=== PATIENT | female | born 1965 | race Caucasian/White ===

== ENCOUNTER 2016-10-31 12:17 | Inpatient (IN) ==
[2016-10-31] MEDS ORDERED: CeFAZolin Pre 3,000 MG/100 ML 3,000 MG/100 ML BAG IVPB ONE (13:05)
--- NOTE | 2016-10-31 13:09 | Anesthesia Evaluation PreOp ---
Date of Encounter: 10/31/16 Time of Encounter: 13:07 - Past History Planned Operation: Lap cholecystectomy, liver bx Cardiac History: HTN, Hyperlipidemia, Arrhythmia (atrial fibrillation s/p multiple cardioversions; also s/p MAZE procedure during mitral valve replacement ), Cardiac Surgery (mechanical mitral valve replacement 2 years ago) Pulmonary History: LAZ Dx Other Medical History: Hepatic (cirrhosis), Diabetes Type II ("pre-diabetes"), Other (BMI 63) Anesthesia History: No Prior Anesthetic Complications Alcohol Use: none Drug use: none Medications and Allergies Furosemide [Lasix] 80 mg PO QAM 11/20/14 [History] Potassium Chloride 80 meq PO QPM 11/20/14 [History] Sertraline [Zoloft] 100 mg PO QPM 11/20/14 [History] Albuterol Sulfate [Ventolin Hfa] 2 puff IH Q4H PRN 01/12/15 [History] Aspirin Enteric Coated [Aspirin EC] 81 mg PO QPM 01/12/15 [History] Diltiazem CD (24hr) [Cardizem CD] 120 mg PO DAILY #30 cap.er.24h 01/14/15 [Rx] Celecoxib [Celebrex] 200 mg PO DAILY 09/02/15 [History] Metoprolol XL (24 HR) Succ [Toprol XL] 75 mg PO DAILY 09/02/15 [History] Warfarin [Coumadin] 5 mg PO DAILY 09/02/15 [History] Guaifenesin/Dm/Pseudoephedrine [Capmist Dm Tablet] 1 each PO BID #20 tablet 03/12 [Rx] cephALEXin [Keflex] 500 mg PO TID #21 capsule 05/08/16 [Rx] methylPREDNISolone [Medrol] 4 mg PO DAILY #21 tablet 05/08/16 [Rx] Tramadol HCl [Ultram] 50 mg PO BID PRN #10 tab 05/23/16 [Rx] cephALEXin [Keflex] 500 mg PO BID #14 capsule 05/28/16 [Rx] Allergies hydrochlorothiazide Allergy (Verified 10/31/16 12:44) Rash acetaminophen [From Tylenol] Adverse Reaction (Verified 10/31/16 12:44) Gastrointestinal Upset - Meds/Allergy Pre-op Review Medications Reviewed: Yes Allergies Reviewed: Yes Beta Blockers on Current Med List: Yes If Beta Blockers taken, Date/Time (Last Dose taken): 10-30-16 metoprolol xl 20:00 Anesthesia Results - Labs Laboratory Tests 10/17/16 10/25/16 10/26/16 14:45 13:45 16:06 WBC 7.0 Hgb 13.8 Hct 42.2 Plt Count 120 L PT 18.9 H Sodium 136 Potassium 4.2 Chloride 104 Carbon Dioxide 25 BUN 23 H Creatinine 0.96 Est GFR ( Amer) > 60 BUN/Creatinine Ratio 24 Glucose 226 H Calculated Osmolality 293 Calcium 9.6 Laboratory Tests 10/26/16 16:06 INR 1.7 coumadin stopped about 5 days ago; patient was bridged with lovenox which she last took yesterday evening - Imaging EKG: report reviewed, image reviewed (SR) Additional studies: TTE : LVEF normal mechanical mitral valve; no mitral regurgitation noted Anesthesia Exam Last Vital Signs Temp 98.2 F 10/31/16 13:09 Pulse 86 10/31/16 13:09 Resp 18 10/31/16 13:09 BP 148/84 10/31/16 13:09 Pulse Ox 97 10/31/16 13:09 Weight: 176 kg NPO (# of Hours): >> 8 hrs - HEENT Pupil (Motor): Pupils equal, EOMI Mallampati: III Teeth: Poor dentition Oral Opening: Greater than 3 - [facility] [employer] LOC: Oriented [facility] [employer] Motor: Normal RUE, Normal LUE, Normal RLE, Normal LLE, Normal Face - Cardiac Rhythm: Regular Murmur: None - Pulmonary Breath Sounds: bilateral Clear Respiratory Effort: Symmetrical Anesthesia Assess/Plan ASA Score: 4 Modified [place] Scale for Level of Consciousness: Cooperative, oriented, and tranquil Anesthetic Plan: General Monitoring Plan: Standard Monitors Recovery Plan: PACU
[2016-10-31] MEDS ORDERED: *HR* FentaNYL (PF) 100 MCG/2 ML VIAL ONE ×2 (13:11→16:36)
[2016-10-31] MEDS ORDERED: Lidocaine -MPF 4% 5 ML AMPUL ONE (13:11)
[2016-10-31] MEDS ORDERED: *HR* Propofol 200 MG/20 ML VIAL IVP ONE (13:11)
[2016-10-31] MEDS ORDERED: Ondansetron 4 MG/2 ML VIAL ONE (13:11)
[2016-10-31] MEDS ORDERED: Dexamethasone 4 MG/ML VIAL ONE (13:11)
[2016-10-31] MEDS ORDERED: *HR* Midazolam HCl 2 MG/2 ML VIAL ONE (13:11)
[2016-10-31] MEDS ORDERED: *HR* Succinylcholine 200 MG/10 ML VIAL IVP ONE (13:11)
[2016-10-31] MEDS ORDERED: Lidocaine -MPF 2% 2 ML VIAL ONE (13:11)
[2016-10-31] MEDS ORDERED: *HR* Rocuronium Bromide 50 MG/5 ML VIAL ONE (13:11)
[2016-10-31] MEDS ORDERED: Neostigmine Methylsulfate 3 MG/3 ML SYRINGE ONE (13:11)
[2016-10-31] MEDS ORDERED: Albuterol 2.5 MG/3 ML NEBULIZER IH ONE (13:21)
[2016-10-31] MEDS: Ringers Solution, Lactated 1,000 ML IVC SCH ×2 (13:47→18:38)
--- NOTE | 2016-10-31 14:11 | History & Physical Report ---
Date of Encounter: 10/31/16 Time of Encounter: 14:10 24 Hour HP Update - Instructions Instructions: If the History and Physical is less than 30 days old and was completed prior to A.M. admission and or procedure and has NOT been updated on calendar day of procedure please complete this update prior to performing procedure. - Update Patient reports changes in Medical Condition: No Changes in examination, assessment, or condition: No Changes in Medication: No Surgery Remains Indicated: Yes Consent for Planned Operative Procedure(s) Verified: Yes - Pre-Operative Checklist Prophylactic Antibiotic Ordered: Yes Home Medications Include Beta Michael: Yes Is VTE Prophylaxis Indicated?: Yes
[2016-10-31 15:52] LABS: INR 1.4; Prothrombin Time 14.9 Seconds (9.4-12.1)
[2016-10-31] MEDS ORDERED: *HR* Morphine 10 MG/ML VIAL ONE (16:38)
--- NOTE | 2016-10-31 17:21 | Operative Note ---
Date of procedure: 10/31/16 Pre-op diagnosis: symptomatic cholelithiasis, hepatitic steatosis Post-op diagnosis: same Procedure: laparoscopic converted to open cholecytectomy, liver biopsy Complications: none immediate Anesthesia: CECELIA Surgeon: Yanet Coulter Security Risk Analyst: Kelly Correa Estimated blood loss (cc): 50 Specimen: gallbladder, liver biopsy Condition: stable Disposition: PACU Procedure in Detail: Patient was brought into the operating suit and placed supine on the operating table. Sign in was performed. Anesthesia was idnuced and patient was endotracheally intubated by anesthesia, an ogt was placed. The abdomen was prepped and draped in the usual sterile fashion. Time out was performed. An incision with an 11 blade was made at the superior umbilical site. Towel clamps were placed on either side of the umbilicus and a veress needle was placed and a water drop test confirmed placement and the abdomen was insufflated. The abdomen was entered with a 5 mm 0 degree laparoscope on a 5 mm Xcel trocar. The area under entry was visualized and there was no apparent bowel injury and no bleeding. A 5 mm trocar was placed at the subxiphoid position under direct visualization after incising the skin with an 11 blade. A 5 mm trocar was placed at the right upper quadrant at the subcostal mid clavicular line. The laparoscope was placed through this trocar and the supraumbilical 5mm port was exchanged with a 12 mm port. The last 5 mm port was placed in right upper quadrant subcostal anterior almost anterior axillary line. Patient was placed in steep reverse trendelenburg left side down position. The dome of the gallbladder was grasped and retracted cephalad. The patient has cirrhosis and the liver was very firm and nonpliable. The gallbladder was intrahepatic. The infundibulum of the gallbladder was unable to be seen due to patients obesity and her large omentum. A 5mm port was placed in the left upper quadrant and a lap Debakey placed through this for gentle pressure on the omentum to facilitate visualization. Dissection at the medial and lateral aspects of the body of the gallbladder was done with the hook cautery. Despite mutliple attempts to visualize the infundibulum it was unable to be visualized due to the patients body habitus. The decision to go open was made. The trocars were removed. A kocker incision in the right upper quadrant including the previous port incisions was made with a 15 blade through the skin into the subcutaneous tissue. Dissection through the subcutaneous tissue to the anterior rectus fascia was done with the bovie. The anterior rectus fascia was opened and the rectus muscle split with the bovie. The posterior rectus fascia was opened and the abdominal incision elongated. The bookwalter was placed for retraction and exposure. The dome of the gallbladder was grasped with a Aure. Dome down dissection with the bovie was done. Once down near the area of the infundibulum dissection was done with the bovie and a right angle and gentle blunt dissection. Due to patients cirrhosis and intrahepatic gallbladder and body habitus dissecton was very difficult. The gallbladder was opened with Metzenbaum scissors to allow localization of the infundibulum. Small black gallstones were removed. The cystic artery was located and clipped proximally and distally with 5 mm hemoclips and was transected with Metzenbaum scissors. The cystic duct was located and contained several small stones proximally which were milked back a little with the right angle. Two hemoclips were placed distally and one proximally and it was transected with Metzenbaum scissors. The gallbladder was placed on the backtable for pathology. The right upper quadrant was irrigated with sterile saline. Using the bovie a 1 cm piece of liver edge was removed for liver biopsy. The bleeding was stopped with the bovie. Surgicel was placed at the patients gallbladder fossa. A 10 mm MEL drain was placed at the gallbladder fossa through the RUQ abdominal wall and secured with a 2-0 silk stitch. The peritoneum was closed with a 2-0 vicryl running stitch. The posterior rectus and transversus fascia was reapproximated with a #1 nonlooped PDS running stitch. The anterior rectus fascia was closed with a #1 nonlooped PDS running stitch. The subcutaneous tissue was irrigated with sterile saline. The subcutaneous tissue was reapproximated with 3-0 vicryl interrupted stitches. The skin was closed with grady. The abdominal wall at the 12mm suprumbilical port site was closed with a 0 vicryl figure of eight stitch. The skin was closed with grady. The subxiphoid and left upper quadrant port sites were closed at the skin with grady. Drain sponge and 4x4 gauze and tape were used as dressings. All lap and instrument counts were correct at the end of the case. The patient was awoken by anesthesia and extubated without incident. She was taken to pacu in stable condition.
[2016-10-31] MEDS: *HR* Promethazine 25 MG/ML VIAL IVP PRN ×2 (17:46→18:12)
[2016-10-31] MEDS: *HR* HYDROmorphone (PF) 1 MG/ML SYRINGE IVP PRN ×3 (18:19→22:07)
--- NOTE | 2016-10-31 19:12 | Anesthesia Evaluation Post Op ---
Date of Encounter: 10/31/16 Time of Encounter: 19:10 - Vital Signs Vital Signs: Vital Signs/O2 Sat/Glucose, Most Current Temp Pulse Resp BP Pulse Ox 10/31/16 18:49 98.0 F 84 17 128/71 97 10/31/16 18:39 81 19 135/89 99 10/31/16 18:29 84 16 127/79 99 10/31/16 18:19 98.0 F 83 19 151/97 100 10/31/16 18:09 82 20 145/99 99 10/31/16 17:59 80 21 146/88 99 10/31/16 17:49 98.1 F 80 20 144/81 98 10/31/16 17:45 24 154/89 97 10/31/16 17:39 79 18 154/89 94 10/31/16 17:29 79 20 150/81 93 10/31/16 17:19 98.5 F 77 18 142/84 94 - Lungs Lungs: Clear Ascult./Percussion - Airway Airway: Non-obstructed - Cardiovascular Regular Rate - Mental Status Mental Status: Alert & Oriented, Answers Appropriately - Pain Pain Scale: 0 - Nausea Vomiting Nausea Vomiting: Not Present - Hydration Hydration: Ice chips - Discharge PostOp Status: Transfer Patient to floor
[2016-10-31] MEDS ORDERED: Ondansetron 4 MG/2 ML VIAL IVP PRN (19:54)
[2016-10-31] MEDS ORDERED: *HR* Promethazine 25 MG/ML VIAL IVP PRN (19:54)
[2016-10-31] MEDS ORDERED: Naloxone 0.4 MG/ML INJ IVP PRN (19:54)
[2016-10-31] MEDS: ceFAZolin 3,000 MG in D5% in Water 100 ML IVPB SCH (22:39)
[2016-11-01] MEDS: *HR* HYDROmorphone (PF) 1 MG/ML SYRINGE IVP PRN ×7 (01:29→20:44)
[2016-11-01] MEDS: 0.9 % Sodium Chloride 1,000 ML IVC SCH ×3 (05:02→13:56)
[2016-11-01] MEDS: ceFAZolin 3,000 MG in D5% in Water 100 ML IVPB SCH ×2 (05:03→13:56)
[2016-11-01 05:39] LABS: Basophils % 0.2 %; Hematocrit 39.7 % (35.3-44.9); Hemoglobin 12.3 g/dL (11.5-15.4); Immature Granulocytes % 1.2 % (0-4); Lymphocytes # 0.8 K/mcL (0.6-4.6); Lymphocytes % 7.6 %; Mean Corpuscular Hemoglobin 25.9 pg (28.0-33.3); Mean Corpuscular Volume 83.8 fL (83.0-100.0); Mean Platelet Volume 9.2 fL (9.4-12.4); Monocytes # 0.4 K/mcL (0.0-1.3); Platelet Count 106 K/mcL (140-400); Red Blood Count 4.74 M/mcL (3.82-4.97); Red Cell Distribution Width 14.5 % (11.5-14.5)
[2016-11-01 05:53] LABS: Alanine Aminotransferase 87 Units/L (0-55); Albumin 3.5 g/dL (3.5-5.0); Alkaline Phosphatase 108 Units/L (38-126); Aspartate Amino Transferase 114 Units/L (5-34); BUN/Creatinine Ratio 22 (6-26); Bilirubin,Direct 0.7 mg/dL (0.0-0.5); Bilirubin,Indirect 0.9 mg/dL (0.0-1.2); Bilirubin,Total 1.6 mg/dL (0.2-1.2); Blood Urea Nitrogen 17 mg/dL (7-20); Calcium 8.8 mg/dL (8.6-10.8); Carbon Dioxide 28 mEq/L (19-29); Chloride 100 mEq/L (98-109); Globulin 3.5 g/dL (2.4-3.5); Glucose 253 mg/dL (70-99); Magnesium 1.6 mg/dL (1.6-2.6); Osmolality,Calculated 286 (280-300); Phosphorous 2.6 mg/dL (2.3-4.7); Potassium 4.6 mEq/L (3.5-4.5); Sodium 133 mEq/L (136-145); eGFR For African Americans > 60 (> 60); eGFR For Non-African Americans > 60 (> 60)
[2016-11-01] MEDS: Pantoprazole 40 MG VIAL IVP SCH (08:34)
[2016-11-01] MEDS: Metoprolol XL (24 HR) Succ 50 MG TAB.ER.24H PO SCH (08:34)
[2016-11-01] MEDS: Diltiazem CD (24hr) 120 MG CAPSULE PO SCH (08:34)
--- NOTE | 2016-11-01 10:40 | Cardiology Consult Note ---
<Maury Campos - Last Filed: 11/01/16 11:34> Date of Encounter: 11/01/16 Time of Encounter: 10:30 Assessment and Plan (1) Mitral valve disease Current Visit: No Status: Chronic Per Cardiology: History of mechanical mitral valve replacement by Dr. Lazar 11/2014 at [place] and on Coumadin as outpatient followed by [facility] with target INR 2.5-3.5. Patient apparently bridged with Lovenox and outpatient setting and presented with planned laparoscopic cholecystectomy yesterday for symptomatic cholelithiasis, hepatitic steatosis-- laparoscopic converted to open cholecytectomy, liver biopsy. Currently off anticoagulation, current INR 1.4. Recommend resuming anticoagulation. Will need heparin drip bridging until INR therapeutic at 2.5- 3.5. Will initiate IV heparin drip. Discussed and reviewed with Dr. Linares, ideally with mechanical mitral valve would recommend bolus, however surgery recommends no bolus. Continue IV Hep gtt until INR 2.5-3.5, Coumadin resumed with Pharmacy to dose. Home dose is 7mg PO daily and follows with PCP. Cardiology will s/o, re-consult PRN, has f/u already scheduled. (2) History of atrial fibrillation Current Visit: No Status: Chronic Per Cardiology: History of atrial fibrillation with Maze procedure and SEDRICK ligation. On home dose of beta shae and calcium channel shae. Currently not on telemetry, will apply and monitor. Discussion w patient/family: The assessment and plan as outlined above was discussed with the patient and/or family members who expressed understanding and agreement. All questions were answered. Thank you for involving us in the care of your patient. Please call with any questions. History of Present Illness Consult date: 11/01/16 Requesting physician: Yanet Coulter Consult reason: Anticoagulation recommendations with mechanical mitral valve Chief complaint: Abdominal pain History of present illness: Ms. Cottrell is a 51 year old female with a relevant past medical history of atrial fibrillation with Maze procedure, CAD, history of mitral valve stenosis with mechanical mitral valve replacement with Dr. Lazar at [place], on Coumadin with target INR 2.5-3.5, and hypertension. Cardiology consult for anticoagulation recommendations postoperatively. Patient apparently bridged with Lovenox in outpatient setting prior to surgery yesterday with Coumadin on hold. Patient reports last dose of Coumadin last Monday evening. Reports started Lovenox injections with last dose Monday evening. She denies any active bleeding or blood loss. She denies any chest pain or palpitations. Reports currently right-sided abdominal pain from surgery. Utilizing home CPAP for sleep apnea. Reports her Coumadin now being managed by her PCP. Past Med Surg Social Fam HX - Past Medical History Attestation: Yes The following information was validated with the patient. Source: patient, old records reviewed Medical history: atrial fibrillation, hypertension, valvular heart disease, other Psychiatric history: anxiety, depression - Past Surgical History Surgical History: non-contributory, appendectomy, cholecystectomy, heart valve replacement, hysterectomy, other - Social History Smoking Status: Former smoker Smokeless Tobacco Status: No Alcohol use: none Drug use: none - Family History Mother Adopted: No Family Member Ethnicity: Non- Living Status: Still Living Hx Family Cardiac Disorders: Yes Hx Family Respiratory Disorders: No Hx Family Cancer: Yes (leukemia) Hx Family GI Disorders: No Hx Family Endocrine Disorder: Yes (diabetic) Hx Family Neuromuscular Disorders: No Hx Family Neurologic Disorders: No Hx Family HEENT Disorders: No Hx Family Autoimmune Disorders: No Medications and Allergies Potassium Chloride 20 meq PO QPM 11/20/14 [History] Sertraline [Zoloft] 100 mg PO QPM 11/20/14 [History] Albuterol Sulfate [Ventolin Hfa] 2 puff IH Q4H PRN 01/12/15 [History] Diltiazem CD (24hr) [Cardizem CD] 120 mg PO DAILY #30 cap.er.24h 01/14/15 [Rx] Celecoxib [Celebrex] 200 mg PO DAILY 09/02/15 [History] Metoprolol XL (24 HR) Succ [Toprol XL] 75 mg PO DAILY 09/02/15 [History] Enoxaparin [Lovenox] 80 mg SQ Q12HR 10/31/16 [History] Furosemide [Lasix] 20 mg PO DAILY 10/31/16 [History] Warfarin [Coumadin] 2 mg PO 1800 10/31/16 [History] Warfarin [Coumadin] 5 mg PO 1800 10/31/16 [History] Allergies hydrochlorothiazide Allergy (Verified 10/31/16 13:31) Rash hydrocodone [From Vicodin] Allergy (Verified 10/31/16 13:48) Itching acetaminophen [From Tylenol] Adverse Reaction (Verified 10/31/16 13:31) Gastrointestinal Upset All Systems Review: A 10-system review of systems was performed and is negative for pertinent findings except as documented above in the HPI. - Cardiovascular Cardiovascular: as per HPI - Gastrointestinal Gastrointestinal: abdominal pain (incisional pain) Physical Examination Vital Signs, Last 4 Hours Temp Pulse Resp BP Pulse Ox 11/01/16 07:40 97.3 F L 105 20 156/89 96 General: Conversant, No Apparent Distress HEENT: Atraumatic, Normocephaly, Mucus Membranes Moist Neck: No JVD, Normal carotid pulses Cardiac: Reg Rate and Rhythm, Normal S1 and S2, No Murmur Lungs: Normal Breath Sounds, No Wheeze, Rales, Rhonchi Neuro: Alert and responsive, No focal deficits noted Abdomen: Soft, Non-Tender, Other (obese, right side drsg D&I) Skin: No rashes noted on visualized skin Musculoskeletal: No Chest Wall Tenderness Extremities: No Clubbing, No Cyanosis, No Edema, Normal Pulses Results 11/01/16 04:55 11/01/16 04:55 Lab Results 10/31/16 11/01/16 11/01/16 15:22 04:55 04:55 WBC 10.4 Hgb 12.3 D Hct 39.7 Plt Count 106 L INR 1.4 Sodium 133 L Potassium 4.6 H Chloride 100 Carbon Dioxide 28 BUN 17 Creatinine 0.79 Glucose 253 H Calcium 8.8 Magnesium 1.6 Total Bilirubin 1.6 H AST 114 H ALT 87 H Alkaline Phosphatase 108 - EKG Interpretation EKG results cardiology: other (no tele available) Consult Discharge Plan - Plan Referrals: Mauricio Marquez CNP [Primary Care Provider] - Génesis Walters CNP [Advanced Practice Nurse] - 11/14/16 10:30 am <Gissell Linares - Last Filed: 11/01/16 18:15> Date of Encounter: 11/01/16 Assessment and Plan Discussion w patient/family: The assessment and plan as outlined above was discussed with the patient and/or family members who expressed understanding and agreement. All questions were answered. Thank you for involving us in the care of your patient. Please call with any questions. History of Present Illness History of present illness: Ms. Cottrell is a 51 year old female All Systems Review: A 10-system review of systems was performed and is negative for pertinent findings except as documented above in the HPI. Physical Examination Vital Signs, Last 4 Hours Temp Pulse Resp BP Pulse Ox 11/01/16 15:00 97.9 F 97 18 138/83 90 Results 11/01/16 12:03 11/01/16 04:55 Lab Results 11/01/16 11/01/16 11/01/16 04:55 04:55 12:03 WBC 10.4 13.2 H Hgb 12.3 D 12.8 Hct 39.7 39.8 Plt Count 106 L 109 L APTT Sodium 133 L Potassium 4.6 H Chloride 100 Carbon Dioxide 28 BUN 17 Creatinine 0.79 Glucose 253 H Calcium 8.8 Magnesium 1.6 Total Bilirubin 1.6 H AST 114 H ALT 87 H Alkaline Phosphatase 108 11/01/16 12:03 WBC Hgb Hct Plt Count APTT 29.7 Sodium Potassium Chloride Carbon Dioxide BUN Creatinine Glucose Calcium Magnesium Total Bilirubin AST ALT Alkaline Phosphatase - Attending Attestation I examined this patient and my medical decision-making was reviewed with the Resident Physician. I agree with the documented findings, disposition and treatment plan. We've been asked to make recommendations for anticoagulation in setting of a mechanical mitral valve. The patient underwent open cholecystectomy yesterday. Recommend starting heparin as soon as possible. This was discussed with surgery. They will allow heparin without bolus. We will also start coumadin dosing tonight (10mg tonight, 7mg thereafter which is her home dose). Goal INR is 2.5-3.5. Recommend continuing heparin until within therapeutic range. Her PCP was managing outpatient coumadin dosing. Will sign off. Please call with questions.
--- NOTE | 2016-11-01 11:03 | Event Note ---
Date of Encounter: 11/01/16 Time of Encounter: 10:00 Cardiology consulted (Spoke with Dr. Linares) for anticoagulation recommendations in the setting of mechanical mitral valve and postoperative bleeding; cardiology to manage. Ok to start Heparin from a surgical standpoint, but without bolus.
[2016-11-01] MEDS ORDERED: *HR* Heparin 5,000 UNIT/ML VIAL IVP PRN ×2 (11:30)
--- NOTE | 2016-11-01 11:53 | General Surgery Progress Note ---
<Keesha Reynoso - Last Filed: 11/01/16 16:16> Date of Encounter: 11/01/16 Time of Encounter: 11:52 - Assessment and Plan (1) Symptomatic cholelithiasis Current Visit: Yes Status: Acute POD #1 Laproscopic converted to open cholecystectomy and liver bipopsy Continue supportive care and discomfort control; Add p.o. pain medication when tolerating liquids Hypoactive bowel sounds at this time. No flatus reported Advance diet as tolerated, Regular diet for dinner Wound care daily: remove packing, clean with soap and water. Pack with 1/4 plain gauze. Cover with dry dressing. Reinforce/change outer dressing PRN. Pathology report pending Ok to start heparin, but without bolus (management per cardiology). Repeat AM labs Mobilize as tolerated; OOB TID with meals (2) S/P mitral valve replacement with metallic valve Current Visit: No Status: Acute Cardiology consulted for management of anticoagulation in the setting of open laproscopic cholecystectomy and mechanical mitral valve. Spoke with Dr. Linares. Ok to start heparin, but without bolus (management per cardiology). (3) History of atrial fibrillation Current Visit: No Status: Chronic Management per cardiology/medicine Objective Vital Signs - Last 8 Hours Temp Pulse Resp BP Pulse Ox 11/01/16 07:40 97.3 F L 105 20 156/89 96 11/01/16 04:42 98.2 F 98 18 142/84 93 Intake and Output 10/31/16 11/01/16 11/01/16 23:59 07:59 15:59 Intake Total 1075 / 1075 0 / 0 Output Total 290 / 290 20 / 20 200 / 200 Balance 785 / 785 -20 / -20 -200 / -200 Intake: IV Fluids 1075 / 1075 Lactated Ringers 1,000 ML 975 / 975 @ 25 mls/hr IVC .Q24H [facility] Rx#:[id number] Ancef 3,000 MG In 100 / 100 Dextrose 5% 100 ML @ 200 mls/hr IVPB Q8H [facility] Rx#: [id number] Oral 0 / 0 Output: Urine 200 / 200 200 / 200 Estimated Blood Loss 50 / 50 Wound Drainage 40 / 40 20 / 20 Right Lower Abdomen 40 / 40 20 / 20 Other: Meal NPO Percent of Meal Consumed 0% Weight 176.3 kg Blood Glucose* 202 236 Patient Weight 11/01/16 23:59 Weight 176.3 kg - General physical appearance no distress, moderate pain, other (Sitting at EOB; [place] [facility] [place] - ENT normal mucosa, atraumatic, normocephalic - Neck Neck exam: trachea midline - Respiratory other (Decreased breath sounds. O2 per NC noted. SOB with activity) - Cardiovascular Addtional Comments: Distant heart tones. - Abdomen Abdomen: Present: wound (MEL drain with small amount of serosanguineous output noted; RUQ incision intact. Changed packing, small amount of dark blood noted. No s/s of infection noted.) - Incision Incision: Present: clean and dry, intact - Labs 11/01/16 12:03 11/01/16 04:55 Diabetes panel 11/01/16 Range/Units 04:55 Sodium 133 L (136-145) mEq/L Potassium 4.6 H (3.5-4.5) mEq/L Chloride 100 (98-109) mEq/L Carbon Dioxide 28 (19-29) mEq/L BUN 17 (7-20) mg/dL Creatinine 0.79 (0.57-1.11) mg/dL Glucose 253 H (70-99) mg/dL Calcium 8.8 (8.6-10.8) mg/dL AST 114 H (5-34) Units/L ALT 87 H (0-55) Units/L Alkaline Phosphatase 108 (38-126) Units/L Albumin 3.5 (3.5-5.0) g/dL Calcium panel 11/01/16 Range/Units 04:55 Calcium 8.8 (8.6-10.8) mg/dL Phosphorus 2.6 (2.3-4.7) mg/dL Albumin 3.5 (3.5-5.0) g/dL Pituitary panel 11/01/16 Range/Units 04:55 Sodium 133 L (136-145) mEq/L Potassium 4.6 H (3.5-4.5) mEq/L Chloride 100 (98-109) mEq/L Carbon Dioxide 28 (19-29) mEq/L BUN 17 (7-20) mg/dL Creatinine 0.79 (0.57-1.11) mg/dL Glucose 253 H (70-99) mg/dL Calcium 8.8 (8.6-10.8) mg/dL Adrenal panel 11/01/16 Range/Units 04:55 Sodium 133 L (136-145) mEq/L Potassium 4.6 H (3.5-4.5) mEq/L Chloride 100 (98-109) mEq/L Carbon Dioxide 28 (19-29) mEq/L BUN 17 (7-20) mg/dL Creatinine 0.79 (0.57-1.11) mg/dL Glucose 253 H (70-99) mg/dL Calcium 8.8 (8.6-10.8) mg/dL Total Bilirubin 1.6 H (0.2-1.2) mg/dL AST 114 H (5-34) Units/L ALT 87 H (0-55) Units/L Alkaline Phosphatase 108 (38-126) Units/L Albumin 3.5 (3.5-5.0) g/dL - VTE Documentation of Mechanical Device: Venous foot pump, device Consult Discharge Plan - Plan Referrals: Mauricio Marquez CNP [Primary Care Provider] - Génesis Walters CNP [Advanced Practice Nurse] - 11/14/16 10:30 am <Yanet Coulter - Last Filed: 11/01/16 16:38> Date of Encounter: 11/01/16 - Assessment and Plan (1) S/P cholecystectomy Current Visit: Yes Status: Acute pod 1 lap to open cholecystectomy tolerated clears, advance to regular prn pain control OOB to chair and ambulate (2) Mitral valve replaced Current Visit: Yes Status: Acute history MVR and patient normally on coumadin ok to restart coumadin po and start pt on heparin gtt - w/o bolus pt is at risk of post op bleeding (3) Anticoagulation goal of INR 2.5 to 3.5 Current Visit: Yes Status: Acute ok restart coumadin continue heparin gtt (no bolus during initiation) (4) Depression Current Visit: Yes Status: Chronic continue home meds Qualifiers: Depression Type: unspecified Qualified Code(s): F32.9 - Major depressive disorder, single episode, unspecified (5) HTN (hypertension) Current Visit: Yes Status: Chronic continue home medication Qualifiers: Hypertension type: essential hypertension Qualified Code(s): I10 - Essential (primary) hypertension Subjective Patient reports: no new complaints, feels better, still having pain, pain is less, tolerating liquids well, flatus Objective Vital Signs - Last 8 Hours Temp Pulse Resp BP Pulse Ox 11/01/16 15:00 97.9 F 97 18 138/83 90 11/01/16 11:53 97.7 F 93 18 138/81 100 Intake and Output 11/01/16 11/01/16 11/01/16 07:59 15:59 23:59 Intake Total 100 / 100 1240 / 1240 Output Total 20 / 20 300 / 300 Balance 80 / 80 940 / 940 Intake: IV Fluids 100 / 100 1000 / 1000 0.9 % Sodium Chloride 1, 1000 / 1000 000 ML @ 120 mls/hr IVC . Q8H20M [facility] Rx#:[id number] Ancef 3,000 MG In 100 / 100 Dextrose 5% 100 ML @ 200 mls/hr IVPB Q8H [facility] Rx#: [id number] Oral 240 / 240 Output: Urine 300 / 300 Wound Drainage 20 / 20 Right Lower Abdomen 20 / 20 Other: Meal Lunch Percent of Meal Consumed 0% Weight 176.3 kg 175.54 kg Blood Glucose* 236 156 Patient Weight 11/01/16 23:59 Weight 175.54 kg - General physical appearance well developed, well nourished, no distress, obese - Eyes PERRL, normal ocular movement - ENT normal mucosa, normocephalic - Neck Neck exam: trachea midline - Respiratory normal expansion, clear to auscultation - Abdomen Abdomen: Present: bowel sounds present, soft, wound - Incision Incision: Present: clean and dry, intact - Integumentary no rash, no growths - Neurologic CN 2-12 grossly intact - Musculoskeletal normal posture - Psychiatric oriented to time, oriented to person, memory intact - Labs 11/01/16 12:03 11/01/16 04:55 Diabetes panel 11/01/16 Range/Units 04:55 Sodium 133 L (136-145) mEq/L Potassium 4.6 H (3.5-4.5) mEq/L Chloride 100 (98-109) mEq/L Carbon Dioxide 28 (19-29) mEq/L BUN 17 (7-20) mg/dL Creatinine 0.79 (0.57-1.11) mg/dL Glucose 253 H (70-99) mg/dL Calcium 8.8 (8.6-10.8) mg/dL AST 114 H (5-34) Units/L ALT 87 H (0-55) Units/L Alkaline Phosphatase 108 (38-126) Units/L Albumin 3.5 (3.5-5.0) g/dL Calcium panel 11/01/16 Range/Units 04:55 Calcium 8.8 (8.6-10.8) mg/dL Phosphorus 2.6 (2.3-4.7) mg/dL Albumin 3.5 (3.5-5.0) g/dL Pituitary panel 11/01/16 Range/Units 04:55 Sodium 133 L (136-145) mEq/L Potassium 4.6 H (3.5-4.5) mEq/L Chloride 100 (98-109) mEq/L Carbon Dioxide 28 (19-29) mEq/L BUN 17 (7-20) mg/dL Creatinine 0.79 (0.57-1.11) mg/dL Glucose 253 H (70-99) mg/dL Calcium 8.8 (8.6-10.8) mg/dL Adrenal panel 11/01/16 Range/Units 04:55 Sodium 133 L (136-145) mEq/L Potassium 4.6 H (3.5-4.5) mEq/L Chloride 100 (98-109) mEq/L Carbon Dioxide 28 (19-29) mEq/L BUN 17 (7-20) mg/dL Creatinine 0.79 (0.57-1.11) mg/dL Glucose 253 H (70-99) mg/dL Calcium 8.8 (8.6-10.8) mg/dL Total Bilirubin 1.6 H (0.2-1.2) mg/dL AST 114 H (5-34) Units/L ALT 87 H (0-55) Units/L Alkaline Phosphatase 108 (38-126) Units/L Albumin 3.5 (3.5-5.0) g/dL - Attending Attestation I have personally performed a face to face evaluation on this patient. I have reviewed and agree with the care plan. History and Exam by me shows: s/p lap to open cholecystectomy
[2016-11-01 12:19] LABS: Hematocrit 39.8 % (35.3-44.9); Hemoglobin 12.8 g/dL (11.5-15.4); Mean Corpuscular HGB Conc 32.2 g/dL (31.6-35.5); Mean Corpuscular Hemoglobin 27.1 pg (28.0-33.3); Mean Corpuscular Volume 84.1 fL (83.0-100.0); Mean Platelet Volume 9.1 fL (9.4-12.4); Platelet Count 109 K/mcL (140-400); Red Blood Count 4.73 M/mcL (3.82-4.97); Red Cell Distribution Width 14.6 % (11.5-14.5)
[2016-11-01] MEDS: Heparin 25,000 UNIT/500 ML D5W 25,000 UNIT/500 ML MLS IVC SCH (13:42)
[2016-11-01] MEDS ORDERED: Dextrose Gel 15 GM PO PRN ×2 (17:38)
[2016-11-01] MEDS ORDERED: D5% in Water 1,000 ML IVC PRN (17:38)
[2016-11-01] MEDS ORDERED: *HR* Dextrose 50 % in Water (Syg) 50 ML SYRINGE IVP PRN (17:38)
[2016-11-01] MEDS ORDERED: *HR* Warfarin 5 MG TABLET PO ONE (18:00)
[2016-11-01] MEDS ORDERED: Warfarin perPT PO PRN (18:00)
[2016-11-01] MEDS: Insulin LISPRO 300 UNITS/3 ML VIAL SQ SCH ×2 (18:05→22:18)
[2016-11-01] MEDS: *HR* OxyCODONE/APAP 5/325 TABLET PO PRN ×2 (19:02→23:02)
[2016-11-02] MEDS: Heparin 25,000 UNIT/500 ML D5W 25,000 UNIT/500 ML MLS IVC SCH ×3 (00:54→22:57)
[2016-11-02] MEDS: *HR* HYDROmorphone (PF) 1 MG/ML SYRINGE IVP PRN ×4 (01:01→12:14)
[2016-11-02 05:02] LABS: INR 1.2; Prothrombin Time 13.4 Seconds (9.4-12.1)
[2016-11-02 05:14] LABS: BUN/Creatinine Ratio 20 (6-26); Blood Urea Nitrogen 15 mg/dL (7-20); Calcium 8.4 mg/dL (8.6-10.8); Carbon Dioxide 27 mEq/L (19-29); Chloride 101 mEq/L (98-109); Glucose 202 mg/dL (70-99); Osmolality,Calculated 285 (280-300); Potassium 3.9 mEq/L (3.5-4.5); Sodium 134 mEq/L (136-145); eGFR For African Americans > 60 (> 60); eGFR For Non-African Americans > 60 (> 60)
[2016-11-02 05:17] LABS: Basophils % 0.3 %; Eosinophils # 0.1 K/mcL (0.0-0.6); Eosinophils % 0.7 %; Hematocrit 38.5 % (35.3-44.9); Hemoglobin 11.6 g/dL (11.5-15.4); Immature Granulocytes % 1.3 % (0-4); Lymphocytes # 2.1 K/mcL (0.6-4.6); Lymphocytes % 20.4 %; Mean Corpuscular HGB Conc 30.1 g/dL (31.6-35.5); Mean Corpuscular Hemoglobin 25.7 pg (28.0-33.3); Mean Corpuscular Volume 85.2 fL (83.0-100.0); Mean Platelet Volume 9.5 fL (9.4-12.4); Monocytes # 0.7 K/mcL (0.0-1.3); Monocytes % 6.5 %; Neutrophils # 7.2 K/mcL (1.6-8.9); Platelet Count 111 K/mcL (140-400); Red Blood Count 4.52 M/mcL (3.82-4.97); Red Cell Distribution Width 14.9 % (11.5-14.5); Segmented Neutrophils % 70.8 %
[2016-11-02] MEDS: Pantoprazole 40 MG VIAL IVP SCH (08:37)
[2016-11-02] MEDS: Diltiazem CD (24hr) 120 MG CAPSULE PO SCH (08:38)
[2016-11-02] MEDS: Metoprolol XL (24 HR) Succ 50 MG TAB.ER.24H PO SCH (08:38)
[2016-11-02] MEDS: Insulin LISPRO 300 UNITS/3 ML VIAL SQ SCH ×4 (08:39→23:19)
[2016-11-02] MEDS ORDERED: *HR* OxyCODONE/APAP 5/325 TABLET PO PRN (13:20)
--- NOTE | 2016-11-02 13:41 | General Surgery Progress Note ---
<Keesha Reynoso - Last Filed: 11/02/16 14:20> Date of Encounter: 11/02/16 Time of Encounter: 13:15 - Assessment and Plan (1) Symptomatic cholelithiasis Current Visit: Yes Status: Acute POD #2 Laproscopic converted to open cholecystectomy and liver bipopsy Pathology report pending Continue supportive care and discomfort control; Increase percocet and add schedule toradol Active bowel sounds at this time. No flatus or BM reported. Will add stool softener Tolerating regular diet Wound care daily: remove packing, clean with soap and water. Pack with 1/4 plain gauze. Cover with dry dressing. Reinforce/change outer dressing PRN. Will need home health at D/C for dressings and wound packing. MECCA Dawkins aware. Heparin gtt noted. Some ecchymosis to the dependent pannus. No signs of active bleeding. Hgb stable Repeat AM labs Mobilize as tolerated; OOB TID with meals; strongly encouraged use of IS and ambulation. (2) S/P mitral valve replacement with metallic valve Current Visit: No Status: Acute Management per cardiology; heparin gtt noted. (3) History of atrial fibrillation Current Visit: No Status: Chronic Management per cardiology/medicine (4) DVT prophylaxis Current Visit: No Status: Acute Therapeutic heparin gtt noted. Resumed warfarin therapy. Mobilize as tolerated. Subjective Patient reports: still having pain, pain is less, tolerating a regular diet, voiding w/o difficulty, no flatus, no bowel movement Narrative: States some improvement in discomfort, but not controlled. Denies n/v/d, fever, or chills. Objective Vital Signs - Last 8 Hours Temp Pulse Resp BP Pulse Ox 11/02/16 11:28 98.3 F 101 16 124/75 94 11/02/16 08:14 98.2 F 103 16 145/78 95 Intake and Output 11/01/16 11/02/16 11/02/16 23:59 07:59 15:59 Intake Total 669 / 669 953 / 953 216 / 216 Output Total 0 / 0 90 / 90 Balance 669 / 669 863 / 863 216 / 216 Intake: IV Fluids 429 / 429 713 / 713 216 / 216 Heparin 25,000 UNIT/500 429 / 429 713 / 713 216 / 216 ML D5W 25,000 unit In 500 ml @ 14 UNIT/KG/HR 49. 364 mls/hr IVC .Q10H8M [facility] Rx#:[id number] Oral 240 / 240 240 / 240 Output: Urine 0 / 0 50 / 50 Wound Drainage 40 / 40 Right Lower Abdomen 40 / 40 Other: Meal Dinner Percent of Meal Consumed 100% # Voids 1 1 1 Weight 175.087 kg Blood Glucose* 186 187 Patient Weight 11/02/16 23:59 Weight 175.087 kg - General physical appearance no distress, moderate pain, other (CPAP on at this time) - Eyes normal ocular movement - ENT atraumatic, normocephalic - Neck Neck exam: trachea midline - Respiratory normal expansion, normal respiratory effort, clear to auscultation, other (CPAP) - Cardiovascular Cardiovascular exam: Present: RRR, distant heart sounds (Mechanical) - Abdomen Abdomen: Present: bowel sounds present, soft, tender (Expected postoperative tenderness), wound (MEL cherie present with small amount of SS fluid noted with drainage around the MEL. Surgical incision free from s/s of infection. Lateral areas packing changed. small amount of SS fluid drainging. ) - Incision Incision: Present: intact (See assessment above) - Neurologic CN 2-12 grossly intact - Musculoskeletal normal posture - Psychiatric oriented to time, oriented to person, oriented to place - Additional Exam Heparin gtt noted. Some ecchymosis to the dependent pannus. No signs of active bleeding. Hgb stable - Labs 11/02/16 04:32 11/02/16 04:32 Diabetes panel 11/02/16 Range/Units 04:32 Sodium 134 L (136-145) mEq/L Potassium 3.9 (3.5-4.5) mEq/L Chloride 101 (98-109) mEq/L Carbon Dioxide 27 (19-29) mEq/L BUN 15 (7-20) mg/dL Creatinine 0.74 (0.57-1.11) mg/dL Glucose 202 H (70-99) mg/dL Calcium 8.4 L (8.6-10.8) mg/dL Calcium panel 11/02/16 Range/Units 04:32 Calcium 8.4 L (8.6-10.8) mg/dL Pituitary panel 11/02/16 Range/Units 04:32 Sodium 134 L (136-145) mEq/L Potassium 3.9 (3.5-4.5) mEq/L Chloride 101 (98-109) mEq/L Carbon Dioxide 27 (19-29) mEq/L BUN 15 (7-20) mg/dL Creatinine 0.74 (0.57-1.11) mg/dL Glucose 202 H (70-99) mg/dL Calcium 8.4 L (8.6-10.8) mg/dL Adrenal panel 11/02/16 Range/Units 04:32 Sodium 134 L (136-145) mEq/L Potassium 3.9 (3.5-4.5) mEq/L Chloride 101 (98-109) mEq/L Carbon Dioxide 27 (19-29) mEq/L BUN 15 (7-20) mg/dL Creatinine 0.74 (0.57-1.11) mg/dL Glucose 202 H (70-99) mg/dL Calcium 8.4 L (8.6-10.8) mg/dL - VTE Documentation of Mechanical Device: Venous foot pump, device Consult Discharge Plan - Plan Referrals: Mauricio Marquez CNP [Primary Care Provider] - Génesis Walters CNP [Advanced Practice Nurse] - 11/14/16 10:30 am <Yanet Coulter - Last Filed: 11/02/16 18:50> Date of Encounter: 11/02/16 Time of Encounter: 18:37 - Assessment and Plan (1) S/P cholecystectomy Current Visit: Yes Status: Acute s/p lap to open cholecystectomy cardiac diet prn pain control OOB to chair with all meals ok to shower (2) Mitral valve replaced Current Visit: Yes Status: Acute (3) Anticoagulation goal of INR 2.5 to 3.5 Current Visit: Yes Status: Acute continue heparin drip, restarted coumadin (4) Depression Current Visit: Yes Status: Chronic ok for home meds Qualifiers: Depression Type: unspecified Qualified Code(s): F32.9 - Major depressive disorder, single episode, unspecified (5) HTN (hypertension) Current Visit: Yes Status: Chronic on home meds, BP controlled Qualifiers: Hypertension type: essential hypertension Qualified Code(s): I10 - Essential (primary) hypertension Subjective Patient reports: still having pain, tolerating a regular diet, voiding w/o difficulty, no flatus, no bowel movement Narrative: complaints of right shoulder pain, feels better with O2 on Objective Vital Signs - Last 8 Hours Temp Pulse Resp BP Pulse Ox 11/02/16 15:05 98.1 F 104 18 141/85 92 11/02/16 11:28 98.3 F 101 16 124/75 94 Intake and Output 11/02/16 11/02/16 11/02/16 07:59 15:59 23:59 Intake Total 953 / 953 336 / 336 360 / 360 Output Total 90 / 90 20 / 20 Balance 863 / 863 316 / 316 360 / 360 Intake: IV Fluids 713 / 713 216 / 216 Heparin 25,000 UNIT/500 713 / 713 216 / 216 ML D5W 25,000 unit In 500 ml @ 14 UNIT/KG/HR 49. 364 mls/hr IVC .Q10H8M [facility] Rx#:[id number] Oral 240 / 240 120 / 120 360 / 360 Output: Urine 50 / 50 Wound Drainage 40 / 40 20 / 20 Right Lower Abdomen 40 / 40 20 / 20 Other: Meal Lunch Dinner Percent of Meal Consumed 15% 60% # Voids 1 1 Weight 175.087 kg Blood Glucose* 187 187 Patient Weight 11/02/16 23:59 Weight 175.087 kg - General physical appearance well developed, well nourished, no distress, obese - Eyes normal ocular movement - ENT normal mucosa, normocephalic - Neck Neck exam: trachea midline - Respiratory normal expansion, clear to auscultation - Cardiovascular Cardiovascular exam: Present: RRR - Abdomen Abdomen: Present: bowel sounds present, soft, tender, wound - Incision Incision: Present: intact - Integumentary no growths - Neurologic CN 2-12 grossly intact - Musculoskeletal normal posture - Psychiatric oriented to time, oriented to person, oriented to place, speech is normal, memory intact - Labs 11/02/16 04:32 11/02/16 04:32 Vital Signs Temp Pulse Resp BP Pulse Ox 11/02/16 15:05 98.1 F 104 18 141/85 92 11/02/16 11:28 98.3 F 101 16 124/75 94 11/02/16 08:14 98.2 F 103 16 145/78 95 11/02/16 03:56 97.8 F 91 16 127/78 127 11/02/16 00:03 98.6 F 94 14 131/83 95 11/01/16 19:50 98.2 F 98 14 138/85 95 11/01/16 19:01 95 Intake and Output 11/02/16 11/02/16 11/02/16 07:59 15:59 23:59 Intake Total 953 / 953 336 / 336 360 / 360 Output Total 90 / 90 20 / 20 Balance 863 / 863 316 / 316 360 / 360 Intake: IV Fluids 713 / 713 216 / 216 Heparin 25,000 UNIT/500 713 / 713 216 / 216 ML D5W 25,000 unit In 500 ml @ 14 UNIT/KG/HR 49. 364 mls/hr IVC .Q10H8M [facility] Rx#:[id number] Oral 240 / 240 120 / 120 360 / 360 Output: Urine 50 / 50 Wound Drainage 40 / 40 20 / 20 Right Lower Abdomen 40 / 40 20 / 20 Other: Meal Lunch Dinner Percent of Meal Consumed 15% 60% # Voids 1 1 Weight 175.087 kg Blood Glucose* 187 187 Patient Weight 11/02/16 23:59 Weight 175.087 kg Short CBC 11/02/16 Range/Units 04:32 WBC 10.2 (4.3-11.1) K/mcL Hgb 11.6 (11.5-15.4) g/dL Hct 38.5 (35.3-44.9) % Plt Count 111 L (140-400) K/mcL Neutrophils # 7.2 (1.6-8.9) K/mcL BMP 11/02/16 Range/Units 04:32 Sodium 134 L (136-145) mEq/L Potassium 3.9 (3.5-4.5) mEq/L Chloride 101 (98-109) mEq/L Carbon Dioxide 27 (19-29) mEq/L BUN 15 (7-20) mg/dL Creatinine 0.74 (0.57-1.11) mg/dL Glucose 202 H (70-99) mg/dL Calcium 8.4 L (8.6-10.8) mg/dL - Attending Attestation I have personally performed a face to face evaluation on this patient. I have reviewed and agree with the care plan. History and Exam by me shows: doing well from lap to open cholecystectomy
[2016-11-02] MEDS: Ketorolac 15 MG/ML VIAL IVP SCH ×2 (15:03→19:45)
[2016-11-02] MEDS: *HR* OxyCODONE Immed Rel 5 MG TABLET PO PRN ×2 (16:47→22:06)
[2016-11-02] MEDS ORDERED: *HR* Warfarin 5 MG TABLET PO ONE (18:00)
[2016-11-02] MEDS ORDERED: Ipratropium/Albuterol Neb 3 ML IH ONE (18:53)
[2016-11-03] MEDS: Ketorolac 15 MG/ML VIAL IVP SCH ×4 (00:52→17:11)
[2016-11-03] MEDS: *HR* HYDROmorphone (PF) 1 MG/ML SYRINGE IVP PRN ×2 (05:53→21:47)
[2016-11-03 06:00] LABS: INR 1.3; Prothrombin Time 14.2 Seconds (9.4-12.1)
[2016-11-03 06:02] LABS: Activated Partial Thrombo Time 83.7 Seconds (26.0-36.0)
[2016-11-03] MEDS: Diltiazem CD (24hr) 120 MG CAPSULE PO SCH (08:25)
[2016-11-03] MEDS: Insulin LISPRO 300 UNITS/3 ML VIAL SQ SCH ×4 (08:25→22:03)
[2016-11-03] MEDS: Furosemide 20 MG TABLET PO SCH (08:25)
[2016-11-03] MEDS: Metoprolol XL (24 HR) Succ 50 MG TAB.ER.24H PO SCH (08:25)
[2016-11-03] MEDS: Pantoprazole 40 MG VIAL IVP SCH (08:26)
[2016-11-03 08:49] LABS: Basophils % 0.5 %; Eosinophils # 0.2 K/mcL (0.0-0.6); Eosinophils % 2.3 %; Hematocrit 35.4 % (35.3-44.9); Hemoglobin 11.5 g/dL (11.5-15.4); Immature Granulocytes % 2.3 % (0-4); Lymphocytes # 2.1 K/mcL (0.6-4.6); Lymphocytes % 26.8 %; Mean Corpuscular HGB Conc 32.5 g/dL (31.6-35.5); Mean Corpuscular Hemoglobin 27.1 pg (28.0-33.3); Mean Corpuscular Volume 83.3 fL (83.0-100.0); Monocytes # 0.6 K/mcL (0.0-1.3); Monocytes % 7.1 %; Neutrophils # 4.8 K/mcL (1.6-8.9); Nucleated Red Blood Cells 0.3 /100 WBC (0); Platelet Count 107 K/mcL (140-400); Red Blood Count 4.25 M/mcL (3.82-4.97); Red Cell Distribution Width 15.1 % (11.5-14.5)
[2016-11-03 09:02] LABS: BUN/Creatinine Ratio 17 (6-26); Blood Urea Nitrogen 13 mg/dL (7-20); Calcium 8.7 mg/dL (8.6-10.8); Carbon Dioxide 27 mEq/L (19-29); Chloride 100 mEq/L (98-109); Glucose 196 mg/dL (70-99); Osmolality,Calculated 288 (280-300); Potassium 3.6 mEq/L (3.5-4.5); Sodium 136 mEq/L (136-145); eGFR For African Americans > 60 (> 60); eGFR For Non-African Americans > 60 (> 60)
[2016-11-03] MEDS: *HR* OxyCODONE Immed Rel 5 MG TABLET PO PRN ×2 (09:28→20:07)
[2016-11-03] MEDS: Heparin 25,000 UNIT/500 ML D5W 25,000 UNIT/500 ML MLS IVC SCH ×2 (11:05→21:50)
--- NOTE | 2016-11-03 14:53 | General Surgery Progress Note ---
<Keesha Reynoso - Last Filed: 11/03/16 15:08> Date of Encounter: 11/03/16 Time of Encounter: 14:40 - Assessment and Plan (1) Symptomatic cholelithiasis Current Visit: Yes Status: Acute POD #3 Laproscopic converted to open cholecystectomy and liver bipopsy Continue supportive care and discomfort control; Scheduled toradol and PRN Oxycodone Active bowel sounds at this time. No flatus or BM reported. Scheduled stool softener Pathology report: Liver biopsy: Severe steatosis. Gallbladder, cholecystectomy: Cholelithiasis and chronic cholecystitis. Chronic elevated liver functions D/C planning for home in the next 24-48 hours pending INR and clinical progression. Home health at D/C for dressings and wound packing. CM Mariza aware. Wound care daily: Per bedside RN-remove packing, clean with soap and water. Pack with 1/4 plain gauze. Cover with dry dressing. Reinforce/change outer dressing PRN. Heparin gtt noted. Subtherapeutic INR, coumadin dosing per pharmacy. Some ecchymosis to the dependent pannus. No signs of active bleeding. Hgb stable Repeat AM labs Mobilize as tolerated; OOB TID with meals; strongly encouraged use of IS and ambulation. (2) S/P mitral valve replacement with metallic valve Current Visit: No Status: Acute Coumadin dosing per pharmacy. Heparin gtt continued at this time. Repeat am labs. Will continue to monitor. (3) History of atrial fibrillation Current Visit: No Status: Chronic See plan above (4) DVT prophylaxis Current Visit: No Status: Acute Therapeutic heparin gtt noted. Resumed warfarin therapy. Mobilize as tolerated. Subjective Patient reports: no new complaints, feels better, still having pain, pain is less, voiding w/o difficulty, flatus, no bowel movement Objective Vital Signs - Last 8 Hours Temp Pulse Resp BP Pulse Ox 11/03/16 10:59 97.7 F 89 16 122/76 98 11/03/16 08:35 92 11/03/16 07:26 99.6 F 98 16 144/81 92 Intake and Output 11/02/16 11/03/16 11/03/16 23:59 07:59 15:59 Intake Total 980 / 980 680 / 680 520 / 520 Output Total 20 650 / 650 10 Balance 960 / 960 30 / 30 510 / 510 Intake: IV Fluids 500 / 500 200 / 200 300 / 300 Heparin 25,000 UNIT/500 500 / 500 200 / 200 300 / 300 ML D5W 25,000 unit In 500 ml @ 14 UNIT/KG/HR 49. 364 mls/hr IVC .Q10H8M [facility] Rx#:[id number] Oral 480 / 480 480 / 480 220 / 220 Output: Urine 0 / 0 650 / 650 0 / 0 Wound Drainage Right Lower Abdomen Other: Meal Dinner Lunch Percent of Meal Consumed 60% 25% # Voids 1 1 Weight 174.633 kg Blood Glucose* 172 189 171 Patient Weight 11/03/16 23:59 Weight 174.633 kg - General physical appearance no distress, moderate pain - Eyes normal ocular movement - ENT normal mucosa, atraumatic, normocephalic - Neck Neck exam: trachea midline - Respiratory clear to auscultation, other (Decreased bibasilar. CPAP noted) - Cardiovascular Cardiovascular exam: Present: distant heart sounds (Mechanical) - Abdomen Abdomen: Present: bowel sounds present, soft, tender (Expected post-operative tenderness), wound (MEL with small amount of drainage) - Incision Incision: Present: intact, serosanguinous - Integumentary no rash - Neurologic CN 2-12 grossly intact - Musculoskeletal normal posture - Psychiatric oriented to time, oriented to person, oriented to place - Labs 11/03/16 08:35 11/03/16 08:35 Diabetes panel 11/03/16 Range/Units 08:35 Sodium 136 (136-145) mEq/L Potassium 3.6 (3.5-4.5) mEq/L Chloride 100 (98-109) mEq/L Carbon Dioxide 27 (19-29) mEq/L BUN 13 (7-20) mg/dL Creatinine 0.75 (0.57-1.11) mg/dL Glucose 196 H (70-99) mg/dL Calcium 8.7 (8.6-10.8) mg/dL Calcium panel 11/03/16 Range/Units 08:35 Calcium 8.7 (8.6-10.8) mg/dL Pituitary panel 11/03/16 Range/Units 08:35 Sodium 136 (136-145) mEq/L Potassium 3.6 (3.5-4.5) mEq/L Chloride 100 (98-109) mEq/L Carbon Dioxide 27 (19-29) mEq/L BUN 13 (7-20) mg/dL Creatinine 0.75 (0.57-1.11) mg/dL Glucose 196 H (70-99) mg/dL Calcium 8.7 (8.6-10.8) mg/dL Adrenal panel 11/03/16 Range/Units 08:35 Sodium 136 (136-145) mEq/L Potassium 3.6 (3.5-4.5) mEq/L Chloride 100 (98-109) mEq/L Carbon Dioxide 27 (19-29) mEq/L BUN 13 (7-20) mg/dL Creatinine 0.75 (0.57-1.11) mg/dL Glucose 196 H (70-99) mg/dL Calcium 8.7 (8.6-10.8) mg/dL - VTE Documentation of Mechanical Device: Venous foot pump, device Consult Discharge Plan - Plan Referrals: Mauricio Marquez CNP [Primary Care Provider] - Génesis Walters CNP [Advanced Practice Nurse] - 11/14/16 10:30 am <Yanet Coulter - Last Filed: 11/03/16 15:30> Date of Encounter: 11/03/16 - Assessment and Plan (1) S/P cholecystectomy Current Visit: Yes Status: Acute s/p lap to open cholecystectomy continue diet schedule colace prn pain control OOB and ambulate ok shower continue heparin gtt until inr from coumadin therapuetic, inr 1.3 today (2) Mitral valve replaced Current Visit: Yes Status: Acute (3) Anticoagulation goal of INR 2.5 to 3.5 Current Visit: Yes Status: Acute inr 1.3 today, continue hep gtt until coumadin therapuetic (4) Depression Current Visit: Yes Status: Chronic continue home meds Qualifiers: Depression Type: unspecified Qualified Code(s): F32.9 - Major depressive disorder, single episode, unspecified (5) HTN (hypertension) Current Visit: Yes Status: Chronic Qualifiers: Hypertension type: essential hypertension Qualified Code(s): I10 - Essential (primary) hypertension Subjective Patient reports: no new complaints, feels better, still having pain, pain is less, tolerating a regular diet, voiding w/o difficulty, flatus, no bowel movement Objective Vital Signs - Last 8 Hours Temp Pulse Resp BP Pulse Ox 11/03/16 10:59 97.7 F 89 16 122/76 98 11/03/16 08:35 92 11/03/16 07:26 99.6 F 98 16 144/81 92 Intake and Output 11/02/16 11/03/16 11/03/16 23:59 07:59 15:59 Intake Total 980 / 980 680 / 680 520 / 520 Output Total 650 / 650 Balance 960 / 960 30 510 / 510 Intake: IV Fluids 500 / 500 200 / 200 300 / 300 Heparin 25,000 UNIT/500 500 / 500 200 / 200 300 / 300 ML D5W 25,000 unit In 500 ml @ 14 UNIT/KG/HR 49. 364 mls/hr IVC .Q10H8M [facility] Rx#:[id number] Oral 480 / 480 480 / 480 220 / 220 Output: Urine 0 / 0 650 / 650 0 / 0 Wound Drainage Right Lower Abdomen Other: Meal Dinner Lunch Percent of Meal Consumed 60% 25% # Voids 1 1 Weight 174.633 kg Blood Glucose* 172 189 171 Patient Weight 11/03/16 23:59 Weight 174.633 kg - General physical appearance well developed, well nourished, no distress, obese - Eyes normal ocular movement - ENT normal mucosa, normocephalic - Neck Neck exam: trachea midline - Respiratory normal expansion, clear to auscultation - Cardiovascular Cardiovascular exam: Present: RRR - Abdomen Abdomen: Present: bowel sounds present, soft, tender Abdominal Tenderness: RUQ - Incision Incision: Present: intact, serosanguinous - Integumentary no rash, no growths - Neurologic CN 2-12 grossly intact - Musculoskeletal normal posture - Psychiatric oriented to time, oriented to person, oriented to place - Labs 11/03/16 08:35 11/03/16 08:35 Diabetes panel 11/03/16 Range/Units 08:35 Sodium 136 (136-145) mEq/L Potassium 3.6 (3.5-4.5) mEq/L Chloride 100 (98-109) mEq/L Carbon Dioxide 27 (19-29) mEq/L BUN 13 (7-20) mg/dL Creatinine 0.75 (0.57-1.11) mg/dL Glucose 196 H (70-99) mg/dL Calcium 8.7 (8.6-10.8) mg/dL Calcium panel 11/03/16 Range/Units 08:35 Calcium 8.7 (8.6-10.8) mg/dL Pituitary panel 11/03/16 Range/Units 08:35 Sodium 136 (136-145) mEq/L Potassium 3.6 (3.5-4.5) mEq/L Chloride 100 (98-109) mEq/L Carbon Dioxide 27 (19-29) mEq/L BUN 13 (7-20) mg/dL Creatinine 0.75 (0.57-1.11) mg/dL Glucose 196 H (70-99) mg/dL Calcium 8.7 (8.6-10.8) mg/dL Adrenal panel 11/03/16 Range/Units 08:35 Sodium 136 (136-145) mEq/L Potassium 3.6 (3.5-4.5) mEq/L Chloride 100 (98-109) mEq/L Carbon Dioxide 27 (19-29) mEq/L BUN 13 (7-20) mg/dL Creatinine 0.75 (0.57-1.11) mg/dL Glucose 196 H (70-99) mg/dL Calcium 8.7 (8.6-10.8) mg/dL - Attending Attestation I have personally performed a face to face evaluation on this patient. I have reviewed and agree with the care plan. History and Exam by me shows: healing well after open cholecystectomy, no signs bleeding
[2016-11-03] MEDS ORDERED: *HR* Warfarin 5 MG TABLET PO ONE (18:00)
[2016-11-04] MEDS: Ketorolac 15 MG/ML VIAL IVP SCH ×4 (00:07→17:33)
[2016-11-04] MEDS: *HR* HYDROmorphone (PF) 1 MG/ML SYRINGE IVP PRN ×3 (04:32→22:28)
[2016-11-04 05:52] LABS: INR 1.6; Prothrombin Time 17.6 Seconds (9.4-12.1)
[2016-11-04 05:56] LABS: BUN/Creatinine Ratio 14 (6-26); Blood Urea Nitrogen 11 mg/dL (7-20); Calcium 8.5 mg/dL (8.6-10.8); Carbon Dioxide 30 mEq/L (19-29); Chloride 100 mEq/L (98-109); Glucose 172 mg/dL (70-99); Osmolality,Calculated 285 (280-300); Potassium 3.5 mEq/L (3.5-4.5); Sodium 136 mEq/L (136-145); eGFR For African Americans > 60 (> 60); eGFR For Non-African Americans > 60 (> 60)
[2016-11-04 05:57] LABS: Basophils % 0.5 %; Eosinophils # 0.2 K/mcL (0.0-0.6); Eosinophils % 2.8 %; Hematocrit 34.3 % (35.3-44.9); Hemoglobin 10.5 g/dL (11.5-15.4); Immature Granulocytes % 3.5 % (0-4); Lymphocytes # 1.9 K/mcL (0.6-4.6); Mean Corpuscular HGB Conc 30.6 g/dL (31.6-35.5); Mean Corpuscular Hemoglobin 25.8 pg (28.0-33.3); Mean Corpuscular Volume 84.3 fL (83.0-100.0); Mean Platelet Volume 9.3 fL (9.4-12.4); Monocytes # 0.5 K/mcL (0.0-1.3); Neutrophils # 4.4 K/mcL (1.6-8.9); Nucleated Red Blood Cells 0.3 /100 WBC (0); Platelet Count 115 K/mcL (140-400); Red Blood Count 4.07 M/mcL (3.82-4.97); Segmented Neutrophils % 60.2 %
--- NOTE | 2016-11-04 08:12 | General Surgery Progress Note ---
<Pavan Jernigan - Last Filed: 11/04/16 12:49> Date of Encounter: 11/04/16 Time of Encounter: 09:30 - Assessment and Plan (1) S/P cholecystectomy Current Visit: Yes Status: Acute POD #4 laparoscopic converted to open cholecystectomy and liver biopsy Patient is improving and states pain is 4/10 MEL has minimal drainage. It was removed today Continue supportive and pain care Change dressings and packing daily Ambulate as tolerated Patient is tolerating PO intake. Continue Cardiac diet Encourage incentive spirometry TID (2) Mitral valve replaced Current Visit: Yes Status: Acute Patient has a metallic valve Continue Coumadin and Heparin (3) DVT prophylaxis Current Visit: No Status: Acute Coumadin and Heparin Ambulate as tolerated TID (4) Supratherapeutic INR Current Visit: No Status: Resolved Patient has a prosthetic valve and is on chronic coumadin therapy Current INR = 1.6 Continue Coumadin Continue a.m. coagulation studies Subjective Patient reports: no new complaints, feels better, still having pain, pain is less (4/10), tolerating a regular diet, voiding w/o difficulty, flatus, no bowel movement, afebrile Objective Vital Signs - Last 8 Hours Temp Pulse Resp BP Pulse Ox 11/04/16 07:27 98.2 F 84 18 135/82 93 11/04/16 03:48 97.9 F 83 18 130/77 95 11/04/16 00:24 98.0 F 87 18 137/74 91 Intake and Output 11/03/16 11/04/16 11/04/16 23:59 07:59 15:59 Intake Total 620 / 620 343 / 343 Output Total 400 / 400 Balance 620 / 620 -57 / -57 Intake: IV Fluids 500 / 500 343 / 343 Heparin 25,000 UNIT/500 500 / 500 343 / 343 ML D5W 25,000 unit In 500 ml @ 14 UNIT/KG/HR 49. 364 mls/hr IVC .Q10H8M [facility] Rx#:[id number] Oral 120 / 120 0 / 0 Output: Urine 400 / 400 Wound Drainage 0 / 0 Right Lower Abdomen 0 / 0 Other: Meal Dinner Percent of Meal Consumed 50% # Voids 1 # Bowel Movements 0 Weight 174.17 kg Blood Glucose* 203 214 Patient Weight 11/04/16 23:59 Weight 174.17 kg - General physical appearance well developed, well nourished, no distress, obese - Eyes normal ocular movement - ENT atraumatic, normocephalic, CN 2-12 grossly intact - Neck Neck exam: trachea midline - Respiratory normal expansion, normal respiratory effort, clear to percussion - Cardiovascular Cardiovascular exam: Present: RRR, no murmurs/rubs/gallops - Abdomen Abdomen: Present: bowel sounds present, soft, tender (as expected post-surgery) , wound (MEL with minimal sanguineous drainage, small leak of drainage at wound site ) - Incision Incision: Present: clean and dry, intact (with packing) - Labs 11/04/16 05:17 11/04/16 05:17 Diabetes panel 11/03/16 11/04/16 Range/Units 08:35 05:17 Sodium 136 136 (136-145) mEq/L Potassium 3.6 3.5 (3.5-4.5) mEq/L Chloride 100 100 (98-109) mEq/L Carbon Dioxide 27 30 H (19-29) mEq/L BUN 13 11 (7-20) mg/dL Creatinine 0.75 0.77 (0.57-1.11) mg/dL Glucose 196 H 172 H (70-99) mg/dL Calcium 8.7 8.5 L (8.6-10.8) mg/dL Calcium panel 11/03/16 11/04/16 Range/Units 08:35 05:17 Calcium 8.7 8.5 L (8.6-10.8) mg/dL Pituitary panel 11/03/16 11/04/16 Range/Units 08:35 05:17 Sodium 136 136 (136-145) mEq/L Potassium 3.6 3.5 (3.5-4.5) mEq/L Chloride 100 100 (98-109) mEq/L Carbon Dioxide 27 30 H (19-29) mEq/L BUN 13 11 (7-20) mg/dL Creatinine 0.75 0.77 (0.57-1.11) mg/dL Glucose 196 H 172 H (70-99) mg/dL Calcium 8.7 8.5 L (8.6-10.8) mg/dL Adrenal panel 11/03/16 11/04/16 Range/Units 08:35 05:17 Sodium 136 136 (136-145) mEq/L Potassium 3.6 3.5 (3.5-4.5) mEq/L Chloride 100 100 (98-109) mEq/L Carbon Dioxide 27 30 H (19-29) mEq/L BUN 13 11 (7-20) mg/dL Creatinine 0.75 0.77 (0.57-1.11) mg/dL Glucose 196 H 172 H (70-99) mg/dL Calcium 8.7 8.5 L (8.6-10.8) mg/dL - VTE Documentation of Mechanical Device: Venous foot pump, device Consult Discharge Plan - Plan Referrals: Mauricio Marquez CNP [Primary Care Provider] - Génesis Walters CNP [Advanced Practice Nurse] - 11/14/16 10:30 am <Yanet Coulter - Last Filed: 11/04/16 16:43> Date of Encounter: 11/04/16 - Assessment and Plan (1) S/P cholecystectomy Current Visit: Yes Status: Acute (2) Mitral valve replaced Current Visit: Yes Status: Acute inr 1.6 today, continue coumadin, continue heparin gtt until therapuetic on coumadin (3) Anticoagulation goal of INR 2.5 to 3.5 Current Visit: Yes Status: Acute (4) Depression Current Visit: Yes Status: Chronic Qualifiers: Depression Type: unspecified Qualified Code(s): F32.9 - Major depressive disorder, single episode, unspecified (5) HTN (hypertension) Current Visit: Yes Status: Chronic Qualifiers: Hypertension type: essential hypertension Qualified Code(s): I10 - Essential (primary) hypertension (6) Constipation Current Visit: Yes Status: Acute continue po colace start magnesium citrate - 1/3 bottle po, wait 5 hrs and if no results give another 1/3. If no results by the following day give last 1/3 Qualifiers: Constipation type: drug induced constipation Qualified Code(s): K59.03 - Drug induced constipation Subjective Patient reports: no new complaints, feels better, still having pain, pain is less, tolerating a regular diet, voiding w/o difficulty, flatus, no bowel movement Objective Vital Signs - Last 8 Hours Temp Pulse Resp BP Pulse Ox 11/04/16 14:53 97.7 F 83 17 151/83 98 11/04/16 11:06 97.7 F 80 17 102/64 95 11/04/16 08:50 93 Intake and Output 11/04/16 11/04/16 11/04/16 07:59 15:59 23:59 Intake Total 343 / 343 578 / 578 Output Total 400 / 400 210 / 210 Balance -57 / -57 368 / 368 Intake: IV Fluids 343 / 343 478 / 478 Heparin 25,000 UNIT/500 343 / 343 478 / 478 ML D5W 25,000 unit In 500 ml @ 14 UNIT/KG/HR 49. 364 mls/hr IVC .Q10H8M [facility] Rx#:[id number] Oral 0 / 0 100 / 100 Output: Urine 400 / 400 200 / 200 Wound Drainage 0 / 0 10 10 Right Lower Abdomen 0 / 0 Other: Meal Lunch Percent of Meal Consumed 75% # Bowel Movements 0 0 Weight 174.17 kg 174.17 kg Blood Glucose* 214 183 190 Patient Weight 11/04/16 23:59 Weight 174.17 kg - General physical appearance well developed, well nourished, no distress, obese - Eyes PERRL, normal ocular movement - ENT normal mucosa, normocephalic - Neck Neck exam: trachea midline - Respiratory normal expansion, clear to auscultation - Cardiovascular Cardiovascular exam: Present: RRR - Abdomen Abdomen: Present: bowel sounds present, soft, tender, wound - Incision Incision: Present: clean and dry, intact - Integumentary no rash, no growths - Neurologic CN 2-12 grossly intact - Musculoskeletal normal posture - Psychiatric oriented to time, oriented to person, memory intact - Additional Exam MEL drain removed - serosang output from site - Labs 11/04/16 05:17 11/04/16 05:17 Diabetes panel 11/04/16 Range/Units 05:17 Sodium 136 (136-145) mEq/L Potassium 3.5 (3.5-4.5) mEq/L Chloride 100 (98-109) mEq/L Carbon Dioxide 30 H (19-29) mEq/L BUN 11 (7-20) mg/dL Creatinine 0.77 (0.57-1.11) mg/dL Glucose 172 H (70-99) mg/dL Calcium 8.5 L (8.6-10.8) mg/dL Calcium panel 11/04/16 Range/Units 05:17 Calcium 8.5 L (8.6-10.8) mg/dL Pituitary panel 11/04/16 Range/Units 05:17 Sodium 136 (136-145) mEq/L Potassium 3.5 (3.5-4.5) mEq/L Chloride 100 (98-109) mEq/L Carbon Dioxide 30 H (19-29) mEq/L BUN 11 (7-20) mg/dL Creatinine 0.77 (0.57-1.11) mg/dL Glucose 172 H (70-99) mg/dL Calcium 8.5 L (8.6-10.8) mg/dL Adrenal panel 11/04/16 Range/Units 05:17 Sodium 136 (136-145) mEq/L Potassium 3.5 (3.5-4.5) mEq/L Chloride 100 (98-109) mEq/L Carbon Dioxide 30 H (19-29) mEq/L BUN 11 (7-20) mg/dL Creatinine 0.77 (0.57-1.11) mg/dL Glucose 172 H (70-99) mg/dL Calcium 8.5 L (8.6-10.8) mg/dL - Attending Attestation I examined this patient and my medical decision-making was reviewed with the Resident Physician. I agree with the documented findings, disposition and treatment plan as described except to the extent set forth below.
[2016-11-04] MEDS: Metoprolol XL (24 HR) Succ 50 MG TAB.ER.24H PO SCH (08:46)
[2016-11-04] MEDS: Insulin LISPRO 300 UNITS/3 ML VIAL SQ SCH ×4 (08:46→22:29)
[2016-11-04] MEDS: Pantoprazole 40 MG VIAL IVP SCH (08:46)
[2016-11-04] MEDS: Heparin 25,000 UNIT/500 ML D5W 25,000 UNIT/500 ML MLS IVC SCH ×2 (08:46→20:37)
[2016-11-04] MEDS: Diltiazem CD (24hr) 120 MG CAPSULE PO SCH (08:47)
[2016-11-04] MEDS: Furosemide 20 MG TABLET PO SCH (08:47)
[2016-11-04] MEDS: *HR* OxyCODONE Immed Rel 5 MG TABLET PO PRN ×3 (08:52→20:36)
[2016-11-04] MEDS ORDERED: *HR* Warfarin 7.5 MG TABLET PO ONE (18:00)
[2016-11-05] MEDS: Ketorolac 15 MG/ML VIAL IVP SCH ×3 (00:48→12:39)
[2016-11-05] MEDS: *HR* HYDROmorphone (PF) 1 MG/ML SYRINGE IVP PRN (04:22)
[2016-11-05] MEDS: Heparin 25,000 UNIT/500 ML D5W 25,000 UNIT/500 ML MLS IVC SCH ×2 (07:56→19:10)
[2016-11-05 07:59] LABS: INR 2.1; Prothrombin Time 22.7 Seconds (9.4-12.1)
[2016-11-05 08:01] LABS: Activated Partial Thrombo Time 83.4 Seconds (26.0-36.0)
[2016-11-05 08:11] LABS: BUN/Creatinine Ratio 13 (6-26); Blood Urea Nitrogen 9 mg/dL (7-20); Calcium 8.7 mg/dL (8.6-10.8); Carbon Dioxide 29 mEq/L (19-29); Chloride 98 mEq/L (98-109); Glucose 172 mg/dL (70-99); Osmolality,Calculated 281 (280-300); Potassium 3.2 mEq/L (3.5-4.5); Sodium 134 mEq/L (136-145); eGFR For African Americans > 60 (> 60); eGFR For Non-African Americans > 60 (> 60)
[2016-11-05 08:19] LABS: Basophils % 0.5 %; Eosinophils # 0.3 K/mcL (0.0-0.6); Eosinophils % 4.1 %; Hematocrit 33.9 % (35.3-44.9); Hemoglobin 10.8 g/dL (11.5-15.4); Immature Granulocytes % 3.3 % (0-4); Lymphocytes # 1.8 K/mcL (0.6-4.6); Lymphocytes % 24.1 %; Mean Corpuscular HGB Conc 31.9 g/dL (31.6-35.5); Mean Corpuscular Hemoglobin 27.1 pg (28.0-33.3); Mean Platelet Volume 9.2 fL (9.4-12.4); Monocytes # 0.6 K/mcL (0.0-1.3); Monocytes % 7.8 %; Neutrophils # 4.4 K/mcL (1.6-8.9); Platelet Count 122 K/mcL (140-400); Red Blood Count 3.99 M/mcL (3.82-4.97); Red Cell Distribution Width 15.5 % (11.5-14.5); Segmented Neutrophils % 60.2 %
[2016-11-05] MEDS: Metoprolol XL (24 HR) Succ 50 MG TAB.ER.24H PO SCH (09:12)
[2016-11-05] MEDS: Furosemide 20 MG TABLET PO SCH (09:13)
[2016-11-05] MEDS: Insulin LISPRO 300 UNITS/3 ML VIAL SQ SCH ×4 (09:13→20:26)
[2016-11-05] MEDS: Pantoprazole 40 MG VIAL IVP SCH (09:13)
[2016-11-05] MEDS: Diltiazem CD (24hr) 120 MG CAPSULE PO SCH (09:13)
[2016-11-05] MEDS: *HR* OxyCODONE Immed Rel 5 MG TABLET PO PRN ×4 (09:16→23:10)
--- NOTE | 2016-11-05 10:12 | General Surgery Progress Note ---
Date of Encounter: 11/05/16 Time of Encounter: 10:00 - Assessment and Plan (1) Symptomatic cholelithiasis Current Visit: Yes Status: Acute POD #5 laparoscopic converted to open cholecystectomy and liver biopsy Tolerating cardiac diet Continue supportive and pain care control Change dressings and packing daily MEL drain removed 11/04/[address] TID with assistance Encourage incentive spirometry TID PPI therapy daily Stool softner BID- patient was able to have a BM after drinking Mg Citrate 8 (2) S/P mitral valve replacement with metallic valve Current Visit: No Status: Acute Heparin gtt per protocol INR- 2.1 today Goal INR is 2.5-3.5 May discontinue heparin gtt and begin discharge planning to home with home health when INR in therapeutic range (3) Anticoagulation goal of INR 2.5 to 3.5 Current Visit: Yes Status: Acute Heparin gtt per protocol INR- 2.1 today Goal INR is 2.5-3.5 Heparin gtt per protocol INR- 2.1 today Goal INR is 2.5-3.5 May discontinue heparin gtt and begin discharge planning to home with home health when INR in therapeutic range (4) Hypokalemia Current Visit: Yes Status: Acute Replace potassium (5) DVT prophylaxis Current Visit: No Status: Acute Heparin gtt Subjective Patient reports: no new complaints, feels better, still having pain, pain is less, tolerating a regular diet, voiding w/o difficulty, flatus, bowel movement (last evening), afebrile Objective Vital Signs - Last 8 Hours Temp Pulse Resp BP Pulse Ox 11/05/16 09:11 72 104/66 11/05/16 07:21 97.5 F L 92 18 97/65 98 11/05/16 04:03 98.4 F 94 18 110/71 94 Intake and Output 11/04/16 11/05/16 11/05/16 23:59 07:59 15:59 Intake Total 299 / 299 538 / 538 120 / 120 Output Total 0 / 0 Balance 299 / 299 538 / 538 120 / 120 Intake: IV Fluids 179 / 179 538 / 538 Heparin 25,000 UNIT/500 179 / 179 538 / 538 ML D5W 25,000 unit In 500 ml @ 14 UNIT/KG/HR 49. 364 mls/hr IVC .Q10H8M [facility] Rx#:[id number] Oral 120 / 120 0 / 0 120 / 120 Output: Urine 0 / 0 Other: Meal Dinner Breakfast Percent of Meal Consumed 25% 100% # Voids 1 # Bowel Movements 0 Weight 174.17 kg Blood Glucose* 176 167 Patient Weight 11/05/16 23:59 Weight 174.17 kg - General physical appearance well developed, well nourished, no distress, obese - Eyes normal ocular movement - ENT normal mucosa, atraumatic, normocephalic - Neck Neck exam: trachea midline - Respiratory normal respiratory effort, clear to auscultation - Cardiovascular Cardiovascular exam: Present: RRR - Abdomen Abdomen: Present: bowel sounds present, soft, tender (expected post-operative tenderness) - Incision Incision: Present: serosanguinous (packing with small amount of serousang. drainage noted; old drain site with small amount of serousang. drainage noted. No surrounding erythema or induration noted.) - Neurologic CN 2-12 grossly intact - Psychiatric oriented to time, oriented to person, oriented to place, speech is normal, memory intact - Labs 11/05/16 07:17 11/05/16 07:17 Diabetes panel 11/05/16 Range/Units 07:17 Sodium 134 L (136-145) mEq/L Potassium 3.2 L (3.5-4.5) mEq/L Chloride 98 (98-109) mEq/L Carbon Dioxide 29 (19-29) mEq/L BUN 9 (7-20) mg/dL Creatinine 0.70 (0.57-1.11) mg/dL Glucose 172 H (70-99) mg/dL Calcium 8.7 (8.6-10.8) mg/dL Calcium panel 11/05/16 Range/Units 07:17 Calcium 8.7 (8.6-10.8) mg/dL Pituitary panel 11/05/16 Range/Units 07:17 Sodium 134 L (136-145) mEq/L Potassium 3.2 L (3.5-4.5) mEq/L Chloride 98 (98-109) mEq/L Carbon Dioxide 29 (19-29) mEq/L BUN 9 (7-20) mg/dL Creatinine 0.70 (0.57-1.11) mg/dL Glucose 172 H (70-99) mg/dL Calcium 8.7 (8.6-10.8) mg/dL Adrenal panel 11/05/16 Range/Units 07:17 Sodium 134 L (136-145) mEq/L Potassium 3.2 L (3.5-4.5) mEq/L Chloride 98 (98-109) mEq/L Carbon Dioxide 29 (19-29) mEq/L BUN 9 (7-20) mg/dL Creatinine 0.70 (0.57-1.11) mg/dL Glucose 172 H (70-99) mg/dL Calcium 8.7 (8.6-10.8) mg/dL - VTE Documentation of Mechanical Device: Venous foot pump, device Consult Discharge Plan - Plan Referrals: Mauricio Marquez CNP [Primary Care Provider] - Génesis Walters CNP [Advanced Practice Nurse] - 11/14/16 10:30 am
[2016-11-05] MEDS ORDERED: *HR* Warfarin 3 MG TABLET PO ONE (18:00)
[2016-11-06 04:23] LABS: INR 2.5; Prothrombin Time 27.9 Seconds (9.4-12.1)
[2016-11-06] MEDS: Heparin 25,000 UNIT/500 ML D5W 25,000 UNIT/500 ML MLS IVC SCH ×2 (04:49→05:39)
[2016-11-06] MEDS: Metoprolol XL (24 HR) Succ 50 MG TAB.ER.24H PO SCH (08:03)
[2016-11-06] MEDS: Diltiazem CD (24hr) 120 MG CAPSULE PO SCH (08:04)
[2016-11-06] MEDS: Furosemide 20 MG TABLET PO SCH (08:04)
[2016-11-06] MEDS: Insulin LISPRO 300 UNITS/3 ML VIAL SQ SCH ×2 (08:04→12:27)
[2016-11-06] MEDS: Pantoprazole 40 MG VIAL IVP SCH (08:04)
[2016-11-06] MEDS: *HR* OxyCODONE Immed Rel 5 MG TABLET PO PRN ×2 (08:13→15:23)
--- NOTE | 2016-11-06 08:29 | Discharge Summary ---
Date of Encounter: 11/06/16 Time of Encounter: 09:10 - Discharge Diagnosis (1) S/P cholecystectomy Priority: Primary Status: Acute Comments: POD #6 laparoscopic converted to open cholecystectomy and liver biopsy The patient is doing well today. She is tolerating cardiac diet and ambulating. Dressings and packing are clean and dry. INR is therapeutic (INR = 2.5) Patient has not had a bowel movement for 2 days. I will discharge her with Colace 100mg BID and have her follow up with Helga Walters on 11/14/16 at 10:30am (2) Mitral valve replaced Priority: Secondary Status: Acute Comments: INR = 2.5 and therapeutic discharge planning to home with home health today - Discharge Medications Prescriptions: Docusate [Colace] 100 mg PO BID #30 capsule Oxycodone HCl/Acetaminophen [Percocet 5-325 mg Tablet] 1 each PO BID #15 tablet Home Medications: Potassium Chloride 20 meq PO QPM 11/20/14 [History] Sertraline [Zoloft] 100 mg PO QPM 11/20/14 [History] Albuterol Sulfate [Ventolin Hfa] 2 puff IH Q4H PRN 01/12/15 [History] Diltiazem CD (24hr) [Cardizem CD] 120 mg PO DAILY #30 cap.er.24h 01/14/15 [Rx] Celecoxib [Celebrex] 200 mg PO DAILY 09/02/15 [History] Metoprolol XL (24 HR) Succ [Toprol XL] 75 mg PO DAILY 09/02/15 [History] Enoxaparin [Lovenox] 80 mg SQ Q12HR 10/31/16 [History] Furosemide [Lasix] 20 mg PO DAILY 10/31/16 [History] Warfarin [Coumadin] 2 mg PO 1800 10/31/16 [History] Warfarin [Coumadin] 5 mg PO 1800 10/31/16 [History] Docusate [Colace] 100 mg PO BID #30 capsule 11/06/16 [Rx] Oxycodone HCl/Acetaminophen [Percocet 5-325 mg Tablet] 1 each PO BID #15 tablet 11/06/16 [Rx] Allergies/Adverse Reactions: Allergies hydrochlorothiazide Allergy (Verified 10/31/16 13:31) Rash hydrocodone [From Vicodin] Allergy (Verified 10/31/16 13:48) Itching acetaminophen [From Tylenol] Adverse Reaction (Verified 10/31/16 13:31) Gastrointestinal Upset General Surgery Exam Initial Vital Signs Temp Pulse Resp BP Pulse Ox 98.2 F 84 18 148/81 96 10/31/16 13:08 10/31/16 13:08 10/31/16 13:08 10/31/16 13:08 10/31/16 13:08 - General physical appearance well developed, well nourished, no distress, obese - Eyes normal ocular movement - ENT atraumatic, normocephalic, CN 2-12 grossly intact - Neck trachea midline - Respiratory normal expansion, normal respiratory effort, clear to auscultation - Cardiovascular Cardiovascular exam: Present: NR, irregular rhythm, no murmurs/rubs/gallops - Abdomen Abdomen general surgery: Present: bowel sounds present, soft, tender (as expected from surgery) - Incision Incision: Present: clean and dry, intact (with packing) Date of admission: 11/01/16 15:47 Primary care physician: Mauricio Marquez CNP Consults: 10/31/16 19:54 Consult to Cardiology [CONS] Routine Comment: Consulting Provider: Cardiology Marsha Reason for Consult: anticoagulation management for mitral valve repair Call Completed: Yes Discharging clinician: Pavan Jernigan Anticipated date of discharge: 11/06/16 - Patient Status Disposition: Home Health Service Condition: Good Functional capacity at discharge: independent ambulation Overall status at discharge: patient is back to baseline - Discharge Instructions Instructions: Warfarin (By mouth), Heart Failure (DC), Chronic Hypertension (DC ) Follow Up With: Mauricio Marquez CNP [Primary Care Provider] - Génesis Walters CNP [Advanced Practice Nurse] - 11/14/16 10:30 am Additional Instructions: Patient will follow-up with Helga Walters on 11/14/16 at 10:30am at surgery clinic. The patient's last bowel movement was 11/04/16 and is passing flatus. I will discharge her with Colace 100mg BID #30, Percocet 5/325 BID #15, and home medications. She is advised to have more fiber intake to improve her bowel movement. She can also take OTC Mg citrate to help her bowel movement and over- the-counter tylenol or acetaminophen as needed for pain. She will be discharged with home health for wound and packing changes daily. Patient is ok to shower today if she desires. She can advance to her regular diet as tolerated. Avoid lifting anything over 10 pounds for 4 weeks. The patient is advised to ambulate as often as possible. Keep incision clean and dry. It's ok to wash the skin around the incision with mild soap and warm water. Avoid picking, scratching, or pulling at the incision. Please go to the emergency department if you experience new bleeding, chest pain , shortness of breath, high fever, pain or tenderness in the leg, incision separates, excessive nausea or vomiting, or excessive diarrhea. The patient will recheck her INR at her follow-up visit. - Diet and Activity Activity: increase activity as tolerated Diet: advance to your usual diet - Hospital Course Hospital course: Ms. Cottrell is a 51 year old female with history of afib, hypertension, mechanical mitral valve (coumadin) and surgical history of appendectomy and hysterectomy who presented for laparoscopic cholecystectomy on 10/31/[address] Coulter due to symptomatic cholelithiasis and hepatitic steatosis. The surgery was converted to open cholecystectomy with liver biopsy secondary to inability to visualize the infundibulum despite multiple attempts due to the patient's body habitus. Anticoagulation (Coumadin 7mg PO daily) was restarted post-operative day #1 for mechanical mitral valve with subtherapeutic INR = 1.4. Subtherapeutic INR has improved daily towards goal of 2.5-3.5. Patient has been recovering well daily and able to tolerate advancement of diet. Pain management has been well managed with dilaudid 0.5mg IVP. Wound care and packing changed daily. Patient has been able to ambulate without difficulty. Therapeutic INR = 2.5 today, patient is doing well, has no complaints, and is adamant to be discharged home. - Time Spent with Patient Total time spent providing and/or coordinating discharge services: Greater than 30 minutes Labs on day of discharge: Labs from last 24 hours 11/06/16 11/06/16 11/05/16 07:27 03:03 20:17 PT 27.9 H INR 2.5 POC Glucose 157 H 184 H 11/05/16 11/05/16 16:12 11:31 PT INR POC Glucose 176 H 226 H
[2016-11-06 10:36] VITALS: BP 96/62
--- NOTE | 2016-11-06 14:50 | Physician Discharge Referral ---
Home Health/Hosp Referral Info Transfer to: Home Health Provider in Charge Post Discharge: PCP - Diagnosis (1) S/P cholecystectomy Priority: Primary Status: Acute (2) Mitral valve replaced Priority: Secondary Status: Acute - Respiratory Orders None Smoking Cessation: Smoking cessation has been advised. For more information, call the [place] Tobacco Quit Line at 6-227-YSOY-NOW. - Dressing/Wound Care Site: Abdominal incision Type of Dressing/Treatments w/Frequency: Remove packing from open cholecystectomy incision site. Wash with soap and water. Pat dry. Pack with 1/4 plain gauze and cover with dry dress daily. Reinforce/change outer dressing PRN. - Diet/Nutrition Diet/Nutrition Orders: Cardiac - Activity Activity Orders: Ambulate (as tolerated) - Services Needed Following services are medically necessary services: Home Health Aide Home Care Orders: Patient requires help with wound dressing and packing changes daily - Transfer Medications Prescriptions: Docusate [Colace] 100 mg PO BID #30 capsule Oxycodone HCl/Acetaminophen [Percocet 5-325 mg Tablet] 1 each PO BID #15 tablet Home Medications: Potassium Chloride 20 meq PO QPM 11/20/14 [History] Sertraline [Zoloft] 100 mg PO QPM 11/20/14 [History] Albuterol Sulfate [Ventolin Hfa] 2 puff IH Q4H PRN 01/12/15 [History] Diltiazem CD (24hr) [Cardizem CD] 120 mg PO DAILY #30 cap.er.24h 01/14/15 [Rx] Celecoxib [Celebrex] 200 mg PO DAILY 09/02/15 [History] Metoprolol XL (24 HR) Succ [Toprol XL] 75 mg PO DAILY 09/02/15 [History] Enoxaparin [Lovenox] 80 mg SQ Q12HR 10/31/16 [History] Furosemide [Lasix] 20 mg PO DAILY 10/31/16 [History] Warfarin [Coumadin] 2 mg PO 1800 10/31/16 [History] Warfarin [Coumadin] 5 mg PO 1800 10/31/16 [History] Docusate [Colace] 100 mg PO BID #30 capsule 11/06/16 [Rx] Oxycodone HCl/Acetaminophen [Percocet 5-325 mg Tablet] 1 each PO BID #15 tablet 11/06/16 [Rx] Allergies/Adverse Reactions: Allergies hydrochlorothiazide Allergy (Verified 10/31/16 13:31) Rash hydrocodone [From Vicodin] Allergy (Verified 10/31/16 13:48) Itching acetaminophen [From Tylenol] Adverse Reaction (Verified 10/31/16 13:31) Gastrointestinal Upset Certification: Further, I certify that my clinical findings support that this patient is homebound (i.e. absences from home require considerable and taxing effort and are for medical reasons or zoroastrian services or infrequently or short duration when for other reasons) because: Homebound Reason: Patient requires assistance of a person or device to safely leave home, Absences from home are contraindicated except to recieve medical care, Post-surgery restriction and or conditions limit ability to leave home, Leaving home requires considerable and taxing effort due to condition, Severity of cardiac or pulmonary status limits activity tolerance Attestation: My signature below is to certify that this patient is under my care and that I, or nurse practitioner, or a physician's public relations assistant working with me, has a face-to -face encounter with this patient.
--- NOTE | 2016-11-06 14:58 | Physician Discharge Referral ---
Home Health/Hosp Referral Info Transfer to: Home Health Provider in Charge Post Discharge: PCP - Diagnosis (1) S/P cholecystectomy Priority: Primary Status: Acute (2) Mitral valve replaced Priority: Secondary Status: Acute - Respiratory Orders None Smoking Cessation: Smoking cessation has been advised. For more information, call the [place] Tobacco Quit Line at 7-473-BVDF-NOW. - Dressing/Wound Care Site: Abdominal Type of Dressing/Treatments w/Frequency: Remove packing from open cholecystectomy incision site. Wash with soap and water. Pat dry. Pack with 1/4 inch plain gauze and cover with a dry dressing daily. Reinforce/change outer dressing PRN. - Diet/Nutrition Diet/Nutrition Orders: Regular, Cardiac - Activity Activity Orders: Ambulate (as tolerated) - Services Needed Following services are medically necessary services: Home Health Aide, Physical Therapy - Transfer Medications Prescriptions: Docusate [Colace] 100 mg PO BID #30 capsule Oxycodone HCl/Acetaminophen [Percocet 5-325 mg Tablet] 1 each PO BID #15 tablet Home Medications: Potassium Chloride 20 meq PO QPM 11/20/14 [History] Sertraline [Zoloft] 100 mg PO QPM 11/20/14 [History] Albuterol Sulfate [Ventolin Hfa] 2 puff IH Q4H PRN 01/12/15 [History] Diltiazem CD (24hr) [Cardizem CD] 120 mg PO DAILY #30 cap.er.24h 01/14/15 [Rx] Celecoxib [Celebrex] 200 mg PO DAILY 09/02/15 [History] Metoprolol XL (24 HR) Succ [Toprol XL] 75 mg PO DAILY 09/02/15 [History] Enoxaparin [Lovenox] 80 mg SQ Q12HR 10/31/16 [History] Furosemide [Lasix] 20 mg PO DAILY 10/31/16 [History] Warfarin [Coumadin] 2 mg PO 1800 10/31/16 [History] Warfarin [Coumadin] 5 mg PO 1800 10/31/16 [History] Docusate [Colace] 100 mg PO BID #30 capsule 11/06/16 [Rx] Oxycodone HCl/Acetaminophen [Percocet 5-325 mg Tablet] 1 each PO BID #15 tablet 11/06/16 [Rx] Allergies/Adverse Reactions: Allergies hydrochlorothiazide Allergy (Verified 10/31/16 13:31) Rash hydrocodone [From Vicodin] Allergy (Verified 10/31/16 13:48) Itching acetaminophen [From Tylenol] Adverse Reaction (Verified 10/31/16 13:31) Gastrointestinal Upset Certification: Further, I certify that my clinical findings support that this patient is homebound (i.e. absences from home require considerable and taxing effort and are for medical reasons or zoroastrian services or infrequently or short duration when for other reasons) because: Homebound Reason: Patient requires assistance of a person or device to safely leave home, Absences from home are contraindicated except to recieve medical care, Post-surgery restriction and or conditions limit ability to leave home, Leaving home requires considerable and taxing effort due to condition, Severity of cardiac or pulmonary status limits activity tolerance Attestation: My signature below is to certify that this patient is under my care and that I, or nurse practitioner, or a physician's recruitment and outreach assistant working with me, has a face-to -face encounter with this patient.
[2016-11-06] MEDS ORDERED: *HR* Warfarin 3 MG TABLET PO ONE (18:00)
== END 2016-11-06 16:45 | disposition home health service (06) | DRG 262 ==
LOC: SAMDAY 12:17 → 3ANU 19:33
PROVIDERS: ADMIT Surgery; ATTEND Surgery
PROC: IRLIVER (2016-10-31 13:55)

== ENCOUNTER 2017-05-24 04:14 | Observation (INO) ==
[2017-05-24 05:14] LABS: Basophils % 0.5 %; Eosinophils # 0.1 K/mcL (0.0-0.6); Hematocrit 43.5 % (35.3-44.9); Hemoglobin 13.5 g/dL (11.5-15.4); Immature Granulocytes % 1.4 % (0-4); Immature Platelets 1.7 % (1.1-6.1); Lymphocytes # 1.4 K/mcL (0.6-4.6); Lymphocytes % 23.4 %; Mean Corpuscular Hemoglobin 25.1 pg (28.0-33.3); Mean Platelet Volume 9.4 fL (9.4-12.4); Monocytes # 0.4 K/mcL (0.0-1.3); Monocytes % 6.4 %; Neutrophils # 3.9 K/mcL (1.6-8.9); Platelet Count 109 K/mcL (140-400); Red Blood Count 5.37 M/mcL (3.82-4.97); Red Cell Distribution Width 14.6 % (11.5-14.5); Segmented Neutrophils % 67.3 %
[2017-05-24] MEDS ORDERED: *HR* Morphine Immed Rel 30 MG TABLET PO ONE (05:30)
[2017-05-24] MEDS ORDERED: Ondansetron 4 MG/2 ML VIAL IVP PRN ×2 (05:31→09:05)
[2017-05-24 05:32] LABS: Bilirubin,Urine Small (Negative); Blood,Urine Negative (Negative); Clarity,Urine Cloudy (Clear); Color,Urine Dark Yellow (Yellow); Glucose,Urine (UA) Normal (Normal); Ketones,Urine Negative (Negative); Leukocyte Esterase,Urine Negative (Negative); Nitrite,Urine Negative (Negative); PH,Urine 6.5 pH Units (5.0-8.0); Protein,Urine Trace mg/dL (Neg-Trace); Specific Gravity,Urine 1.024 (1.010-1.025)
--- NOTE | 2017-05-24 05:32 | Emergency Department Note ---
Disposition Clinical Impression: Abdominal pain Qualifiers: Abdominal location: right upper quadrant Qualified Code(s): R10.11 - Right upper quadrant pain Disposition: Still a Patient Condition: Undetermined Referrals: Mauricio Marquez, DIRECTOR [employer] [Primary Care Provider] - Forms: ED Satisfaction Letter, Work/School Release Abdominal Pain HPI - General Chief Complaint: ED Abdominal Pain Stated Complaint: N/V/D/CP Time Seen by Provider: 05/24/17 05:08 Source: patient Mode of arrival: ambulatory Limitations: no limitations Nursing Notes Reviewed: Yes Vital Signs Reviewed: Yes - History of Present Illness HPI Narrative: Patient presents with mother with complaints of a stomach virus that started on Monday. She states that she experienced nausea, vomiting, diarrhea. She states that she started feeling better today and was able to eat a little more. She had one bowel movement that was half-normal/half loose. She states about 1999 yesterday she started having right upper quadrant pain that is sharp in nature without radiation and she said it feels like right before going to get sick but along with cramping sharp pain. She has not attempted to treat the pain at home prior to reporting to the emergency room. Patient has no other complaints at this time. She has a history of nonalcoholic fatty liver disease, a cholecystectomy, mitral valve replacement, Stewart surgery, appendectomy and hypertension. At home she is on Coumadin for the mitral valve replacement, and Lopressor for hypertension. She is unable to give any more history at this time. Pt Subjective Complaint: abdominal pain Onset (ago): hour(s) Consistency: constant, Worsening Location: RUQ Pain Severity: severe Pain Scale: 10 Quality: cramping, sharp Radiation: none Migration to: no migration Improves with: nothing Worsens with: nothing Associated symptoms: Reports: nausea, vomiting, diarrhea. Denies: fever, chills , constipation, dysuria, hematemesis, hematochezia, melena, hematuria, anorexia , syncope, other - Related Data Home Medications Medication Instructions Recorded Confirmed Potassium Chloride 20 meq PO QPM 11/20/14 10/31/16 Sertraline [Zoloft] 100 mg PO QPM 11/20/14 10/31/16 Albuterol Sulfate [Ventolin Hfa] 2 puff IH Q4H PRN 01/12/15 10/31/16 Celecoxib [Celebrex] 200 mg PO DAILY 09/02/15 10/31/16 Metoprolol XL (24 HR) Succ [Toprol 75 mg PO DAILY 09/02/15 10/31/16 XL] Enoxaparin [Lovenox] 80 mg SQ Q12HR 10/31/16 10/31/16 Furosemide [Lasix] 20 mg PO DAILY 10/31/16 10/31/16 Warfarin [Coumadin] 2 mg PO 1800 10/31/16 10/31/16 Warfarin [Coumadin] 5 mg PO 1800 10/31/16 10/31/16 Previous Rx's Medication Instructions Recorded Diltiazem CD (24hr) [Cardizem CD] 120 mg PO DAILY #30 cap.er.24h 01/14/15 Docusate [Colace] 100 mg PO BID #30 capsule 11/06/16 Oxycodone HCl/Acetaminophen 1 each PO BID #15 tablet 11/06/16 [Percocet 5-325 mg Tablet] Allergies Allergy/AdvReac Type Severity Reaction Status Date / Time hydrochlorothiazide Allergy Rash Verified 10/31/16 13:31 hydrocodone [From Vicodin] Allergy Itching Verified 10/31/16 13:48 acetaminophen [From Tylenol] AdvReac Gastrointestinal Verified 10/31/16 13:31 Upset All systems ED: reviewed and negative except as stated. 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 Psychiatric history: Reports: anxiety, depression - Social History Smoking status: Former smoker Alcohol use: Reports: none Drug use: Reports: none Physical Exam - General Limitations: no limitations General appearance: alert, in no apparent distress - Head Head exam: atraumatic, normocephalic, normal inspection - Neck Neck exam: Present: normal inspection, full ROM, trachea midline - Chest Chest inspection: Present: normal inspection, symmetric chest wall rise - Respiratory Respiratory exam: Present: normal lung sounds bilaterally - Cardiovascular Cardiovascular exam: Present: regular rate, normal rhythm, normal heart sounds - Abdominal Exam Abdominal exam: Present: soft, tenderness, normal bowel sounds. Absent: distention, guarding, rebound, rigidity, organomegaly, mass, bruit, pulsatile mass, hernia, scar Abdominal tenderness: Present: RUQ - Expanded Lower Extremity Exam Gait: observed and normal - Back Exam Back exam: Present: normal inspection, full ROM. Absent: CVA tenderness (R), CVA tenderness (L) - Neurological Exam Neurological exam: Present: alert, oriented X3 - Psychiatric Psychiatric exam: Present: normal affect, normal mood - Skin Skin exam: Present: warm, dry, intact, normal color Course Course Narrative: Patient presents with mother with complaints of a stomach virus that started on Monday. She states that she experienced nausea, vomiting, diarrhea. She states that she started feeling better today and was able to eat a little more. She had one bowel movement that was half-normal/half loose. She states about 1999 yesterday she started having right upper quadrant pain that is sharp in nature without radiation and she said it feels like right before going to get sick but along with cramping sharp pain. She has not attempted to treat the pain at home prior to reporting to the emergency room. Patient has no other complaints at this time. She has a history of nonalcoholic fatty liver disease, a cholecystectomy, mitral valve replacement, Stewart surgery, and hypertension. At home she is on Coumadin for the mitral valve replacement, and Lopressor for hypertension. She is unable to give any more history at this time. Patient is a morbidly obese, well-hydrated female that is sitting in a chair upon my arrival. She states that sitting up helps her considerably. She is yelling out, saying that she is having pain. Her exam revealed right upper quadrant tenderness only with deep palpation. I do not appreciate any masses, organomegaly. Her abdomen is protuberant. She denies any edema, however she states she does get abdominal ascites from time to time due to her NAF LD. Patient has a he had a cholecystectomy and an appendectomy. At this time the concern with right upper quadrant pain would be any acute process with her liver , or pancreatitis. Patient is also recently recovering from. Stomach virus, and still has some lingering effects of it. There is also ribeiro to consider that this is part of stomach virus as what she complains of in her words were at "the feeling of pain is just like when you know you are going to throw up anywhere for better after" we will obtain labs to monitor her nutritional and hydration status and we will reevaluate. I will treat her pain and nausea accordingly. Vital Signs Temperature 98.5 F 05/24/17 04:16 Pulse Rate 78 05/24/17 04:16 Respiratory Rate 18 05/24/17 04:16 Blood Pressure 153/93 05/24/17 04:16 O2 Sat by Pulse Oximetry 98 05/24/17 04:16 Temperature 98.5 F 05/24/17 04:16 Pulse Rate 78 05/24/17 04:16 Respiratory Rate 18 05/24/17 04:16 Blood Pressure 153/93 05/24/17 04:16 O2 Sat by Pulse Oximetry 98 05/24/17 04:16 Oxygen Delivery Oxygen Delivery Room Air Abdominal Pain - Lab Data Result diagrams: 05/24/17 05:00 05/24/17 05:00 Lab Results 05/24/17 05/24/17 05/24/17 Range/Units 05:00 05:00 05:00 WBC 5.8 (4.3-11.1) K/mcL RBC 5.37 H (3.82-4.97) M/mcL Hgb 13.5 (11.5-15.4) g/dL Hct 43.5 (35.3-44.9) % MCV 81.0 L (83.0-100.0) fL MCH 25.1 L (28.0-33.3) pg MCHC 31.0 L (31.6-35.5) g/dL RDW 14.6 H (11.5-14.5) % Plt Count 109 L (140-400) K/mcL MPV 9.4 (9.4-12.4) fL Immature Gran % 1.4 (0-4) % Seg Neutrophils % 67.3 % Lymphocytes % 23.4 % Monocytes % 6.4 % Eosinophils % 1.0 % Basophils % 0.5 % Neutrophils # 3.9 (1.6-8.9) K/mcL Lymphocytes # 1.4 (0.6-4.6) K/mcL Monocytes # 0.4 (0.0-1.3) K/mcL Eosinophils # 0.1 (0.0-0.6) K/mcL Basophils # 0.0 (0.0-0.2) K/mcL Immature Plt Fraction 1.7 (1.1-6.1) % Sodium 135 L (136-145) mEq/L Potassium 3.6 (3.5-5.1) mEq/L Chloride 104 (98-107) mEq/L Carbon Dioxide 25 (23-29) mEq/L BUN 21 H (6-20) mg/dL Creatinine 0.79 (0.60-1.20) mg/dL Est GFR ( Amer) > 60 (> 60) Est GFR (Non-Af Amer) > 60 (> 60) BUN/Creatinine Ratio 27 H (6-26) Glucose 180 H (70-105) mg/dL Calculated Osmolality 288 (280-300) Lactic Acid 1.2 (0.5-2.2) mmol/L Calcium 9.9 (8.6-10.3) mg/dL Total Bilirubin 1.5 H (0.3-1.0) mg/dL Direct Bilirubin 0.5 H (0.0-0.2) mg/dL Indirect Bilirubin 1.0 (0.0-1.2) mg/dL AST 59 H (13-39) Units/L ALT 56 H (7-52) Units/L Alkaline Phosphatase 82 (34-104) Units/L Troponin I (< 0.04) ng/mL Serum Total Protein 7.7 (6.4-8.9) g/dL Albumin 4.3 (3.5-5.7) g/dL Globulin 3.4 (2.4-3.5) g/dL Albumin/Globulin Ratio 1.3 (1.1-2.2) Amylase 20 L (29-103) Units/L Lipase 37 (11-82) Units/L Urine Color (Yellow) Urine Clarity (Clear) Urine pH (5.0-8.0) pH Units Ur Specific [place] (1.010-1.025) Urine Protein (Neg-Trace) mg/dL Urine Glucose (UA) (Normal) mg/dL Urine Ketones (Negative) mg/dL Urine Blood (Negative) Urine Nitrite (Negative) Urine Bilirubin (Negative) Urine Urobilinogen (Normal) mg/dL Ur Leukocyte Esterase (Negative) Urine Microscopic RBC (0-3) per hpf Urine Microscopic WBC (0-3) per hpf Ur Squamous Epith Cells (None-Few) per lpf Urine Bacteria (None-Few) per hpf Hyaline Casts (None-Few) per lpf Urine Mucus (Few) Ur Culture Indicated? (NO) 05/24/17 05/24/17 Range/Units 05:00 05:18 WBC (4.3-11.1) K/mcL RBC (3.82-4.97) M/mcL Hgb (11.5-15.4) g/dL Hct (35.3-44.9) % MCV (83.0-100.0) fL MCH (28.0-33.3) pg MCHC (31.6-35.5) g/dL RDW (11.5-14.5) % Plt Count (140-400) K/mcL MPV (9.4-12.4) fL Immature Gran % (0-4) % Seg Neutrophils % % Lymphocytes % % Monocytes % % Eosinophils % % Basophils % % Neutrophils # (1.6-8.9) K/mcL Lymphocytes # (0.6-4.6) K/mcL Monocytes # (0.0-1.3) K/mcL Eosinophils # (0.0-0.6) K/mcL Basophils # (0.0-0.2) K/mcL Immature Plt Fraction (1.1-6.1) % Sodium (136-145) mEq/L Potassium (3.5-5.1) mEq/L Chloride (98-107) mEq/L Carbon Dioxide (23-29) mEq/L BUN (6-20) mg/dL Creatinine (0.60-1.20) mg/dL Est GFR ( Amer) (> 60) Est GFR (Non-Af Amer) (> 60) BUN/Creatinine Ratio (6-26) Glucose (70-105) mg/dL Calculated Osmolality (280-300) Lactic Acid (0.5-2.2) mmol/L Calcium (8.6-10.3) mg/dL Total Bilirubin (0.3-1.0) mg/dL Direct Bilirubin (0.0-0.2) mg/dL Indirect Bilirubin (0.0-1.2) mg/dL AST (13-39) Units/L ALT (7-52) Units/L Alkaline Phosphatase (34-104) Units/L Troponin I < 0.03 (< 0.04) ng/mL Serum Total Protein (6.4-8.9) g/dL Albumin (3.5-5.7) g/dL Globulin (2.4-3.5) g/dL Albumin/Globulin Ratio (1.1-2.2) Amylase (29-103) Units/L Lipase (11-82) Units/L Urine Color Dark Yellow (Yellow) Urine Clarity Cloudy A (Clear) Urine pH 6.5 (5.0-8.0) pH Units Ur Specific [place] 1.024 (1.010-1.025) Urine Protein Trace (Neg-Trace) mg/dL Urine Glucose (UA) Normal (Normal) mg/dL Urine Ketones Negative (Negative) mg/dL Urine Blood Negative (Negative) Urine Nitrite Negative (Negative) Urine Bilirubin Small H (Negative) Urine Urobilinogen 4.0 H (Normal) mg/dL Ur Leukocyte Esterase Negative (Negative) Urine Microscopic RBC 0-3 (0-3) per hpf Urine Microscopic WBC 3-5 H (0-3) per hpf Ur Squamous Epith Cells Many H (None-Few) per lpf Urine Bacteria Many H (None-Few) per hpf Hyaline Casts None Seen (None-Few) per lpf Urine Mucus Moderate H (Few) Ur Culture Indicated? NO (NO) S.B.A.R. - S.B.A.R. Situation: Demographics, MOA Background: Presenting Complaint, Relevant PMH, Meds, & Allergies Assessment: Vital Signs, Course and respsone to treatment, Exam Concerns, Patient/Family Expectation, Pertinant Lab Results, Outstanding Labs Recommendation: Barrier(s) to disposition, Recommendation based on pending studies, treatments, or consults S.B.A.R. Report Given to: Edmund Khan PA-C [email or web address] Repor Time: 06:00
[2017-05-24 05:35] LABS: Alanine Aminotransferase 56 Units/L (7-52); Albumin 4.3 g/dL (3.5-5.7); Albumin/Globulin Ratio 1.3 (1.1-2.2); Alkaline Phosphatase 82 Units/L (34-104); Amylase 20 Units/L (29-103); Aspartate Amino Transferase 59 Units/L (13-39); BUN/Creatinine Ratio 27 (6-26); Bilirubin,Direct 0.5 mg/dL (0.0-0.2); Bilirubin,Total 1.5 mg/dL (0.3-1.0); Blood Urea Nitrogen 21 mg/dL (6-20); Calcium 9.9 mg/dL (8.6-10.3); Carbon Dioxide 25 mEq/L (23-29); Chloride 104 mEq/L (98-107); Globulin 3.4 g/dL (2.4-3.5); Glucose 180 mg/dL (70-105); Lipase 37 Units/L (11-82); Osmolality,Calculated 288 (280-300); Potassium 3.6 mEq/L (3.5-5.1); Sodium 135 mEq/L (136-145); Total Protein 7.7 g/dL (6.4-8.9); eGFR For Non-African Americans > 60 (> 60)
[2017-05-24 05:35] LABS: Hyaline Casts,Urine None Seen per lpf (None-Few); Squamous Epithelial Cell,Urine Many per lpf (None-Few)
[2017-05-24 05:48] LABS: Bacteria,Urine Many per hpf (None-Few); Mucus,Urine Moderate (Few); RBC,Urine 0-3 per hpf (0-3)
--- NOTE | 2017-05-24 06:30 | Emergency Department Note ---
Disposition Clinical Impression: Elevated liver enzymes Abdominal pain Qualifiers: Abdominal location: right upper quadrant Qualified Code(s): R10.11 - Right upper quadrant pain Disposition: Admitted As Inpatient Condition: Fair Referrals: Mauricio Marquez CNP [Primary Care Provider] - Forms: ED Satisfaction Letter, Work/School Release Abdominal Pain HPI - General Chief Complaint: ED Abdominal Pain Stated Complaint: N/V/D/CP Time Seen by Provider: 05/24/17 05:08 Source: patient Mode of arrival: ambulatory Nursing Notes Reviewed: Yes Vital Signs Reviewed: Yes - History of Present Illness Pt Subjective Complaint: abdominal pain Location: RUQ Pain Severity: severe Pain Scale: 10 Quality: cramping, sharp Migration to: no migration Improves with: nothing Worsens with: nothing Associated symptoms: Reports: nausea, vomiting, diarrhea. Denies: fever, chills , constipation, dysuria, hematemesis, hematochezia, melena, hematuria, anorexia , syncope, other - Related Data Home Medications Medication Instructions Recorded Confirmed Potassium Chloride 20 meq PO QPM 11/20/14 10/31/16 Sertraline [Zoloft] 100 mg PO QPM 11/20/14 10/31/16 Albuterol Sulfate [Ventolin Hfa] 2 puff IH Q4H PRN 01/12/15 10/31/16 Celecoxib [Celebrex] 200 mg PO DAILY 09/02/15 10/31/16 Metoprolol XL (24 HR) Succ [Toprol 75 mg PO DAILY 09/02/15 10/31/16 XL] Furosemide [Lasix] 20 mg PO DAILY 10/31/16 10/31/16 Warfarin [Coumadin] 5 mg PO 1800 10/31/16 10/31/16 Diltiazem CD (24hr) [Cardizem CD] 180 mg PO DAILY 05/24/17 05/24/17 Ergocalciferol (VITAMIN D2) 50,000 unit PO QWEEK 05/24/17 05/24/17 [Vitamin D2] Warfarin [Coumadin] 1 mg PO DAILY 05/24/17 05/24/17 Allergies Allergy/AdvReac Type Severity Reaction Status Date / Time hydrochlorothiazide Allergy Rash Verified 05/24/17 07:18 hydrocodone [From Vicodin] Allergy Itching Verified 05/24/17 07:18 acetaminophen [From Tylenol] AdvReac Gastrointestinal Verified 05/24/17 07:18 Upset Constitutional: Denies: fever, chills Respiratory: Denies: cough, dyspnea, wheezes, sputum production Gastrointestinal: Reports: abdominal pain, nausea, vomiting, diarrhea Genitourinary: Denies: urgency, dysuria, frequency, hematuria Abdominal Pain PMH - Past Medical History Medical history: Reports: atrial fibrillation, hypertension, valvular heart disease, other (nonalcoholic fatty liver ) Female Surgical History: Reports: Adenoidectomy, hysterectomy, Tonsillectomy 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 Psychiatric history: Reports: anxiety, depression - Social History Smoking status: Former smoker Alcohol use: Reports: none Drug use: Reports: none Physical Exam - General Limitations: no limitations General appearance: alert, in no apparent distress Course Vital Signs Temperature 98.5 F 05/24/17 04:16 Pulse Rate 78 05/24/17 04:16 Respiratory Rate 18 05/24/17 04:16 Blood Pressure 153/93 05/24/17 04:16 O2 Sat by Pulse Oximetry 98 05/24/17 04:16 Temperature 98.5 F 05/24/17 04:16 Pulse Rate 78 05/24/17 04:16 Respiratory Rate 18 05/24/17 04:16 Blood Pressure 153/93 05/24/17 04:16 O2 Sat by Pulse Oximetry 98 05/24/17 04:16 Oxygen Delivery Oxygen Delivery Room Air Abdominal Pain - Lab Data Result diagrams: 05/24/17 05:00 05/24/17 05:00 Lab Results 05/24/17 05/24/17 05/24/17 Range/Units 05:00 05:00 05:00 WBC 5.8 (4.3-11.1) K/mcL RBC 5.37 H (3.82-4.97) M/mcL Hgb 13.5 (11.5-15.4) g/dL Hct 43.5 (35.3-44.9) % MCV 81.0 L (83.0-100.0) fL MCH 25.1 L (28.0-33.3) pg MCHC 31.0 L (31.6-35.5) g/dL RDW 14.6 H (11.5-14.5) % Plt Count 109 L (140-400) K/mcL MPV 9.4 (9.4-12.4) fL Immature Gran % 1.4 (0-4) % Seg Neutrophils % 67.3 % Lymphocytes % 23.4 % Monocytes % 6.4 % Eosinophils % 1.0 % Basophils % 0.5 % Neutrophils # 3.9 (1.6-8.9) K/mcL Lymphocytes # 1.4 (0.6-4.6) K/mcL Monocytes # 0.4 (0.0-1.3) K/mcL Eosinophils # 0.1 (0.0-0.6) K/mcL Basophils # 0.0 (0.0-0.2) K/mcL Immature Plt Fraction 1.7 (1.1-6.1) % Sodium 135 L (136-145) mEq/L Potassium 3.6 (3.5-5.1) mEq/L Chloride 104 (98-107) mEq/L Carbon Dioxide 25 (23-29) mEq/L BUN 21 H (6-20) mg/dL Creatinine 0.79 (0.60-1.20) mg/dL Est GFR ( Amer) > 60 (> 60) Est GFR (Non-Af Amer) > 60 (> 60) BUN/Creatinine Ratio 27 H (6-26) Glucose 180 H (70-105) mg/dL Calculated Osmolality 288 (280-300) Lactic Acid 1.2 (0.5-2.2) mmol/L Calcium 9.9 (8.6-10.3) mg/dL Total Bilirubin 1.5 H (0.3-1.0) mg/dL Direct Bilirubin 0.5 H (0.0-0.2) mg/dL Indirect Bilirubin 1.0 (0.0-1.2) mg/dL AST 59 H (13-39) Units/L ALT 56 H (7-52) Units/L Alkaline Phosphatase 82 (34-104) Units/L Troponin I (< 0.04) ng/mL Serum Total Protein 7.7 (6.4-8.9) g/dL Albumin 4.3 (3.5-5.7) g/dL Globulin 3.4 (2.4-3.5) g/dL Albumin/Globulin Ratio 1.3 (1.1-2.2) Amylase 20 L (29-103) Units/L Lipase 37 (11-82) Units/L Urine Color (Yellow) Urine Clarity (Clear) Urine pH (5.0-8.0) pH Units Ur Specific [place] (1.010-1.025) Urine Protein (Neg-Trace) mg/dL Urine Glucose (UA) (Normal) mg/dL Urine Ketones (Negative) mg/dL Urine Blood (Negative) Urine Nitrite (Negative) Urine Bilirubin (Negative) Urine Urobilinogen (Normal) mg/dL Ur Leukocyte Esterase (Negative) Urine Microscopic RBC (0-3) per hpf Urine Microscopic WBC (0-3) per hpf Ur Squamous Epith Cells (None-Few) per lpf Urine Bacteria (None-Few) per hpf Hyaline Casts (None-Few) per lpf Urine Mucus (Few) Ur Culture Indicated? (NO) 05/24/17 05/24/17 Range/Units 05:00 05:18 WBC (4.3-11.1) K/mcL RBC (3.82-4.97) M/mcL Hgb (11.5-15.4) g/dL Hct (35.3-44.9) % MCV (83.0-100.0) fL MCH (28.0-33.3) pg MCHC (31.6-35.5) g/dL RDW (11.5-14.5) % Plt Count (140-400) K/mcL MPV (9.4-12.4) fL Immature Gran % (0-4) % Seg Neutrophils % % Lymphocytes % % Monocytes % % Eosinophils % % Basophils % % Neutrophils # (1.6-8.9) K/mcL Lymphocytes # (0.6-4.6) K/mcL Monocytes # (0.0-1.3) K/mcL Eosinophils # (0.0-0.6) K/mcL Basophils # (0.0-0.2) K/mcL Immature Plt Fraction (1.1-6.1) % Sodium (136-145) mEq/L Potassium (3.5-5.1) mEq/L Chloride (98-107) mEq/L Carbon Dioxide (23-29) mEq/L BUN (6-20) mg/dL Creatinine (0.60-1.20) mg/dL Est GFR ( Amer) (> 60) Est GFR (Non-Af Amer) (> 60) BUN/Creatinine Ratio (6-26) Glucose (70-105) mg/dL Calculated Osmolality (280-300) Lactic Acid (0.5-2.2) mmol/L Calcium (8.6-10.3) mg/dL Total Bilirubin (0.3-1.0) mg/dL Direct Bilirubin (0.0-0.2) mg/dL Indirect Bilirubin (0.0-1.2) mg/dL AST (13-39) Units/L ALT (7-52) Units/L Alkaline Phosphatase (34-104) Units/L Troponin I < 0.03 (< 0.04) ng/mL Serum Total Protein (6.4-8.9) g/dL Albumin (3.5-5.7) g/dL Globulin (2.4-3.5) g/dL Albumin/Globulin Ratio (1.1-2.2) Amylase (29-103) Units/L Lipase (11-82) Units/L Urine Color Dark Yellow (Yellow) Urine Clarity Cloudy A (Clear) Urine pH 6.5 (5.0-8.0) pH Units Ur Specific [place] 1.024 (1.010-1.025) Urine Protein Trace (Neg-Trace) mg/dL Urine Glucose (UA) Normal (Normal) mg/dL Urine Ketones Negative (Negative) mg/dL Urine Blood Negative (Negative) Urine Nitrite Negative (Negative) Urine Bilirubin Small H (Negative) Urine Urobilinogen 4.0 H (Normal) mg/dL Ur Leukocyte Esterase Negative (Negative) Urine Microscopic RBC 0-3 (0-3) per hpf Urine Microscopic WBC 3-5 H (0-3) per hpf Ur Squamous Epith Cells Many H (None-Few) per lpf Urine Bacteria Many H (None-Few) per hpf Hyaline Casts None Seen (None-Few) per lpf Urine Mucus Moderate H (Few) Ur Culture Indicated? NO (NO)
[2017-05-24] MEDS ORDERED: *HR* FentaNYL (PF) 100 MCG/2 ML VIAL IVP ONE ×2 (06:35→07:37)
[2017-05-24] MEDS ORDERED: Acetaminophen 325 MG TABLET PO PRN (07:55)
[2017-05-24] MEDS ORDERED: traMADol 50 MG TABLET PO PRN (07:55)
[2017-05-24] MEDS ORDERED: Naloxone 0.4 MG/ML INJ IVP PRN (07:55)
--- NOTE | 2017-05-24 07:55 | Internal Med History&Physical ---
Date of Encounter: 05/24/17 Time of Encounter: 08:26 Assessment and Plan (1) Abdominal pain Current visit: Yes Status: Acute RUQ and epigastric Non-specific No imaging so far Only positive finding is elevated AST/ALT which might be due to patient's fatty liver. Lactate and Lipase are WNL. No uremia Obtain Abd CT without contrast Abdomen is not acute at this time Continue to monitor Qualifiers: Abdominal location: right upper quadrant Qualified Code(s): R10.11 - Right upper quadrant pain (2) Congestive heart failure Current visit: Yes Status: Chronic Possibly diastolic ECHO from 2015 shows EF 55%, indeterminate diastolic function Euvolemic, continue home meds Qualifiers: Heart failure type: unspecified Heart failure chronicity: chronic Qualified Code(s): I50.9 - Heart failure, unspecified (3) S/P mitral valve replacement with metallic valve Current visit: Yes Status: Chronic Continue coumadin INR ordered stat Goal is 2.5-3.5 Will bridge with lovenox if not therapeutic (4) Depression Current visit: Yes Status: Chronic continue home meds Qualifiers: Depression Type: unspecified Qualified Code(s): F32.9 - Major depressive disorder, single episode, unspecified (5) HTN (hypertension) Current visit: Yes Status: Chronic resume home meds Qualifiers: Hypertension type: essential hypertension Qualified Code(s): I10 - Essential (primary) hypertension (6) History of atrial fibrillation Current visit: Yes Status: Chronic continue home meds HR currently controlled Continue coumadin (7) Obesity Current visit: Yes Status: Chronic Lifestyle modification Qualifiers: Obesity classification: adult class 3 (BMI >= 40) Serious obesity comorbidity presence: unspecified whether serious comorbidity present Body mass index: BMI 45.0-49.9 Qualified Code(s): E66.9 - Obesity, unspecified; Z68.42 - Body mass index (BMI) 45.0-49.9, adult; Z68.42 - Body mass index (BMI) 45.0-49.9, adult; Z68.42 - Body mass index (BMI) 45.0-49.9, adult; Z68.42 - Body mass index (BMI) 45.0-49.9, adult Internal Medicine - H&P: HPI Chief complaint: Abdominal pain Admitted From: Home Plans for Post Hospital Care: Home History of present illness: Ms. Cottrell is a 52 year old female with multiple medical co-morbidities who presented with complains of abdominal pain Patient states 2 days ago, she developed abdominla pain, fever, body aches and diarrhea. This started to resolved yesterday and she was able to tolerate orally , suddenly she developed abdominal pain simultanepusly in her RUQ, and epigastric region, sometimes radiates to the back. She had one episode of loose stool but no longer having diarrhea Abdominal pain has since resolved with multiple opiate meds administartion by the ED At my time of review, the patient is sitting up calmly in bed in no obvious distress She has no other symptoms Work up in the ER included a normal CBC, Normal Chem except for hyperglycemia and pseudo-hyponatremia, slightly elevated liver enzymes normal ALP (Patient has no gall bladder, she also has fatty liver disease) ROS is not contributory Past Med Surg Social Fam HX - Past Medical History Medical history: atrial fibrillation, CHF, diabetes, hyperlipidemia, hypertension, valvular heart disease, other (nonalcoholic fatty liver ) Psychiatric history: anxiety, depression - Past Surgical History Surgical History: non-contributory, appendectomy, cholecystectomy, heart valve replacement, hysterectomy, other - Social History Smoking Status: Former smoker Smokeless Tobacco Status: No Alcohol use: none Drug use: none - Family History Mother Adopted: No Family Member Ethnicity: Non- Living Status: Still Living Hx Family Cardiac Disorders: Yes Hx Family Respiratory Disorders: No Hx Family Cancer: Yes (leukemia) Hx Family GI Disorders: No Hx Family Endocrine Disorder: Yes (diabetic) Hx Family Neuromuscular Disorders: No Hx Family Neurologic Disorders: No Hx Family HEENT Disorders: No Hx Family Autoimmune Disorders: No Internal Medicine - H&P: Meds Potassium Chloride 20 meq PO QPM 11/20/14 [History] Sertraline [Zoloft] 100 mg PO QPM 11/20/14 [History] Albuterol Sulfate [Ventolin Hfa] 2 puff IH Q4H PRN 01/12/15 [History] Celecoxib [Celebrex] 200 mg PO DAILY 09/02/15 [History] Metoprolol XL (24 HR) Succ [Toprol XL] 75 mg PO DAILY 09/02/15 [History] Furosemide [Lasix] 20 mg PO DAILY 10/31/16 [History] Warfarin [Coumadin] 5 mg PO DAILY 10/31/16 [History] Diltiazem CD (24hr) [Cardizem CD] 180 mg PO DAILY 05/24/17 [History] Ergocalciferol (VITAMIN D2) [Vitamin D2] 50,000 unit PO QWEEK 05/24/17 [History] Warfarin [Coumadin] 1 mg PO DAILY 05/24/17 [History] 3 Allergy/AdvReac Type Severity Reaction Status Date / Time hydrochlorothiazide Allergy Rash Verified 05/24/17 07:18 hydrocodone [From Vicodin] Allergy Itching Verified 05/24/17 07:18 acetaminophen [From Tylenol] AdvReac Gastrointestinal Verified 05/24/17 07:18 Upset All Systems PM: A 10-system review of systems was performed and is negative for pertinent findings except as documented above in the HPI. - Constitutional Constitutional: no chills, no fever(s), no night sweats - EENT Eyes: no change in vision, no discharge, no pain, no photophobia Ears: no ear discharge, no ear pain, no tinnitus Nose, mouth and throat: no dysphagia, no nasal discharge, no neck pain, no sore throat - Cardiovascular Cardiovascular ROS IM: no chest pain, no diaphoresis, no dyspnea, no lightheadedness, no palpitations, no syncope - Respiratory Respiratory: no cough, no dyspnea, no wheezing, no excessive phlegm production - Gastrointestinal Gastrointestinal: as per HPI - Genitourinary Genitourinary: no change in urinary stream, no dysuria, no flank pain, no hematuria - Musculoskeletal Musculoskeletal ROS IM: no numbness, no tingling - Integumentary Integumentary IM: no rash, no unusual bruising - Neurological Neurological ROS: no confusion, no convulsions, no focal weakness, no numbness, no tingling, no tremor(s) - Hematologic/Lymphatic Hematologic/Lymphatic: no easy bruising - Constitutional Vitals: Temp Pulse Resp BP Pulse Ox 98.5 F 74 16 122/84 97 05/24/17 04:16 05/24/17 07:30 05/24/17 07:30 05/24/17 07:30 05/24/17 07:30 General appearance: Present: A&O X 3, morbidly obese, no acute distress - Head Head exam: Present: atraumatic, normocephalic - Eye Eye exam: Present: PERRL, conjuntiva pink, sclera anicteric Pupils: Present: PERRL - Neck Neck exam general surgery: Present: supple, trachea midline. Absent: lymphadenopathy - Respiratory Respiratory exam: Present: CTAB. Absent: accessory muscle use, rales, rhonchi, wheezes - Cardiovascular Cardiovascular exam: Present: RRR, +S1, +S2. Absent: diastolic murmur, gallop, rubs, systolic murmur - GI/Abdominal GI/Abdominal exam: Present: normal bowel sounds, soft, no peritoneal signs. Absent: distended, guarding, tenderness - Extremities Exam Extremities exam: Present: warm, radial pulses palpable and symmetrical. Absent : calf tenderness, cyanotic, pedal edema - Neurological Exam Neurological exam: Present: alert, CN II-XII intact, oriented X3, no focal deficits. Absent: pronater drift, facial droop, speech deficit - Skin Skin exam: Present: dry, intact Internal Med - H&P Results - Labs CBC & Chem 7: 05/24/17 05:00 05/24/17 05:00 Labs: Short CBC 05/24/17 Range/Units 05:00 WBC 5.8 (4.3-11.1) K/mcL Hgb 13.5 (11.5-15.4) g/dL Hct 43.5 (35.3-44.9) % Plt Count 109 L (140-400) K/mcL Neutrophils # 3.9 (1.6-8.9) K/mcL BMP 05/24/17 05:00 Sodium 135 L Potassium 3.6 Chloride 104 Carbon Dioxide 25 BUN 21 H Creatinine 0.79 Glucose 180 H Calcium 9.9 Cardiac Enzymes 05/24/17 Range/Units 05:00 Troponin I < 0.03 (< 0.04) ng/mL Liver Function 05/24/17 Range/Units 05:00 Total Bilirubin 1.5 H (0.3-1.0) mg/dL Direct Bilirubin 0.5 H (0.0-0.2) mg/dL AST 59 H (13-39) Units/L ALT 56 H (7-52) Units/L Alkaline Phosphatase 82 (34-104) Units/L Albumin 4.3 (3.5-5.7) g/dL Urine 05/24/17 Range/Units 05:18 Urine Color Dark Yellow (Yellow) Urine Clarity Cloudy A (Clear) Urine pH 6.5 (5.0-8.0) pH Units Ur Specific Rowan 1.024 (1.010-1.025) Urine Protein Trace (Neg-Trace) mg/dL Urine Glucose (UA) Normal (Normal) mg/dL
[2017-05-24 08:23] LABS: INR 1.4; Prothrombin Time 15.2 Seconds (9.4-12.1)
[2017-05-24] MEDS: Metoprolol XL (24 HR) Succ 50 MG TAB.ER.24H PO SCH (10:28)
[2017-05-24] MEDS: Furosemide 20 MG TABLET PO SCH (10:29)
[2017-05-24] MEDS: Diltiazem CD (24hr) 180 MG CAPSULE PO SCH (10:29)
--- NOTE | 2017-05-24 14:13 | Gastroenterology Consult Note ---
<Abril Fossn M - Last Filed: 05/24/17 14:11> Date of Encounter: 05/24/17 Time of Encounter: 12:30 - Assessment and plan (1) Abdominal pain Current Visit: Yes Status: Acute Assessment and plan: Pt has RUQ pain radiating to her back she is status post cholecystectomy 11/10. Will check MRCP to rule out choledocholithiasis. Qualifiers: Abdominal location: right upper quadrant Qualified Code(s): R10.11 - Right upper quadrant pain (2) Elevated liver enzymes Current Visit: Yes Status: Acute Assessment and plan: May be related to hepatic steatosis as is chronic. Will check for CBD stone. - Time Spent With Patient Total time spent is greater than 50% in coordination of care (as documented) at patient's floor/unit and/or counseling patient: GI History of Present Illness - Data of Consult Patient: known to practice within the last 3 years Consult date: 05/24/17 Requesting Physician: Severino Lombardo - Consult Narrative Reason for consult: RUQ pain History of present illness: Ms. Cottrell is a 52 year old female with atrial fibrillation, CHF, diabetes, hyperlipidemia, hypertension, valvular heart disease (status post mechanical valve replacement), nonalcoholic fatty liver, anxiety and depression. She presented with complains of RUQ abdominal pain. She states she had 2 day history of nausea, vomiting, diarrhea and fever that she thought was a virus. She felt better yesterday then around 8PM she started having pain in her RUQ. She states pain progressively worsened and at 3am she was drove to the ER with "the worse pain I've ever had". She states the pain is in her epigastric area, radiates under right ribs and around to her back. She denies any nausea or vomiting. She denies any bloody or tarry stools. She has a history of GERD that is usually relieved with OTC meds as needed but states has been much worse the past 3 days. She was seen 10/[address] Navarrete for fatty liver and RUQ pain. She had cholecystectomy in 11/10. Labs show a t bili 1.5, ast 59 and alt 56 which is improved from 11/01/16. Colonoscopy: denies EGD: 04/12 [facility] hiatal hernia NSAIDS: denies Anticoagulants: coumadin Past Med Surg Social Fam HX - Past Medical History Medical history: atrial fibrillation, hypertension, valvular heart disease, other Psychiatric history: anxiety, depression - Past Surgical History Surgical History: non-contributory, appendectomy, cholecystectomy, heart valve replacement, hysterectomy, other - Social History Smoking Status: Former smoker Smokeless Tobacco Status: No Alcohol use: none Drug use: none - Family History Mother Adopted: No Family Member Ethnicity: Non- Living Status: Still Living Hx Family Cardiac Disorders: Yes Hx Family Respiratory Disorders: No Hx Family Cancer: Yes (leukemia) Hx Family GI Disorders: No Hx Family Endocrine Disorder: Yes (diabetic) Hx Family Neuromuscular Disorders: No Hx Family Neurologic Disorders: No Hx Family HEENT Disorders: No Hx Family Autoimmune Disorders: No Review of Systems: GI: as per [facility] GENERAL: low grade fever before admission EYES: denies yellow discoloration ENT: denies pain with swallowing or difficulty swallowing CARDIO: denies chest pain, palpitations RESP: Shortness of breath with exertion : denies change in color of urine NEURO: denies any weakness HEME: Denies any bruising MS: chronic back and joint pain. DERM: denies rash or itching PSYCH: history of anxiety and depression - Constitutional Vitals: Temp Pulse Resp BP Pulse Ox 97.8 F 73 16 130/78 96 05/24/17 10:58 05/24/17 10:58 05/24/17 10:58 05/24/17 10:58 05/24/17 10:58 Exam: CONSTITUTIONAL:~alert, no acute distress.~HEAD:~normocephalic.~EYES:~no jaundice.~NECK:~no obvious swelling.~HEART:~regular rate and rhythm, mechanical click noted, scar well healed.~LUNGS:~bilateral fair air entry.~ABDOMEN:~non distended, soft, tender to epigastric and RUQ. obese, difficult to assess for masses or organomegaly due to body habitus.~RECTAL EXAM:~Deferred.~EXTREMITIES:~ no clubbing, cyanosis or edema.~SKIN:~no stigmata of chronic liver disease.~ NEUROLOGIC:~no obvious focal defect.~~~~ Results - Labs CBC & Chem 7: 05/24/17 05:00 05/24/17 05:00 Labs: Last Result Calcium 9.9 mg/dL (8.6-10.3) 05/24/17 05:00 Troponin I < 0.03 ng/mL (< 0.04) 05/24/17 05:00 Entire Visit Hgb 13.5 g/dL (11.5-15.4) 05/24/17 05:00 Hct 43.5 % (35.3-44.9) 05/24/17 05:00 PT 15.2 Seconds (9.4-12.1) H 05/24/17 08:12 Total Bilirubin 1.5 mg/dL (0.3-1.0) H 05/24/17 05:00 AST 59 Units/L (13-39) H 05/24/17 05:00 ALT 56 Units/L (7-52) H 05/24/17 05:00 Amylase 20 Units/L (29-103) L 05/24/17 05:00 Lipase 37 Units/L (11-82) 05/24/17 05:00 - ABG ABG results: PT/INR, D-dimer PT 15.2 Seconds (9.4-12.1) H 05/24/17 08:12 Consult Discharge Plan - Plan Referrals: Mauricio Marquez, SPECIAL EVENT ASSISTANT [Primary Care Provider] - <Dasia Navarrete - Last Filed: 05/24/17 22:24> Date of Encounter: 05/24/17 Time of Encounter: 15:00 - Time Spent With Patient Total time spent is greater than 50% in coordination of care (as documented) at patient's floor/unit and/or counseling patient: GI History of Present Illness - Data of Consult Requesting Physician: Severino Lombardo - Consult Narrative History of present illness: Ms. Cottrell is a 52 year old female - Constitutional Vitals: Temp Pulse Resp BP Pulse Ox 98.1 F 84 18 122/69 95 05/24/17 19:29 05/24/17 19:29 05/24/17 19:29 05/24/17 19:29 05/24/17 20:36 Results - Labs CBC & Chem 7: 05/24/17 05:00 05/24/17 05:00 Labs: Last Result Calcium 9.9 mg/dL (8.6-10.3) 05/24/17 05:00 Troponin I < 0.03 ng/mL (< 0.04) 05/24/17 05:00 Entire Visit Hgb 13.5 g/dL (11.5-15.4) 05/24/17 05:00 Hct 43.5 % (35.3-44.9) 05/24/17 05:00 PT 15.2 Seconds (9.4-12.1) H 05/24/17 08:12 Total Bilirubin 1.5 mg/dL (0.3-1.0) H 05/24/17 05:00 AST 59 Units/L (13-39) H 05/24/17 05:00 ALT 56 Units/L (7-52) H 05/24/17 05:00 Amylase 20 Units/L (29-103) L 05/24/17 05:00 Lipase 37 Units/L (11-82) 05/24/17 05:00 - ABG ABG results: PT/INR, D-dimer PT 15.2 Seconds (9.4-12.1) H 05/24/17 08:12 - Impressions Impressions Abdomen MRI 05/24/17 12:26 IMPRESSION: 1. Status post cholecystectomy. However there is a focal 1.2 x 1.0 cm area of focal dilation of the cystic duct remnant at the gallbladder fossa with a central filling defect, suspicious for retained stone. 2. No biliary duct dilation or choledocholithiasis. 3. Hepatic steatosis and splenomegaly. 4. Stable Periportal and retroperitoneal adenopathy is again identified. D/ / 05/24/2017 15:31:05 Scarlett Gamboa MD / lgray Interpreting Provider: Scarlett Gamboa MD - Attending Attestation I examined this patient and my medical decision-making was reviewed with the TURNING MACHINE OPERATOR HELPER. I agree with the documented findings, disposition and treatment plan as described except to the extent set forth below. Pt with epigastric abd pain with abn lFTS, r/o CBD stone. GB alreday out. Rec: MRCP
[2017-05-24] MEDS ORDERED: *HR* Warfarin 3 MG TABLET PO SCH (18:00)
[2017-05-24] MEDS: *HR* Enoxaparin 150 MG/ML SYRINGE SQ SCH (18:32)
[2017-05-25] MEDS: *HR* OxyCODONE Immed Rel 5 MG TABLET PO PRN ×3 (02:41→19:40)
[2017-05-25] MEDS: *HR* Enoxaparin 150 MG/ML SYRINGE SQ SCH ×2 (05:13→17:36)
[2017-05-25 05:16] LABS: Hemoglobin 12.4 g/dL (11.5-15.4)
[2017-05-25 05:18] LABS: Basophils % 0.3 %; Eosinophils # 0.1 K/mcL (0.0-0.6); Eosinophils % 1.9 %; Hematocrit 40.2 % (35.3-44.9); Immature Granulocytes % 0.8 % (0-4); Immature Platelets 1.9 % (1.1-6.1); Lymphocytes # 2.7 K/mcL (0.6-4.6); Lymphocytes % 43.1 %; Mean Corpuscular HGB Conc 30.8 g/dL (31.6-35.5); Mean Corpuscular Hemoglobin 25.5 pg (28.0-33.3); Mean Corpuscular Volume 82.7 fL (83.0-100.0); Mean Platelet Volume 9.2 fL (9.4-12.4); Monocytes # 0.5 K/mcL (0.0-1.3); Monocytes % 7.6 %; Neutrophils # 2.9 K/mcL (1.6-8.9); Nucleated Red Blood Cells 0.3 /100 WBC (0); Platelet Count 116 K/mcL (140-400); Red Blood Count 4.86 M/mcL (3.82-4.97); Red Cell Distribution Width 14.8 % (11.5-14.5); Segmented Neutrophils % 46.3 %
[2017-05-25 05:48] LABS: Alanine Aminotransferase 50 Units/L (7-52); Albumin 3.8 g/dL (3.5-5.7); Albumin/Globulin Ratio 1.3 (1.1-2.2); Alkaline Phosphatase 67 Units/L (34-104); Aspartate Amino Transferase 54 Units/L (13-39); BUN/Creatinine Ratio 25 (6-26); Bilirubin,Total 1.3 mg/dL (0.3-1.0); Blood Urea Nitrogen 22 mg/dL (6-20); Calcium 9.1 mg/dL (8.6-10.3); Carbon Dioxide 26 mEq/L (23-29); Chloride 104 mEq/L (98-107); Glucose 132 mg/dL (70-105); Osmolality,Calculated 289 (280-300); Potassium 3.9 mEq/L (3.5-5.1); Sodium 137 mEq/L (136-145); Total Protein 6.8 g/dL (6.4-8.9); eGFR For Non-African Americans > 60 (> 60)
[2017-05-25 06:24] LABS: INR 1.4; Prothrombin Time 14.7 Seconds (9.4-12.1)
[2017-05-25] MEDS: Diltiazem CD (24hr) 180 MG CAPSULE PO SCH (07:59)
[2017-05-25] MEDS: Metoprolol XL (24 HR) Succ 50 MG TAB.ER.24H PO SCH (07:59)
[2017-05-25] MEDS: Furosemide 20 MG TABLET PO SCH (07:59)
--- NOTE | 2017-05-25 09:56 | Event Note ---
Date of Encounter: 05/25/17 Time of Encounter: 09:[address] results [address] Dr Navarrete. He recommends surgery consult for possible stone in the cystic duct remnant, as attempting ERCP could cause bile leak.
--- NOTE | 2017-05-25 10:38 | Internal Med Progress Note ---
Date of Encounter: 05/25/17 Time of Encounter: 10:35 - Assessment and plan (1) Abdominal pain Current Visit: Yes Status: Acute Assessment and plan: Patient presented to the emergency room yesterday with complaint of midepigastric pain that radiates straight through back and into right upper quadrant. Patient reports laparoscopic cholecystectomy by Dr. Coulter in October,. She reports that she has been relatively pain-free since that time. She describes the pain as sharp and stabbing with nausea. She denies any vomiting. Patient reports that she awakened on Monday morning with nausea vomiting and diarrhea in which she described stomach flu. Symptoms lasted until Monday. On Monday night current pain began at 8 PM. She denies any nausea or vomiting or pain at this time. Her abdomen is nontender to palpation. Abdomen CT was done in the emergency department, results below. Patient was evaluated by GI who recommended MRCP showed a focal dilation of cystic duct with central filling defect, suspicious for retained stone. GI recommends surgery consult due to possible bile leak if ERCP performed. Surgery consulted, will see pt. The patient has been NPO. Abdomen CT 05/24/17 07:57 IMPRESSION: Periportal lymph nodes are mildly enlarged, unchanged. Splenomegaly. Gallbladder is not visualized. Calcifications noted in the gallbladder fossa which may either be in remnant of the gallbladder or cystic duct. No intrahepatic biliary dilatation. D/ / Jailyn Murphy MD / Jailyn Murphy MD Interpreting Provider: Jailyn Murphy MD Abdomen MRI 05/24/17 12:26 IMPRESSION: 1. Status post cholecystectomy. However there is a focal 1.2 x 1.0 cm area of focal dilation of the cystic duct remnant at the gallbladder fossa with a central filling defect, suspicious for retained stone. 2. No biliary duct dilation or choledocholithiasis. 3. Hepatic steatosis and splenomegaly. 4. Stable Periportal and retroperitoneal adenopathy is again identified. D/ / 05/24/2017 15:31:05 Scarlett Gamboa MD / karla Interpreting Provider: Scarlett Gamboa MD Qualifiers: Abdominal location: right upper quadrant Qualified Code(s): R10.11 - Right upper quadrant pain (2) Subtherapeutic international normalized ratio (INR) Current Visit: Yes Status: Acute Assessment and plan: INR 1.4. Pt is anticoagulated due to mitral valve replacement and afib. PCP monitors INR and regulates dosing. Pharmacy to dose while in hospital until therapeutic. (3) Elevated liver enzymes Current Visit: Yes Status: Acute Assessment and plan: Transaminases elevated, ALT has returned to normal, AST improving. Continue to monitor labs. (4) Congestive heart failure Current Visit: Yes Status: Chronic Assessment and plan: No acute exacerbation. Patient is euvolemic. Lungs with wheezing heard in the anterior upper airways, no Rales noted. Pedal and lower extremity edema is at patient's juan antonio line. Echocardiogram shows EF of 55% with indeterminant diastolic function, CHF possibly diastolic. Continue telemetry Continue home medications Qualifiers: Heart failure type: unspecified Heart failure chronicity: chronic Qualified Code(s): I50.9 - Heart failure, unspecified (5) Depression Current Visit: Yes Status: Chronic Assessment and plan: Chronic. Continue home medications. Qualifiers: Depression Type: unspecified Qualified Code(s): F32.9 - Major depressive disorder, single episode, unspecified (6) HTN (hypertension) Current Visit: Yes Status: Chronic Assessment and plan: Chronic. Continue home medications. Qualifiers: Hypertension type: essential hypertension Qualified Code(s): I10 - Essential (primary) hypertension (7) History of atrial fibrillation Current Visit: Yes Status: Chronic Assessment and plan: Chronic. Rate controlled. Patient is on warfarin, currently subtherapeutic. Pharmacy to dose. Continue signal engineer INR. (8) Obesity Current Visit: Yes Status: Chronic Assessment and plan: Morbid obesity. BMI 58.0. Patient is going to have a gastric sleeve done in June. Continue to encourage lifestyle modifications. Qualifiers: Obesity classification: adult class 3 (BMI >= 40) Serious obesity comorbidity presence: unspecified whether serious comorbidity present Body mass index: BMI 45.0-49.9 Qualified Code(s): E66.9 - Obesity, unspecified; Z68.42 - Body mass index (BMI) 45.0-49.9, adult; Z68.42 - Body mass index (BMI) 45.0-49.9, adult; Z68.42 - Body mass index (BMI) 45.0-49.9, adult; Z68.42 - Body mass index (BMI) 45.0-49.9, adult (9) S/P mitral valve replacement with metallic valve Current Visit: Yes Status: Chronic Assessment and plan: Patient is anticoagulated with warfarin. INR is currently subtherapeutic. Continue to monitor INR. Pharmacy is dosing warfarin. (10) DVT prophylaxis Current Visit: Yes Status: Acute Assessment and plan: Continue Warfarin. - Subjective Interval history: Pt was seen and assessed at 1025. Pt is alert and awake, answers questions appropriately. She currently denies n/v/d or abdominal pain. She denies chest pain, SOB, headache, dizziness, or lightheadedness. - Constitutional Vitals: Temp Pulse Resp BP Pulse Ox 97.6 F 72 18 109/73 95 05/25/17 07:44 05/25/17 07:44 05/25/17 07:44 05/25/17 07:44 05/25/17 07:44 General appearance: Present: A&O X 3, morbidly obese, pleasant, no acute distress, answers questions appropriately - Head Head exam: Present: atraumatic, normal inspection, normocephalic - Eye Eye exam: Present: normal appearance, conjuntiva pink, sclera anicteric - Neck Neck exam general surgery: Present: normal inspection, supple, trachea midline. Absent: lymphadenopathy, tenderness - Respiratory Respiratory exam: Present: CTAB, wheezes. Absent: accessory muscle use, rales, respiratory distress, rhonchi Additional comments: Wheezing heard in in anterior upper airway. - Cardiovascular Cardiovascular exam: Present: irregular rhythm, RRR, +S1, +S2. Absent: diastolic murmur, gallop, rubs, systolic murmur, tachycardia - GI/Abdominal GI/Abdominal exam: Present: hyperactive bowel sounds, soft. Absent: distended, tenderness - Extremities Exam Extremities exam: Present: normal capillary refill, normal inspection, pedal edema, warm, radial pulses palpable and symmetrical. Absent: calf tenderness, cyanotic, tenderness Additional comments: Pedal edema is at patient's baseline. - Neurological Exam Neurological exam: Present: alert, oriented X3, no focal deficits. Absent: facial droop, speech deficit - Skin Skin exam: Present: dry, intact, normal color, warm. Absent: rash Internal Medicine: Result - Labs CBC & Chem 7: 05/25/17 04:27 05/25/17 04:27 Labs: Short CBC 05/25/17 Range/Units 04:27 WBC 6.2 (4.3-11.1) K/mcL Hgb 12.4 (11.5-15.4) g/dL Hct 40.2 (35.3-44.9) % Plt Count 116 L (140-400) K/mcL Neutrophils # 2.9 (1.6-8.9) K/mcL BMP 05/25/17 04:27 Sodium 137 Potassium 3.9 Chloride 104 Carbon Dioxide 26 BUN 22 H Creatinine 0.89 Glucose 132 H Calcium 9.1 Liver Function 05/25/17 Range/Units 04:27 Total Bilirubin 1.3 H (0.3-1.0) mg/dL AST 54 H (13-39) Units/L ALT 50 (7-52) Units/L Alkaline Phosphatase 67 (34-104) Units/L Albumin 3.8 (3.5-5.7) g/dL - ABG Interpretation ABG results: PT/INR, D-dimer PT 14.7 Seconds (9.4-12.1) H 05/25/17 05:58 - Impressions Impressions Abdomen MRI 05/24/17 12:26 IMPRESSION: 1. Status post cholecystectomy. However there is a focal 1.2 x 1.0 cm area of focal dilation of the cystic duct remnant at the gallbladder fossa with a central filling defect, suspicious for retained stone. 2. No biliary duct dilation or choledocholithiasis. 3. Hepatic steatosis and splenomegaly. 4. Stable Periportal and retroperitoneal adenopathy is again identified. D/ / 05/24/2017 15:31:05 Scarlett Gamboa MD / lgray Interpreting Provider: Scarlett Gamboa MD Consult Discharge Plan - Plan Referrals: Mauricio Marquez, LEGUILLON DEBEADER [Primary Care Provider] -
--- NOTE | 2017-05-25 11:59 | General Surgery Consult Note ---
<Génesis Walters - Last Filed: 05/26/17 09:18> Date of Encounter: 05/25/17 Time of Encounter: 11:30 Assessment and Plan (1) Retained gallstones following open cholecystectomy Status: Acute Given patient's lack of symptoms at this time, we would recommend starting on clear liquids and slowly advance as tolerated to a regular diet. If the patient has recurrence of symptoms including epigastric and right upper quadrant pain with associated nausea and vomiting, Dr. Navarrete with gastroenterology proceed with an ERCP (Dr. Coulter discussed with Dr. Navarrete) No urgent surgical intervention indicated at this time. Will continue to follow along and assess the patient's progress (2) Elevated liver enzymes Status: Acute Improving Continue to monitor (3) Congestive heart failure Status: Chronic Management per medicine service Qualifiers: Heart failure type: unspecified Heart failure chronicity: chronic Qualified Code(s): I50.9 - Heart failure, unspecified (4) Depression Status: Chronic Management per medicine service Qualifiers: Depression Type: unspecified Qualified Code(s): F32.9 - Major depressive disorder, single episode, unspecified (5) HTN (hypertension) Status: Chronic Currently normotensive Management per medicine service Qualifiers: Hypertension type: essential hypertension Qualified Code(s): I10 - Essential (primary) hypertension (6) Obesity Status: Chronic Qualifiers: Obesity type: unspecified obesity type Obesity classification: adult class 3 (BMI >= 40) Serious obesity comorbidity presence: unspecified whether serious comorbidity present Body mass index: BMI 45.0-49.9 Qualified Code(s) : E66.9 - Obesity, unspecified; Z68.42 - Body mass index (BMI) 45.0-49.9, adult ; Z68.42 - Body mass index (BMI) 45.0-49.9, adult; Z68.42 - Body mass index (BMI ) 45.0-49.9, adult; Z68.42 - Body mass index (BMI) 45.0-49.9, adult (7) S/P mitral valve replacement with metallic valve Status: Chronic INR- 1.4 Currently on therapeutic lovenox Management per medicine service History of Present Illness Consult date: 05/25/17 Requesting physician: Dasia Navarrete History of present illness: Ms. Cottrell is a 52 year old female who is status post an open cholecystectomy with Dr. Coulter in October 2016 for symptomatic cholelithiasis. She states that she has been doing well up until the last few days. She states that 4 days ago that she had sudden onset of nausea and vomiting which she states was related to a stomach virus. She also reports diarrhea associated with the stomach virus. She denies any hematemesis or coffee-ground emesis. She denies any melena or hematochezia. She states that she had started to feel better a couple days ago and started to eat. She states that after eating she had sudden onset of epigastric and right upper quadrant pain which radiated around her right side and into her back. She states she has never had pain like this before. She states that the pain has resolved at this point. She denies any further nausea or vomiting. She states that her appetite is returning and she feels like she could eat. She does admit to chills but states she did not check her temperature. She admits having symptoms of heartburn. She denies any shortness of breath or chest pain. She denies any difficulty with urination. The patient has been seen by gastroenterology and did have an MRCP complete. The MRCP demonstrates a retained stone within the cystic duct remnant. We have been asked this evaluate the patient for further recommendations. Past Med Surg Social Fam HX - Past Medical History Source: patient, old records reviewed Medical history: atrial fibrillation, cardiomyopathy, CHF, coronary artery disease, hypertension, valvular heart disease (severe mitral valve stenosis), other (Morbid obesity, sleep apnea) Psychiatric history: anxiety, depression - Past Surgical History Surgical History: appendectomy, cholecystectomy (Open cholecystectomy and October [address] Coulter), heart valve replacement, hysterectomy, other (Left heart catheter without stents in September 2012, cardioversion in 2012 and 2014, tonsillectomy; mitral valve replacement and 2015, Maze procedure) - Social History Smoking Status: Former smoker Smokeless Tobacco Status: No Alcohol use: none Drug use: none Current living situation: Home - Independent Activity Level: Independent ambulation - Family History Mother Adopted: No Family Member Ethnicity: Non- Living Status: Still Living Hx Family Cardiac Disorders: Yes Hx Family Respiratory Disorders: No Hx Family Cancer: Yes (leukemia) Hx Family GI Disorders: No Hx Family Endocrine Disorder: Yes (diabetic) Hx Family Neuromuscular Disorders: No Hx Family Neurologic Disorders: No Hx Family HEENT Disorders: No Hx Family Autoimmune Disorders: No Medications and Allergies Potassium Chloride 20 meq PO QPM 11/20/14 [History] Sertraline [Zoloft] 100 mg PO QPM 11/20/14 [History] Albuterol Sulfate [Ventolin Hfa] 2 puff IH Q4H PRN 01/12/15 [History] Celecoxib [Celebrex] 200 mg PO DAILY 09/02/15 [History] Metoprolol XL (24 HR) Succ [Toprol Xl] 75 mg PO DAILY 09/02/15 [History] Furosemide [Lasix] 20 mg PO DAILY 10/31/16 [History] Warfarin [Coumadin] 5 mg PO DAILY 10/31/16 [History] Diltiazem CD (24hr) [Cardizem CD] 180 mg PO DAILY 05/24/17 [History] Ergocalciferol (VITAMIN D2) [Vitamin D2] 50,000 unit PO QWEEK 05/24/17 [History] Warfarin [Coumadin] 1 mg PO DAILY 05/24/17 [History] 3 Allergy/AdvReac Type Severity Reaction Status Date / Time hydrochlorothiazide Allergy Rash Verified 05/24/17 07:18 hydrocodone [From Vicodin] Allergy Itching Verified 05/24/17 07:18 acetaminophen [From Tylenol] AdvReac Gastrointestinal Verified 05/24/17 07:18 Upset Review of Systems All systems PM: reviewed and no additional remarkable complaints except as stated (in the HPI) All systems PM: The remainder of the systems were reviewed and are negative General Surgery Exam Initial Vital Signs Temp Pulse Resp BP Pulse Ox 98.5 F 78 18 153/93 98 05/24/17 04:16 05/24/17 04:16 05/24/17 04:16 05/24/17 04:16 05/24/17 04:16 - General physical appearance well developed, well nourished, no distress, no pain, obese - Eyes PERRL, normal ocular movement - ENT normal mucosa, atraumatic, normocephalic - Neck trachea midline - Respiratory normal respiratory effort, clear to auscultation - Cardiovascular Cardiovascular exam: Present: irregular rhythm - Abdomen Abdomen general surgery: Present: bowel sounds present, soft, non tender - Incision Incision: Present: clean and dry, intact - Integumentary Integumentary general surgery: Present: warm and dry - Neurologic Present: CN 2-12 grossly intact - Musculoskeletal Present: normal gait, normal posture - Psychiatric Psychiatric general surgery: Present: appropriate, oriented to person, oriented to place, oriented to time, speech is normal, memory intact Exam Initial Vital Signs Temp Pulse Resp BP Pulse Ox 98.5 F 78 18 153/93 98 05/24/17 04:16 05/24/17 04:16 05/24/17 04:16 05/24/17 04:16 05/24/17 04:16 Results - Labs 05/26/17 03:47 05/26/17 03:47 Abnormal lab results MCV 82.7 fL (83.0-100.0) L 05/25/17 04:27 MCH 25.5 pg (28.0-33.3) L 05/25/17 04:27 MCHC 30.8 g/dL (31.6-35.5) L 05/25/17 04:27 RDW 14.8 % (11.5-14.5) H 05/25/17 04:27 Plt Count 116 K/mcL (140-400) L 05/25/17 04:27 MPV 9.2 fL (9.4-12.4) L 05/25/17 04:27 Nucleated RBCs/100 WBC 0.3 /100 WBC (0) H 05/25/17 04:27 PT 14.7 Seconds (9.4-12.1) H 05/25/17 05:58 BUN 22 mg/dL (6-20) H 05/25/17 04:27 Glucose 132 mg/dL (70-105) H 05/25/17 04:27 POC Glucose 120 (58-89) H 05/25/17 11:09 Total Bilirubin 1.3 mg/dL (0.3-1.0) H 05/25/17 04:27 Direct Bilirubin 0.5 mg/dL (0.0-0.2) H 05/24/17 05:00 AST 54 Units/L (13-39) H 05/25/17 04:27 Amylase 20 Units/L (29-103) L 05/24/17 05:00 Urine Clarity Cloudy (Clear) A 05/24/17 05:18 Urine Bilirubin Small (Negative) H 05/24/17 05:18 Urine Urobilinogen 4.0 mg/dL (Normal) H 05/24/17 05:18 Urine Microscopic WBC 3-5 per hpf (0-3) H 05/24/17 05:18 Ur Squamous Epith Cells Many per lpf (None-Few) H 05/24/17 05:18 Urine Bacteria Many per hpf (None-Few) H 05/24/17 05:18 Urine Mucus Moderate (Few) H 05/24/17 05:18 Diabetes panel 05/25/17 Range/Units 04:27 Sodium 137 (136-145) mEq/L Potassium 3.9 (3.5-5.1) mEq/L Chloride 104 (98-107) mEq/L Carbon Dioxide 26 (23-29) mEq/L BUN 22 H (6-20) mg/dL Creatinine 0.89 (0.60-1.20) mg/dL Glucose 132 H (70-105) mg/dL Calcium 9.1 (8.6-10.3) mg/dL AST 54 H (13-39) Units/L ALT 50 (7-52) Units/L Alkaline Phosphatase 67 (34-104) Units/L Albumin 3.8 (3.5-5.7) g/dL Calcium panel 05/25/17 Range/Units 04:27 Calcium 9.1 (8.6-10.3) mg/dL Albumin 3.8 (3.5-5.7) g/dL Pituitary panel 05/25/17 Range/Units 04:27 Sodium 137 (136-145) mEq/L Potassium 3.9 (3.5-5.1) mEq/L Chloride 104 (98-107) mEq/L Carbon Dioxide 26 (23-29) mEq/L BUN 22 H (6-20) mg/dL Creatinine 0.89 (0.60-1.20) mg/dL Glucose 132 H (70-105) mg/dL Calcium 9.1 (8.6-10.3) mg/dL Adrenal panel 05/25/17 Range/Units 04:27 Sodium 137 (136-145) mEq/L Potassium 3.9 (3.5-5.1) mEq/L Chloride 104 (98-107) mEq/L Carbon Dioxide 26 (23-29) mEq/L BUN 22 H (6-20) mg/dL Creatinine 0.89 (0.60-1.20) mg/dL Glucose 132 H (70-105) mg/dL Calcium 9.1 (8.6-10.3) mg/dL Total Bilirubin 1.3 H (0.3-1.0) mg/dL AST 54 H (13-39) Units/L ALT 50 (7-52) Units/L Alkaline Phosphatase 67 (34-104) Units/L Albumin 3.8 (3.5-5.7) g/dL All other labs normal. - Imaging Additional studies: Abdomen CT 05/24/17 07:57 IMPRESSION: Periportal lymph nodes are mildly enlarged, unchanged. Splenomegaly. Gallbladder is not visualized. Calcifications noted in the gallbladder fossa which may either be in remnant of the gallbladder or cystic duct. No intrahepatic biliary dilatation. D/ / Jailyn Murphy MD / Jailyn Murphy MD Interpreting Provider: Jailyn Murphy MD Abdomen MRI 05/24/17 12:26 IMPRESSION: 1. Status post cholecystectomy. However there is a focal 1.2 x 1.0 cm area of focal dilation of the cystic duct remnant at the gallbladder fossa with a central filling defect, suspicious for retained stone. 2. No biliary duct dilation or choledocholithiasis. 3. Hepatic steatosis and splenomegaly. 4. Stable Periportal and retroperitoneal adenopathy is again identified. D/ / 05/24/2017 15:31:05 Scarlett Gamboa MD / karla Interpreting Provider: Scarlett Gamboa MD Consult Discharge Plan - Plan Instructions: Heart Failure (DC), Chronic Hypertension (DC) Additional Instructions: Please follow up with your primary care provider in the next 7-10 days for recheck on your elevated enzymes as well as to have your Coumadin readjusted. Return to your normal diet as tolerated. Return to the emergency department as needed for any other problems or concerns , or if her symptoms return or worsen. Take 7 mg of Coumadin tonight, return to your normal dose on Monday. Discuss going to the Coumadin clinic with your primary care provider for closer monitoring of your INR DVT your increased need for higher INR. Return to her normal home medications and activities as tolerated. Referrals: [place],Ali N, [facility] [Primary Care Provider] - 06/05/17 2:45 pm (Call Carlos Marquez's nurse, Ivis, at [phone] to make appointment for MondayMay 29 to review lab results. ) - Attending Attestation For this encounter, I have reviewed the SPORTS PHYSIOTHERAPIST or PA documentation, treatment plan, and medical decision making; and I have had face to face time with this patient. <Yanet Coulter - Last Filed: 05/26/17 17:58> Date of Encounter: 05/26/17 Assessment and Plan (1) Retained gallstones following open cholecystectomy Status: Acute (2) S/P cholecystectomy Status: Acute discussed with Dr Navarrete, patient has retained cystic duct stump with potential 3 mm stone, patients open cholecystectomy was very difficult and repeat surgery would be even more dififcult patient is currently asymptomatic, if she were to have symptoms again Dr Navarrete stated he would take her for an ERCP if she would require surgery recommend she be seen at [facility] by hepatobiliary Review of Systems All systems PM: The remainder of the systems were reviewed and are negative General Surgery Exam Initial Vital Signs Temp Pulse Resp BP Pulse Ox 98.5 F 78 18 153/93 98 05/24/17 04:16 05/24/17 04:16 05/24/17 04:16 05/24/17 04:16 05/24/17 04:16 Exam Initial Vital Signs Temp Pulse Resp BP Pulse Ox 98.5 F 78 18 153/93 98 05/24/17 04:16 05/24/17 04:16 05/24/17 04:16 05/24/17 04:16 05/24/17 04:16 Results - Labs 05/26/17 03:47 05/26/17 03:47 Abnormal lab results RBC 5.08 M/mcL (3.82-4.97) H 05/26/17 03:47 MCH 25.8 pg (28.0-33.3) L 05/26/17 03:47 MCHC 31.0 g/dL (31.6-35.5) L 05/26/17 03:47 RDW 14.6 % (11.5-14.5) H 05/26/17 03:47 Plt Count 117 K/mcL (140-400) L 05/26/17 03:47 MPV 9.3 fL (9.4-12.4) L 05/26/17 03:47 Nucleated RBCs/100 WBC 0.3 /100 WBC (0) H 05/26/17 03:47 PT 17.0 Seconds (9.4-12.1) H 05/26/17 03:47 Glucose 115 mg/dL (70-105) H 05/26/17 03:47 POC Glucose 120 (58-89) H 05/25/17 11:09 Total Bilirubin 1.3 mg/dL (0.3-1.0) H 05/25/17 04:27 Direct Bilirubin 0.5 mg/dL (0.0-0.2) H 05/24/17 05:00 AST 49 Units/L (13-39) H 05/26/17 03:47 Amylase 20 Units/L (29-103) L 05/24/17 05:00 Urine Clarity Cloudy (Clear) A 05/24/17 05:18 Urine Bilirubin Small (Negative) H 05/24/17 05:18 Urine Urobilinogen 4.0 mg/dL (Normal) H 05/24/17 05:18 Urine Microscopic WBC 3-5 per hpf (0-3) H 05/24/17 05:18 Ur Squamous Epith Cells Many per lpf (None-Few) H 05/24/17 05:18 Urine Bacteria Many per hpf (None-Few) H 05/24/17 05:18 Urine Mucus Moderate (Few) H 05/24/17 05:18 Diabetes panel 05/26/17 Range/Units 03:47 Sodium 136 (136-145) mEq/L Potassium 3.8 (3.5-5.1) mEq/L Chloride 101 (98-107) mEq/L Carbon Dioxide 29 (23-29) mEq/L BUN 19 (6-20) mg/dL Creatinine 0.91 (0.60-1.20) mg/dL Glucose 115 H (70-105) mg/dL Calcium 9.1 (8.6-10.3) mg/dL AST 49 H (13-39) Units/L Calcium panel 05/26/17 Range/Units 03:47 Calcium 9.1 (8.6-10.3) mg/dL Pituitary panel 05/26/17 Range/Units 03:47 Sodium 136 (136-145) mEq/L Potassium 3.8 (3.5-5.1) mEq/L Chloride 101 (98-107) mEq/L Carbon Dioxide 29 (23-29) mEq/L BUN 19 (6-20) mg/dL Creatinine 0.91 (0.60-1.20) mg/dL Glucose 115 H (70-105) mg/dL Calcium 9.1 (8.6-10.3) mg/dL Adrenal panel 05/26/17 Range/Units 03:47 Sodium 136 (136-145) mEq/L Potassium 3.8 (3.5-5.1) mEq/L Chloride 101 (98-107) mEq/L Carbon Dioxide 29 (23-29) mEq/L BUN 19 (6-20) mg/dL Creatinine 0.91 (0.60-1.20) mg/dL Glucose 115 H (70-105) mg/dL Calcium 9.1 (8.6-10.3) mg/dL AST 49 H (13-39) Units/L All other labs normal.
[2017-05-25] MEDS ORDERED: Warfarin perPT PO PRN (18:00)
[2017-05-26 05:15] LABS: Basophils % 0.3 %; Eosinophils # 0.2 K/mcL (0.0-0.6); Hematocrit 42.2 % (35.3-44.9); Hemoglobin 13.1 g/dL (11.5-15.4); Immature Granulocytes % 0.5 % (0-4); Lymphocytes # 2.8 K/mcL (0.6-4.6); Lymphocytes % 44.7 %; Mean Corpuscular Hemoglobin 25.8 pg (28.0-33.3); Mean Corpuscular Volume 83.1 fL (83.0-100.0); Mean Platelet Volume 9.3 fL (9.4-12.4); Monocytes # 0.4 K/mcL (0.0-1.3); Monocytes % 6.4 %; Neutrophils # 2.8 K/mcL (1.6-8.9); Nucleated Red Blood Cells 0.3 /100 WBC (0); Platelet Count 117 K/mcL (140-400); Red Blood Count 5.08 M/mcL (3.82-4.97); Red Cell Distribution Width 14.6 % (11.5-14.5); Segmented Neutrophils % 45.1 %
[2017-05-26 05:25] LABS: INR 1.6
[2017-05-26 05:31] LABS: BUN/Creatinine Ratio 21 (6-26); Blood Urea Nitrogen 19 mg/dL (6-20); Calcium 9.1 mg/dL (8.6-10.3); Carbon Dioxide 29 mEq/L (23-29); Chloride 101 mEq/L (98-107); Glucose 115 mg/dL (70-105); Osmolality,Calculated 285 (280-300); Potassium 3.8 mEq/L (3.5-5.1); Sodium 136 mEq/L (136-145); eGFR For Non-African Americans > 60 (> 60)
[2017-05-26] MEDS: *HR* Enoxaparin 150 MG/ML SYRINGE SQ SCH (05:58)
[2017-05-26 07:48] LABS: Aspartate Amino Transferase 49 Units/L (13-39)
[2017-05-26] MEDS: *HR* OxyCODONE Immed Rel 5 MG TABLET PO PRN (09:26)
[2017-05-26] MEDS: Metoprolol XL (24 HR) Succ 50 MG TAB.ER.24H PO SCH (09:26)
[2017-05-26] MEDS: Furosemide 20 MG TABLET PO SCH (09:26)
[2017-05-26] MEDS: Diltiazem CD (24hr) 180 MG CAPSULE PO SCH (09:26)
--- NOTE | 2017-05-26 09:41 | Discharge Summary ---
- NOTES TO OUTPATIENT PROVIDER Notes to Outpatient Provider: Pt had improving, but elevated AST on discharge. Clinically, pt appeared well, but could benefit from follow up labs. INR subtherapeutic on discharge, 1.6. Increased Warfarin dose to 7mg tonight, 05/26 and will decrease back to normal 6mg daily tomorrow 05/27. INR ordered for Sunday 05/28 with results to you. Orders not resulted at time of discharge: Pending orders 05/27/17 04:00 INR/PT [Prothrombin Time INR] [COAG] AM 0400 05/28/17 04:00 INR/PT [Prothrombin Time INR] [COAG] AM 0400 Date of Encounter: 05/26/17 Time of Encounter: 09:35 - Discharge Diagnosis (1) Abdominal pain Priority: Primary Status: Resolved Comments: Patient denies abdominal pain today. Bowel sounds are present 4, and abdomen is obese, nontender to palpation. Patient denies any nausea, vomiting, diarrhea and is able to tolerate regular meals. Since patient has been asymptomatic, surgery has decided not to pursue surgical intervention at this time. Abdomen CT 05/24/17 07:57 IMPRESSION: Periportal lymph nodes are mildly enlarged, unchanged. Splenomegaly. Gallbladder is not visualized. Calcifications noted in the gallbladder fossa which may either be in remnant of the gallbladder or cystic duct. No intrahepatic biliary dilatation. D/ / Jailyn Murphy MD / Jailyn Murphy MD Interpreting Provider: Jailyn Murphy MD Abdomen MRI 05/24/17 12:26 IMPRESSION: 1. Status post cholecystectomy. However there is a focal 1.2 x 1.0 cm area of focal dilation of the cystic duct remnant at the gallbladder fossa with a central filling defect, suspicious for retained stone. 2. No biliary duct dilation or choledocholithiasis. 3. Hepatic steatosis and splenomegaly. 4. Stable Periportal and retroperitoneal adenopathy is again identified. D/ / 05/24/2017 15:31:05 Scarlett Gamboa MD / [facility] Interpreting Provider: Scarlett Gamboa MD Qualifiers: Abdominal location: right upper quadrant Qualified Code(s): R10.11 - Right upper quadrant pain (2) Subtherapeutic international normalized ratio (INR) Priority: Secondary Status: Acute Comments: From a seated dosing warfarin during visit, INR remains subtherapeutic at 1.6. Patient will need close follow-up and warfarin dosing to get to a therapeutic level. (3) Elevated liver enzymes Priority: Secondary Status: Acute Comments: A1c remains mildly elevated at 49. ALT has returned to baseline. Follow with primary care. (4) Congestive heart failure Priority: Secondary Status: Chronic Comments: Patient remains euvolemic without exacerbation. Lungs are clear and diminished throughout. Patient again reports that her pedal and lower extremity edema. Her baseline. CHF most likely diastolic with echocardiogram shows preserved ejection fraction with indeterminant diastolic function. Continue home medications. Qualifiers: Heart failure type: unspecified Heart failure chronicity: chronic Qualified Code(s): I50.9 - Heart failure, unspecified (5) Depression Priority: Secondary Status: Chronic Comments: Chronic. Continue home medications. Qualifiers: Depression Type: unspecified Qualified Code(s): F32.9 - Major depressive disorder, single episode, unspecified (6) HTN (hypertension) Priority: Secondary Status: Chronic Comments: Chronic. Well controlled. Continue home medications. Qualifiers: Hypertension type: essential hypertension Qualified Code(s): I10 - Essential (primary) hypertension (7) History of atrial fibrillation Priority: Secondary Status: Chronic Comments: Chronic. Rate controlled. Patient is on warfarin, currently subtherapeutic. Pharmacy was dosing. Patient will need to follow closely with primary care for follow-up and medication adjustments. (8) Obesity Priority: Secondary Status: Chronic Comments: Chronic. Patient is scheduled to have weight reduction surgery next month. Continue to encourage lifestyle changes and diet modifications. Qualifiers: Obesity type: unspecified obesity type Obesity classification: adult class 3 (BMI >= 40) Serious obesity comorbidity presence: unspecified whether serious comorbidity present Body mass index: BMI 45.0-49.9 Qualified Code(s) : E66.9 - Obesity, unspecified; Z68.42 - Body mass index (BMI) 45.0-49.9, adult ; Z68.42 - Body mass index (BMI) 45.0-49.9, adult; Z68.42 - Body mass index (BMI ) 45.0-49.9, adult; Z68.42 - Body mass index (BMI) 45.0-49.9, adult (9) S/P mitral valve replacement with metallic valve Priority: Secondary Status: Chronic Comments: Per history. Patient is anticoagulated. (10) DVT prophylaxis Priority: Secondary Status: Acute Comments: Patient is on warfarin. She was also ambulatory in the room. Hospital course: Ms. Cottrell is a 52 year old female with past medical history of CHF, mitral valve replacement, A. fib, cholelithiasis with cholecystectomy, depression and obesity. Patient presented to the emergency department with abdominal pain in the midepigastric area and right upper quadrant with radiation through to the back. Patient had a left: October,. For several days prior to presentation she had nausea, vomiting, and diarrhea that she attributed to a viral syndrome. Imaging showed splenomegaly, absent gallbladder with calcifications noted in the gallbladder fossa which may be remnant of the gallbladder or cystic duct. She was evaluated by GI and MRCP was ordered. There was a focal 1.2 x 1.0 cm area of focal dilation of the cystic duct remnant with central filling defect suspicious for retained stone. Also noted was hepatic steatosis and splenomegaly. Surgeries consultation due to patient's improvement in pain and overall condition, they decided to not proceed with any surgical intervention. Patient has remained stable and pain-free throughout visit. Transaminases were elevated on admission, ALT has returned to normal, AST is improving and is almost back to normal. Other labs and vital signs are within normal limits and stable. Patient states that she feels significantly better and that she is ready for discharge. Patient will be discharged with instructions to increase her warfarin dose to 7 mg tonight and return to her normal dose tomorrow. Patient will need close follow-up due to subtherapeutic INR, increased from 1.4-1.6 during her admission. I am sending an outpatient order for INR to be drawn on Monday, patient will need to see primary care on Monday. Charge nurse arranging for follow-up appointment. Discharge discussed with: patient - Time Spent with Patient Total time spent providing and/or coordinating discharge services: Less than 30 minutes - Discharge Medications Home Medications: Potassium Chloride 20 meq PO QPM 11/20/14 [History] Sertraline [Zoloft] 100 mg PO QPM 11/20/14 [History] Albuterol Sulfate [Ventolin Hfa] 2 puff IH Q4H PRN 01/12/15 [History] Celecoxib [Celebrex] 200 mg PO DAILY 09/02/15 [History] Metoprolol XL (24 HR) Succ [Toprol Xl] 75 mg PO DAILY 09/02/15 [History] Furosemide [Lasix] 20 mg PO DAILY 10/31/16 [History] Warfarin [Coumadin] 5 mg PO DAILY 10/31/16 [History] Diltiazem CD (24hr) [Cardizem CD] 180 mg PO DAILY 05/24/17 [History] Ergocalciferol (VITAMIN D2) [Vitamin D2] 50,000 unit PO QWEEK 05/24/17 [History] Warfarin [Coumadin] 1 mg PO DAILY 05/24/17 [History] Allergies/Adverse Reactions: 3 Allergy/AdvReac Type Severity Reaction Status Date / Time hydrochlorothiazide Allergy Rash Verified 05/24/17 07:18 hydrocodone [From Vicodin] Allergy Itching Verified 05/24/17 07:18 acetaminophen [From Tylenol] AdvReac Gastrointestinal Verified 05/24/17 07:18 Upset Date of admission: 05/24/17 09:14 Primary care physician: Mauricio Marquez CNP Consults: 05/25/17 10:59 Consult to Surgery [CONS] Routine Consulting Provider: Surgery [facility] Reason for Consult: Spoke with Dr. Coulter. MRCP suggestive of retained stone in cystic bile duct remnant. GI recommends surgery consult d/t possibility of bile leak with ERCP. Time Notified: 11:01 Call Completed: Yes Discharging clinician: Shania Haro Anticipated date of discharge: 05/26/17 - Constitutional Vitals: Temp Pulse Resp BP Pulse Ox 97.5 F L 77 16 135/83 100 05/26/17 07:54 05/26/17 07:54 05/26/17 07:54 05/26/17 07:54 05/26/17 07:54 General appearance: Present: cooperative, A&O X 3, morbidly obese, pleasant, no acute distress, answers questions appropriately - Head Head exam: Present: atraumatic, normal inspection, normocephalic - Eye Eye exam: Present: normal appearance, conjuntiva pink, sclera anicteric - Neck Neck exam general surgery: Present: normal inspection, supple, trachea midline. Absent: lymphadenopathy - Respiratory Respiratory exam: Present: decreased breath sounds, CTAB. Absent: accessory muscle use, chest wall tenderness, rales, respiratory distress, rhonchi, wheezes - Cardiovascular Cardiovascular exam: Present: RRR, +S1, +S2. Absent: diastolic murmur, gallop, rubs, systolic murmur - GI/Abdominal GI/Abdominal exam: Present: normal bowel sounds, soft. Absent: distended, hepatomegaly, tenderness - Extremities Exam Extremities exam: Present: normal capillary refill, normal inspection, warm, radial pulses palpable and symmetrical. Absent: calf tenderness, cyanotic, pedal edema, tenderness - Neurological Exam Neurological exam: Present: alert, oriented X3, no focal deficits. Absent: altered, facial droop, speech deficit - Skin Skin exam: Present: dry, intact, normal color, warm. Absent: rash - Patient Status Disposition: Home, Self-Care Condition: Good Functional capacity at discharge: independent ambulation Overall status at discharge: patient is back to baseline - Discharge Instructions Follow Up With: Mauricio Marquez CNP [Primary Care Provider] - Additional Instructions: Please follow up with your primary care provider in the next 7-10 days for recheck on your elevated enzymes as well as to have your Coumadin readjusted. Return to your normal diet as tolerated. Return to the emergency department as needed for any other problems or concerns , or if her symptoms return or worsen. Take 7 mg of Coumadin tonight, return to your normal dose on Monday. Discuss going to the Coumadin clinic with your primary care provider for closer monitoring of your INR DVT your increased need for higher INR. Return to her normal home medications and activities as tolerated. - Diet and Activity Activity: increase activity as tolerated Diet: diabetic diet, low fat, low cholesterol
--- NOTE | 2017-05-26 10:05 | General Surgery Progress Note ---
Date of Encounter: 05/26/17 Time of Encounter: 10:00 - Assessment and Plan (1) Retained gallstones following open cholecystectomy Current Visit: Yes Status: Acute Patient tolerated advancement of diet without any recurrence of pain No surgical intervention indicated at this time. Patient may discharge to home from a surgical standpoint (2) Elevated liver enzymes Current Visit: Yes Status: Acute Improving (3) Congestive heart failure Current Visit: Yes Status: Chronic Management per medicine service Qualifiers: Qualified Code(s): I50.9 - Heart failure, unspecified (4) Depression Current Visit: Yes Status: Chronic Management per medicine service Qualifiers: Qualified Code(s): F32.9 - Major depressive disorder, single episode, unspecified (5) HTN (hypertension) Current Visit: Yes Status: Chronic Currently normotensive Management per medicine service Qualifiers: Qualified Code(s): I10 - Essential (primary) hypertension (6) Obesity Current Visit: Yes Status: Chronic Qualifiers: Qualified Code(s): E66.9 - Obesity, unspecified; Z68.42 - Body mass index ( BMI) 45.0-49.9, adult; Z68.42 - Body mass index (BMI) 45.0-49.9, adult; Z68.42 - Body mass index (BMI) 45.0-49.9, adult; Z68.42 - Body mass index (BMI) 45.0- 49.9, adult (7) S/P mitral valve replacement with metallic valve Current Visit: Yes Status: Chronic INR- 1.4 Currently on therapeutic lovenox Management per medicine service Subjective Patient reports: no new complaints, feels better, tolerating a regular diet, voiding w/o difficulty, flatus, afebrile Objective Vital Signs - Last 8 Hours Temp Pulse Resp BP Pulse Ox 05/26/17 07:54 97.5 F L 77 16 135/83 100 05/26/17 04:22 98.4 F 77 15 116/73 95 Intake and Output 05/25/17 05/26/17 05/26/17 23:59 07:59 15:59 Intake Total 240 / 240 0 / 0 240 / 240 Output Total 250 / 250 300 / 300 Balance -10 / -10 -300 / -300 240 / 240 Intake: Oral 240 / 240 0 / 0 240 / 240 Output: Urine 250 / 250 300 / 300 Other: Meal Dinner Breakfast Percent of Meal Consumed 50% 5% # Voids 1 Weight 163.2 kg Patient Weight 05/26/17 23:59 Weight 163.2 kg - General physical appearance well developed, well nourished, no distress, no pain, obese - Eyes normal ocular movement - ENT normal mucosa, atraumatic, normocephalic - Neck Neck exam: trachea midline - Respiratory normal respiratory effort, clear to auscultation - Cardiovascular Cardiovascular exam: Present: irregular rhythm - Abdomen Abdomen: Present: bowel sounds present, soft, non tender - Neurologic CN 2-12 grossly intact - Musculoskeletal normal gait, normal posture - Psychiatric oriented to time, oriented to person, oriented to place, speech is normal, memory intact - Labs 05/26/17 03:47 05/26/17 03:47 Diabetes panel 05/26/17 Range/Units 03:47 Sodium 136 (136-145) mEq/L Potassium 3.8 (3.5-5.1) mEq/L Chloride 101 (98-107) mEq/L Carbon Dioxide 29 (23-29) mEq/L BUN 19 (6-20) mg/dL Creatinine 0.91 (0.60-1.20) mg/dL Glucose 115 H (70-105) mg/dL Calcium 9.1 (8.6-10.3) mg/dL AST 49 H (13-39) Units/L Calcium panel 05/26/17 Range/Units 03:47 Calcium 9.1 (8.6-10.3) mg/dL Pituitary panel 05/26/17 Range/Units 03:47 Sodium 136 (136-145) mEq/L Potassium 3.8 (3.5-5.1) mEq/L Chloride 101 (98-107) mEq/L Carbon Dioxide 29 (23-29) mEq/L BUN 19 (6-20) mg/dL Creatinine 0.91 (0.60-1.20) mg/dL Glucose 115 H (70-105) mg/dL Calcium 9.1 (8.6-10.3) mg/dL Adrenal panel 05/26/17 Range/Units 03:47 Sodium 136 (136-145) mEq/L Potassium 3.8 (3.5-5.1) mEq/L Chloride 101 (98-107) mEq/L Carbon Dioxide 29 (23-29) mEq/L BUN 19 (6-20) mg/dL Creatinine 0.91 (0.60-1.20) mg/dL Glucose 115 H (70-105) mg/dL Calcium 9.1 (8.6-10.3) mg/dL AST 49 H (13-39) Units/L Consult Discharge Plan - Plan Additional Instructions: Please follow up with your primary care provider in the next 7-10 days for recheck on your elevated enzymes as well as to have your Coumadin readjusted. Return to your normal diet as tolerated. Return to the emergency department as needed for any other problems or concerns , or if her symptoms return or worsen. Take 7 mg of Coumadin tonight, return to your normal dose on Monday. Discuss going to the Coumadin clinic with your primary care provider for closer monitoring of your INR DVT your increased need for higher INR. Return to her normal home medications and activities as tolerated. Referrals: Mauricio Marquez, CONSTRUCTION MANAGER [Primary Care Provider] -
--- NOTE | 2017-05-26 10:32 | Electrocardiograph Report ---
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
[2017-05-26 11:43] VITALS: BP 117/80
[2017-05-26] MEDS ORDERED: *HR* Warfarin 7.5 MG TABLET PO ONE (18:00)
== END 2017-05-26 12:55 | disposition home or self-care (01) ==
LOC: 3ANU 04:14 → EMEROO 04:14 → 3ANU 09:37
PROVIDERS: ADMIT Family Medicine; ATTEND Family Medicine

== ENCOUNTER 2017-05-28 21:07 | Inpatient (IN) ==
[2017-05-28 21:48] LABS: Bilirubin,Urine Negative (Negative); Blood,Urine Large (Negative); Clarity,Urine Cloudy (Clear); Color,Urine Yellow (Yellow); Glucose,Urine (UA) Normal (Normal); Ketones,Urine Negative (Negative); Leukocyte Esterase,Urine Moderate (Negative); Nitrite,Urine Negative (Negative); PH,Urine 6.5 pH Units (5.0-8.0); Protein,Urine 30 mg/dL (Neg-Trace); Specific Gravity,Urine 1.023 (1.010-1.025)
[2017-05-28 21:50] LABS: Bacteria,Urine Moderate per hpf (None-Few); Hyaline Casts,Urine None Seen per lpf (None-Few); Squamous Epithelial Cell,Urine Many per lpf (None-Few); WBC,Urine 50-100 per hpf (0-3)
[2017-05-28 22:01] LABS: RBC,Urine 0-3 per hpf (0-3)
--- NOTE | 2017-05-28 22:02 | Emergency Department Note ---
Disposition Clinical Impression: Cystic duct calculus Abdominal pain Qualifiers: Abdominal location: right upper quadrant Qualified Code(s): R10.11 - Right upper quadrant pain Disposition: Admitted As Inpatient Condition: Fair Referrals: Mauricio Marquez CNP [Primary Care Provider] - Forms: ED Satisfaction Letter, Work/School Release Time of Disposition: 23:37 Abdominal Pain HPI - General Chief Complaint: ED Abdominal Pain Stated Complaint: Abd Pain Time Seen by Provider: 05/28/17 21:52 Source: patient Mode of arrival: ambulatory Nursing Notes Reviewed: Yes Vital Signs Reviewed: Yes - History of Present Illness HPI Narrative: Abdominal pain which patient has had intermittently. Patient had a cholecystectomy done. Patient was admitted in the recent past and had a workup for persistent right upper quadrant pain was found to have a probable cystic duct stone. Pt Subjective Complaint: abdominal pain Onset (ago): day(s) Consistency: intermittent Location: RUQ Pain Scale: 10 Quality: cramping, aching Radiation: none Migration to: no migration Improves with: nothing Worsens with: nothing Context: recent surgery/procedure Treatments prior to arrival: none - Related Data Home Medications Medication Instructions Recorded Confirmed Potassium Chloride 20 meq PO QPM 11/20/14 05/24/17 Sertraline [Zoloft] 100 mg PO QPM 11/20/14 05/24/17 Albuterol Sulfate [Ventolin Hfa] 2 puff IH Q4H PRN 01/12/15 05/24/17 Celecoxib [Celebrex] 200 mg PO DAILY 09/02/15 05/24/17 Metoprolol XL (24 HR) Succ [Toprol 75 mg PO DAILY 09/02/15 05/24/17 Xl] Furosemide [Lasix] 20 mg PO DAILY 10/31/16 05/24/17 Warfarin [Coumadin] 5 mg PO DAILY 10/31/16 05/24/17 Diltiazem CD (24hr) [Cardizem CD] 180 mg PO DAILY 05/24/17 05/24/17 Ergocalciferol (VITAMIN D2) 50,000 unit PO QWEEK 05/24/17 05/24/17 [Vitamin D2] Warfarin [Coumadin] 1 mg PO DAILY 05/24/17 05/24/17 Allergies Allergy/AdvReac Type Severity Reaction Status Date / Time hydrochlorothiazide Allergy Rash Verified 02/28/18 07:18 hydrocodone [From Vicodin] Allergy Itching Verified 05/24/17 07:18 acetaminophen [From Tylenol] AdvReac Gastrointestinal Verified 05/24/17 07:18 Upset All systems ED: reviewed and negative except as stated. Constitutional: Denies: fever, chills, weakness, weight change Eyes: Denies: eye pain, eye discharge, vision change ENT ED: Denies: ear pain, throat pain, dental pain, hearing loss, epistaxis, congestion, dysphagia Cardiovascular: Denies: chest pain, palpitations, dyspnea on exertion, edema, syncope Respiratory: Denies: cough, dyspnea, wheezes, hemoptysis, stridor Gastrointestinal: Reports: abdominal pain. Denies: nausea, vomiting, diarrhea, constipation, hematemesis, melena, hematochezia Genitourinary: Denies: dysuria, frequency, hematuria, discharge Musculoskeletal: Denies: back pain, neck pain, arthralgia, myalgia Integumentary: Denies: rash, abrasion, lesions Neurological: Denies: headache, weakness, numbness, paresthesias, confusion, abnormal gait, vertigo Psychiatric: Denies: anxiety, depression, suicidal thoughts, homicidal thoughts , auditory hallucinations, visual hallucinations Endocrine: Denies: fatigue Hematological/Lymphatic: Denies: easy bleeding, easy bruising Allergic/Immunologic: Denies: facial swelling, urticaria Abdominal Pain PMH - Past Medical History Medical history: Reports: atrial fibrillation, cardiomyopathy, CHF, coronary artery disease, hypertension, valvular heart disease, other Female Surgical History: Reports: Adenoidectomy, cholecystectomy, hysterectomy, Tonsillectomy VALVE TECHNICIAN history: Reports: no VALVE TECHNICIAN history Psychiatric history: Reports: anxiety, depression - Social History Smoking status: Former smoker Alcohol use: Reports: none Drug use: Reports: none Physical Exam - General Limitations: no limitations General appearance: alert, in no apparent distress - Head Head exam: atraumatic - Eye Eye exam: Present: normal appearance, PERRL, EOMI - ENT ENT exam: normal exam, normal oropharynx, mucous membranes moist - Neck Neck exam: Present: normal inspection, full ROM, trachea midline - Chest Chest inspection: Present: normal inspection, symmetric chest wall rise - Respiratory Respiratory exam: Present: normal lung sounds bilaterally - Cardiovascular Cardiovascular exam: Present: regular rate, normal rhythm, normal heart sounds - Abdominal Exam Abdominal exam: Present: soft, tenderness. Absent: distention, guarding, rebound, rigidity Abdominal tenderness: Present: RUQ - Extremities Exam Extremities exam: Present: normal inspection, full ROM. Absent: tenderness, pedal edema - Expanded Lower Extremity Exam Neurovascular/Tendon exam: Absent: motor deficit, sensory deficit, tendon deficit Gait: observed and normal - Back Exam Back exam: Present: normal inspection, full ROM. Absent: tenderness - Neurological Exam Neurological exam: Present: alert, oriented X3 - Psychiatric Psychiatric exam: Present: normal affect, normal mood - Skin Skin exam: Present: warm, dry, intact, normal color Course - Reevaluation(s) Reevaluation #1: 52-year-old female comes in complaining of right upper quadrant pain. Recent abdominal MRI shows a cystic duct stone. Time: 23:30 - Consultations Consultation #1: Discussed with , ayo. Time: 23:30 Vital Signs Temperature 98.0 F 05/28/17 21:16 Pulse Rate 85 05/28/17 21:16 Respiratory Rate 16 05/28/17 21:16 Blood Pressure 161/83 05/28/17 21:16 O2 Sat by Pulse Oximetry 95 05/28/17 21:16 Temperature 98.0 F 05/28/17 21:16 Pulse Rate 86 05/28/17 21:52 Respiratory Rate 16 05/28/17 21:52 Blood Pressure 185/101 05/28/17 21:52 O2 Sat by Pulse Oximetry 98 05/28/17 21:52 Oxygen Delivery Oxygen Delivery Room Air Abdominal Pain - Lab Data Result diagrams: 05/28/17 21:56 05/28/17 21:56 Lab Results 05/28/17 05/28/17 05/28/17 Range/Units 21:23 21:56 21:56 WBC 7.9 (4.3-11.1) K/mcL RBC 5.22 H (3.82-4.97) M/mcL Hgb 13.4 (11.5-15.4) g/dL Hct 42.9 (35.3-44.9) % MCV 82.2 L (83.0-100.0) fL MCH 25.7 L (28.0-33.3) pg MCHC 31.2 L (31.6-35.5) g/dL RDW 14.6 H (11.5-14.5) % Plt Count 124 L (140-400) K/mcL MPV 8.8 L (9.4-12.4) fL Immature Gran % 1.3 (0-4) % Seg Neutrophils % 62.2 % Lymphocytes % 27.0 % Monocytes % 5.9 % Eosinophils % 3.1 % Basophils % 0.5 % Neutrophils # 4.9 (1.6-8.9) K/mcL Lymphocytes # 2.1 (0.6-4.6) K/mcL Monocytes # 0.5 (0.0-1.3) K/mcL Eosinophils # 0.2 (0.0-0.6) K/mcL Basophils # 0.0 (0.0-0.2) K/mcL Sodium 137 (136-145) mEq/L Potassium 4.0 (3.5-5.1) mEq/L Chloride 104 (98-107) mEq/L Carbon Dioxide 28 (23-29) mEq/L BUN 16 (6-20) mg/dL Creatinine 0.71 (0.60-1.20) mg/dL Est GFR ( Amer) > 60 (> 60) Est GFR (Non-Af Amer) > 60 (> 60) BUN/Creatinine Ratio 23 (6-26) Glucose 131 H (70-105) mg/dL Calculated Osmolality 287 (280-300) Calcium 9.9 (8.6-10.3) mg/dL Total Bilirubin 1.0 (0.3-1.0) mg/dL Direct Bilirubin 0.3 H (0.0-0.2) mg/dL Indirect Bilirubin 0.7 (0.0-1.2) mg/dL AST 29 (13-39) Units/L ALT 30 (7-52) Units/L Alkaline Phosphatase 75 (34-104) Units/L Serum Total Protein 7.2 (6.4-8.9) g/dL Albumin 4.2 (3.5-5.7) g/dL Globulin 3.0 (2.4-3.5) g/dL Albumin/Globulin Ratio 1.4 (1.1-2.2) Amylase 24 L (29-103) Units/L Lipase 71 (11-82) Units/L Urine Color Yellow (Yellow) Urine Clarity Cloudy A (Clear) Urine pH 6.5 (5.0-8.0) pH Units Ur Specific [place] 1.023 (1.010-1.025) Urine Protein 30 H (Neg-Trace) mg/dL Urine Glucose (UA) Normal (Normal) mg/dL Urine Ketones Negative (Negative) mg/dL Urine Blood Large H (Negative) Urine Nitrite Negative (Negative) Urine Bilirubin Negative (Negative) Urine Urobilinogen 2.0 H (Normal) mg/dL Ur Leukocyte Esterase Moderate H (Negative) Urine Microscopic RBC 0-3 (0-3) per hpf Urine Microscopic WBC 50-100 H (0-3) per hpf Ur Squamous Epith Cells Many H (None-Few) per lpf Urine Bacteria Moderate H (None-Few) per hpf Hyaline Casts None Seen (None-Few) per lpf Ur Culture Indicated? NO. (NO)
[2017-05-28 22:30] LABS: Basophils % 0.5 %; Eosinophils # 0.2 K/mcL (0.0-0.6); Eosinophils % 3.1 %; Hematocrit 42.9 % (35.3-44.9); Hemoglobin 13.4 g/dL (11.5-15.4); Immature Granulocytes % 1.3 % (0-4); Lymphocytes # 2.1 K/mcL (0.6-4.6); Mean Corpuscular HGB Conc 31.2 g/dL (31.6-35.5); Mean Corpuscular Hemoglobin 25.7 pg (28.0-33.3); Mean Corpuscular Volume 82.2 fL (83.0-100.0); Mean Platelet Volume 8.8 fL (9.4-12.4); Monocytes # 0.5 K/mcL (0.0-1.3); Monocytes % 5.9 %; Neutrophils # 4.9 K/mcL (1.6-8.9); Platelet Count 124 K/mcL (140-400); Red Blood Count 5.22 M/mcL (3.82-4.97); Red Cell Distribution Width 14.6 % (11.5-14.5); Segmented Neutrophils % 62.2 %
[2017-05-28] MEDS ORDERED: *HR* FentaNYL (PF) 100 MCG/2 ML VIAL IVP ONE (22:35)
[2017-05-28] MEDS ORDERED: Ondansetron 4 MG/2 ML VIAL IVP ONE (22:35)
[2017-05-28 22:53] LABS: Alanine Aminotransferase 30 Units/L (7-52); Albumin 4.2 g/dL (3.5-5.7); Albumin/Globulin Ratio 1.4 (1.1-2.2); Alkaline Phosphatase 75 Units/L (34-104); Amylase 24 Units/L (29-103); Aspartate Amino Transferase 29 Units/L (13-39); BUN/Creatinine Ratio 23 (6-26); Bilirubin,Direct 0.3 mg/dL (0.0-0.2); Bilirubin,Indirect 0.7 mg/dL (0.0-1.2); Blood Urea Nitrogen 16 mg/dL (6-20); Calcium 9.9 mg/dL (8.6-10.3); Carbon Dioxide 28 mEq/L (23-29); Chloride 104 mEq/L (98-107); Glucose 131 mg/dL (70-105); Lipase 71 Units/L (11-82); Osmolality,Calculated 287 (280-300); Sodium 137 mEq/L (136-145); Total Protein 7.2 g/dL (6.4-8.9); eGFR For African Americans > 60 (> 60); eGFR For Non-African Americans > 60 (> 60)
[2017-05-28] MEDS ORDERED: cefTRIAXone 1,000 MG in Water for inj. (sterile) 20 ML 10 ML IVP ONE (23:25)
[2017-05-29] MEDS: *HR* OxyCODONE Immed Rel 5 MG TABLET PO PRN (02:23)
[2017-05-29] MEDS: Ondansetron 4 MG/2 ML VIAL IVP PRN ×2 (02:23→19:15)
[2017-05-29] MEDS ORDERED: Naloxone 0.4 MG/ML INJ IVP PRN (05:23)
[2017-05-29] MEDS ORDERED: 0.9 % Sodium Chloride 1,000 ML IVC SCH (05:30)
--- NOTE | 2017-05-29 05:32 | Internal Med History&Physical ---
Date of Encounter: 05/29/17 Time of Encounter: 05:27 Assessment and Plan (1) Cystic duct calculus Current visit: Yes Status: Acute 52/female Status post cholecystectomy Status post mitral valve replaced and now has a metallic mitral valve. Admitted with cystic duct calculus. Persistent abdominal pain. Patient previously evaluated by gastroenterology and plan was to get an ERCP if pain does not resolve. Patient was recently discharged from hospital on 05/26/2017. Plan: Admit as observation. Adequate pain control. Gastroenterology contacted. Patient is nothing by mouth now. I personally called the aircraft shipping checker Dr. Navarrete and updated him about patient 's hospitalization. I have examined this patient in with her dry charge process attendant plan of care explained to patient. (2) Retained gallstones following open cholecystectomy Current visit: No Status: Acute see above (3) S/P mitral valve replacement with metallic valve Current visit: No Status: Chronic Patient has a mitral valve replacement with a metallic wall. Her INR should be between 2.5-3.5. Presently her Coumadin is on hold because patient is going for a procedure. I has asked for a PT/INR. I have started heparin drip. (4) HTN (hypertension) Current visit: No Status: Chronic Patient's blood pressure is within acceptable range. We will resume home medication. Qualifiers: Hypertension type: essential hypertension Qualified Code(s): I10 - Essential (primary) hypertension (5) DVT prophylaxis Current visit: No Status: Acute Heparin drip Medical decision making: Patient is a moderate to severe risk of worsening in spite of being on appropriate medication due to the underlying chronic comorbid condition. Internal Medicine - H&P: HPI Chief complaint: abdominal pain Admitted From: Emergency Dept Plans for Post Hospital Care: Home History of present illness: Ms. Cottrell is a 52 year old female was discharged on 05/26/2017 from this hospital. Patient was admitted for right upper quadrant pain at that time. She underwent MRCP. Her MRCP was suggestive of a focal 1.2 x 1 cm area of a focal and addition of a cystic duct remnant of her gallbladder With the central filling effect which was suspicion for a retained stone. Patient was evaluated by gastroenterology at that time and recommended that if the pain persist then to see the emergency room for further management. claims that she has a persistent pain since she left the hospital. For the past 12 hours her pain was gradually worsening and that was the reason she decided to come to the emergency room for further evaluation. Patient was told that if her pain gets worse then probably she is going to get scheduled for ERCP. Workup in the emergency room: Patient was evaluated in the emergency room. Her AST/ALT was normal. Bilirubin was within the normal limit. Her lipase was 71. Reason for admission: Symptomatic Cystic duct stone in a patient who has a previous cholecystectomy. Past Med Surg Social Fam HX - Past Medical History Medical history: atrial fibrillation, cardiomyopathy, CHF, coronary artery disease, hypertension, valvular heart disease, other Psychiatric history: anxiety, depression - Past Surgical History Surgical History: appendectomy, cholecystectomy, heart valve replacement, hysterectomy, other - Social History Smoking Status: Former smoker Smokeless Tobacco Status: No Alcohol use: none Drug use: none - Family History Mother Adopted: Kite: Arlette Age: 69 Family Member Ethnicity: Non- Living Status: Still Living Hx Family Cardiac Disorders: No Hx Family Respiratory Disorders: No Hx Family Cancer: Yes (leukemia) Hx Family GI Disorders: No Hx Family Genitourinary Disorders: No Hx Family Endocrine Disorder: Yes (DM) Hx Family Musculoskeletal Disorders: No Hx Family Neuromuscular Disorders: No Hx Family Neurologic Disorders: No Hx Family HEENT Disorders: No Hx Family Autoimmune Disorders: No Hx Family Reproductive Disorders: No Hx Family Psychosocial Disorders: No Hx Family Medical Disorders: No Internal Medicine - H&P: Meds Potassium Chloride 20 meq PO QPM 11/20/14 [History] Sertraline [Zoloft] 100 mg PO QPM 11/20/14 [History] Albuterol Sulfate [Ventolin Hfa] 2 puff IH Q4H PRN 01/12/15 [History] Celecoxib [Celebrex] 200 mg PO DAILY 09/02/15 [History] Metoprolol XL (24 HR) Succ [Toprol Xl] 75 mg PO DAILY 09/02/15 [History] Furosemide [Lasix] 20 mg PO DAILY 10/31/16 [History] Warfarin [Coumadin] 5 mg PO DAILY 10/31/16 [History] Diltiazem CD (24hr) [Cardizem CD] 180 mg PO DAILY 05/24/17 [History] Ergocalciferol (VITAMIN D2) [Vitamin D2] 50,000 unit PO QWEEK 05/24/17 [History] Warfarin [Coumadin] 1 mg PO DAILY 05/24/17 [History] 3 Allergy/AdvReac Type Severity Reaction Status Date / Time hydrochlorothiazide Allergy Rash Verified 05/24/17 07:18 hydrocodone [From Vicodin] Allergy Itching Verified 05/24/17 07:18 acetaminophen [From Tylenol] AdvReac Gastrointestinal Verified 05/24/17 07:18 Upset All Systems PM: A 10-system review of systems was performed and is negative for pertinent findings except as documented above in the HPI. - Constitutional Constitutional: no chills, no fever(s), no night sweats - EENT Eyes: no change in vision, no discharge, no pain, no photophobia Ears: no ear discharge, no ear pain, no tinnitus Nose, mouth and throat: no dysphagia, no nasal discharge, no neck pain, no sore throat - Cardiovascular Cardiovascular ROS IM: no chest pain, no diaphoresis, no dyspnea, no lightheadedness, no palpitations, no syncope - Respiratory Respiratory: no cough, no dyspnea, no wheezing, no excessive phlegm production - Gastrointestinal Gastrointestinal: abdominal pain, nausea, no diarrhea, no hematemesis, no hematochezia, no melena, no vomiting - Genitourinary Genitourinary: no change in urinary stream, no dysuria, no flank pain, no hematuria - Musculoskeletal Musculoskeletal ROS IM: no numbness, no tingling - Integumentary Integumentary IM: no rash, no unusual bruising - Neurological Neurological ROS: no confusion, no convulsions, no focal weakness, no numbness, no tingling, no tremor(s) - Hematologic/Lymphatic Hematologic/Lymphatic: no easy bruising - Constitutional Vitals: Temp Pulse Resp BP Pulse Ox 97.5 F L 79 12 149/91 98 05/29/17 04:36 05/29/17 04:36 05/29/17 04:36 05/29/17 04:36 05/29/17 04:36 General appearance: Present: A&O X 3, pleasant, no acute distress, answers questions appropriately - Head Head exam: Present: atraumatic, normocephalic - Eye Eye exam: Present: PERRL, conjuntiva pink, sclera anicteric Pupils: Present: PERRL - Neck Neck exam general surgery: Present: supple, trachea midline. Absent: lymphadenopathy - Respiratory Respiratory exam: Present: CTAB. Absent: accessory muscle use, rales, rhonchi, wheezes - Cardiovascular Cardiovascular exam: Present: RRR, +S1, +S2. Absent: diastolic murmur, gallop, rubs, systolic murmur - GI/Abdominal GI/Abdominal exam: Present: normal bowel sounds, soft, no peritoneal signs. Absent: distended, tenderness - Extremities Exam Extremities exam: Present: warm, radial pulses palpable and symmetrical. Absent : calf tenderness, cyanotic, pedal edema - Neurological Exam Neurological exam: Present: CN II-XII intact, oriented X3, no focal deficits. Absent: pronater drift, facial droop, speech deficit - Skin Skin exam: Present: dry, intact Internal Med - H&P Results - Labs CBC & Chem 7: 05/28/17 21:56 05/28/17 21:56
[2017-05-29] MEDS ORDERED: *HR* Heparin 5,000 UNIT/ML VIAL IVP PRN ×2 (05:34)
[2017-05-29 07:38] LABS: INR 2.1; Prothrombin Time 22.8 Seconds (9.4-12.1)
[2017-05-29 07:41] LABS: Activated Partial Thrombo Time 38.9 Seconds (26.0-36.0)
[2017-05-29 07:42] LABS: Alanine Aminotransferase 28 Units/L (7-52); Albumin 3.8 g/dL (3.5-5.7); Albumin/Globulin Ratio 1.3 (1.1-2.2); Alkaline Phosphatase 65 Units/L (34-104); Aspartate Amino Transferase 32 Units/L (13-39); BUN/Creatinine Ratio 23 (6-26); Blood Urea Nitrogen 17 mg/dL (6-20); Calcium 9.3 mg/dL (8.6-10.3); Carbon Dioxide 29 mEq/L (23-29); Chloride 103 mEq/L (98-107); Globulin 2.9 g/dL (2.4-3.5); Glucose 122 mg/dL (70-105); Osmolality,Calculated 289 (280-300); Phosphorous 3.6 mg/dL (2.7-4.5); Potassium 3.9 mEq/L (3.5-5.1); Sodium 138 mEq/L (136-145); Total Protein 6.7 g/dL (6.4-8.9); eGFR For African Americans > 60 (> 60); eGFR For Non-African Americans > 60 (> 60)
[2017-05-29] MEDS: Metoprolol XL (24 HR) Succ 50 MG TAB.ER.24H PO SCH (07:44)
[2017-05-29] MEDS: Diltiazem CD (24hr) 180 MG CAPSULE PO SCH (07:44)
[2017-05-29] MEDS: Heparin 25,000 UNIT/500 ML D5W 25,000 UNIT/500 ML BAG IVC SCH ×2 (08:07→21:32)
[2017-05-29 08:23] LABS: Hematocrit 39.7 % (35.3-44.9); Hemoglobin 12.2 g/dL (11.5-15.4); Mean Corpuscular HGB Conc 30.7 g/dL (31.6-35.5); Mean Corpuscular Hemoglobin 25.6 pg (28.0-33.3); Mean Corpuscular Volume 83.2 fL (83.0-100.0); Mean Platelet Volume 9.2 fL (9.4-12.4); Platelet Count 125 K/mcL (140-400); Red Blood Count 4.77 M/mcL (3.82-4.97); Red Cell Distribution Width 14.8 % (11.5-14.5)
[2017-05-29 08:24] LABS: Basophils % 0.4 %; Eosinophils # 0.3 K/mcL (0.0-0.6); Eosinophils % 3.5 %; Hematocrit 39.2 % (35.3-44.9); Hemoglobin 12.4 g/dL (11.5-15.4); Immature Granulocytes % 1.6 % (0-4); Lymphocytes # 2.4 K/mcL (0.6-4.6); Lymphocytes % 34.2 %; Mean Corpuscular HGB Conc 31.6 g/dL (31.6-35.5); Mean Corpuscular Hemoglobin 25.9 pg (28.0-33.3); Mean Platelet Volume 9.2 fL (9.4-12.4); Monocytes # 0.5 K/mcL (0.0-1.3); Monocytes % 6.4 %; Neutrophils # 3.8 K/mcL (1.6-8.9); Platelet Count 114 K/mcL (140-400); Red Blood Count 4.78 M/mcL (3.82-4.97); Red Cell Distribution Width 14.7 % (11.5-14.5); Segmented Neutrophils % 53.9 %
--- NOTE | 2017-05-29 12:22 | Gastroenterology Consult Note ---
<Dustin Crain - Last Filed: 05/29/17 12:20> Date of Encounter: 05/29/17 Time of Encounter: 10:45 - Assessment and plan (1) Abdominal pain Current Visit: Yes Status: Acute Assessment and plan: MRCP 05/24 suspicious for retained stone in cystic duct remnant, no biliary duct dilation or choledocholithiasis. LFTs normal. Plan for ERCP today, keep patient NPO. Qualifiers: Abdominal location: right upper quadrant Qualified Code(s): R10.11 - Right upper quadrant pain (2) Cystic duct calculus Current Visit: Yes Status: Acute Assessment and plan: As above. - Time Spent With Patient Total time spent is greater than 50% in coordination of care (as documented) at patient's floor/unit and/or counseling patient: GI History of Present Illness - Data of Consult Patient: known to practice within the last 3 years Consult date: 05/29/17 Requesting Physician: Mariluz Diop CNP - Consult Narrative Reason for consult: Cystic duct calculus History of present illness: Ms. Cottrell is a 52 year old female with PMHx of Afib, CHf, DM, HLD, HTN, valvular heart disease (s/p mechanical valve replacement), nonalcoholic fatty liver, anxiety and depression. Pt is s/p open cholecystectomy with Dr. Coulter October 2016. Pt was recently admitted for RUQ pain and MRCP 05/24 suspicious for retained stone in cystic duct remnant, no biliary duct dilation or choledocholithiasis. Pt was aymptomatic at that time, and pt was discharged home. she was instructed to come to the ED if pain worsened for possible ERCP. Pt presented to the ED with worsening abdominal pain with some associated nausea. She denied any vomiting. Procedures: 03/2016 [facility]: Hiatal hernia NSAIDs: Celebrex Anticoagulation: Coumadin Past Med Surg Social Fam HX - Past Medical History Medical history: atrial fibrillation, cardiomyopathy, CHF, coronary artery disease, hypertension, valvular heart disease, other Psychiatric history: anxiety, depression - Past Surgical History Surgical History: appendectomy, cholecystectomy, heart valve replacement, hysterectomy, other - Social History Smoking Status: Former smoker Smokeless Tobacco Status: No Alcohol use: none Drug use: none - Family History Mother Adopted: Ila: Arlette Age: 69 Family Member Ethnicity: Non- Living Status: Still Living Hx Family Cardiac Disorders: No Hx Family Respiratory Disorders: No Hx Family Cancer: Yes (leukemia) Hx Family GI Disorders: No Hx Family Genitourinary Disorders: No Hx Family Endocrine Disorder: Yes (DM) Hx Family Musculoskeletal Disorders: No Hx Family Neuromuscular Disorders: No Hx Family Neurologic Disorders: No Hx Family HEENT Disorders: No Hx Family Autoimmune Disorders: No Hx Family Reproductive Disorders: No Hx Family Psychosocial Disorders: No Hx Family Medical Disorders: No - Gastrointestinal Gastrointestinal: Present: as per HPI - Constitutional Constitutional: as per HPI - EENT Eyes: as per HPI Ears: Present: as per HPI Nose, mouth and throat: Present: as per HPI - Cardiovascular Cardiovascular ROS: Present: as per HPI - Respiratory Respiratory IM: Present: as per HPI - Genitourinary Genitourinary: Absent: change in color, Urinary frequency - Neurological ROS Neurological GI: Present: as per HPI - Hematologic/Lymphatic Hematologic/Lymphatic pediatric: Present: as per HPI - Musculoskeletal Musculoskeletal ROS GI: Present: as per HPI - Integumentary Integumentary GI: Present: as per HPI - Psychiatric ROS Psychiatric GI: Present: as per HPI - Endocrine Endocrine IM: Present: as per HPI - Constitutional Vitals: Temp Pulse Resp BP Pulse Ox 97.6 F 83 17 125/77 98 05/29/17 11:02 05/29/17 11:02 05/29/17 11:02 05/29/17 11:02 05/29/17 11:02 General appearance: Present: cooperative, A&O X 3, no acute distress, answers questions appropriately - Head Head exam: Present: atraumatic, normocephalic - Eye Eye exam: Present: normal appearance, sclera anicteric - ENT ENT exam: Present: mucous membranes dry - Neck Neck exam general surgery: Present: normal inspection, trachea midline - Respiratory Respiratory exam: Present: CTAB. Absent: rales, rhonchi - Cardiovascular Cardiovascular exam: Present: RRR, +S1, +S2 - GI/Abdominal GI/Abdominal exam: Present: soft, tenderness (epigastric), no peritoneal signs. Absent: distended, firm, guarding - Rectal Rectal exam: Present: deferred - Extremities Exam Extremities exam: Present: warm - Neurological Exam Neurological exam: Present: no focal deficits - Psychiatric Psychiatric exam: Present: normal affect, normal mood - Skin Skin exam: Present: dry, intact, normal color, warm Results - Labs CBC & Chem 7: 05/29/17 06:58 05/29/17 06:58 Labs: Last Result Calcium 9.3 mg/dL (8.6-10.3) 05/29/17 06:58 Entire Visit Hgb 12.4 g/dL (11.5-15.4) 05/29/17 06:58 Hct 39.2 % (35.3-44.9) 05/29/17 06:58 PT 22.8 Seconds (9.4-12.1) H 05/29/17 06:58 Total Bilirubin 1.0 mg/dL (0.3-1.0) 05/29/17 06:58 AST 32 Units/L (13-39) 05/29/17 06:58 ALT 28 Units/L (7-52) 05/29/17 06:58 Amylase 24 Units/L (29-103) L 05/28/17 21:56 Lipase 71 Units/L (11-82) 05/28/17 21:56 - ABG ABG results: PT/INR, D-dimer PT 22.8 Seconds (9.4-12.1) H 05/29/17 06:58 Consult Discharge Plan - Plan Referrals: Mauricio Marquez CNP [Primary Care Provider] - <Dasia Navarrete - Last Filed: 05/29/17 21:06> Date of Encounter: 05/29/17 Time of Encounter: 18:00 - Time Spent With Patient Total time spent is greater than 50% in coordination of care (as documented) at patient's floor/unit and/or counseling patient: GI History of Present Illness - Data of Consult Requesting Physician: Mariluz Diop CNP - Consult Narrative History of present illness: Ms. Cottrell is a 52 year old female - Constitutional Vitals: Temp Pulse Resp BP Pulse Ox 98.5 F 73 16 113/72 98 05/29/17 20:19 05/29/17 20:19 05/29/17 20:19 05/29/17 20:19 05/29/17 20:19 Results - Labs CBC & Chem 7: 05/29/17 06:58 05/29/17 06:58 Labs: Last Result Calcium 9.3 mg/dL (8.6-10.3) 05/29/17 06:58 Entire Visit Hgb 12.4 g/dL (11.5-15.4) 05/29/17 06:58 Hct 39.2 % (35.3-44.9) 05/29/17 06:58 PT 22.8 Seconds (9.4-12.1) H 05/29/17 06:58 Total Bilirubin 1.0 mg/dL (0.3-1.0) 05/29/17 06:58 AST 32 Units/L (13-39) 05/29/17 06:58 ALT 28 Units/L (7-52) 05/29/17 06:58 Amylase 24 Units/L (29-103) L 05/28/17 21:56 Lipase 71 Units/L (11-82) 05/28/17 21:56 - ABG ABG results: PT/INR, D-dimer PT 22.8 Seconds (9.4-12.1) H 05/29/17 06:58 - Attending Attestation I examined this patient and my medical decision-making was reviewed with the PRODUCT APPLICATIONS SCIENTIST. I agree with the documented findings, disposition and treatment plan as described except to the extent set forth below. Pt with recurrent RUQ pain, broad differential. Doubt Cystic duct stone is the culprit. Rec: ERCP once INR < 1.5
[2017-05-29 15:13] LABS: Activated Partial Thrombo Time 273.3 Seconds (26.0-36.0)
[2017-05-29 15:33] LABS: Heparin anti-factor XA UFH 0.58 IU/mL (0.30-0.70)
--- NOTE | 2017-05-29 17:58 | Event Note ---
Date of Encounter: 05/29/17 Time of Encounter: 17:49 (1) Cystic duct calculus S/p remote cholecystectomy. Now with persistent abdominal pain. Previously evaluated by gastroenterology and plan was to get an ERCP if pain does not resolve. ERCP pending. GI following (2) Retained gallstones following open cholecystectomy see above (3) S/P mitral valve replacement with metallic valve per hx. Holding home couamdin. Cont heparin gtt (4) HTN (hypertension) per hx. BP controlled. Cont home BP medication (5) DVT prophylaxis Heparin drip
[2017-05-30] MEDS: *HR* OxyCODONE Immed Rel 5 MG TABLET PO PRN ×2 (02:22→22:20)
[2017-05-30] MEDS: Ondansetron 4 MG/2 ML VIAL IVP PRN (02:23)
[2017-05-30 05:12] LABS: INR 1.6; Prothrombin Time 17.9 Seconds (9.4-12.1)
[2017-05-30 05:15] LABS: Hematocrit 38.2 % (35.3-44.9); Hemoglobin 12.4 g/dL (11.5-15.4); Mean Corpuscular HGB Conc 32.5 g/dL (31.6-35.5); Mean Corpuscular Hemoglobin 26.4 pg (28.0-33.3); Mean Corpuscular Volume 81.3 fL (83.0-100.0); Mean Platelet Volume 9.1 fL (9.4-12.4); Platelet Count 118 K/mcL (140-400); Red Cell Distribution Width 14.7 % (11.5-14.5)
[2017-05-30 05:29] LABS: BUN/Creatinine Ratio 23 (6-26); Blood Urea Nitrogen 18 mg/dL (6-20); Carbon Dioxide 26 mEq/L (23-29); Chloride 105 mEq/L (98-107); Glucose 163 mg/dL (70-105); Osmolality,Calculated 289 (280-300); Potassium 4.2 mEq/L (3.5-5.1); Sodium 137 mEq/L (136-145); eGFR For African Americans > 60 (> 60); eGFR For Non-African Americans > 60 (> 60)
[2017-05-30] MEDS: Diltiazem CD (24hr) 180 MG CAPSULE PO SCH (07:25)
[2017-05-30] MEDS: Metoprolol XL (24 HR) Succ 50 MG TAB.ER.24H PO SCH (07:25)
--- NOTE | 2017-05-30 10:12 | Internal Med Progress Note ---
Date of Encounter: 05/30/17 Time of Encounter: 10:09 - Assessment and plan (1) Cystic duct calculus Current Visit: Yes Status: Acute Assessment and plan: s/p harini 6 months ago. Recent admission for similar sx's and was found to have probable cystic duct stone at that time. Now with recurrent ABD pain. GI planning ERCP once INR less than 1.5. Cont NPO, IV fluids and pain control. (2) Mitral valve replaced Current Visit: No Status: Acute Assessment and plan: per hx. Home couamdin on hold for ERCP (INR needs to be less than 1.5). Resume coumadin once ERCP completed. (3) LAZ (obstructive sleep apnea) Current Visit: Yes Status: Acute Assessment and plan: per hx. Cont home CPAP (4) Obesity Current Visit: No Status: Chronic Assessment and plan: BMI 58.1. Lifestyle recommendations encouraged Qualifiers: Obesity type: unspecified obesity type Obesity classification: adult class 3 (BMI >= 40) Serious obesity comorbidity presence: unspecified whether serious comorbidity present Body mass index: BMI 45.0-49.9 Qualified Code(s) : E66.9 - Obesity, unspecified; Z68.42 - Body mass index (BMI) 45.0-49.9, adult ; Z68.42 - Body mass index (BMI) 45.0-49.9, adult; Z68.42 - Body mass index (BMI ) 45.0-49.9, adult; Z68.42 - Body mass index (BMI) 45.0-49.9, adult (5) DVT prophylaxis Current Visit: No Status: Acute Assessment and plan: heparin gtt - Subjective Interval history: Seen and examined at bedside. Says she feels okay this morning. She reports ABD pain last night which was relieved with PRN oxyIR. ABD pain is cramping and sharp at times. No loose stool. No CP, no SOB - Constitutional Vitals: Temp Pulse Resp BP Pulse Ox 98.0 F 70 16 119/80 97 05/30/17 07:00 05/30/17 07:00 05/30/17 07:00 05/30/17 07:00 05/30/17 07:00 General appearance: Present: A&O X 3, pleasant, no acute distress, answers questions appropriately - Head Head exam: Present: atraumatic, normocephalic - Eye Eye exam: Present: PERRL, conjuntiva pink, sclera anicteric Pupils: Present: PERRL - Neck Neck exam general surgery: Present: supple, trachea midline. Absent: lymphadenopathy - Respiratory Respiratory exam: Present: CTAB. Absent: accessory muscle use, rales, rhonchi, wheezes - Cardiovascular Cardiovascular exam: Present: RRR, +S1, +S2. Absent: diastolic murmur, gallop, rubs, systolic murmur - GI/Abdominal GI/Abdominal exam: Present: normal bowel sounds, soft, no peritoneal signs. Absent: distended, tenderness - Extremities Exam Extremities exam: Present: warm, radial pulses palpable and symmetrical. Absent : calf tenderness, cyanotic, pedal edema - Neurological Exam Neurological exam: Present: CN II-XII intact, oriented X3, no focal deficits. Absent: pronater drift, facial droop, speech deficit - Skin Skin exam: Present: dry, intact Internal Medicine: Result - Labs CBC & Chem 7: 05/30/17 04:47 05/30/17 04:47 Labs: Short CBC 05/30/17 Range/Units 04:47 WBC 6.7 (4.3-11.1) K/mcL Hgb 12.4 (11.5-15.4) g/dL Hct 38.2 (35.3-44.9) % Plt Count 118 L (140-400) K/mcL [facility] 05/30/17 04:47 Sodium 137 Potassium 4.2 Chloride 105 Carbon Dioxide 26 BUN 18 Creatinine 0.77 Glucose 163 H Calcium 9.0 - ABG Interpretation ABG results: PT/INR, D-dimer PT 17.9 Seconds (9.4-12.1) H 05/30/17 04:47 - VTE Documentation of Mechanical Device: Intermittent pneumatic compression device Consult Discharge Plan - Plan Referrals: Mauricio Marquez, CLOSING SUPERVISOR [Primary Care Provider] -
[2017-05-30] MEDS: Heparin 25,000 UNIT/500 ML D5W 25,000 UNIT/500 ML BAG IVC SCH (15:46)
[2017-05-31 03:33] LABS: INR 1.4
[2017-05-31] MEDS: Diltiazem CD (24hr) 180 MG CAPSULE PO SCH ×2 (07:36→08:34)
[2017-05-31] MEDS: Metoprolol XL (24 HR) Succ 50 MG TAB.ER.24H PO SCH ×2 (07:36→08:33)
--- NOTE | 2017-05-31 10:40 | Internal Med Progress Note ---
Date of Encounter: 05/31/17 Time of Encounter: 10:40 - Assessment and plan (1) Cystic duct calculus Current Visit: Yes Status: Acute Assessment and plan: s/p harini 6 months ago. Recent admission for similar sx's and was found to have probable cystic duct stone at that time. Now with recurrent ABD pain. GI planning ERCP once INR less than 1.5. Cont NPO, IV fluids and pain control. Further recommendations once ERCP completed (2) Mitral valve replaced Current Visit: No Status: Acute Assessment and plan: hx mechanical mitral valve replacement by Dr. Lazar at [facility] 11/2014. Home couamdin on hold for ERCP (INR needs to be less than 1.5). Resume coumadin once ERCP completed. Will need lovenox/heparin bridge. (3) LAZ (obstructive sleep apnea) Current Visit: Yes Status: Acute Assessment and plan: per hx. Cont home CPAP (4) Obesity Current Visit: No Status: Chronic Assessment and plan: BMI 58.1. Lifestyle recommendations encouraged Qualifiers: Obesity type: unspecified obesity type Obesity classification: adult class 3 (BMI >= 40) Serious obesity comorbidity presence: unspecified whether serious comorbidity present Body mass index: BMI 45.0-49.9 Qualified Code(s) : E66.9 - Obesity, unspecified; Z68.42 - Body mass index (BMI) 45.0-49.9, adult ; Z68.42 - Body mass index (BMI) 45.0-49.9, adult; Z68.42 - Body mass index (BMI ) 45.0-49.9, adult; Z68.42 - Body mass index (BMI) 45.0-49.9, adult (5) DVT prophylaxis Current Visit: No Status: Acute Assessment and plan: heparin gtt - Subjective Interval history: Seen and examined at bedside. Says she feels well this morning. No abdominal pain. Says abdominal pain typically occurs in the evening/nighttime. Nothing makes worse and as needed pain medicine helps relieve. She is aware of ERCP planned for today. States she is taking Lovenox in the past and feels comfortable going home with Lovenox bridge. - Constitutional Vitals: Temp Pulse Resp BP Pulse Ox 98.1 F 78 16 129/83 97 05/31/17 06:35 05/31/17 06:35 05/31/17 06:35 05/31/17 08:08 05/31/17 06:35 General appearance: Present: A&O X 3, pleasant, no acute distress, answers questions appropriately - Head Head exam: Present: atraumatic, normocephalic - Eye Eye exam: Present: PERRL, conjuntiva pink, sclera anicteric Pupils: Present: PERRL - Neck Neck exam general surgery: Present: supple, trachea midline. Absent: lymphadenopathy - Respiratory Respiratory exam: Present: CTAB. Absent: accessory muscle use, rales, rhonchi, wheezes - Cardiovascular Cardiovascular exam: Present: clicks, RRR, +S1, +S2. Absent: diastolic murmur, gallop, rubs, systolic murmur - GI/Abdominal GI/Abdominal exam: Present: normal bowel sounds, soft, no peritoneal signs. Absent: distended, tenderness - Extremities Exam Extremities exam: Present: warm, radial pulses palpable and symmetrical. Absent : calf tenderness, cyanotic, pedal edema - Neurological Exam Neurological exam: Present: CN II-XII intact, oriented X3, no focal deficits. Absent: pronater drift, facial droop, speech deficit - Skin Skin exam: Present: dry, intact Internal Medicine: Result - Labs CBC & Chem 7: 05/30/17 04:47 05/30/17 04:47 - ABG Interpretation ABG results: PT/INR, D-dimer PT 15.0 Seconds (9.4-12.1) H 05/31/17 03:12 - VTE Documentation of Mechanical Device: Intermittent pneumatic compression device Consult Discharge Plan - Plan Referrals: Mauricio Marquez, PREPARED FOODS SERVICE TEAM MEMBER [Primary Care Provider] -
[2017-05-31] MEDS ORDERED: Indomethacin 50 MG SUPP.RECT RC ONE (14:16)
--- NOTE | 2017-05-31 14:20 | Anesthesia Evaluation PreOp ---
Date of Encounter: 05/31/17 Time of Encounter: 14:17 - Past History Planned Operation: ERCP Cardiac History: HTN, Cardiac Surgery (s/p MVR LHC: Impressions: Minimal atherosclerotic coronary artery disease. Moderate mixed pulmonary hypertention.) , Other (Impressions: Stress ECG was indeterminate for ischemia due to submaximal heart rate achieved. The study was negative at the level of heart rate achieved (68%).) Pulmonary History: LAZ Dx Other Medical History: Hepatic (fatty liver), GERD Anesthesia History: No Prior Anesthetic Complications, Past Anesthesia (MVR, cholecystectomy) Alcohol Use: none Drug use: none Medications and Allergies Potassium Chloride 20 meq PO QPM PRN 11/20/14 [History] Sertraline [Zoloft] 100 mg PO QPM 11/20/14 [History] Albuterol Sulfate [Ventolin Hfa] 2 puff IH Q4H PRN 01/12/15 [History] Celecoxib [Celebrex] 200 mg PO DAILY 09/02/15 [History] Metoprolol XL (24 HR) Succ [Toprol Xl] 75 mg PO DAILY 09/02/15 [History] Furosemide [Lasix] 20 mg PO DAILY PRN 10/31/16 [History] Diltiazem CD (24hr) [Cardizem CD] 180 mg PO DAILY 05/24/17 [History] Ergocalciferol (VITAMIN D2) [Vitamin D2] 50,000 unit PO QWEEK 05/24/17 [History] Warfarin [Coumadin] 6 mg PO DAILY 05/24/17 [History] 3 Allergy/AdvReac Type Severity Reaction Status Date / Time hydrochlorothiazide Allergy Rash Verified 05/24/17 07:18 hydrocodone [From Vicodin] Allergy Itching Verified 05/24/17 07:18 acetaminophen [From Tylenol] AdvReac Gastrointestinal Verified 05/24/17 07:18 Upset - Meds/Allergy Pre-op Review Medications Reviewed: Yes Allergies Reviewed: Yes Beta Blockers on Current Med List: Yes If Beta Blockers taken, Date/Time (Last Dose taken): 9am today Anesthesia Results - Labs 05/30/17 04:47 05/30/17 04:47 - Imaging EKG: report reviewed (SR) Anesthesia Exam Vital Signs/O2 Sat, Most Current Temp Pulse Resp BP Pulse Ox 97.8 F 71 16 139/84 98 05/31/17 14:15 05/31/17 14:15 05/31/17 14:15 05/31/17 14:15 05/31/17 14:15 NPO (# of Hours): >8 - HEENT Pupil (Motor): Pupils equal, EOMI Mallampati: III Oral Opening: Greater than 3 - ARABIC PROFESSOR LOC: Oriented ARABIC PROFESSOR Motor: Normal RUE, Normal LUE, Normal RLE, Normal LLE, Normal Face ARABIC PROFESSOR Sensory: Normal: RUE, LUE, RLE, LLE, Face - Cardiac Rhythm: Regular - Pulmonary Breath Sounds: bilateral Clear Anesthesia Assess/Plan ASA Score: 3 Modified Suffern Scale for Level of Consciousness: Cooperative, oriented, and tranquil Anesthetic Plan: General Monitoring Plan: Standard Monitors Recovery Plan: PACU
[2017-05-31] MEDS ORDERED: Ringers Solution, Lactated 1,000 ML IVC SCH (14:30)
[2017-05-31] MEDS ORDERED: *HR* Propofol 200 MG/20 ML VIAL IVP ONE (14:35)
[2017-05-31] MEDS ORDERED: *HR* FentaNYL (PF) 100 MCG/2 ML VIAL ONE (14:35)
[2017-05-31] MEDS ORDERED: Lidocaine -MPF 2% 2 ML VIAL ONE (14:36)
[2017-05-31] MEDS ORDERED: *HR* Succinylcholine 200 MG/10 ML VIAL IVP ONE (14:36)
[2017-05-31] MEDS ORDERED: *HR* Phenylephrine 10 MG/ML VIAL ONE (14:37)
[2017-05-31] MEDS ORDERED: Ondansetron 4 MG/2 ML VIAL ONE (15:04)
[2017-05-31] MEDS ORDERED: Dexamethasone 4 MG/ML VIAL ONE (15:04)
[2017-05-31] MEDS ORDERED: *HR* Promethazine 25 MG/ML VIAL IVP PRN (15:34)
[2017-05-31] MEDS ORDERED: *HR* OxyCODONE Immed Rel 5 MG TABLET PO PRN (15:34)
--- NOTE | 2017-05-31 15:38 | Anesthesia Evaluation Post Op ---
Date of Encounter: 05/31/17 Time of Encounter: 15:37 - Vital Signs Vital Signs: Vital Signs/O2 Sat, Most Current Temp Pulse Resp BP Pulse Ox 97.9 F 75 16 143/95 99 05/31/17 15:31 05/31/17 15:31 05/31/17 15:31 05/31/17 15:31 05/31/17 15:31 - Lungs Lungs: Clear Ascult./Percussion - Airway Airway: Non-obstructed - Cardiovascular Regular Rate - Mental Status Mental Status: Alert & Oriented, Answers Appropriately - Pain Pain Scale: 0 Pain Scale used: Numeric (1 - 10) - Nausea Vomiting Nausea Vomiting: Not Present - Hydration Hydration: NPO - Discharge PostOp Status: Transfer Patient to floor
[2017-05-31] MEDS: Heparin 25,000 UNIT/500 ML D5W 25,000 UNIT/500 ML BAG IVC SCH (16:13)
[2017-05-31] MEDS: Ondansetron 4 MG/2 ML VIAL IVP PRN (16:38)
[2017-05-31] MEDS ORDERED: *HR* Heparin 5,000 UNIT/ML VIAL IVP PRN ×2 (18:06)
[2017-05-31 18:58] LABS: Hematocrit 41.9 % (35.3-44.9); Mean Corpuscular Hemoglobin 25.7 pg (28.0-33.3); Mean Corpuscular Volume 82.8 fL (83.0-100.0); Mean Platelet Volume 8.8 fL (9.4-12.4); Platelet Count 119 K/mcL (140-400); Red Blood Count 5.06 M/mcL (3.82-4.97); Red Cell Distribution Width 14.7 % (11.5-14.5)
[2017-05-31 19:03] LABS: INR 1.4; Prothrombin Time 14.9 Seconds (9.4-12.1)
[2017-05-31] MEDS ORDERED: Heparin 25,000 UNIT/500 ML D5W 25,000 UNIT/500 ML BAG IVC SCH (21:00)
[2017-06-01] MEDS: *HR* OxyCODONE Immed Rel 5 MG TABLET PO PRN ×6 (00:13→21:31)
[2017-06-01 04:27] LABS: Activated Partial Thrombo Time 181.5 Seconds (26.0-36.0)
[2017-06-01 04:53] LABS: Heparin anti-factor XA UFH 0.63 IU/mL (0.30-0.70)
[2017-06-01] MEDS: Ondansetron 4 MG/2 ML VIAL IVP PRN ×4 (05:16→21:34)
--- NOTE | 2017-06-01 10:34 | Discharge Summary ---
- NOTES TO OUTPATIENT PROVIDER Notes to Outpatient Provider: Need follow-up with INR. Discharge home on Lovenox bridge. Orders not resulted at time of discharge: Pending orders 06/01/17 10:19 Complete Blood Count w/o Diff [HEME] Stat Comprehensive Metabolic Panel Stat Prothrombin Time INR [COAG] Stat 06/01/17 11:30 PTT [Activated Partial Thrombo Time] [COAG] Timed Date of Encounter: 06/01/17 Time of Encounter: 10:27 - Discharge Diagnosis (1) Biliary colic Priority: Primary Status: Acute Comments: s/p harini 6 months ago. Recent admission for similar sx's and was found to have probable cystic duct stone at that time. Now with recurrent ABD pain. 06/01/2017 ERCP with small amount of biliary sludge, a biliary sphincterotomy was performed. Tolerating regular diet and no abdominal pain at time of discharge. Recommend follow-up with PCP within 1-2 weeks. (2) Mitral valve replaced Priority: Primary Status: Acute Comments: hx mechanical mitral valve replacement by Dr. Lazar at [facility] 11/2014. Home Coumadin was held to allow for ERCP. She was initially bridged with heparin drip which was transitioned to Lovenox injection at discharge. Has follow-up with PCP on . Continue home Coumadin with Lovenox bridge. (3) History of atrial fibrillation Priority: Primary Status: Chronic Comments: per hx. Rate controlled. Cont home BB, CCB, coumadin (4) LAZ (obstructive sleep apnea) Priority: Secondary Status: Acute Comments: per hx. Cont home CPAP (5) Obesity Priority: Secondary Status: Chronic Comments: BMI 58, weight 168kg. lifestyle and dietary modifications encouraged Qualifiers: Obesity type: unspecified obesity type Obesity classification: adult class 3 (BMI >= 40) Serious obesity comorbidity presence: unspecified whether serious comorbidity present Body mass index: BMI 45.0-49.9 Qualified Code(s) : E66.9 - Obesity, unspecified; Z68.42 - Body mass index (BMI) 45.0-49.9, adult ; Z68.42 - Body mass index (BMI) 45.0-49.9, adult; Z68.42 - Body mass index (BMI ) 45.0-49.9, adult; Z68.42 - Body mass index (BMI) 45.0-49.9, adult Hospital course: Ms. Cottrell is a 52 year old female with PMH obesity, mitral valve replacement, A. fib, LAZ and recent Karol who presented to [facility] on 2017 with abdominal pain. She underwent an ERCP that showed small amount of biliary sludge that was cleaned out. She initially had some abdominal pain and nausea postprocedure however this resolved at discharge. Her Coumadin was resumed with Lovenox bridge and patient was discharged home in stable condition with outpatient follow-up. Of note patient has taken Lovenox in the past before feels comfortable administering self injections. Please see assessment and plan for further details. - Time Spent with Patient Total time spent providing and/or coordinating discharge services: - Discharge Medications Prescriptions: Enoxaparin [Lovenox] 160 mg SQ Q12HR #30 syr Home Medications: Potassium Chloride 20 meq PO QPM PRN 11/20/14 [History] Sertraline [Zoloft] 100 mg PO QPM 11/20/14 [History] Albuterol Sulfate [Ventolin Hfa] 2 puff IH Q4H PRN 01/12/15 [History] Metoprolol XL (24 HR) Succ [Toprol Xl] 75 mg PO DAILY 09/02/15 [History] Furosemide [Lasix] 20 mg PO DAILY PRN 10/31/16 [History] Diltiazem CD (24hr) [Cardizem CD] 180 mg PO DAILY 05/24/17 [History] Ergocalciferol (VITAMIN D2) [Vitamin D2] 50,000 unit PO QWEEK 05/24/17 [History] Warfarin [Coumadin] 6 mg PO DAILY 05/24/17 [History] Enoxaparin [Lovenox] 160 mg SQ Q12HR #30 syr 06/01/17 [Rx] Allergies/Adverse Reactions: 3 Allergy/AdvReac Type Severity Reaction Status Date / Time hydrochlorothiazide Allergy Rash Verified 05/24/17 07:18 hydrocodone [From Vicodin] Allergy Itching Verified 05/24/17 07:18 acetaminophen [From Tylenol] AdvReac Gastrointestinal Verified 05/24/17 07:18 Upset Date of admission: 05/28/17 23:45 Primary care physician: Mauricio Marquez CNP Consults: 05/29/17 05:38 Consult to Gastroenterology [CONS] Routine Consulting Provider: Gastroenterology Marsha Reason for Consult: cystic duct calculus in apatient who has Mitral valve replaced( metallic mitral valve) Call Completed: Yes Discharging clinician: Mariluz Diop Anticipated date of discharge: 06/01/17 - Constitutional Vitals: Temp Pulse Resp BP Pulse Ox 97.7 F 76 18 124/75 91 06/01/17 07:38 06/01/17 07:38 06/01/17 07:38 06/01/17 07:38 06/01/17 07:38 General appearance: Present: A&O X 3, pleasant, no acute distress, answers questions appropriately - Head Head exam: Present: atraumatic, normocephalic - Eye Eye exam: Present: PERRL, conjuntiva pink, sclera anicteric Pupils: Present: PERRL - Neck Neck exam general surgery: Present: supple, trachea midline. Absent: lymphadenopathy - Respiratory Respiratory exam: Present: CTAB. Absent: accessory muscle use, rales, rhonchi, wheezes - Cardiovascular Cardiovascular exam: Present: clicks, RRR, +S1, +S2. Absent: diastolic murmur, gallop, rubs, systolic murmur - GI/Abdominal GI/Abdominal exam: Present: normal bowel sounds, soft, no peritoneal signs. Absent: distended, tenderness - Extremities Exam Extremities exam: Present: warm, radial pulses palpable and symmetrical. Absent : calf tenderness, cyanotic, pedal edema - Neurological Exam Neurological exam: Present: CN II-XII intact, oriented X3, no focal deficits. Absent: pronater drift, facial droop, speech deficit - Skin Skin exam: Present: dry, intact - Patient Status Disposition: Home Health Service Condition: Good Functional capacity at discharge: uses cane/walker Overall status at discharge: patient is back to baseline - Discharge Instructions Instructions: Enoxaparin (Injection) Follow Up With: Mauricio Marquez CNP [Primary Care Provider] - 06/05/17 2:45 pm - Diet and Activity Activity: increase activity as tolerated Diet: advance to your usual diet - VTE Documentation of Mechanical Device: Intermittent pneumatic compression device
[2017-06-01 11:19] LABS: Hematocrit 40.4 % (35.3-44.9); Hemoglobin 12.6 g/dL (11.5-15.4); Mean Corpuscular HGB Conc 31.2 g/dL (31.6-35.5); Mean Corpuscular Hemoglobin 25.6 pg (28.0-33.3); Mean Corpuscular Volume 82.1 fL (83.0-100.0); Mean Platelet Volume 9.4 fL (9.4-12.4); Platelet Count 118 K/mcL (140-400); Red Blood Count 4.92 M/mcL (3.82-4.97); Red Cell Distribution Width 14.3 % (11.5-14.5)
[2017-06-01 11:26] LABS: INR 1.4; Prothrombin Time 14.8 Seconds (9.4-12.1)
[2017-06-01 11:31] LABS: Alanine Aminotransferase 128 Units/L (7-52); Albumin/Globulin Ratio 1.5 (1.1-2.2); Alkaline Phosphatase 88 Units/L (34-104); Aspartate Amino Transferase 218 Units/L (13-39); BUN/Creatinine Ratio 18 (6-26); Bilirubin,Total 2.5 mg/dL (0.3-1.0); Blood Urea Nitrogen 13 mg/dL (6-20); Calcium 9.5 mg/dL (8.6-10.3); Carbon Dioxide 27 mEq/L (23-29); Chloride 99 mEq/L (98-107); Globulin 2.7 g/dL (2.4-3.5); Glucose 203 mg/dL (70-105); Osmolality,Calculated 282 (280-300); Potassium 3.9 mEq/L (3.5-5.1); Sodium 133 mEq/L (136-145); Total Protein 6.7 g/dL (6.4-8.9); eGFR For African Americans > 60 (> 60); eGFR For Non-African Americans > 60 (> 60)
[2017-06-01] MEDS: Metoprolol XL (24 HR) Succ 50 MG TAB.ER.24H PO SCH (11:49)
[2017-06-01] MEDS: Diltiazem CD (24hr) 180 MG CAPSULE PO SCH (11:49)
[2017-06-01] MEDS ORDERED: *HR* Enoxaparin 80 MG/0.8 ML SYRINGE SQ ONE (12:44)
[2017-06-01] MEDS ORDERED: Warfarin perPT PO PRN (18:00)
[2017-06-01] MEDS ORDERED: *HR* Warfarin 3 MG TABLET PO ONE (18:00)
[2017-06-01] MEDS ORDERED: ALPRAZolam 0.25 MG TABLET PO ONE (21:49)
[2017-06-02] MEDS ORDERED: *HR* Enoxaparin 30 MG/0.3 ML SYRINGE SQ SCH
[2017-06-02] MEDS: *HR* Enoxaparin 80 MG/0.8 ML SYRINGE SQ SCH ×3 (00:26→23:32)
[2017-06-02] MEDS: *HR* OxyCODONE Immed Rel 5 MG TABLET PO PRN ×6 (01:34→21:53)
[2017-06-02 06:00] LABS: Basophils % 0.1 %; Eosinophils % 0.1 %; Hemoglobin 12.3 g/dL (11.5-15.4); Immature Granulocytes % 1.1 % (0-4); Lymphocytes # 0.8 K/mcL (0.6-4.6); Lymphocytes % 8.5 %; Mean Corpuscular HGB Conc 31.5 g/dL (31.6-35.5); Mean Corpuscular Hemoglobin 26.1 pg (28.0-33.3); Mean Corpuscular Volume 82.6 fL (83.0-100.0); Mean Platelet Volume 9.4 fL (9.4-12.4); Monocytes # 0.6 K/mcL (0.0-1.3); Monocytes % 6.1 %; Neutrophils # 8.3 K/mcL (1.6-8.9); Platelet Count 126 K/mcL (140-400); Red Blood Count 4.72 M/mcL (3.82-4.97); Red Cell Distribution Width 14.8 % (11.5-14.5); Segmented Neutrophils % 84.1 %
[2017-06-02 06:15] LABS: BUN/Creatinine Ratio 25 (6-26); Blood Urea Nitrogen 20 mg/dL (6-20); Calcium 9.4 mg/dL (8.6-10.3); Carbon Dioxide 30 mEq/L (23-29); Chloride 100 mEq/L (98-107); Glucose 202 mg/dL (70-105); Osmolality,Calculated 284 (280-300); Potassium 4.4 mEq/L (3.5-5.1); Sodium 133 mEq/L (136-145); eGFR For African Americans > 60 (> 60); eGFR For Non-African Americans > 60 (> 60)
[2017-06-02 06:16] LABS: Albumin 4.1 g/dL (3.5-5.7); Albumin/Globulin Ratio 1.4 (1.1-2.2); Bilirubin,Direct 2.2 mg/dL (0.0-0.2); Bilirubin,Indirect 1.1 mg/dL (0.0-1.2); Bilirubin,Total 3.3 mg/dL (0.3-1.0); Globulin 2.9 g/dL (2.4-3.5)
[2017-06-02] MEDS: Metoprolol XL (24 HR) Succ 50 MG TAB.ER.24H PO SCH (09:28)
[2017-06-02] MEDS: Diltiazem CD (24hr) 180 MG CAPSULE PO SCH (09:28)
[2017-06-02] MEDS: Ondansetron 4 MG/2 ML VIAL IVP PRN ×3 (09:33→21:56)
[2017-06-02] MEDS ORDERED: Sennosides/Docusate Sodium TABLET PO PRN (09:34)
--- NOTE | 2017-06-02 11:18 | Event Note ---
Date of Encounter: 06/02/17 Time of Encounter: 11:13 TB continues to rise, 3.3 today. LFTs worsening as well. Continue to monitor hepatic panel daily. If LFTs continue to rise over the weekend, NPO at midnight Monday night, will plan repeat ERCP on Monday.
--- NOTE | 2017-06-02 11:33 | Internal Med Progress Note ---
Date of Encounter: 06/02/17 Time of Encounter: 11:31 - Assessment and plan (1) Biliary colic Current Visit: Yes Status: Acute Assessment and plan: s/p harini 6 months ago. Recent admission for similar sx's and was found to have probable cystic duct stone at that time. Now with recurrent ABD pain. 06/01/2017 ERCP with small amount of biliary sludge, a biliary sphincterotomy was performed. Initially had been doing better however now with persistent and worsening abdominal pain. LFTs trending up. Discussed with GI, repeat ABD ultrasound, continue to monitor LFTs. May need repeat MRCP/further intervention if LFTs continue to trend up. (2) Mitral valve replaced Current Visit: No Status: Acute Assessment and plan: hx mechanical mitral valve replacement by Dr. Lazar at [facility] 11/2014. Home couamdin held for ERCP (INR needed to be less than 1.5). Coumadin now resumed with Lovenox bridge (3) History of atrial fibrillation Current Visit: No Status: Chronic Assessment and plan: per hx. Rate controlled. Cont home BB, couamdin (4) LAZ (obstructive sleep apnea) Current Visit: Yes Status: Acute Assessment and plan: per hx. Cont home CPAP (5) Obesity Current Visit: No Status: Chronic Assessment and plan: BMI 58.1. Lifestyle recommendations encouraged Qualifiers: Obesity type: unspecified obesity type Obesity classification: adult class 3 (BMI >= 40) Serious obesity comorbidity presence: unspecified whether serious comorbidity present Body mass index: BMI 45.0-49.9 Qualified Code(s) : E66.9 - Obesity, unspecified; Z68.42 - Body mass index (BMI) 45.0-49.9, adult ; Z68.42 - Body mass index (BMI) 45.0-49.9, adult; Z68.42 - Body mass index (BMI ) 45.0-49.9, adult; Z68.42 - Body mass index (BMI) 45.0-49.9, adult (6) DVT prophylaxis Current Visit: Yes Status: Acute Assessment and plan: lovenox with couamdin - Subjective Interval history: Seen and examined at bedside; she is complaining of worsening abdominal pain. Says abdominal pain is comparable to when she first came in. Abdominal pain seems to be improved when she eats. No known hepatitis, says she has fatty liver disease. She is also complaining of constipation, no BM since Monday. Discussed case with GI and we will continue to monitor LFTs over the weekend. We will also repeat ABD ultrasound. - Constitutional Vitals: Temp Pulse Resp BP Pulse Ox 97.6 F 78 18 109/73 93 06/02/17 11:19 06/02/17 11:19 06/02/17 11:19 06/02/17 11:19 06/02/17 11:19 General appearance: Present: A&O X 3, pleasant, no acute distress, answers questions appropriately - Head Head exam: Present: atraumatic, normocephalic - Eye Eye exam: Present: PERRL, conjuntiva pink, sclera anicteric Pupils: Present: PERRL - Neck Neck exam general surgery: Present: supple, trachea midline. Absent: lymphadenopathy - Respiratory Respiratory exam: Present: CTAB. Absent: accessory muscle use, rales, rhonchi, wheezes - Cardiovascular Cardiovascular exam: Present: clicks, RRR, +S1, +S2. Absent: diastolic murmur, gallop, rubs, systolic murmur - GI/Abdominal GI/Abdominal exam: Present: normal bowel sounds, soft, no peritoneal signs. Absent: distended, tenderness - Extremities Exam Extremities exam: Present: warm, radial pulses palpable and symmetrical. Absent : calf tenderness, cyanotic, pedal edema - Neurological Exam Neurological exam: Present: CN II-XII intact, oriented X3, no focal deficits. Absent: pronater drift, facial droop, speech deficit - Skin Skin exam: Present: dry, intact Internal Medicine: Result - Labs CBC & Chem 7: 06/02/17 05:45 06/02/17 05:45 Labs: Short CBC 06/02/17 Range/Units 05:45 WBC 9.8 (4.3-11.1) K/mcL Hgb 12.3 (11.5-15.4) g/dL Hct 39.0 (35.3-44.9) % Plt Count 126 L (140-400) K/mcL Neutrophils # 8.3 (1.6-8.9) K/mcL BMP 06/01/17 06/02/17 11:01 05:45 Sodium 133 L 133 L Potassium 3.9 4.4 Chloride 99 100 Carbon Dioxide 27 30 H BUN 13 20 Creatinine 0.74 0.80 Glucose 203 H 202 H Calcium 9.5 9.4 Liver Function 06/01/17 06/02/17 Range/Units 11:01 05:45 Total Bilirubin 2.5 H 3.3 H (0.3-1.0) mg/dL Direct Bilirubin 2.2 H (0.0-0.2) mg/dL AST 218 H 287 H (13-39) Units/L ALT 128 H 234 H (7-52) Units/L Alkaline Phosphatase 88 98 (34-104) Units/L Albumin 4.0 4.1 (3.5-5.7) g/dL - ABG Interpretation ABG results: PT/INR, D-dimer PT 14.8 Seconds (9.4-12.1) H 06/01/17 11:01 - VTE Documentation of Mechanical Device: Intermittent pneumatic compression device Consult Discharge Plan - Plan Instructions: Enoxaparin (Injection) Referrals: Mauricio Marquez [employer] ACREAGE MEASURER [Primary Care Provider] - 06/05/17 2:45 pm Prescriptions: Enoxaparin [Lovenox] 160 mg SQ Q12HR #30 syr
[2017-06-02 12:37] LABS: INR 1.4; Prothrombin Time 15.6 Seconds (9.4-12.1)
[2017-06-02] MEDS ORDERED: *HR* Warfarin 3 MG TABLET PO ONE (18:00)
[2017-06-03 01:54] LABS: Hematocrit 33.8 % (35.3-44.9); Mean Corpuscular HGB Conc 30.8 g/dL (31.6-35.5); Mean Corpuscular Hemoglobin 25.6 pg (28.0-33.3); Platelet Count 139 K/mcL (140-400); Red Blood Count 4.07 M/mcL (3.82-4.97); Red Cell Distribution Width 15.1 % (11.5-14.5)
[2017-06-03 02:02] LABS: Hemoglobin 10.4 g/dL (11.5-15.4)
[2017-06-03 02:03] LABS: INR 1.9; Prothrombin Time 20.9 Seconds (9.4-12.1)
[2017-06-03 02:10] LABS: Alanine Aminotransferase 147 Units/L (7-52); Albumin 3.6 g/dL (3.5-5.7); Albumin/Globulin Ratio 1.7 (1.1-2.2); Alkaline Phosphatase 83 Units/L (34-104); Aspartate Amino Transferase 110 Units/L (13-39); BUN/Creatinine Ratio 35 (6-26); Bilirubin,Total 1.5 mg/dL (0.3-1.0); Blood Urea Nitrogen 29 mg/dL (6-20); Calcium 8.8 mg/dL (8.6-10.3); Carbon Dioxide 28 mEq/L (23-29); Chloride 100 mEq/L (98-107); Globulin 2.1 g/dL (2.4-3.5); Glucose 177 mg/dL (70-105); Osmolality,Calculated 286 (280-300); Potassium 4.4 mEq/L (3.5-5.1); Sodium 133 mEq/L (136-145); Total Protein 5.7 g/dL (6.4-8.9); eGFR For African Americans > 60 (> 60); eGFR For Non-African Americans > 60 (> 60)
[2017-06-03] MEDS: *HR* OxyCODONE Immed Rel 5 MG TABLET PO PRN ×3 (06:37→22:25)
[2017-06-03] MEDS: Metoprolol XL (24 HR) Succ 50 MG TAB.ER.24H PO SCH (07:56)
[2017-06-03] MEDS: Diltiazem CD (24hr) 180 MG CAPSULE PO SCH (07:56)
[2017-06-03] MEDS: *HR* Enoxaparin 80 MG/0.8 ML SYRINGE SQ SCH (13:50)
[2017-06-03 15:02] LABS: Hematocrit 29.8 % (35.3-44.9); Hemoglobin 9.2 g/dL (11.5-15.4)
[2017-06-03 15:19] LABS: Alanine Aminotransferase 117 Units/L (7-52); Albumin 3.5 g/dL (3.5-5.7); Albumin/Globulin Ratio 1.3 (1.1-2.2); Alkaline Phosphatase 78 Units/L (34-104); Aspartate Amino Transferase 78 Units/L (13-39); BUN/Creatinine Ratio 35 (6-26); Bilirubin,Total 1.6 mg/dL (0.3-1.0); Blood Urea Nitrogen 28 mg/dL (6-20); Calcium 8.5 mg/dL (8.6-10.3); Carbon Dioxide 30 mEq/L (23-29); Chloride 98 mEq/L (98-107); Globulin 2.6 g/dL (2.4-3.5); Glucose 187 mg/dL (70-105); Osmolality,Calculated 282 (280-300); Potassium 4.2 mEq/L (3.5-5.1); Sodium 131 mEq/L (136-145); Total Protein 6.1 g/dL (6.4-8.9); eGFR For African Americans > 60 (> 60); eGFR For Non-African Americans > 60 (> 60)
--- NOTE | 2017-06-03 15:54 | Internal Med Progress Note ---
Date of Encounter: 06/03/17 Time of Encounter: 10:30 - Assessment and plan (1) Anemia Current Visit: Yes Status: Acute Assessment and plan: Hgb 13.4 on arrival and dropped to 9.2. Denies hematochezia, no melena. Was on Coumadin with Lovenox bridge secondary to mechanical valve. Stop Coumadin, continue Lovenox. Monitor Hgb, occult stool pending. GI consult Qualifiers: Anemia type: other cause Other causes of anemia: other cause, not classified Qualified Code(s): D64.89 - Other specified anemias (2) Biliary colic Current Visit: Yes Status: Acute Assessment and plan: s/p harini 6 months ago. Recent admission for similar sx's and was found to have probable cystic duct stone at that time. Now with recurrent ABD pain. 06/01/2017 ERCP with small amount of biliary sludge, a biliary sphincterotomy was performed. LFts trending down, ABD pain improving (3) Mitral valve replaced Current Visit: No Status: Acute Assessment and plan: hx mechanical mitral valve replacement by Dr. Lazar at [facility] 11/2014. Home couamdin held for ERCP (INR needed to be less than 1.5). Was on coumadin with Lovenox bridge however Coumadin stopped with drop in Hgb. Continue Lovenox, monitor Hgb (4) History of atrial fibrillation Current Visit: No Status: Chronic Assessment and plan: per hx. Rate controlled. Cont home BB, couamdin (5) LAZ (obstructive sleep apnea) Current Visit: Yes Status: Acute Assessment and plan: per hx. Cont home CPAP (6) Obesity Current Visit: No Status: Chronic Assessment and plan: BMI 58.1. Lifestyle recommendations encouraged Qualifiers: Obesity type: unspecified obesity type Obesity classification: adult class 3 (BMI >= 40) Serious obesity comorbidity presence: unspecified whether serious comorbidity present Body mass index: BMI 45.0-49.9 Qualified Code(s) : E66.9 - Obesity, unspecified; Z68.42 - Body mass index (BMI) 45.0-49.9, adult ; Z68.42 - Body mass index (BMI) 45.0-49.9, adult; Z68.42 - Body mass index (BMI ) 45.0-49.9, adult; Z68.42 - Body mass index (BMI) 45.0-49.9, adult (7) DVT prophylaxis Current Visit: Yes Status: Acute Assessment and plan: lovenox - Subjective Interval history: Seen and examined at bedside; she is complaining of mild ABD pain but overall improved. PRN OxyIR and eating relieves the pain. Nothing makes worse. Says she would like to go home today if possible. She has not had a bowel movement yet. No active bleeding. Denies melena prior to admission. - Constitutional Vitals: Temp Pulse Resp BP Pulse Ox 98.7 F 93 16 108/72 96 06/03/17 15:29 06/03/17 15:29 06/03/17 15:29 06/03/17 15:29 06/03/17 15:29 General appearance: Present: A&O X 3, pleasant, no acute distress, answers questions appropriately - Head Head exam: Present: atraumatic, normocephalic - Eye Eye exam: Present: PERRL, conjuntiva pink, sclera anicteric Pupils: Present: PERRL - Neck Neck exam general surgery: Present: supple, trachea midline. Absent: lymphadenopathy - Respiratory Respiratory exam: Present: CTAB. Absent: accessory muscle use, rales, rhonchi, wheezes - Cardiovascular Cardiovascular exam: Present: RRR, +S1, +S2. Absent: diastolic murmur, gallop, rubs, systolic murmur - GI/Abdominal GI/Abdominal exam: Present: normal bowel sounds, soft, no peritoneal signs. Absent: distended, tenderness - Extremities Exam Extremities exam: Present: warm, radial pulses palpable and symmetrical. Absent : calf tenderness, cyanotic, pedal edema - Neurological Exam Neurological exam: Present: CN II-XII intact, oriented X3, no focal deficits. Absent: pronater drift, facial droop, speech deficit - Skin Skin exam: Present: dry, intact Internal Medicine: Result - Labs CBC & Chem 7: 06/03/17 14:54 06/03/17 14:54 Labs: Short CBC 06/03/17 06/03/17 Range/Units 01:09 14:54 WBC 12.3 H (4.3-11.1) K/mcL Hgb 10.4 L D 9.2 L (11.5-15.4) g/dL Hct 33.8 L 29.8 L (35.3-44.9) % Plt Count 139 L (140-400) K/mcL BMP 06/03/17 06/03/17 01:09 14:54 Sodium 133 L 131 L Potassium 4.4 4.2 Chloride 100 98 Carbon Dioxide 28 30 H BUN 29 H 28 H Creatinine 0.82 0.80 Glucose 177 H 187 H Calcium 8.8 8.5 L Liver Function 06/03/17 06/03/17 Range/Units 01:09 14:54 Total Bilirubin 1.5 H 1.6 H (0.3-1.0) mg/dL AST 110 H 78 H (13-39) Units/L ALT 147 H 117 H (7-52) Units/L Alkaline Phosphatase 83 78 (34-104) Units/L Albumin 3.6 3.5 (3.5-5.7) g/dL - ABG Interpretation ABG results: PT/INR, D-dimer PT 20.9 Seconds (9.4-12.1) H 06/03/17 01:09 - Impressions Impressions Abdomen Ultrasound 06/02/17 17:00 IMPRESSION: 1. Cholecystectomy. No acute findings identified. 2. Increased echogenicity of the liver suggestive of hepatic steatosis. D/ / 06/02/2017 17:47:37 Dani Barnes MD / [facility] Interpreting Provider: Dani Barnes MD - VTE Documentation of Mechanical Device: Intermittent pneumatic compression device Consult Discharge Plan - Plan Instructions: Enoxaparin (Injection) Referrals: Mauricio Marquez, PRESS LOADER [Primary Care Provider] - 06/05/17 2:45 pm Prescriptions: Enoxaparin [Lovenox] 160 mg SQ Q12HR #30 syr
[2017-06-03] MEDS: Ondansetron 4 MG/2 ML VIAL IVP PRN (18:21)
[2017-06-04] MEDS: *HR* Enoxaparin 80 MG/0.8 ML SYRINGE SQ SCH ×2 (00:46→11:24)
[2017-06-04 03:08] LABS: Hematocrit 26.9 % (35.3-44.9); Hemoglobin 8.4 g/dL (11.5-15.4); Mean Corpuscular HGB Conc 31.2 g/dL (31.6-35.5); Mean Corpuscular Hemoglobin 26.1 pg (28.0-33.3); Mean Corpuscular Volume 83.5 fL (83.0-100.0); Mean Platelet Volume 9.1 fL (9.4-12.4); Platelet Count 126 K/mcL (140-400); Red Blood Count 3.22 M/mcL (3.82-4.97); Red Cell Distribution Width 15.4 % (11.5-14.5)
[2017-06-04 03:17] LABS: INR 2.1; Prothrombin Time 23.3 Seconds (9.4-12.1)
[2017-06-04 03:25] LABS: % Iron Saturation 12 % (15-50); Alanine Aminotransferase 102 Units/L (7-52); Albumin 3.2 g/dL (3.5-5.7); Albumin/Globulin Ratio 1.3 (1.1-2.2); Alkaline Phosphatase 75 Units/L (34-104); Aspartate Amino Transferase 69 Units/L (13-39); BUN/Creatinine Ratio 35 (6-26); Bilirubin,Total 1.6 mg/dL (0.3-1.0); Blood Urea Nitrogen 26 mg/dL (6-20); Calcium 8.4 mg/dL (8.6-10.3); Carbon Dioxide 30 mEq/L (23-29); Chloride 100 mEq/L (98-107); Globulin 2.4 g/dL (2.4-3.5); Glucose 175 mg/dL (70-105); Iron 37 mcg/dL (50-170); Osmolality,Calculated 283 (280-300); Potassium 3.7 mEq/L (3.5-5.1); Sodium 132 mEq/L (136-145); Total Protein 5.6 g/dL (6.4-8.9); Transferrin 227 mg/dL (203-362); eGFR For African Americans > 60 (> 60); eGFR For Non-African Americans > 60 (> 60)
[2017-06-04] MEDS: Metoprolol XL (24 HR) Succ 50 MG TAB.ER.24H PO SCH (08:15)
[2017-06-04] MEDS: Diltiazem CD (24hr) 180 MG CAPSULE PO SCH (08:15)
[2017-06-04] MEDS: *HR* OxyCODONE Immed Rel 5 MG TABLET PO PRN ×3 (08:15→19:16)
--- NOTE | 2017-06-04 08:15 | Internal Med Progress Note ---
Date of Encounter: 06/04/17 Time of Encounter: 08:15 - Assessment and plan (1) Anemia Current Visit: Yes Status: Acute Assessment and plan: Hgb 13.4 on arrival and dropped to 8.4. No obvious bleeding. Reportedly had small, dark BM this morning. Occult stool negative. CBC shows normocytic anemia. Was on Coumadin with Lovenox bridge secondary to mechanical valve. Coumadin on hold but need to continue Lovenox. Iron studies consistent with iron deficiency anemia however she still has had a 5 g drop in 1 week. Hemodynamically stable. Start iron supplements. GI following. Repeat H&H at 1600. No hx CAD, monitor H&H and transfuse for Hgb less than 7. Hematology consult. LDH, reticulocyte count, haptoglobin, peripheral blood smear pending. Qualifiers: Anemia type: other cause Other causes of anemia: other cause, not classified Qualified Code(s): D64.89 - Other specified anemias (2) Biliary colic Current Visit: Yes Status: Acute Assessment and plan: s/p harini 6 months ago. Recent admission for similar sx's and was found to have probable cystic duct stone at that time. Now with recurrent ABD pain. 06/01/2017 ERCP with small amount of biliary sludge, a biliary sphincterotomy was performed. LFTs trending down, ABD pain improving (3) Mitral valve replaced Current Visit: No Status: Acute Assessment and plan: hx mechanical mitral valve replacement by Dr. Lazar at [facility] 11/2014. Home couamdin held for ERCP (INR needed to be less than 1.5). Was on coumadin with Lovenox bridge however Coumadin stopped with drop in Hgb. Continue Lovenox, monitor Hgb (4) History of atrial fibrillation Current Visit: No Status: Chronic Assessment and plan: per hx. Rate controlled. Cont home BB, couamdin (5) LAZ (obstructive sleep apnea) Current Visit: Yes Status: Acute Assessment and plan: per hx. Cont home CPAP (6) Obesity Current Visit: No Status: Chronic Assessment and plan: BMI 58.1. Lifestyle recommendations encouraged Qualifiers: Obesity type: unspecified obesity type Obesity classification: adult class 3 (BMI >= 40) Serious obesity comorbidity presence: unspecified whether serious comorbidity present Body mass index: BMI 45.0-49.9 Qualified Code(s) : E66.9 - Obesity, unspecified; Z68.42 - Body mass index (BMI) 45.0-49.9, adult ; Z68.42 - Body mass index (BMI) 45.0-49.9, adult; Z68.42 - Body mass index (BMI ) 45.0-49.9, adult; Z68.42 - Body mass index (BMI) 45.0-49.9, adult (7) DVT prophylaxis Current Visit: Yes Status: Acute Assessment and plan: lovenox - Subjective Interval history: Seen and examined at bedside; says she is tired but overall feels better. Abdominal pain improved from yesterday's exam. Discussed with her that her hemoglobin continues to drop. She denies any obvious/tammy bleeding. No known history of anemia has not required blood transfusion before. Discussed case with Dr. Carias who does not suspect acute blood loss anemia; possibly chemotherapy lysis. Although patient is not jaundiced. He is agreeable to stay overnight for further hemoglobin monitoring and oncology consultation. - Constitutional Vitals: Temp Pulse Resp BP Pulse Ox 98.0 F 101 17 119/80 93 06/04/17 06:45 06/04/17 06:45 06/04/17 06:45 06/04/17 06:45 06/04/17 06:45 General appearance: Present: A&O X 3, pleasant, no acute distress, answers questions appropriately - Head Head exam: Present: atraumatic, normocephalic - Eye Eye exam: Present: PERRL, conjuntiva pink, sclera anicteric Pupils: Present: PERRL - Neck Neck exam general surgery: Present: supple, trachea midline. Absent: lymphadenopathy - Respiratory Respiratory exam: Present: CTAB. Absent: accessory muscle use, rales, rhonchi, wheezes - Cardiovascular Cardiovascular exam: Present: RRR, +S1, +S2. Absent: diastolic murmur, gallop, rubs, systolic murmur - GI/Abdominal GI/Abdominal exam: Present: normal bowel sounds, soft, no peritoneal signs. Absent: distended, tenderness - Extremities Exam Extremities exam: Present: warm, radial pulses palpable and symmetrical. Absent : calf tenderness, cyanotic, pedal edema - Neurological Exam Neurological exam: Present: CN II-XII intact, oriented X3, no focal deficits. Absent: pronater drift, facial droop, speech deficit - Skin Skin exam: Present: dry, intact, pallor Internal Medicine: Result - Labs CBC & Chem 7: 06/04/17 01:37 06/04/17 01:37 Labs: Short CBC 06/03/17 06/04/17 Range/Units 14:54 01:37 WBC 10.8 (4.3-11.1) K/mcL Hgb 9.2 L 8.4 L (11.5-15.4) g/dL Hct 29.8 L 26.9 L (35.3-44.9) % Plt Count 126 L (140-400) K/mcL BMP 06/03/17 06/04/17 14:54 01:37 Sodium 131 L 132 L Potassium 4.2 3.7 Chloride 98 100 Carbon Dioxide 30 H 30 H BUN 28 H 26 H Creatinine 0.80 0.74 Glucose 187 H 175 H Calcium 8.5 L 8.4 L Liver Function 06/03/17 06/04/17 Range/Units 14:54 01:37 Total Bilirubin 1.6 H 1.6 H (0.3-1.0) mg/dL AST 78 H 69 H (13-39) Units/L ALT 117 H 102 H (7-52) Units/L Alkaline Phosphatase 78 75 (34-104) Units/L Albumin 3.5 3.2 L (3.5-5.7) g/dL - ABG Interpretation ABG results: PT/INR, D-dimer PT 23.3 Seconds (9.4-12.1) H 06/04/17 01:37 - VTE Documentation of Mechanical Device: Intermittent pneumatic compression device Consult Discharge Plan - Plan Instructions: Enoxaparin (Injection) Referrals: Mauricio Marquez CNP [Primary Care Provider] - 06/05/17 2:45 pm Prescriptions: Enoxaparin [Lovenox] 160 mg SQ Q12HR #30 syr
[2017-06-04] MEDS: Pantoprazole 40 MG VIAL IVP SCH (10:43)
[2017-06-04 11:18] LABS: Immature Reticulocyte % 24.4 % (11.0-38.0); Retculocyte # 0.15 M/mcL (0.05-0.10); Reticulocyte % 5.1 % (1.6-2.8)
--- NOTE | 2017-06-04 11:45 | Gastroenterology Progress Note ---
Date of Encounter: 06/04/17 Time of Encounter: 10:30 - Assessment and plan (1) Anemia Current Visit: Yes Status: Acute Qualifiers: Anemia type: other cause Other causes of anemia: other cause, not classified Qualified Code(s): D64.89 - Other specified anemias - Time Spent With Patient Total time spent is greater than 50% in coordination of care (as documented) at patient's floor/unit and/or counseling patient: 25 - 35 minutes - Subjective Interval history: Seen and examined at bedside; says she is tired but overall feels better. Abdominal pain improved from yesterday's exam. Discussed with her that her hemoglobin continues to drop. She denies any obvious/tammy bleeding. No known history of anemia has not required blood transfusion before. Discussed case with Dr. Carias who does not suspect acute blood loss anemia; possibly chemotherapy lysis. Although patient is not jaundiced. He is agreeable to stay overnight for further hemoglobin monitoring and oncology consultation. Patient underwent an ERCP with sphincterotomy on Monday. Certainly a possibility that she could be bleeding from the sphincterotomy site at the lack of any gross bleeding but that much drop in hemoglobin makes this etiology suspect - Constitutional Vitals: Temp Pulse Resp BP Pulse Ox 99.1 F 100 16 125/71 94 06/04/17 10:27 06/04/17 10:27 06/04/17 10:27 06/04/17 10:27 06/04/17 10:27 General appearance: Present: cooperative, A&O X 3, no acute distress, answers questions appropriately - Head Head exam: Present: atraumatic, normal inspection, normocephalic - Eye Eye exam: Present: EOMI, normal appearance, PERRL, conjuntiva pink, sclera anicteric - Neck Neck exam general surgery: Present: full ROM, normal inspection, supple, trachea midline - GI/Abdominal GI/Abdominal exam: Present: soft - Rectal Rectal exam: Present: normal inspection, normal rectal tone Results - Labs CBC & Chem 7: 06/04/17 13:25 06/04/17 01:37 Labs: Last Result Calcium 8.4 mg/dL (8.6-10.3) L 06/04/17 01:37 Iron 37 mcg/dL (50-170) L 06/04/17 01:37 % Saturation 12 % (15-50) L 06/04/17 01:37 Transferrin 227 mg/dL (203-362) 06/04/17 01:37 Stool Occult Blood Negative (Negative) 06/03/17 21:15 Entire Visit Hgb 8.4 g/dL (11.5-15.4) L 06/04/17 01:37 Hct 26.9 % (35.3-44.9) L 06/04/17 01:37 PT 23.3 Seconds (9.4-12.1) H 06/04/17 01:37 Total Bilirubin 1.6 mg/dL (0.3-1.0) H 06/04/17 01:37 AST 69 Units/L (13-39) H 06/04/17 01:37 ALT 102 Units/L (7-52) H 06/04/17 01:37 Amylase 24 Units/L (29-103) L 05/28/17 21:56 Lipase 71 Units/L (11-82) 05/28/17 21:56 - ABG ABG results: PT/INR, D-dimer PT 23.3 Seconds (9.4-12.1) H 06/04/17 01:37 - VTE Documentation of Mechanical Device: Intermittent pneumatic compression device Consult Discharge Plan - Plan Instructions: Enoxaparin (Injection) Referrals: Mauricio Marquez CNP [Primary Care Provider] - 06/05/17 2:45 pm Prescriptions: Enoxaparin [Lovenox] 160 mg SQ Q12HR #30 syr
[2017-06-04] MEDS ORDERED: Iron Sucrose Complex 400 MG in 0.9 % Sodium Chloride 250 ML IVPB ONE (12:00)
--- NOTE | 2017-06-04 12:04 | Oncology Inp Consult Note ---
Date of Encounter: 06/04/17 Time of Encounter: 12:00 Assessment and Plan (1) Anemia Status: Acute Assessment and plan: Ms. Cottrell has acute blood loss anemia. This appears to be an acute process coupled by chronic iron deficiency given her low MCV in the past. Her acute blood loss may be secondary be secondary to her sphincterotomy and associated anticoagulation. She is without evidence of hemolysis with a normal LDH. Her iron stores are depleted. To further evaluate this, I am obtaining her B12, folic acid levels as well as ferritin to conclude her nutritional assessment. I will also obtain a haptoglobin as well. I recommend transition from LMWH to heparin gtt for now. We cannot d/c anticoagulation secondary to mechanical mitral valve For treatment, I recommend a blood transfusion for a hemoglobin of 7 or less. I have started vendor for 400 mg IV times one today. Qualifiers: Anemia type: other cause Other causes of anemia: other cause, not classified Qualified Code(s): D64.89 - Other specified anemias (2) Thrombocytopenia Status: Acute Assessment and plan: She has chronic thrombocytopenia. This is stable and secondary to FULLER with secondary splenomegaly seen on imaging and biopsy. No need for transfusion. - Data of Consult Patient: new to practice Requesting Physician: Mariluz Diop CNP Primary Care Provider: Mauricio Marquez CNP - Consult Narrative Reason for consult: Anemia History of present illness: Ms. Cottrell is a 52 year old female who recently underwent cholecystectomy for gallstone pancreatitis and was admitted in late April for presumed choledocholithiasis. Patient was evaluated by gastroenterology at that time, and she was discharged from May 26. She returned May 28 with increasing right upper quadrant pain. She presented emergency department and her liver function testing was normal. However, her bilirubin started to increase, and she underwent ERCP with biliary sphincterotomy 05/31/2017 without incident. She is on anticoagulation for history of atrial fibrillation. Following her procedure, she has had a decline in her CBC. Hemoglobin was 12-13.5 at baseline up until June 02 when it started to acutely decline. It has had a continued decline to level of 8.4 today. MCV is stable, but as noted she has a low MCV in the past indicative of baseline iron deficiency. Iron studies have been obtained confirming depleted iron stores. Reticulocyte count is elevated and indicative adequate marrow function. LDH is normal. Hemoccult negative but she passed melenic stool this AM. Past Med Surg Social Fam HX - Past Medical History Medical history: atrial fibrillation, cardiomyopathy, CHF, coronary artery disease, hypertension, valvular heart disease, other Psychiatric history: anxiety, depression - Past Surgical History Surgical History: appendectomy, cholecystectomy, heart valve replacement, hysterectomy, other - Social History Smoking Status: Former smoker Smokeless Tobacco Status: No Alcohol use: none Drug use: none - Family History Mother Adopted: [place]: Arlette Age: 69 Family Member Ethnicity: Non- Living Status: Still Living Hx Family Cardiac Disorders: No Hx Family Respiratory Disorders: No Hx Family Cancer: Yes (leukemia) Hx Family GI Disorders: No Hx Family Genitourinary Disorders: No Hx Family Endocrine Disorder: Yes (DM) Hx Family Musculoskeletal Disorders: No Hx Family Neuromuscular Disorders: No Hx Family Neurologic Disorders: No Hx Family HEENT Disorders: No Hx Family Autoimmune Disorders: No Hx Family Reproductive Disorders: No Hx Family Psychosocial Disorders: No Hx Family Medical Disorders: No Medications and Allergies Potassium Chloride 20 meq PO QPM PRN 11/20/14 [History] Sertraline [Zoloft] 100 mg PO QPM 11/20/14 [History] Albuterol Sulfate [Ventolin Hfa] 2 puff IH Q4H PRN 01/12/15 [History] Metoprolol XL (24 HR) Succ [Toprol Xl] 75 mg PO DAILY 09/02/15 [History] Furosemide [Lasix] 20 mg PO DAILY PRN 10/31/16 [History] Diltiazem CD (24hr) [Cardizem CD] 180 mg PO DAILY 05/24/17 [History] Ergocalciferol (VITAMIN D2) [Vitamin D2] 50,000 unit PO QWEEK 05/24/17 [History] Warfarin [Coumadin] 6 mg PO DAILY 05/24/17 [History] Enoxaparin [Lovenox] 160 mg SQ Q12HR #30 syr 06/01/17 [Rx] 3 Allergy/AdvReac Type Severity Reaction Status Date / Time hydrochlorothiazide Allergy Rash Verified 05/24/17 07:18 hydrocodone [From Vicodin] Allergy Itching Verified 05/24/17 07:18 acetaminophen [From Tylenol] AdvReac Gastrointestinal Verified 05/24/17 07:18 Upset All systems: reviewed and no additional remarkable complaints except as stated Constitutional: Present: fatigue Eyes: Present: as per HPI Ears: Present: as per HPI Nose, mouth and throat: Present: as per HPI Cardiovascular: Present: as per HPI Respiratory: Present: as per HPI Gastrointestinal: Present: as per HPI Genitourinary: Present: as per HPI Musculoskeletal: Present: as per HPI Neurological: Present: as per HPI Hematologic/Lymphatic: Present: as per HPI, easy bruising Oncology - Exam - Constitutional Vitals: Temp Pulse Resp BP Pulse Ox 99.1 F 100 16 125/71 94 06/04/17 10:27 06/04/17 10:27 06/04/17 10:27 06/04/17 10:27 06/04/17 10:27 General appearance: cooperative, morbidly obese, no acute distress - Head Head exam: Present: atraumatic, normal inspection, normocephalic - Eye Eye exam: Present: conjuntiva pink, sclera anicteric - ENT ENT exam: Present: mucous membranes moist, normal exam, normal oropharynx - Neck Neck exam: Present: full ROM, normal inspection - Respiratory Respiratory exam: Present: CTAB - Cardiovascular Cardiovascular exam: Present: irregular rhythm, systolic murmur - GI/Abdominal GI/Abdominal exam: Present: distended, normal bowel sounds, soft - Extremities Exam Extremities exam: Present: normal inspection, pedal edema - Neurological Exam Neurological exam: Present: alert, CN II-XII intact, oriented X3, no focal deficits Oncology - Results Labs: Short CBC 06/03/17 06/04/17 Range/Units 14:54 01:37 WBC 10.8 (4.3-11.1) K/mcL Hgb 9.2 L 8.4 L (11.5-15.4) g/dL Hct 29.8 L 26.9 L (35.3-44.9) % Plt Count 126 L (140-400) K/mcL BMP 06/03/17 06/04/17 14:54 01:37 Sodium 131 L 132 L Potassium 4.2 3.7 Chloride 98 100 Carbon Dioxide 30 H 30 H BUN 28 H 26 H Creatinine 0.80 0.74 Glucose 187 H 175 H Calcium 8.5 L 8.4 L Liver Function 06/03/17 06/04/17 Range/Units 14:54 01:37 Total Bilirubin 1.6 H 1.6 H (0.3-1.0) mg/dL AST 78 H 69 H (13-39) Units/L ALT 117 H 102 H (7-52) Units/L Alkaline Phosphatase 78 75 (34-104) Units/L Albumin 3.5 3.2 L (3.5-5.7) g/dL MRCP, 05/24/2017 2:53 pm FINDINGS: Gallbladder: Status post cholecystectomy. There is a 1.2 x 1.0 cm T2 hyperintense, T1 hypointense area in the gallbladder fossa. This appears to communicate with the cystic duct and could represent a focal dilated segment of the residual duct as well. There is a subtle 3 mm filling defect within this focally dilated segment versus collection and a residual stone cannot be excluded. Bile Ducts: No intra or extrahepatic biliary duct dilation. No filling defect within the common bile duct. Pancreatic Duct: Normal in course and caliber. Other: There is diffuse loss of signal intensity of the liver parenchyma on the T1 out of phase images. There is splenomegaly with the spleen measuring up to 17 cm in craniocaudal dimension. The unenhanced liver, kidneys, spleen, pancreas and adrenal glands are otherwise without focal abnormality. No hydronephrosis. Trace perihepatic ascites. The ureters are normal in caliber. Lung bases are clear. The osseous structures are otherwise unremarkable. The visualized bowel is unremarkable. Mild subcutaneous edema in the posterior soft tissues. Again noted are mildly enlarged periportal lymph nodes measuring up to 1.5 cm and 1.4 cm. Stable retroperitoneal lymph nodes are also noted the largest of which measures up to 0.9 cm. MR/MR abdomen wo con IMPRESSION: 1. Status post cholecystectomy. However there is a focal 1.2 x 1.0 cm area of focal dilation of the cystic duct remnant at the gallbladder fossa with a central filling defect, suspicious for retained stone. 2. No biliary duct dilation or choledocholithiasis. 3. Hepatic steatosis and splenomegaly. 4. Stable Periportal and retroperitoneal adenopathy is again identified. Consult Discharge Plan - Plan Instructions: Enoxaparin (Injection) Referrals: Mauricio Marquez, [employer] [Primary Care Provider] - 06/05/17 2:45 pm Prescriptions: Enoxaparin [Lovenox] 160 mg SQ Q12HR #30 syr
[2017-06-04] MEDS ORDERED: *HR* Heparin 5,000 UNIT/ML VIAL IVP ONE (12:24)
[2017-06-04] MEDS ORDERED: Heparin 25,000 UNIT/500 ML D5W 25,000 UNIT/500 ML BAG IVC SCH (12:30)
[2017-06-04 13:40] LABS: Immature Reticulocyte % 25.1 % (11.0-38.0); Retculocyte # 0.16 M/mcL (0.05-0.10); Reticulocyte % 5.1 % (1.6-2.8)
[2017-06-04 13:41] LABS: Hematocrit 26.2 % (35.3-44.9); Hemoglobin 8.1 g/dL (11.5-15.4); Mean Corpuscular HGB Conc 30.9 g/dL (31.6-35.5); Mean Corpuscular Hemoglobin 25.7 pg (28.0-33.3); Mean Corpuscular Volume 83.2 fL (83.0-100.0); Mean Platelet Volume 9.1 fL (9.4-12.4); Platelet Count 133 K/mcL (140-400); Red Blood Count 3.15 M/mcL (3.82-4.97); Red Cell Distribution Width 15.3 % (11.5-14.5)
[2017-06-04 13:45] LABS: Prothrombin Time 21.8 Seconds (9.4-12.1)
[2017-06-04 13:48] LABS: Activated Partial Thrombo Time 44.2 Seconds (26.0-36.0)
[2017-06-04 14:03] LABS: Ferritin 178 ng/ml (10-120); Lactate Dehydrogenase 226 Units/L (140-271)
[2017-06-04 14:23] LABS: Hematocrit 26.1 % (35.3-44.9); Hemoglobin 8.1 g/dL (11.5-15.4)
[2017-06-04 21:59] LABS: Hematocrit 23.7 % (35.3-44.9)
[2017-06-04 22:06] LABS: Hemoglobin 7.4 g/dL (11.5-15.4)
[2017-06-04] MEDS: Heparin 25,000 UNIT/500 ML D5W 25,000 UNIT/500 ML BAG IVC SCH (22:24)
[2017-06-05 04:32] LABS: Hemoglobin 6.2 g/dL (11.5-15.4)
[2017-06-05 04:40] LABS: INR 1.8; Prothrombin Time 19.7 Seconds (9.4-12.1)
[2017-06-05 04:53] LABS: Alanine Aminotransferase 85 Units/L (7-52); Albumin/Globulin Ratio 1.3 (1.1-2.2); Alkaline Phosphatase 74 Units/L (34-104); Aspartate Amino Transferase 57 Units/L (13-39); BUN/Creatinine Ratio 40 (6-26); Bilirubin,Total 1.9 mg/dL (0.3-1.0); Blood Urea Nitrogen 23 mg/dL (6-20); Calcium 8.2 mg/dL (8.6-10.3); Carbon Dioxide 28 mEq/L (23-29); Chloride 99 mEq/L (98-107); Globulin 2.3 g/dL (2.4-3.5); Glucose 163 mg/dL (70-105); Osmolality,Calculated 277 (280-300); Potassium 3.8 mEq/L (3.5-5.1); Sodium 130 mEq/L (136-145); Total Protein 5.3 g/dL (6.4-8.9); eGFR For African Americans > 60 (> 60); eGFR For Non-African Americans > 60 (> 60)
[2017-06-05] MEDS: Ondansetron 4 MG/2 ML VIAL IVP PRN ×2 (05:25→20:47)
[2017-06-05] MEDS ORDERED: 0.9 % Sodium Chloride 250 ML ONE ×3 (07:35→19:59)
[2017-06-05] MEDS: Diltiazem CD (24hr) 180 MG CAPSULE PO SCH (08:02)
[2017-06-05] MEDS: Metoprolol XL (24 HR) Succ 50 MG TAB.ER.24H PO SCH (08:02)
[2017-06-05] MEDS: Pantoprazole 40 MG VIAL IVP SCH (08:02)
--- NOTE | 2017-06-05 08:58 | Internal Med Progress Note ---
Date of Encounter: 06/05/17 Time of Encounter: 08:55 - Assessment and plan (1) Anemia Current Visit: Yes Status: Acute Assessment and plan: Hgb 13.4 on arrival and dropped to 6.2. Has known iron deficiency anemia and now with acute blood loss likely secondary to sphincterotomy with associated anticoagulation (has mechanical valve). No evidence of hemolysis. Iron studies reveal depleted iron stores; evaluated by oncology who ordered 1 time dose Venofer. Hemodynamically stable. Transfuse 2 units PRBC now, monitor repeat H& H. Keep NPO, add PPI, GI following. Qualifiers: Anemia type: other cause Other causes of anemia: other cause, not classified Qualified Code(s): D64.89 - Other specified anemias (2) Mitral valve replaced Current Visit: No Status: Acute Assessment and plan: hx mechanical mitral valve replacement by Dr. Lazar at [facility] 11/2014. Home couamdin held for ERCP (INR needed to be less than 1.5). Coumadin with Lovenox bridge resumed after ERCP however Coumadin stopped with drop in Hgb. Now on heparin gtt (cannot stop anticoagulation with mechanical valve). Plan as noted above. (3) Biliary colic Current Visit: Yes Status: Acute Assessment and plan: s/p hairni 6 months ago. Recent admission for similar sx's and was found to have probable cystic duct stone at that time. Now with recurrent ABD pain. 06/01/2017 ERCP with small amount of biliary sludge, a biliary sphincterotomy was performed. LFTs trending down, ABD pain improving. Possible repeat ERCP today to evaluate bleeding as noted above. Keep NPO, GI following (4) History of atrial fibrillation Current Visit: No Status: Chronic Assessment and plan: per hx. Rate controlled. Cont home BB, couamdin (5) LAZ (obstructive sleep apnea) Current Visit: Yes Status: Acute Assessment and plan: per hx. Cont home CPAP (6) Obesity Current Visit: No Status: Chronic Assessment and plan: BMI 58.1. Lifestyle recommendations encouraged Qualifiers: Obesity type: unspecified obesity type Obesity classification: adult class 3 (BMI >= 40) Serious obesity comorbidity presence: unspecified whether serious comorbidity present Body mass index: BMI 45.0-49.9 Qualified Code(s) : E66.9 - Obesity, unspecified; Z68.42 - Body mass index (BMI) 45.0-49.9, adult ; Z68.42 - Body mass index (BMI) 45.0-49.9, adult; Z68.42 - Body mass index (BMI ) 45.0-49.9, adult; Z68.42 - Body mass index (BMI) 45.0-49.9, adult (7) DVT prophylaxis Current Visit: Yes Status: Acute Assessment and plan: heparin gtt - Subjective Interval history: Seen and examined at bedside. Resting in bed with CPAP on. Denies abdominal pain. No further bowel movements and chest are today. No active bleeding. She is aware of need to remain nothing by mouth. Discussed with Dr. Navarrete and updated him on persistent anemia. - Constitutional Vitals: Temp Pulse Resp BP Pulse Ox 98.7 F 96 18 103/65 97 06/05/17 08:06 06/05/17 08:06 06/05/17 08:06 06/05/17 08:06 06/05/17 08:06 General appearance: Present: A&O X 3, pleasant, no acute distress, answers questions appropriately - Head Head exam: Present: atraumatic, normocephalic - Eye Eye exam: Present: PERRL, conjuntiva pink, sclera anicteric Pupils: Present: PERRL - Neck Neck exam general surgery: Present: supple, trachea midline. Absent: lymphadenopathy - Respiratory Respiratory exam: Present: CTAB. Absent: accessory muscle use, rales, rhonchi, wheezes - Cardiovascular Cardiovascular exam: Present: RRR, +S1, +S2. Absent: diastolic murmur, gallop, rubs, systolic murmur - GI/Abdominal GI/Abdominal exam: Present: normal bowel sounds, soft, no peritoneal signs. Absent: distended, tenderness - Extremities Exam Extremities exam: Present: warm, radial pulses palpable and symmetrical. Absent : calf tenderness, cyanotic, pedal edema - Neurological Exam Neurological exam: Present: CN II-XII intact, oriented X3, no focal deficits. Absent: pronater drift, facial droop, speech deficit - Skin Skin exam: Present: dry, intact, pallor Internal Medicine: Result - Labs CBC & Chem 7: 06/05/17 04:11 06/05/17 04:11 Labs: Short CBC 06/04/17 06/04/17 06/04/17 Range/Units 13:25 13:25 21:31 WBC 10.9 (4.3-11.1) K/mcL Hgb 8.1 L 8.1 L 7.4 L (11.5-15.4) g/dL Hct 26.2 L 26.1 L 23.7 L (35.3-44.9) % Plt Count 133 L (140-400) K/mcL 06/05/17 Range/Units 04:11 WBC (4.3-11.1) K/mcL Hgb 6.2 L (11.5-15.4) g/dL Hct 20.0 L (35.3-44.9) % Plt Count (140-400) K/mcL BMP 06/05/17 04:11 Sodium 130 L Potassium 3.8 Chloride 99 Carbon Dioxide 28 BUN 23 H Creatinine 0.57 L Glucose 163 H Calcium 8.2 L Liver Function 06/05/17 Range/Units 04:11 Total Bilirubin 1.9 H (0.3-1.0) mg/dL AST 57 H (13-39) Units/L ALT 85 H (7-52) Units/L Alkaline Phosphatase 74 (34-104) Units/L Albumin 3.0 L (3.5-5.7) g/dL - ABG Interpretation ABG results: PT/INR, D-dimer PT 19.7 Seconds (9.4-12.1) H 06/05/17 04:11 - VTE Documentation of Mechanical Device: Intermittent pneumatic compression device Consult Discharge Plan - Plan Instructions: Enoxaparin (Injection) Referrals: Mauricio Marquez CNP [Primary Care Provider] - 06/05/17 2:45 pm Prescriptions: Enoxaparin [Lovenox] 160 mg SQ Q12HR #30 syr
[2017-06-05] MEDS: Heparin 25,000 UNIT/500 ML D5W 25,000 UNIT/500 ML BAG IVC SCH (10:27)
[2017-06-05] MEDS ORDERED: *HR* Promethazine 25 MG/ML VIAL IVP ONE (10:47)
--- NOTE | 2017-06-05 10:59 | Gastroenterology Progress Note ---
<Quique Lopez - Last Filed: 06/05/17 12:46> Date of Encounter: 06/05/17 Time of Encounter: 10:56 - Assessment and plan (1) Anemia Current Visit: Yes Status: Acute Assessment and plan: Patient s/p ERCP with sphincterotomy on 05/31/17 HGB 13.4 --> 6.2 Patient given 2 units PRBC Hold further IVF to avoid fluid overload given h/o CHF and mitral valve replacement NPO for now Anticipate EGD to r/o upper GI bleed/ bleeding from the sphincterotomy site Continue to monitor closely Qualifiers: Anemia type: other cause Other causes of anemia: other cause, not classified Qualified Code(s): D64.89 - Other specified anemias (2) Melena Current Visit: Yes Status: Acute Assessment and plan: Patient denies further melena, vitals stable Anticipate EGD to r/o upper GI bleed/ bleeding from the sphincterotomy site (3) Anticoagulation goal of INR 2.5 to 3.5 Current Visit: No Status: Acute Assessment and plan: Patient is on anticoagulation due to h/o mitral valve repair. Heparin drip held due to melena. Will resume anticoagulation s/p EGD if no further signs of bleeding - Time Spent With Patient Total time spent is greater than 50% in coordination of care (as documented) at patient's floor/unit and/or counseling patient: - Subjective Interval history: Patient seen and examined with RN at bedside. Patient reports intermittent epigastric pain and nausea today despite receiving Zofran. She denies further melena or bowel movement since yesterday. No active bleeding. Patient has been nothing by mouth status since midnight. She already received 1 unit PRBC and second unit of blood will be administered now. - Constitutional Vitals: Temp Pulse Resp BP Pulse Ox 98.7 F 102 18 113/62 100 06/05/17 10:35 06/05/17 10:35 06/05/17 10:35 06/05/17 10:35 06/05/17 10:35 General appearance: Present: cooperative, A&O X 3, no acute distress, answers questions appropriately - Head Head exam: Present: atraumatic, normocephalic - Eye Eye exam: Present: normal appearance, sclera anicteric - Neck Neck exam general surgery: Present: normal inspection, trachea midline - Respiratory Respiratory exam: Present: CTAB - Cardiovascular Cardiovascular exam: Present: RRR, +S1, +S2 - GI/Abdominal GI/Abdominal exam: Present: hypoactive bowel sounds, soft, tenderness ( epigastric), no peritoneal signs - Rectal Rectal exam: Present: deferred - Extremities Exam Extremities exam: Present: warm. Absent: pedal edema - Neurological Exam Neurological exam: Present: no focal deficits - Psychiatric Psychiatric exam: Present: normal affect, normal mood - Skin Skin exam: Present: dry, intact, normal color, warm Results - Labs CBC & Chem 7: 06/05/17 04:11 06/05/17 04:11 Labs: Last Result Calcium 8.2 mg/dL (8.6-10.3) L 06/05/17 04:11 Iron 37 mcg/dL (50-170) L 06/04/17 01:37 % Saturation 12 % (15-50) L 06/04/17 01:37 Transferrin 227 mg/dL (203-362) 06/04/17 01:37 Ferritin 178 ng/ml (10-120) H 06/04/17 13:25 Vitamin B12 473 pg/mL (250-1100) 06/04/17 13:25 Stool Occult Blood Positive (Negative) A 06/04/17 12:56 Entire Visit Hgb 6.2 g/dL (11.5-15.4) L 06/05/17 04:11 Hct 20.0 % (35.3-44.9) L 06/05/17 04:11 PT 19.7 Seconds (9.4-12.1) H 06/05/17 04:11 Ferritin 178 ng/ml (10-120) H 06/04/17 13:25 Total Bilirubin 1.9 mg/dL (0.3-1.0) H 06/05/17 04:11 AST 57 Units/L (13-39) H 06/05/17 04:11 ALT 85 Units/L (7-52) H 06/05/17 04:11 Amylase 24 Units/L (29-103) L 05/28/17 21:56 Lipase 71 Units/L (11-82) 05/28/17 21:56 - ABG ABG results: PT/INR, D-dimer PT 19.7 Seconds (9.4-12.1) H 06/05/17 04:11 - VTE Documentation of Mechanical Device: Intermittent pneumatic compression device Consult Discharge Plan - Plan Instructions: Enoxaparin (Injection) Referrals: Mauricio Marquez, LARGE ENGINE ASSEMBLER [Primary Care Provider] - 06/05/17 2:45 pm <Dasia Navarrete - Last Filed: 06/07/17 09:15> Date of Encounter: 06/05/17 Time of Encounter: 14:00 - Time Spent With Patient Total time spent is greater than 50% in coordination of care (as documented) at patient's floor/unit and/or counseling patient: - Constitutional Vitals: Temp Pulse Resp BP Pulse Ox 99.6 F 88 14 114/65 96 06/07/17 06:45 06/07/17 06:45 06/07/17 06:45 06/07/17 06:45 06/07/17 06:45 Results - Labs CBC & Chem 7: 06/07/17 02:00 06/07/17 02:35 Labs: Last Result Calcium 8.3 mg/dL (8.6-10.3) L 06/07/17 02:35 Iron 37 mcg/dL (50-170) L 06/04/17 01:37 % Saturation 12 % (15-50) L 06/04/17 01:37 Transferrin 227 mg/dL (203-362) 06/04/17 01:37 Ferritin 178 ng/ml (10-120) H 06/04/17 13:25 Vitamin B12 473 pg/mL (250-1100) 06/04/17 13:25 Stool Occult Blood Positive (Negative) A 06/04/17 12:56 Entire Visit Hgb 7.9 g/dL (11.5-15.4) L 06/07/17 02:00 Hct 25.1 % (35.3-44.9) L 06/07/17 02:00 Haptoglobin 58 mg/dL (30-200) 06/04/17 10:42 PT 12.9 Seconds (9.4-12.1) H 06/07/17 02:35 Ferritin 178 ng/ml (10-120) H 06/04/17 13:25 Total Bilirubin 1.5 mg/dL (0.3-1.0) H 06/07/17 02:35 AST 27 Units/L (13-39) 06/07/17 02:35 ALT 39 Units/L (7-52) 06/07/17 02:35 Amylase 24 Units/L (29-103) L 05/28/17 21:56 Lipase 71 Units/L (11-82) 05/28/17 21:56 - ABG ABG results: PT/INR, D-dimer PT 12.9 Seconds (9.4-12.1) H 06/07/17 02:35 - Attending Attestation I examined this patient and my medical decision-making was reviewed with the Resident Physician. I agree with the documented findings, disposition and treatment plan as described except to the extent set forth below.
[2017-06-05] MEDS ORDERED: *HR* Propofol 200 MG/20 ML VIAL IVP ONE ×2 (12:37→14:16)
[2017-06-05] MEDS ORDERED: Lidocaine -MPF 2% 2 ML VIAL ONE (12:37)
[2017-06-05] MEDS ORDERED: *HR* Metoprolol 5 MG/5 ML VIAL IVP ONE (12:37)
[2017-06-05] MEDS ORDERED: Propofol 500 MG/50 ML INFUS..BTL ONE (12:37)
--- NOTE | 2017-06-05 12:59 | Anesthesia Evaluation Post Op ---
Date of Encounter: 06/05/17 Time of Encounter: 15:45 - Vital Signs Vital Signs: Vital Signs - Last 8 Hours Temp Pulse Resp BP Pulse Ox 06/05/17 11:26 99.0 F 99 17 112/68 96 06/05/17 10:35 98.7 F 102 18 113/62 100 06/05/17 08:06 98.7 F 96 18 103/65 97 06/05/17 06:50 97.8 F 94 16 118/73 95 Intake and Output 06/04/17 06/05/17 06/05/17 23:59 07:59 15:59 Intake Total 1270 / 1270 290 / 290 800 / 800 Output Total 750 / 750 Balance 1270 / 1270 290 / 290 50 / 50 Intake: IV Fluids 1270 / 1270 290 / 290 500 / 500 0.45% Sodium Chloride 1000 Ml 1000 / 1000 1000 Ml 1,000 ML @ 75 mls/hr IVC .[id number] [facility] Rx#:[id number] Heparin 25,000 UNIT/500 ML D5W 290 / 290 500 / 500 25,000 unit In 500 ml @ 14 UNIT /KG/HR 45.892 mls/hr IVC . [id number] [facility] Rx#:[id number] Venofer 400 MG In 0.9 % Sodium 270 / 270 Chloride 250 ML @ 120 mls/hr IVPB ONCE ONE Rx#:[id number] Oral 0 / 0 Blood Product 0 / 0 300 / 300 Rbcs Leuko Poor As-1 Unit 0 / 0 [id number] Rbcs Leuko Poor As-1 Unit 0 / 0 300 / 300 [id number] Output: Urine 750 / 750 Other: # Voids 1 1 Weight 162.8 kg Patient Weight 06/05/17 23:59 Weight 162.8 kg - Lungs Lungs: Clear Ascult./Percussion - Airway Airway: Non-obstructed - Cardiovascular Regular Rate, Baseline Rhythm - Mental Status Mental Status: Alert & Oriented, Answers Appropriately - Pain Pain Scale: 0 Pain Scale used: Numeric (1 - 10) - Nausea Vomiting Nausea Vomiting: Not Present - Hydration Hydration: NPO - Discharge PostOp Status: Transfer Patient to floor
[2017-06-05] MEDS ORDERED: Tetracaine/Benzocaine/Butamben 200MG/SPRAY (100SPY/BOT) MM ONE (13:01)
[2017-06-05] MEDS ORDERED: Simethicone 40 MG/0.6 ML MLS IR ONE (13:01)
--- NOTE | 2017-06-05 13:13 | Anesthesia Evaluation PreOp ---
Date of Encounter: 06/05/17 Time of Encounter: 13:11 - Past History Planned Operation: EGD Cardiac History: CHF, HTN, Arrhythmia (AF), Cardiac Surgery (Mechanicam MVR), Other (Cardiomyopathy) Pulmonary History: LAZ Dx (CPAP), Other (MO BMI-57.9) PILOT SUPERVISOR History: Denies Any Significant HX, Other (a/d) Other Medical History: Hepatic (cirrhosis, Fatty Liver), Diabetes Type II, Other (MO BMI 57.9) Anesthesia History: No Prior Anesthetic Complications, Past Anesthesia (atrial fibrillation, cardiomyopathy, CHF, coronary artery disease, hypertension, valvular heart disease (severe mitral valve stenosis),) : No (MAYDA) Alcohol Use: none Drug use: none Medications and Allergies Potassium Chloride 20 meq PO QPM PRN 11/20/14 [History] Sertraline [Zoloft] 100 mg PO QPM 11/20/14 [History] Albuterol Sulfate [Ventolin Hfa] 2 puff IH Q4H PRN 01/12/15 [History] Metoprolol XL (24 HR) Succ [Toprol Xl] 75 mg PO DAILY 09/02/15 [History] Furosemide [Lasix] 20 mg PO DAILY PRN 10/31/16 [History] Diltiazem CD (24hr) [Cardizem CD] 180 mg PO DAILY 05/24/17 [History] Ergocalciferol (VITAMIN D2) [Vitamin D2] 50,000 unit PO QWEEK 05/24/17 [History] Warfarin [Coumadin] 6 mg PO DAILY 05/24/17 [History] Enoxaparin [Lovenox] 160 mg SQ Q12HR #30 syr 06/01/17 [Rx] 3 Allergy/AdvReac Type Severity Reaction Status Date / Time hydrochlorothiazide Allergy Rash Verified 05/24/17 07:18 hydrocodone [From Vicodin] Allergy Itching Verified 05/24/17 07:18 acetaminophen [From Tylenol] AdvReac Gastrointestinal Verified 05/24/17 07:18 Upset - Meds/Allergy Pre-op Review Medications Reviewed: Yes Allergies Reviewed: Yes Beta Blockers on Current Med List: Yes (not given) If Beta Blockers taken, Date/Time (Last Dose taken): Will dose with IV metoprool Anesthesia Results - Labs 06/05/17 04:11 06/05/17 04:11 - Imaging EKG: report reviewed (SR) Anesthesia Exam Vital Signs/O2 Sat, Most Current Temp Pulse Resp BP Pulse Ox 98.7 F 101 18 119/55 100 06/05/17 12:57 06/05/17 12:57 06/05/17 12:57 06/05/17 12:57 06/05/17 12:57 NPO (# of Hours): > 8 Hrs Pain Scale: 0 Pain Scale Used: Numeric (1 - 10) - HEENT Pupil (Motor): Pupils equal, EOMI Mallampati: III Teeth: Normal Oral Opening: Greater than 3 - PILOT SUPERVISOR LOC: Oriented PILOT SUPERVISOR Motor: Normal RUE, Normal LUE, Normal RLE, Normal LLE, Normal Face PILOT SUPERVISOR Sensory: Normal: RUE, LUE, RLE, LLE, Face - Cardiac Rhythm: Regular Murmur: None JVD: No Carotid Bruit: No - Pulmonary Breath Sounds: bilateral Clear Respiratory Effort: Symmetrical Anesthesia Assess/Plan ASA Score: 3 Modified Larimore Scale for Level of Consciousness: Cooperative, oriented, and tranquil Anesthetic Plan: MAC Autologous Blood: Yes Recovery Plan: PACU
[2017-06-05] MEDS ORDERED: CEFAZOLIN IVPB ONE (13:33)
[2017-06-05] MEDS ORDERED: WATER IVPB ONE (13:33)
[2017-06-05] MEDS ORDERED: D5 IVPB ONE (13:33)
[2017-06-05] MEDS ORDERED: ceFAZolin 3,000 MG in Water for inj. (sterile) 30 ML IVP ONE (13:41)
[2017-06-05] MEDS ORDERED: CeFAZolin Syr 3,000MG/30 ML 3,000 MG/30 ML SYRINGE IVPB ONE (14:00)
--- NOTE | 2017-06-05 14:06 | Gastroenterology Progress Note ---
Date of Encounter: 06/05/17 Time of Encounter: 11:30 - Assessment and plan (1) Anemia Current Visit: Yes Status: Acute Assessment and plan: Pt is NPO, had melonic stool yesterday. Will schedule for EGD today. She is being transfused 2 units PRBCs. Qualifiers: Anemia type: other cause Other causes of anemia: other cause, not classified Qualified Code(s): D64.89 - Other specified anemias (2) Melena Current Visit: Yes Status: Acute Assessment and plan: Patient denies further melena, vitals stable Anticipate EGD to r/o upper GI bleed/ bleeding from the sphincterotomy site - Time Spent With Patient Total time spent is greater than 50% in coordination of care (as documented) at patient's floor/unit and/or counseling patient: - Subjective Interval history: Pt is status post ERCP and spincterotomy 05/31/17. She has continued drop in hemoglobin, 6.2 today. She reports black stools yesterday. She denies abdominal pain. She has a history of mechanical valve replacement and coumadin has been held and she has been receiving heparin bridge. - Constitutional Vitals: Temp Pulse Resp BP Pulse Ox 98.7 F 101 18 119/55 100 06/05/17 12:57 06/05/17 12:57 06/05/17 12:57 06/05/17 12:57 06/05/17 12:57 General appearance: Present: cooperative, A&O X 3, no acute distress, answers questions appropriately Exam: CONSTITUTIONAL:~alert, no acute distress.~HEAD:~normocephalic.~EYES:~no jaundice.~NECK:~no obvious swelling.~HEART:~regular rate and rhythm, mechanical click noted, ~LUNGS:~bilateral poor air entry.~ABDOMEN:~non distended, soft, non tender, no masses palpable, no organomegaly.~RECTAL EXAM:~Deferred.~ EXTREMITIES:~no clubbing, cyanosis or edema.~SKIN:~pallor noted, no stigmata of chronic liver disease.~NEUROLOGIC:~no obvious focal defect.~~~~ Results - Labs CBC & Chem 7: 06/05/17 04:11 06/05/17 04:11 Labs: Last Result Calcium 8.2 mg/dL (8.6-10.3) L 06/05/17 04:11 Iron 37 mcg/dL (50-170) L 06/04/17 01:37 % Saturation 12 % (15-50) L 06/04/17 01:37 Transferrin 227 mg/dL (203-362) 06/04/17 01:37 Ferritin 178 ng/ml (10-120) H 06/04/17 13:25 Vitamin B12 473 pg/mL (250-1100) 06/04/17 13:25 Stool Occult Blood Positive (Negative) A 06/04/17 12:56 Entire Visit Hgb 6.2 g/dL (11.5-15.4) L 06/05/17 04:11 Hct 20.0 % (35.3-44.9) L 06/05/17 04:11 PT 19.7 Seconds (9.4-12.1) H 06/05/17 04:11 Ferritin 178 ng/ml (10-120) H 06/04/17 13:25 Total Bilirubin 1.9 mg/dL (0.3-1.0) H 06/05/17 04:11 AST 57 Units/L (13-39) H 06/05/17 04:11 ALT 85 Units/L (7-52) H 06/05/17 04:11 Amylase 24 Units/L (29-103) L 05/28/17 21:56 Lipase 71 Units/L (11-82) 05/28/17 21:56 - ABG ABG results: PT/INR, D-dimer PT 19.7 Seconds (9.4-12.1) H 06/05/17 04:11 - VTE Documentation of Mechanical Device: Intermittent pneumatic compression device Consult Discharge Plan - Plan Instructions: Enoxaparin (Injection) Referrals: Mauricio Marquez, INSTRUCTION LIBRARIAN [Primary Care Provider] - 06/05/17 2:45 pm Prescriptions: Enoxaparin [Lovenox] 160 mg SQ Q12HR #30 syr
[2017-06-05] MEDS: *HR* EPINEPHrine 1 MG/10 ML SYRINGE INTRATRACH PRN ×2 (15:00→15:03)
[2017-06-05 17:02] LABS: Hematocrit 22.9 % (35.3-44.9); Hemoglobin 7.2 g/dL (11.5-15.4)
[2017-06-05] MEDS: *HR* OxyCODONE Immed Rel 5 MG TABLET PO PRN (20:46)
[2017-06-06 00:25] LABS: Hematocrit 22.5 % (35.3-44.9); Hemoglobin 7.3 g/dL (11.5-15.4)
[2017-06-06] MEDS: *HR* OxyCODONE Immed Rel 5 MG TABLET PO PRN ×5 (01:14→21:24)
[2017-06-06 02:04] LABS: INR 1.3; Prothrombin Time 14.4 Seconds (9.4-12.1)
[2017-06-06 02:10] LABS: Activated Partial Thrombo Time 28.9 Seconds (26.0-36.0)
[2017-06-06] MEDS: Heparin 25,000 UNIT/500 ML D5W 25,000 UNIT/500 ML BAG IVC SCH ×3 (02:48→23:30)
[2017-06-06] MEDS ORDERED: 0.9 % Sodium Chloride 250 ML ONE (03:21)
[2017-06-06 07:58] LABS: Hematocrit 22.8 % (35.3-44.9); Hemoglobin 7.5 g/dL (11.5-15.4)
--- NOTE | 2017-06-06 08:57 | Internal Med Progress Note ---
Date of Encounter: 06/06/17 Time of Encounter: 08:56 - Assessment and plan (1) Anemia Current Visit: Yes Status: Acute Assessment and plan: Hgb 13.4 on arrival and dropped to 6.2. Has known iron deficiency anemia and now with acute blood loss likely secondary to sphincterotomy with associated anticoagulation (has mechanical valve). No evidence of hemolysis. Iron studies revealed depleted iron stores; received 1 time dose Venofer per Hematology recommendations. Received a total of 4 units PRBC. 06/05/17 EGD with reported site of bleeding which was treated with epi and apparently had biliary stent placed? Final report pending. Repeat Hgb stable at 7.5. Now with reported hematuria per RN. Unable to stop heparin drip due to mechanical valve. UA pending. Closely monitor H&H while on heparin drip and with active bleeding. Clear liquid diet, IV PPI, monitor H&H every 8 hours Qualifiers: Anemia type: other cause Other causes of anemia: other cause, not classified Qualified Code(s): D64.89 - Other specified anemias (2) Hematuria Current Visit: Yes Status: Acute Assessment and plan: per RN report on 06/06/17. UA pending. Qualifiers: Hematuria type: unspecified type Qualified Code(s): R31.9 - Hematuria, unspecified (3) Mitral valve replaced Current Visit: No Status: Acute Assessment and plan: hx mechanical mitral valve replacement by Dr. Lazar at [facility] 11/2014. Home couamdin held for ERCP (INR needed to be less than 1.5). Coumadin with Lovenox bridge resumed after ERCP however Coumadin stopped with drop in Hgb. Now on heparin gtt (cannot stop anticoagulation with mechanical valve). Plan as noted above. (4) Biliary colic Current Visit: Yes Status: Acute Assessment and plan: s/p harini 6 months ago. Recent admission for similar sx's and was found to have probable cystic duct stone at that time. Now with recurrent ABD pain. 06/01/2017 ERCP with small amount of biliary sludge, a biliary sphincterotomy was performed. LFTs trending down, ABD pain improving. Possible repeat ERCP today to evaluate bleeding as noted above. Keep NPO, GI following (5) Hyponatremia Current Visit: Yes Status: Acute Assessment and plan: Na 130 on 06/06. Etiology unknown, not on offending medications. Neurologically intact. Urine sodium, urine creatinine, urine osmolality, cortisol and TSH pending (6) History of atrial fibrillation Current Visit: No Status: Chronic Assessment and plan: per hx. Rate controlled. Cont home cydney [place] (7) LAZ (obstructive sleep apnea) Current Visit: Yes Status: Acute Assessment and plan: per hx. Cont home CPAP (8) Obesity Current Visit: No Status: Chronic Assessment and plan: BMI 58.1. Lifestyle recommendations encouraged Qualifiers: Obesity type: unspecified obesity type Obesity classification: adult class 3 (BMI >= 40) Serious obesity comorbidity presence: unspecified whether serious comorbidity present Body mass index: BMI 45.0-49.9 Qualified Code(s) : E66.9 - Obesity, unspecified; Z68.42 - Body mass index (BMI) 45.0-49.9, adult ; Z68.42 - Body mass index (BMI) 45.0-49.9, adult; Z68.42 - Body mass index (BMI ) 45.0-49.9, adult; Z68.42 - Body mass index (BMI) 45.0-49.9, adult (9) DVT prophylaxis Current Visit: Yes Status: Acute Assessment and plan: heparin gtt - Subjective Interval history: Seen and examined at bedside. Says she feels much better this morning, only has minimal abdominal pain. Tolerating clear liquid diet, she would like to advance her diet if possible. Discussed with RN and patient apparently is having hematuria - Constitutional Vitals: Temp Pulse Resp BP Pulse Ox 97.7 F 98 16 105/69 96 06/06/17 07:25 06/06/17 07:25 06/06/17 07:25 06/06/17 07:25 06/06/17 07:25 General appearance: Present: A&O X 3, pleasant, no acute distress, answers questions appropriately - Head Head exam: Present: atraumatic, normocephalic - Eye Eye exam: Present: PERRL, conjuntiva pink, sclera anicteric Pupils: Present: PERRL - Neck Neck exam general surgery: Present: supple, trachea midline. Absent: lymphadenopathy - Respiratory Respiratory exam: Present: CTAB. Absent: accessory muscle use, rales, rhonchi, wheezes - Cardiovascular Cardiovascular exam: Present: RRR, +S1, +S2. Absent: diastolic murmur, gallop, rubs, systolic murmur - GI/Abdominal GI/Abdominal exam: Present: normal bowel sounds, soft, no peritoneal signs. Absent: distended, tenderness - Extremities Exam Extremities exam: Present: warm, radial pulses palpable and symmetrical. Absent : calf tenderness, cyanotic, pedal edema - Neurological Exam Neurological exam: Present: CN II-XII intact, oriented X3, no focal deficits. Absent: pronater drift, facial droop, speech deficit - Skin Skin exam: Present: dry, intact, pallor Internal Medicine: Result - Labs CBC & Chem 7: 06/06/17 07:45 06/05/17 04:11 Labs: Short CBC 06/06/17 06/06/17 Range/Units 00:01 07:45 Hgb 7.3 L 7.5 L (11.5-15.4) g/dL Hct 22.5 L 22.8 L (35.3-44.9) % - ABG Interpretation ABG results: PT/INR, D-dimer PT 14.4 Seconds (9.4-12.1) H 06/06/17 01:30 - VTE Documentation of Mechanical Device: Intermittent pneumatic compression device Consult Discharge Plan - Plan Instructions: Enoxaparin (Injection) Referrals: Mauricio Marquez CNP [Primary Care Provider] - 06/05/17 2:45 pm
[2017-06-06] MEDS: Diltiazem CD (24hr) 180 MG CAPSULE PO SCH (09:15)
[2017-06-06] MEDS: Metoprolol XL (24 HR) Succ 50 MG TAB.ER.24H PO SCH (09:15)
[2017-06-06] MEDS: Pantoprazole 40 MG VIAL IVP SCH (09:15)
[2017-06-06 09:51] LABS: INR 1.3; Prothrombin Time 14.3 Seconds (9.4-12.1)
[2017-06-06 09:57] LABS: Activated Partial Thrombo Time 73.2 Seconds (26.0-36.0)
[2017-06-06 10:17] LABS: Thyroid Stimulating Hormone 7.481 mcIU/mL (0.340-5.600)
[2017-06-06 10:35] LABS: Bilirubin,Urine Small (Negative); Blood,Urine Large (Negative); Color,Urine Dark Yellow (Yellow); Glucose,Urine (UA) Normal (Normal); Ketones,Urine Trace mg/dL (Negative); Leukocyte Esterase,Urine Trace (Negative); Nitrite,Urine Negative (Negative); Protein,Urine 30 mg/dL (Neg-Trace); Specific Gravity,Urine 1.023 (1.010-1.025)
[2017-06-06 10:36] LABS: Bacteria,Urine None Seen per hpf (None-Few); Hyaline Casts,Urine None Seen per lpf (None-Few); Squamous Epithelial Cell,Urine Many per lpf (None-Few); WBC,Urine 0-3 per hpf (0-3)
[2017-06-06 10:37] LABS: Clarity,Urine Clear (Clear)
[2017-06-06 10:57] LABS: RBC,Urine 0-3 per hpf (0-3); Yeast,Urine Few per hpf (None Seen)
[2017-06-06 11:20] LABS: Alanine Aminotransferase 45 Units/L (7-52); Albumin 3.1 g/dL (3.5-5.7); Albumin/Globulin Ratio 1.3 (1.1-2.2); Alkaline Phosphatase 67 Units/L (34-104); Aspartate Amino Transferase 26 Units/L (13-39); BUN/Creatinine Ratio 24 (6-26); Blood Urea Nitrogen 14 mg/dL (6-20); Carbon Dioxide 26 mEq/L (23-29); Chloride 102 mEq/L (98-107); Globulin 2.3 g/dL (2.4-3.5); Glucose 212 mg/dL (70-105); Osmolality,Calculated 285 (280-300); Potassium 3.3 mEq/L (3.5-5.1); Sodium 134 mEq/L (136-145); Total Protein 5.4 g/dL (6.4-8.9); eGFR For African Americans > 60 (> 60); eGFR For Non-African Americans > 60 (> 60)
--- NOTE | 2017-06-06 11:39 | Gastroenterology Progress Note ---
<Quique Lopez - Last Filed: 06/06/17 11:35> Date of Encounter: 06/06/17 Time of Encounter: 11:35 - Assessment and plan (1) Anemia Current Visit: Yes Status: Acute Assessment and plan: Patient s/p ERCP with sphincterotomy on 05/31/17 and 06/05/17 due to bleeding from the sphincterotomy site HGB 13.4 --> 7.5 Pt is on clear liquids, had melonic stool last PM. She has received a total of 4 units PRBCs with stable HGB this AM. Continue to monitor. If patient continues to bleed, she will need repeat ERCP with clip placement at sphincterotomy site Qualifiers: Anemia type: other cause Other causes of anemia: other cause, not classified Qualified Code(s): D64.89 - Other specified anemias (2) Melena Current Visit: Yes Status: Acute Assessment and plan: Patient denies further melena, vitals stable If patient continues to bleed, she will need repeat ERCP with clip placement at sphincterotomy site (3) Anticoagulation goal of INR 2.5 to 3.5 Current Visit: No Status: Acute Assessment and plan: Patient is on anticoagulation due to h/o mitral valve repair. Anticoagulation resumed now Monitor closely for further signs of bleeding - Time Spent With Patient Total time spent is greater than 50% in coordination of care (as documented) at patient's floor/unit and/or counseling patient: - Subjective Interval history: Patient seen and examined. Patient reports intermittent epigastric pain and episode of dark red blood in stool last PM. She has received 4 unit PRBC and heparin drip was restarted last PM. Patient has been on clear liquid diet and requests advancing diet today. - Constitutional Vitals: Temp Pulse Resp BP Pulse Ox 98.3 F 90 18 121/78 96 06/06/17 10:53 06/06/17 10:53 06/06/17 10:53 06/06/17 10:53 06/06/17 10:53 General appearance: Present: cooperative, A&O X 3, no acute distress, answers questions appropriately Exam: morbidly obese - Head Head exam: Present: atraumatic, normocephalic - Eye Eye exam: Present: normal appearance, sclera anicteric - Neck Neck exam general surgery: Present: normal inspection, trachea midline - Respiratory Respiratory exam: Present: CTAB - Cardiovascular Cardiovascular exam: Present: RRR, +S1, +S2 - GI/Abdominal GI/Abdominal exam: Present: hypoactive bowel sounds, soft, tenderness (mild epigastric/ RUQ TTP), no peritoneal signs - Rectal Rectal exam: Present: deferred - Extremities Exam Extremities exam: Present: warm - Neurological Exam Neurological exam: Present: no focal deficits - Psychiatric Psychiatric exam: Present: normal affect, normal mood - Skin Skin exam: Present: dry, intact, normal color, warm Results - Labs CBC & Chem 7: 06/06/17 07:45 06/06/17 09:00 Labs: Last Result Calcium 8.0 mg/dL (8.6-10.3) L 06/06/17 09:00 Iron 37 mcg/dL (50-170) L 06/04/17 01:37 % Saturation 12 % (15-50) L 06/04/17 01:37 Transferrin 227 mg/dL (203-362) 06/04/17 01:37 Ferritin 178 ng/ml (10-120) H 06/04/17 13:25 Vitamin B12 473 pg/mL (250-1100) 06/04/17 13:25 Stool Occult Blood Positive (Negative) A 06/04/17 12:56 Entire Visit Hgb 7.5 g/dL (11.5-15.4) L 06/06/17 07:45 Hct 22.8 % (35.3-44.9) L 06/06/17 07:45 PT 14.3 Seconds (9.4-12.1) H 06/06/17 09:00 Ferritin 178 ng/ml (10-120) H 06/04/17 13:25 Total Bilirubin 2.0 mg/dL (0.3-1.0) H 06/06/17 09:00 AST 26 Units/L (13-39) 06/06/17 09:00 ALT 45 Units/L (7-52) 06/06/17 09:00 Amylase 24 Units/L (29-103) L 05/28/17 21:56 Lipase 71 Units/L (11-82) 05/28/17 21:56 - ABG ABG results: PT/INR, D-dimer PT 14.3 Seconds (9.4-12.1) H 06/06/17 09:00 - VTE Documentation of Mechanical Device: Intermittent pneumatic compression device Consult Discharge Plan - Plan Instructions: Enoxaparin (Injection) Referrals: Mauricio Marquez, FRAME ASSEMBLER [Primary Care Provider] - 06/05/17 2:45 pm <Dasia Navarrete - Last Filed: 06/06/17 17:05> Date of Encounter: 06/06/17 Time of Encounter: 15:00 - Time Spent With Patient Total time spent is greater than 50% in coordination of care (as documented) at patient's floor/unit and/or counseling patient: - Constitutional Vitals: Temp Pulse Resp BP Pulse Ox 98.0 F 80 18 128/79 96 06/06/17 14:57 06/06/17 14:57 06/06/17 14:57 06/06/17 14:57 06/06/17 14:57 Results - Labs CBC & Chem 7: 06/06/17 07:45 06/06/17 09:00 Labs: Last Result Calcium 8.0 mg/dL (8.6-10.3) L 06/06/17 09:00 Iron 37 mcg/dL (50-170) L 06/04/17 01:37 % Saturation 12 % (15-50) L 06/04/17 01:37 Transferrin 227 mg/dL (203-362) 06/04/17 01:37 Ferritin 178 ng/ml (10-120) H 06/04/17 13:25 Vitamin B12 473 pg/mL (250-1100) 06/04/17 13:25 Stool Occult Blood Positive (Negative) A 06/04/17 12:56 Entire Visit Hgb 7.5 g/dL (11.5-15.4) L 06/06/17 07:45 Hct 22.8 % (35.3-44.9) L 06/06/17 07:45 Haptoglobin 58 mg/dL (30-200) 06/04/17 10:42 PT 14.3 Seconds (9.4-12.1) H 06/06/17 09:00 Ferritin 178 ng/ml (10-120) H 06/04/17 13:25 Total Bilirubin 2.0 mg/dL (0.3-1.0) H 06/06/17 09:00 AST 26 Units/L (13-39) 06/06/17 09:00 ALT 45 Units/L (7-52) 06/06/17 09:00 Amylase 24 Units/L (29-103) L 05/28/17 21:56 Lipase 71 Units/L (11-82) 05/28/17 21:56 - ABG ABG results: PT/INR, D-dimer PT 14.3 Seconds (9.4-12.1) H 06/06/17 09:00 - Attending Attestation I examined this patient and my medical decision-making was reviewed with the Resident Physician. I agree with the documented findings, disposition and treatment plan as described except to the extent set forth below. Pt seen no bowel movement today. We will follow her H&H for now if hemoglobin continue to decrease then she will need a repeat EGD with possible clipping of the sphincterotomy site.
[2017-06-06 12:45] LABS: Sodium, Urine 27.7 mEq/L
[2017-06-06] MEDS ORDERED: *HR* EPINEPHrine 1 MG/10 ML SYRINGE ONE (13:51)
--- NOTE | 2017-06-06 14:34 | Cardiology Consult Note ---
Addendum entered and electronically signed by Monie Ball DO 06/06/17 15:57: Goal INR 3.0 Original Note: <Monie Ball - Last Filed: 06/06/17 14:48> Date of Encounter: 06/06/17 Time of Encounter: 14:15 Assessment and Plan (1) Mitral valve replaced Current Visit: No Status: Acute Mechanical mitral valve replaced and is on anticoagulated with coumadin. PMH A.fib, CHF, HTN INR 1.3 Hgb 7.5 Patient is anticoagulated with heparin and Coumadin is currently being held. -Recommend continue heparin with bridge to coumadin unless the bleeding is life threatening per GI. There is high risk for stroke or clot in the mitral valve should anticoagulation be stopped. (2) History of atrial fibrillation Current Visit: No Status: Chronic History of A.fib rate controlled with cardizem and anticoagulated with coumadin Continue cardizem, toprol. Patient is currently being anticoagulated with heparin due to GI bleed -see anticoagulation recommendations above (3) Congestive heart failure Current Visit: No Status: Chronic -ECHO 12/2014: LVEF 55%, severely dilated left atrium, indeterminate diastolic function. Mechanical valve not well visualized. By doppler normal function. No pulmonary hypertension. -Exercise stress test 02/2015: indeterminate for ischemia due to submaximal heart rate achieved. continue home medications Qualifiers: Heart failure type: unspecified Heart failure chronicity: chronic Qualified Code(s): I50.9 - Heart failure, unspecified (4) Anemia Current Visit: Yes Status: Acute Anemia secondary to blood loss from the sphincterotomy site s/p ERCP with sphincterotomy on 05/31/17 and 06/05/17 Hgb 7.5 Qualifiers: Anemia type: other cause Other causes of anemia: other cause, not classified Qualified Code(s): D64.89 - Other specified anemias Discussion w patient/family: The assessment and plan as outlined above was discussed with the patient and/or family members who expressed understanding and agreement. All questions were answered. Thank you for involving us in the care of your patient. Please call with any questions. History of Present Illness Consult date: 06/06/17 Requesting physician: Mariluz Diop Consult reason: Mechanical valve with need for anticoagulation. Anticoagulation recommenda Chief complaint: abdominal pain History of present illness: Ms. Cottrell is a 52 year old female PMH mechanical mitral valve, A.fib, HTN, CHF who presented to [facility] due to abdominal pain that was found to be secondary to cystic duct calculus. She underwent ERCP with sphincterotomy on 05/31/17 then later developed anemia and melena which required transfusion of PRBC. It was suspected that the bleeding was from the sphincterotomy site. 06/05/2017 ERCP performed to evaluate for bleeding. At the time she was on heparin drip instead of coumadin. On 06/06/2016 she underwent EGD and 1 temporary stent was placed into common bile duct. Post sphincterotomy bleeding status post epinephrine injection. She is currently rate controlled with cardizem and anticoagulated with coumadin for A.fib and mechanical mitral valve. Past Med Surg Social Fam HX - Past Medical History Medical history: atrial fibrillation, cardiomyopathy, CHF, coronary artery disease, hypertension, valvular heart disease, other Psychiatric history: anxiety, depression - Past Surgical History Surgical History: appendectomy, cholecystectomy, heart valve replacement, hysterectomy, other - Social History Smoking Status: Former smoker Smokeless Tobacco Status: No Alcohol use: none Drug use: none - Family History Mother Adopted: Bee: Arlette Age: 69 Family Member Ethnicity: Non- Living Status: Still Living Hx Family Cardiac Disorders: No Hx Family Respiratory Disorders: No Hx Family Cancer: Yes (leukemia) Hx Family GI Disorders: No Hx Family Genitourinary Disorders: No Hx Family Endocrine Disorder: Yes (DM) Hx Family Musculoskeletal Disorders: No Hx Family Neuromuscular Disorders: No Hx Family Neurologic Disorders: No Hx Family HEENT Disorders: No Hx Family Autoimmune Disorders: No Hx Family Reproductive Disorders: No Hx Family Psychosocial Disorders: No Hx Family Medical Disorders: No Medications and Allergies Potassium Chloride 20 meq PO QPM PRN 11/20/14 [History] Sertraline [Zoloft] 100 mg PO QPM 11/20/14 [History] Albuterol Sulfate [Ventolin Hfa] 2 puff IH Q4H PRN 01/12/15 [History] Metoprolol XL (24 HR) Succ [Toprol Xl] 75 mg PO DAILY 09/02/15 [History] Furosemide [Lasix] 20 mg PO DAILY PRN 10/31/16 [History] Diltiazem CD (24hr) [Cardizem CD] 180 mg PO DAILY 05/24/17 [History] Ergocalciferol (VITAMIN D2) [Vitamin D2] 50,000 unit PO QWEEK 05/24/17 [History] Warfarin [Coumadin] 6 mg PO DAILY 05/24/17 [History] Enoxaparin [Lovenox] 160 mg SQ Q12HR #30 syr 06/01/17 [Rx] 3 Allergy/AdvReac Type Severity Reaction Status Date / Time hydrochlorothiazide Allergy Rash Verified 05/24/17 07:18 hydrocodone [From Vicodin] Allergy Itching Verified 05/24/17 07:18 acetaminophen [From Tylenol] AdvReac Gastrointestinal Verified 05/24/17 07:18 Upset All Systems Review: The remainder of the systems were reviewed and are negative - Constitutional Constitutional: no chills, no fever(s), no headache(s) - EENT Eyes: no blurred vision, no loss of vision - Cardiovascular Cardiovascular: no chest pain at rest, no chest pain with exertion, no diaphoresis, no palpitations - Respiratory Respiratory: no dyspnea - Gastrointestinal Gastrointestinal: abdominal pain, melena, nausea - Genitourinary Genitourinary: hematuria - Integumentary Integumentary: no erythema - Neurological Neurological: no loss of vision Physical Examination Vital Signs, Last 4 Hours Temp Pulse Resp BP Pulse Ox 06/06/17 10:53 98.3 F 90 18 121/78 96 General: Conversant, No Apparent Distress HEENT: Mucus Membranes Moist Neck: No JVD Cardiac: Reg Rate and Rhythm, Other (click present) Lungs: Normal Breath Sounds Neuro: Alert and responsive Abdomen: Soft, Non-Tender Skin: No rashes noted on visualized skin Musculoskeletal: No Chest Wall Tenderness Extremities: Normal Pulses Results 06/06/17 07:45 06/06/17 09:00 Lab Results 06/06/17 06/06/17 06/06/17 00:01 01:30 07:45 Hgb 7.3 L 7.5 L Hct 22.5 L 22.8 L INR 1.3 APTT 28.9 D Sodium Potassium Chloride Carbon Dioxide BUN Creatinine Glucose Calcium Total Bilirubin AST ALT Alkaline Phosphatase TSH 06/06/17 06/06/17 06/06/17 09:00 09:00 09:30 Hgb Hct INR 1.3 APTT 73.2 H D Sodium 134 L Potassium 3.3 L Chloride 102 Carbon Dioxide 26 BUN 14 Creatinine 0.59 L Glucose 212 H Calcium 8.0 L Total Bilirubin 2.0 H AST 26 ALT 45 Alkaline Phosphatase 67 TSH 7.481 H Consult Discharge Plan - Plan Instructions: Enoxaparin (Injection) Referrals: Mauricio Marquez CNP [Primary Care Provider] - 06/05/17 2:45 pm <Jaqueline Rose - Last Filed: 06/07/17 11:49> Date of Encounter: 06/07/17 - Attending Attestation I examined this patient and my medical decision-making was reviewed with the Resident Physician. I agree with the documented findings, disposition and treatment plan as described except to the extent set forth below. 52 YOF with mechanical Mitral Valve and Afib admitted for GI bleed currently off coumadin and on IV heparin. High risk for valve thrombosis off AC. Recommend bridging heparin to Coumadin with 48 hours overlap until INR therapeutic when deemed safe from GI perspective. Holding AC only for life threatening bleed. Assessment and Plan Discussion w patient/family: The assessment and plan as outlined above was discussed with the patient and/or family members who expressed understanding and agreement. All questions were answered. Thank you for involving us in the care of your patient. Please call with any questions. History of Present Illness History of present illness: Ms. Cottrell is a 52 year old female All Systems Review: The remainder of the systems were reviewed and are negative Physical Examination Vital Signs, Last 4 Hours Temp Pulse Resp BP Pulse Ox 06/07/17 10:57 97.8 F 86 16 105/69 96 Results 06/07/17 10:00 06/07/17 02:35 Lab Results 06/06/17 06/06/17 06/07/17 15:00 17:50 02:00 Hgb 8.0 L 7.9 L Hct 24.4 L 25.1 L INR APTT 91.3 H Sodium Potassium Chloride Carbon Dioxide BUN Creatinine Glucose Calcium Total Bilirubin AST ALT Alkaline Phosphatase 06/07/17 06/07/17 06/07/17 02:35 02:35 10:00 Hgb 7.5 L Hct 23.8 L INR 1.2 APTT Sodium 134 L Potassium 3.3 L Chloride 101 Carbon Dioxide 26 BUN 11 Creatinine 0.65 Glucose 120 H Calcium 8.3 L Total Bilirubin 1.5 H AST 27 ALT 39 Alkaline Phosphatase 68
[2017-06-06 18:02] LABS: Hematocrit 24.4 % (35.3-44.9)
[2017-06-06 23:00] LABS: Hematocrit RBC Folate 26.1 %
[2017-06-07] MEDS: *HR* OxyCODONE Immed Rel 5 MG TABLET PO PRN ×5 (02:28→23:26)
[2017-06-07 02:54] LABS: Hematocrit 25.1 % (35.3-44.9); Hemoglobin 7.9 g/dL (11.5-15.4)
[2017-06-07 03:02] LABS: INR 1.2; Prothrombin Time 12.9 Seconds (9.4-12.1)
[2017-06-07 04:12] LABS: Alanine Aminotransferase 39 Units/L (7-52); Albumin 3.1 g/dL (3.5-5.7); Albumin/Globulin Ratio 1.3 (1.1-2.2); Alkaline Phosphatase 68 Units/L (34-104); Aspartate Amino Transferase 27 Units/L (13-39); BUN/Creatinine Ratio 17 (6-26); Bilirubin,Total 1.5 mg/dL (0.3-1.0); Blood Urea Nitrogen 11 mg/dL (6-20); Calcium 8.3 mg/dL (8.6-10.3); Carbon Dioxide 26 mEq/L (23-29); Chloride 101 mEq/L (98-107); Globulin 2.3 g/dL (2.4-3.5); Glucose 120 mg/dL (70-105); Osmolality,Calculated 279 (280-300); Potassium 3.3 mEq/L (3.5-5.1); Sodium 134 mEq/L (136-145); Total Protein 5.4 g/dL (6.4-8.9); eGFR For African Americans > 60 (> 60); eGFR For Non-African Americans > 60 (> 60)
[2017-06-07] MEDS: Pantoprazole 40 MG VIAL IVP SCH (08:05)
[2017-06-07] MEDS: Metoprolol XL (24 HR) Succ 50 MG TAB.ER.24H PO SCH (08:06)
[2017-06-07] MEDS: Diltiazem CD (24hr) 180 MG CAPSULE PO SCH (08:06)
[2017-06-07] MEDS: Heparin 25,000 UNIT/500 ML D5W 25,000 UNIT/500 ML BAG IVC SCH ×2 (10:01→23:22)
[2017-06-07 10:39] LABS: Hematocrit 23.8 % (35.3-44.9); Hemoglobin 7.5 g/dL (11.5-15.4)
--- NOTE | 2017-06-07 16:52 | Internal Med Progress Note ---
Date of Encounter: 06/07/17 Time of Encounter: 10:00 - Assessment and plan (1) Mitral valve replaced Current Visit: No Status: Acute (2) History of atrial fibrillation Current Visit: No Status: Chronic (3) Congestive heart failure Current Visit: No Status: Chronic Qualifiers: Heart failure type: unspecified Heart failure chronicity: chronic Qualified Code(s): I50.9 - Heart failure, unspecified (4) Anemia Current Visit: Yes Status: Acute Qualifiers: Anemia type: other cause Other causes of anemia: other cause, not classified Qualified Code(s): D64.89 - Other specified anemias - Time Spent With Patient (1) Anemia Current Visit: Yes Status: Acute Assessment and plan: Hgb 13.4 on arrival and dropped to 6.2. Has known iron deficiency anemia and now with acute blood loss likely secondary to sphincterotomy with associated anticoagulation (has mechanical valve). No evidence of hemolysis. Iron studies revealed depleted iron stores; received 1 time dose Venofer per Hematology recommendations. Received a total of 4 units PRBC. 06/05/17 EGD with with post vagotomy bleeding, status post epinephrine injection and stent placement to bile duct. Repeat Hgb stable at 7.5. Unable to stop heparin drip due to mechanical valve. UA pending. Closely monitor H&H while on heparin gtt. Clear liquid, IV PPI, monitor H&H every 8 hours. Evaluated by cardiology. GI following Qualifiers: Anemia type: other cause Other causes of anemia: other cause, not classified Qualified Code(s): D64.89 - Other specified anemias (2) Hematuria Current Visit: Yes Status: Acute Assessment and plan: per RN report on 06/06/17. UA with large amount blood. Patient denies hematuria on 06/07 exam. Hgb her main stable. Continue to monitor closely while on heparin drip. Qualifiers: Hematuria type: unspecified type Qualified Code(s): R31.9 - Hematuria, unspecified (3) Mitral valve replaced Current Visit: No Status: Acute Assessment and plan: hx mechanical mitral valve replacement by Dr. Lazar at [facility] 11/2014. Home couamdin held for ERCP (INR needed to be less than 1.5). Coumadin with Lovenox bridge resumed after ERCP however Coumadin stopped with drop in Hgb. Now on heparin gtt (cannot stop anticoagulation with mechanical valve). Plan as noted above. (4) Biliary colic Current Visit: Yes Status: Acute Assessment and plan: s/p harini 6 months ago. Recent admission for similar sx's and was found to have probable cystic duct stone at that time. Now with recurrent ABD pain. 06/01/2017 ERCP with small amount of biliary sludge, a biliary sphincterotomy was performed. LFTs trending down, ABD pain improving. (5) Hyponatremia Current Visit: Yes Status: Acute Assessment and plan: Na 130 on 06/06. No offending medications. Neurologically intact. Repeat Na 134 (6) History of atrial fibrillation Current Visit: No Status: Chronic Assessment and plan: per hx. Rate controlled. Cont home BB, heparin gtt. Resume Coumadin when able (7) LAZ (obstructive sleep apnea) Current Visit: Yes Status: Acute Assessment and plan: per hx. Cont home CPAP (8) Obesity Current Visit: No Status: Chronic Assessment and plan: BMI 58.1. Lifestyle recommendations encouraged Qualifiers: Obesity type: unspecified obesity type Obesity classification: adult class 3 (BMI >= 40) Serious obesity comorbidity presence: unspecified whether serious comorbidity present Body mass index: BMI 45.0-49.9 Qualified Code(s) : E66.9 - Obesity, unspecified; Z68.42 - Body mass index (BMI) 45.0-49.9, adult ; Z68.42 - Body mass index (BMI) 45.0-49.9, adult; Z68.42 - Body mass index (BMI ) 45.0-49.9, adult; Z68.42 - Body mass index (BMI) 45.0-49.9, adult (9) DVT prophylaxis Current Visit: Yes Status: Acute Assessment and plan: heparin gtt - Subjective Interval history: Seen and examined at bedside. Says she feels better this morning. Reports mild , intermittent abdominal pain but significantly improved. She voided this morning and did not notice hematuria. No black or tarry stools this morning. - Constitutional Vitals: Temp Pulse Resp BP Pulse Ox 98.7 F 80 16 124/77 95 06/07/17 14:02 06/07/17 14:02 06/07/17 14:02 06/07/17 14:02 06/07/17 14:02 General appearance: Present: A&O X 3, pleasant, no acute distress, answers questions appropriately - Head Head exam: Present: atraumatic, normocephalic - Eye Eye exam: Present: PERRL, conjuntiva pink, sclera anicteric Pupils: Present: PERRL - Neck Neck exam general surgery: Present: supple, trachea midline. Absent: lymphadenopathy - Respiratory Respiratory exam: Present: CTAB. Absent: accessory muscle use, rales, rhonchi, wheezes - Cardiovascular Cardiovascular exam: Present: RRR, +S1, +S2. Absent: diastolic murmur, gallop, rubs, systolic murmur - GI/Abdominal GI/Abdominal exam: Present: normal bowel sounds, soft, no peritoneal signs. Absent: distended, tenderness - Extremities Exam Extremities exam: Present: pedal edema, warm, radial pulses palpable and symmetrical. Absent: calf tenderness, cyanotic - Neurological Exam Neurological exam: Present: CN II-XII intact, oriented X3, no focal deficits. Absent: pronater drift, facial droop, speech deficit - Skin Skin exam: Present: dry, intact, pallor Internal Medicine: Result - Labs CBC & Chem 7: 06/07/17 10:00 06/07/17 02:35 Labs: Short CBC 06/06/17 06/07/17 06/07/17 Range/Units 17:50 02:00 10:00 Hgb 8.0 L 7.9 L 7.5 L (11.5-15.4) g/dL Hct 24.4 L 25.1 L 23.8 L (35.3-44.9) % BMP 06/07/17 02:35 Sodium 134 L Potassium 3.3 L Chloride 101 Carbon Dioxide 26 BUN 11 Creatinine 0.65 Glucose 120 H Calcium 8.3 L Liver Function 06/07/17 Range/Units 02:35 Total Bilirubin 1.5 H (0.3-1.0) mg/dL AST 27 (13-39) Units/L ALT 39 (7-52) Units/L Alkaline Phosphatase 68 (34-104) Units/L Albumin 3.1 L (3.5-5.7) g/dL - ABG Interpretation ABG results: PT/INR, D-dimer PT 12.9 Seconds (9.4-12.1) H 06/07/17 02:35 - VTE Documentation of Mechanical Device: Intermittent pneumatic compression device Consult Discharge Plan - Plan Instructions: Enoxaparin (Injection) Referrals: Mauricio Marquez, ETHAN [Primary Care Provider] - 06/05/17 2:45 pm
[2017-06-07] MEDS ORDERED: Warfarin perPT PO PRN (18:00)
[2017-06-07] MEDS ORDERED: *HR* Warfarin 3 MG TABLET PO ONE (18:00)
[2017-06-07 18:34] LABS: Hematocrit 24.4 % (35.3-44.9); Hemoglobin 7.7 g/dL (11.5-15.4)
[2017-06-08 01:57] LABS: Hematocrit 23.2 % (35.3-44.9); Hemoglobin 7.4 g/dL (11.5-15.4)
[2017-06-08 02:08] LABS: INR 1.3; Prothrombin Time 13.8 Seconds (9.4-12.1)
[2017-06-08] MEDS: *HR* OxyCODONE Immed Rel 5 MG TABLET PO PRN ×5 (05:17→23:56)
[2017-06-08 09:06] LABS: Hematocrit 24.9 % (35.3-44.9); Hemoglobin 7.9 g/dL (11.5-15.4); Mean Corpuscular HGB Conc 31.7 g/dL (31.6-35.5); Mean Corpuscular Hemoglobin 27.1 pg (28.0-33.3); Mean Corpuscular Volume 85.3 fL (83.0-100.0); Mean Platelet Volume 8.8 fL (9.4-12.4); Nucleated Red Blood Cells 0.4 /100 WBC (0); Platelet Count 153 K/mcL (140-400); Red Blood Count 2.92 M/mcL (3.82-4.97); Red Cell Distribution Width 17.7 % (11.5-14.5)
[2017-06-08] MEDS: Diltiazem CD (24hr) 180 MG CAPSULE PO SCH (09:56)
[2017-06-08] MEDS: Metoprolol XL (24 HR) Succ 50 MG TAB.ER.24H PO SCH (09:56)
[2017-06-08] MEDS: Pantoprazole 40 MG VIAL IVP SCH (09:56)
[2017-06-08] MEDS: Heparin 25,000 UNIT/500 ML D5W 25,000 UNIT/500 ML BAG IVC SCH ×3 (10:01→22:12)
[2017-06-08 10:13] LABS: Lymphocytes # 2.1 K/mcL (0.6-4.6); Monocytes # 2.1 K/mcL (0.0-1.3); Neutrophils # 7.1 K/mcL (1.6-8.9)
[2017-06-08 10:14] LABS: Anisocytosis 1+ (Not Present); Platelet Estimate Normal (Normal); Polychromasia 1+ (Not Present)
[2017-06-08 10:56] LABS: BUN/Creatinine Ratio 11 (6-26); Blood Urea Nitrogen 7 mg/dL (6-20); Calcium 8.5 mg/dL (8.6-10.3); Carbon Dioxide 27 mEq/L (23-29); Chloride 100 mEq/L (98-107); Glucose 201 mg/dL (70-105); Osmolality,Calculated 282 (280-300); Potassium 3.3 mEq/L (3.5-5.1); Sodium 134 mEq/L (136-145); eGFR For African Americans > 60 (> 60); eGFR For Non-African Americans > 60 (> 60)
[2017-06-08 15:52] LABS: Hematocrit 24.7 % (35.3-44.9); Hemoglobin 7.6 g/dL (11.5-15.4)
[2017-06-08] MEDS ORDERED: *HR* Warfarin 3 MG TABLET PO ONE (18:00)
--- NOTE | 2017-06-08 18:15 | Internal Med Progress Note ---
Date of Encounter: 06/09/17 Time of Encounter: 11:00 - Assessment and plan (1) Biliary colic Current Visit: Yes Status: Acute Assessment and plan: Patient s/p harini 6 months ago. ERCP on 06/01/2017 and 06/05/17 with small amount of biliary sludge, a biliary sphincterotomy was performed. LFTs trending down, ABD pain improving. (2) Anemia Current Visit: Yes Status: Acute Assessment and plan: Patient with acute blood loss anemia. Hemoglobin stable at 7.6 but was 13.4 at admission Will continue to monitor and if hemoglobin continues to drop GI will take patient back for a third ERCP Qualifiers: Anemia type: other cause Other causes of anemia: other cause, not classified Qualified Code(s): D64.89 - Other specified anemias (3) Anticoagulation goal of INR 2.5 to 3.5 Current Visit: No Status: Acute Assessment and plan: -INR still subtherapeutic at 1.3 -Continue bridging Coumadin with heparin gtts (4) Mitral valve replaced Current Visit: No Status: Acute Assessment and plan: We will continue bridging as above to reach goal of INR 2.5-3.5 (5) Subtherapeutic international normalized ratio (INR) Current Visit: No Status: Acute - Subjective Interval history: Patient's hemoglobin remained stable overnight Patient requesting to increase diet this morning INR still subtherapeutic - Constitutional Vitals: Temp Pulse Resp BP Pulse Ox 97.1 F L 78 18 115/61 96 06/08/17 15:36 06/08/17 15:36 06/08/17 15:36 06/08/17 15:36 06/08/17 15:36 General appearance: Present: A&O X 3, pleasant, no acute distress, answers questions appropriately - Respiratory Respiratory exam: Present: CTAB. Absent: accessory muscle use, rales, rhonchi, wheezes - Cardiovascular Cardiovascular exam: Present: RRR, +S1, +S2. Absent: diastolic murmur, gallop, rubs, systolic murmur - GI/Abdominal GI/Abdominal exam: Present: soft. Absent: tenderness Internal Medicine: Result - Labs CBC & Chem 7: 06/08/17 15:41 06/08/17 08:32 Labs: Short CBC 06/07/17 06/08/17 06/08/17 Range/Units 18:00 01:10 08:45 WBC 11.5 H (4.3-11.1) K/mcL Hgb 7.7 L 7.4 L 7.9 L (11.5-15.4) g/dL Hct 24.4 L 23.2 L 24.9 L (35.3-44.9) % Plt Count 153 (140-400) K/mcL Neutrophils # 7.1 (1.6-8.9) K/mcL 06/08/17 Range/Units 15:41 WBC (4.3-11.1) K/mcL Hgb 7.6 L (11.5-15.4) g/dL Hct 24.7 L (35.3-44.9) % Plt Count (140-400) K/mcL Neutrophils # (1.6-8.9) K/mcL BMP 06/08/17 08:32 Sodium 134 L Potassium 3.3 L Chloride 100 Carbon Dioxide 27 BUN 7 Creatinine 0.63 Glucose 201 H Calcium 8.5 L - ABG Interpretation ABG results: PT/INR, D-dimer PT 13.8 Seconds (9.4-12.1) H 06/08/17 01:10 - VTE Documentation of Mechanical Device: Intermittent pneumatic compression device Consult Discharge Plan - Plan Instructions: Enoxaparin (Injection) Referrals: Mauricio Marquez CNP [Primary Care Provider] - 06/16/17 1:00 pm
[2017-06-09] MEDS: *HR* OxyCODONE Immed Rel 5 MG TABLET PO PRN ×3 (04:38→17:43)
[2017-06-09 05:25] LABS: INR 1.6; Prothrombin Time 17.8 Seconds (9.4-12.1)
[2017-06-09] MEDS: Metoprolol XL (24 HR) Succ 50 MG TAB.ER.24H PO SCH (08:16)
[2017-06-09] MEDS: Diltiazem CD (24hr) 180 MG CAPSULE PO SCH (08:17)
[2017-06-09] MEDS: Heparin 25,000 UNIT/500 ML D5W 25,000 UNIT/500 ML BAG IVC SCH (09:03)
[2017-06-09 09:28] LABS: Hemoglobin 7.7 g/dL (11.5-15.4); Mean Corpuscular HGB Conc 30.8 g/dL (31.6-35.5); Mean Corpuscular Hemoglobin 26.8 pg (28.0-33.3); Mean Corpuscular Volume 87.1 fL (83.0-100.0); Mean Platelet Volume 8.6 fL (9.4-12.4); Nucleated Red Blood Cells 0.4 /100 WBC (0); Platelet Count 145 K/mcL (140-400); Red Blood Count 2.87 M/mcL (3.82-4.97); Red Cell Distribution Width 17.5 % (11.5-14.5)
[2017-06-09 09:41] LABS: BUN/Creatinine Ratio 9 (6-26); Blood Urea Nitrogen 6 mg/dL (6-20); Calcium 8.5 mg/dL (8.6-10.3); Carbon Dioxide 28 mEq/L (23-29); Chloride 100 mEq/L (98-107); Glucose 156 mg/dL (70-105); Osmolality,Calculated 283 (280-300); Potassium 3.5 mEq/L (3.5-5.1); Sodium 136 mEq/L (136-145); eGFR For African Americans > 60 (> 60); eGFR For Non-African Americans > 60 (> 60)
[2017-06-09 09:56] LABS: Eosinophils # 0.1 K/mcL (0.0-0.6); Lymphocytes # 0.5 K/mcL (0.6-4.6); Monocytes # 0.3 K/mcL (0.0-1.3); Neutrophils # 9.2 K/mcL (1.6-8.9)
[2017-06-09 09:57] LABS: Platelet Estimate Normal (Normal)
--- NOTE | 2017-06-09 12:38 | Gastroenterology Progress Note ---
Date of Encounter: 06/09/17 Time of Encounter: 12:25 - Assessment and plan (1) Anemia Current Visit: Yes Status: Acute Qualifiers: Other causes of anemia: acute posthemorrhagic Qualified Code(s): D62 - Acute posthemorrhagic anemia (2) Anemia Current Visit: Yes Status: Acute Assessment and plan: Patient s/p ERCP with sphincterotomy on 05/31/17 dbut then over the weekend started having bleeding after she was started on her heparin infusion. Had a repeat ERCP done along with stenting of the CBD and also epinephrine injection around the major papilla , no more bleeding. Patient's is still anemic and she would be probably discharged the next day or so. I would recommend giving her a unit or 2 of blood otherwise may be back with anemia. Follow-up with GI as an outpatient. She will have her CBD stent removed with EGD scope in the next 3 -4 month. Qualifiers: Anemia type: other cause Other causes of anemia: other cause, not classified Qualified Code(s): D64.89 - Other specified anemias - Time Spent With Patient Total time spent is greater than 50% in coordination of care (as documented) at patient's floor/unit and/or counseling patient: - Subjective Interval history: Pt seen denies any abdominal pain. No bowel movement in the last 3 days - Constitutional Vitals: Temp Pulse Resp BP Pulse Ox 98.2 F 84 18 143/73 94 06/09/17 10:27 06/09/17 10:27 06/09/17 10:27 06/09/17 10:27 06/09/17 10:27 Patient seen sitting in the bed not in acute distress is pale looking. Chest has a previous heart surgery scar. General appearance: Present: cooperative, A&O X 3, no acute distress, answers questions appropriately Results - Labs CBC & Chem 7: 06/09/17 08:11 06/09/17 08:11 Labs: Last Result Calcium 8.5 mg/dL (8.6-10.3) L 06/09/17 08:11 Iron 37 mcg/dL (50-170) L 06/04/17 01:37 % Saturation 12 % (15-50) L 06/04/17 01:37 Transferrin 227 mg/dL (203-362) 06/04/17 01:37 Ferritin 178 ng/ml (10-120) H 06/04/17 13:25 Vitamin B12 473 pg/mL (250-1100) 06/04/17 13:25 Stool Occult Blood Positive (Negative) A 06/04/17 12:56 Entire Visit Hgb 7.7 g/dL (11.5-15.4) L 06/09/17 08:11 Hct 25.0 % (35.3-44.9) L 06/09/17 08:11 Haptoglobin 58 mg/dL (30-200) 06/04/17 10:42 PT 17.8 Seconds (9.4-12.1) H 06/09/17 04:00 Ferritin 178 ng/ml (10-120) H 06/04/17 13:25 Total Bilirubin 1.5 mg/dL (0.3-1.0) H 06/07/17 02:35 AST 27 Units/L (13-39) 06/07/17 02:35 ALT 39 Units/L (7-52) 06/07/17 02:35 Amylase 24 Units/L (29-103) L 05/28/17 21:56 Lipase 71 Units/L (11-82) 05/28/17 21:56 - ABG ABG results: PT/INR, D-dimer PT 17.8 Seconds (9.4-12.1) H 06/09/17 04:00 - VTE Documentation of Mechanical Device: Intermittent pneumatic compression device Consult Discharge Plan - Plan Instructions: Enoxaparin (Injection) Referrals: Mauricio Marquez, PRODUCT/DEVICE TECHNOLOGIST [Primary Care Provider] - 06/16/17 1:00 pm
[2017-06-09] MEDS ORDERED: Heparin 25,000 UNIT/500 ML D5W 25,000 UNIT/500 ML BAG IVC SCH (13:55)
--- NOTE | 2017-06-09 17:56 | Internal Med Progress Note ---
Date of Encounter: 06/09/17 Time of Encounter: 11:00 - Assessment and plan (1) Biliary colic Current Visit: Yes Status: Acute Assessment and plan: Patient s/p harini 6 months ago. ERCP on 06/01/2017 and 06/05/17 with small amount of biliary sludge, a biliary sphincterotomy was performed. LFTs trending down, ABD pain improving. GI with recommendations for follow-up as an outpatient as she will have her CBD stent removed with EGD scope in the next 3-4 months (2) Anemia Current Visit: Yes Status: Acute Assessment and plan: Patient with acute blood loss anemia. Hemoglobin stable at 7.7 but was 13.4 at admission status post 4 units of packed red blood cells We will transfuse 2 additional units of packed red blood cells Qualifiers: Anemia type: other cause Other causes of anemia: other cause, not classified Qualified Code(s): D64.89 - Other specified anemias (3) Anticoagulation goal of INR 2.5 to 3.5 Current Visit: No Status: Acute Assessment and plan: -INR still subtherapeutic at 1.l -Continue bridging Coumadin with subcutaneous Lovenox (4) Mitral valve replaced Current Visit: No Status: Acute Assessment and plan: Will continue bridging as above to reach goal of INR 2.5-3.5 (5) Subtherapeutic international normalized ratio (INR) Current Visit: No Status: Acute Assessment and plan: INR 1.7; plan as above - Subjective Interval history: Patient's hemoglobin continues to drop slowly Patient reports abdominal discomfort slightly better INR still subtherapeutic - Constitutional Vitals: Temp Pulse Resp BP Pulse Ox 98.4 F 70 18 136/57 98 06/09/17 15:40 06/09/17 15:40 06/09/17 15:40 06/09/17 15:40 06/09/17 15:40 General appearance: Present: A&O X 3, pleasant, no acute distress, answers questions appropriately - Respiratory Respiratory exam: Present: CTAB. Absent: accessory muscle use, rales, rhonchi, wheezes - Cardiovascular Cardiovascular exam: Present: RRR, +S1, +S2. Absent: diastolic murmur, gallop, rubs, systolic murmur Internal Medicine: Result - Labs CBC & Chem 7: 06/09/17 08:11 06/09/17 08:11 Labs: Short CBC 06/09/17 Range/Units 08:11 WBC 10.1 (4.3-11.1) K/mcL Hgb 7.7 L (11.5-15.4) g/dL Hct 25.0 L (35.3-44.9) % Plt Count 145 (140-400) K/mcL Neutrophils # 9.2 H (1.6-8.9) K/mcL BMP 06/09/17 08:11 Sodium 136 Potassium 3.5 Chloride 100 Carbon Dioxide 28 BUN 6 Creatinine 0.64 Glucose 156 H Calcium 8.5 L - ABG Interpretation ABG results: PT/INR, D-dimer PT 17.8 Seconds (9.4-12.1) H 06/09/17 04:00 - VTE Documentation of Mechanical Device: Intermittent pneumatic compression device Consult Discharge Plan - Plan Instructions: Enoxaparin (Injection) Referrals: Mauricio Marquez, INTERNET SALES DIRECTOR [Primary Care Provider] - 06/16/17 1:00 pm Prescriptions: Enoxaparin [Lovenox *PHARMACY WT BASED*] 160 mg SQ Q12HR #30 mg
[2017-06-09] MEDS ORDERED: *HR* Warfarin 3 MG TABLET PO ONE (18:00)
[2017-06-09] MEDS: *HR* Enoxaparin 80 MG/0.8 ML SYRINGE SQ SCH (18:41)
[2017-06-09 20:05] LABS: Basophils % 0.2 %; Eosinophils # 0.2 K/mcL (0.0-0.6); Eosinophils % 2.5 %; Hematocrit 25.1 % (35.3-44.9); Hemoglobin 7.8 g/dL (11.5-15.4); Immature Granulocytes % 10.3 % (0-4); Lymphocytes # 1.3 K/mcL (0.6-4.6); Mean Corpuscular HGB Conc 31.1 g/dL (31.6-35.5); Mean Corpuscular Hemoglobin 27.2 pg (28.0-33.3); Mean Corpuscular Volume 87.5 fL (83.0-100.0); Mean Platelet Volume 8.3 fL (9.4-12.4); Monocytes # 0.5 K/mcL (0.0-1.3); Monocytes % 5.5 %; Neutrophils # 5.9 K/mcL (1.6-8.9); Nucleated Red Blood Cells 0.3 /100 WBC (0); Platelet Count 139 K/mcL (140-400); Red Blood Count 2.87 M/mcL (3.82-4.97); Red Cell Distribution Width 17.6 % (11.5-14.5); Segmented Neutrophils % 66.5 %
[2017-06-09 20:22] LABS: BUN/Creatinine Ratio 11 (6-26); Blood Urea Nitrogen 7 mg/dL (6-20); Calcium 8.6 mg/dL (8.6-10.3); Carbon Dioxide 27 mEq/L (23-29); Chloride 102 mEq/L (98-107); Glucose 176 mg/dL (70-105); Osmolality,Calculated 282 (280-300); Potassium 3.8 mEq/L (3.5-5.1); Sodium 135 mEq/L (136-145); eGFR For African Americans > 60 (> 60); eGFR For Non-African Americans > 60 (> 60)
[2017-06-09] MEDS: Ondansetron 4 MG/2 ML VIAL IVP PRN (20:30)
[2017-06-09 21:13] LABS: Platelet Estimate Slight Decrease (Normal)
[2017-06-09] MEDS ORDERED: 0.9 % Sodium Chloride 500 ML ONE (22:02)
[2017-06-10] MEDS: *HR* OxyCODONE Immed Rel 5 MG TABLET PO PRN ×2 (01:34→06:58)
[2017-06-10] MEDS ORDERED: 0.9 % Sodium Chloride 500 ML ONE (03:35)
[2017-06-10 04:56] LABS: INR 1.8; Prothrombin Time 19.9 Seconds (9.4-12.1)
[2017-06-10 06:32] VITALS: BP 124/84
[2017-06-10] MEDS: *HR* Enoxaparin 80 MG/0.8 ML SYRINGE SQ SCH (06:53)
[2017-06-10 09:50] LABS: Hemoglobin 9.2 g/dL (11.5-15.4); Mean Corpuscular HGB Conc 31.7 g/dL (31.6-35.5); Mean Corpuscular Hemoglobin 27.5 pg (28.0-33.3); Mean Corpuscular Volume 86.6 fL (83.0-100.0); Mean Platelet Volume 8.7 fL (9.4-12.4); Nucleated Red Blood Cells 0.2 /100 WBC (0); Platelet Count 135 K/mcL (140-400); Red Blood Count 3.35 M/mcL (3.82-4.97); Red Cell Distribution Width 17.2 % (11.5-14.5)
[2017-06-10 10:06] LABS: BUN/Creatinine Ratio 15 (6-26); Blood Urea Nitrogen 9 mg/dL (6-20); Calcium 8.6 mg/dL (8.6-10.3); Carbon Dioxide 27 mEq/L (23-29); Chloride 103 mEq/L (98-107); Glucose 176 mg/dL (70-105); Osmolality,Calculated 283 (280-300); Potassium 3.6 mEq/L (3.5-5.1); Sodium 135 mEq/L (136-145); eGFR For African Americans > 60 (> 60); eGFR For Non-African Americans > 60 (> 60)
[2017-06-10 10:34] LABS: Eosinophils # 0.2 K/mcL (0.0-0.6); Lymphocytes # 1.7 K/mcL (0.6-4.6); Monocytes # 0.5 K/mcL (0.0-1.3); Neutrophils # 6.3 K/mcL (1.6-8.9); Platelet Estimate Normal (Normal)
--- NOTE | 2017-06-10 10:51 | Discharge Summary ---
- NOTES TO OUTPATIENT PROVIDER Notes to Outpatient Provider: Patient will need INR monitored for bridging Coumadin with Lovenox. She will also need to have her hemoglobin monitored for acute anemia Orders not resulted at time of discharge: Pending orders 06/10/17 00:14 UA Post Transfusion Reaction [URIN] Stat 06/10/17 00:38 Transfusion Reaction [BBK] Stat 06/11/17 04:00 INR/PT [Prothrombin Time INR] [COAG] AM 0400 06/12/17 04:00 INR/PT [Prothrombin Time INR] [COAG] AM 0400 Date of Encounter: 06/10/17 Time of Encounter: 09:30 - Discharge Diagnosis (1) Biliary colic Priority: Primary Status: Acute (2) Anemia Priority: Primary Status: Acute Qualifiers: Anemia type: other cause Other causes of anemia: other cause, not classified Qualified Code(s): D64.89 - Other specified anemias (3) Anticoagulation goal of INR 2.5 to 3.5 Priority: Secondary Status: Acute (4) Mitral valve replaced Priority: Secondary Status: Acute (5) Subtherapeutic international normalized ratio (INR) Priority: Secondary Status: Acute Hospital course: Patient is a 52-year-old female with past medical history significant for atrial fibrillation, ischemic cardiomyopathy hypertension and valvular heart disease who presented to the ER on 06/05/17 due to abdominal pain. Patient was discharged on 05/26/2017 from this hospital. She was admitted for right upper quadrant pain at that time and MRCP was suggestive of a focal 1.2 x 1 cm area of a focal and addition of a cystic duct remnant of her gallbladder with the central filling effect which was suspicion for a retained stone. Patient was evaluated by gastroenterology at that time and recommended that if the pain persist then to see the emergency room for further management. Patient reported of persistent pain since she left the hospital so she decided to come to the emergency room for further evaluation. She was admitted for symptomatic Cystic duct stone in a patient who has a previous cholecystectomy. During patients hospital stay, she was found to have acute blood loss anemia and was transfused a total of 6 units of packed red blood cells. GI was consulted with recommendations for an ERCP which was done on 06/01/2017 and 06/05/17 with small amount of biliary sludge, a biliary sphincterotomy was performed; also epinephrine injection around the major papilla was done and no more bleeding noted. Patients INR was subtherapeutic and was bridged with heparin and then changed to Lovenox so that patient can be discharged home with Coumadin while bridging on Lovenox. Patient will follow-up with GI as an outpatient in 3-4 months for a repeat EGD. She will need to follow-up with primary care provider for monitoring of acute anemia and management of anticoagulation therapy. - Time Spent with Patient Total time spent providing and/or coordinating discharge services: Less than 30 minutes - Discharge Medications Prescriptions: Enoxaparin [Lovenox *PHARMACY WT BASED*] 160 mg SQ Q12HR #30 mg Omeprazole [PriLOSEC] 20 mg PO DAILY@0630 #30 capsule. Home Medications: Potassium Chloride 20 meq PO QPM PRN 11/20/14 [History] Sertraline [Zoloft] 100 mg PO QPM 11/20/14 [History] Albuterol Sulfate [Ventolin Hfa] 2 puff IH Q4H PRN 01/12/15 [History] Metoprolol XL (24 HR) Succ [Toprol Xl] 75 mg PO DAILY 09/02/15 [History] Furosemide [Lasix] 20 mg PO DAILY PRN 10/31/16 [History] Diltiazem CD (24hr) [Cardizem CD] 180 mg PO DAILY 05/24/17 [History] Ergocalciferol (VITAMIN D2) [Vitamin D2] 50,000 unit PO QWEEK 05/24/17 [History] Warfarin [Coumadin] 6 mg PO DAILY 05/24/17 [History] Enoxaparin [Lovenox] 160 mg SQ Q12HR #30 syr 06/01/17 [Rx] Enoxaparin [Lovenox *PHARMACY WT BASED*] 160 mg SQ Q12HR #30 mg 06/09/17 [Rx] Omeprazole [PriLOSEC] 20 mg PO DAILY@0630 #30 capsule. 06/10/17 [Rx] Allergies/Adverse Reactions: 3 Allergy/AdvReac Type Severity Reaction Status Date / Time hydrochlorothiazide Allergy Rash Verified 05/24/17 07:18 hydrocodone [From Vicodin] Allergy Itching Verified 05/24/17 07:18 acetaminophen [From Tylenol] AdvReac Gastrointestinal Verified 05/24/17 07:18 Upset Date of admission: 06/05/17 17:09 Primary care physician: Mauricio aMrquez CNP Consults: 06/06/17 13:47 Consult to Cardiology [CONS] Routine Comment: Consulting Provider: Cardiology Marsha Reason for Consult: Mechanical valve with need for anticoagulation. Anticoagulation recommendations Call Completed: Yes - Constitutional Vitals: Temp Pulse Resp BP Pulse Ox 97.9 F 89 14 124/84 97 06/10/17 06:28 06/10/17 06:28 06/10/17 06:28 06/10/17 06:28 06/10/17 08:43 General appearance: Present: A&O X 3, pleasant, no acute distress, answers questions appropriately - Respiratory Respiratory exam: Present: CTAB. Absent: accessory muscle use, rales, rhonchi, wheezes - Cardiovascular Cardiovascular exam: Present: RRR, +S1, +S2. Absent: diastolic murmur, gallop, rubs, systolic murmur - GI/Abdominal GI/Abdominal exam: Present: normal bowel sounds, soft, no peritoneal signs. Absent: distended, tenderness - Patient Status Disposition: Home, Self-Care Condition: Good - Discharge Instructions Instructions: Omeprazole (By mouth), Enoxaparin (Injection) Follow Up With: Mauricio Marquez CNP [Primary Care Provider] - 06/16/17 1:00 pm - VTE Documentation of Mechanical Device: Intermittent pneumatic compression device
[2017-06-10] MEDS ORDERED: *HR* Warfarin 3 MG TABLET PO ONE (18:00)
== END 2017-06-10 13:00 | disposition home or self-care (01) | DRG 252 ==
LOC: 3NENU 21:07 → EMEROO 21:07 → SUATTDRO 23:45 → 3NENU 05-29 00:23 → 3ANU 06-05 13:58 → SUATTDRO 06-05 17:09 → 3ANU 06-07 10:14
PROVIDERS: ADMIT Internal Medicine; ATTEND Hospitalist
PROC: ENDOEBX (2017-06-05 14:30)

== ENCOUNTER 2018-03-04 14:10 | Observation (INO) ==
--- NOTE | 2018-03-04 14:47 | Emergency Department Note ---
Disposition Clinical Impression: Atrial fibrillation with RVR Disposition: Admitted As Inpatient Condition: Fair Referrals: NONE,PCP [Non-Partnered Physician] - Forms: ED Satisfaction Letter General Adult HPI - General Chief complaint: ED Arrhythmia/Palpitations Stated complaint: flutter sensation in chest Time Seen by Provider: 03/04/18 14:15 Source: patient, family Limitations: no limitations - History of Present Illness Pain Scale: 0 - Related Data Home Medications Medication Instructions Recorded Confirmed Furosemide [Lasix] 20 mg PO DAILY 08/15/17 08/15/17 Metoprolol Succinate [Toprol Xl] 75 mg PO BID 08/15/17 08/15/17 Potassium Chloride [K-Tab ER] 20 meq PO DAILY 08/15/17 08/15/17 Sertraline [Zoloft] 100 mg PO DAILY 08/15/17 08/15/17 Warfarin [Coumadin] 2 mg PO 1800 08/15/17 08/15/17 Warfarin [Coumadin] 5 mg PO 1800 08/15/17 08/15/17 dilTIAZem HCl [Diltiazem 24Hr Cd] 180 mg PO DAILY 08/15/17 08/15/17 Allergies Allergy/AdvReac Type Severity Reaction Status Date / Time hydrochlorothiazide Allergy Hives Verified 03/04/18 14:13 hydrocodone [From Vicodin] Allergy Itching Verified 03/04/18 14:13 acetaminophen [From Tylenol] AdvReac Gastrointestinal Verified 03/04/18 14:13 Upset Past Medical History - Past Medical History Medical history: Reports: atrial fibrillation, cardiomyopathy, CHF, coronary artery disease, hypertension, valvular heart disease, other Surgical history: Reports: appendectomy, cholecystectomy, heart valve replacement, hysterectomy, other Psychiatric history: Reports: anxiety, depression [employer]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 - Social History Smoking Status: Never smoker Smokeless Tobacco Status: No Alcohol use: Reports: none Drug use: Reports: none Physical Exam - General Limitations: no limitations General appearance: alert, in no apparent distress Course Vital Signs Temperature 98.3 F 03/04/18 14:11 Pulse Rate 124 03/04/18 14:11 Respiratory Rate 18 03/04/18 14:11 Blood Pressure 120/88 03/04/18 14:11 O2 Sat by Pulse Oximetry 95 03/04/18 14:11 Temperature 98.3 F 03/04/18 14:34 Pulse Rate 100 12/09/18 15:15 Respiratory Rate 18 03/04/18 15:15 Blood Pressure 113/90 03/04/18 15:15 O2 Sat by Pulse Oximetry 97 03/04/18 15:15 Oxygen Delivery Oxygen Delivery Room Air Medical Decision Making - Lab Data Result diagrams: 03/04/18 14:39 03/04/18 14:39 Lab Results 03/04/18 03/04/18 03/04/18 Range/Units 14:39 14:39 14:39 WBC 8.5 (4.3-11.1) K/mcL RBC 6.06 H (3.82-4.97) M/mcL Hgb 16.0 H (11.5-15.4) g/dL Hct 48.1 H (35.3-44.9) % MCV 79.4 L (83.0-100.0) fL MCH 26.4 L (28.0-33.3) pg MCHC 33.3 (31.6-35.5) g/dL RDW 15.5 H (11.5-14.5) % Plt Count 134 L (140-400) K/mcL MPV 9.3 L (9.4-12.4) fL Immature Gran % 0.4 (0-4) % Seg Neutrophils % 60.8 % Lymphocytes % 27.3 % Monocytes % 8.1 % Eosinophils % 2.9 % Basophils % 0.5 % Neutrophils # 5.2 (1.6-8.9) K/mcL Lymphocytes # 2.3 (0.6-4.6) K/mcL Monocytes # 0.7 (0.0-1.3) K/mcL Eosinophils # 0.3 (0.0-0.6) K/mcL Basophils # 0.0 (0.0-0.2) K/mcL PT 15.7 H (9.4-12.1) Seconds INR 1.4 APTT 36.4 H (26.0-36.0) Seconds Sodium 136 (136-145) mEq/L Potassium 3.8 (3.5-5.1) mEq/L Chloride 103 (98-107) mEq/L Carbon Dioxide 24 (23-29) mEq/L BUN 23 H (6-20) mg/dL Creatinine 0.75 (0.60-1.20) mg/dL Est GFR ( Amer) > 60 (> 60) Est GFR (Non-Af Amer) > 60 (> 60) BUN/Creatinine Ratio 31 H (6-26) Glucose 132 H (70-105) mg/dL Calculated Osmolality 288 (280-300) Calcium 10.1 (8.6-10.3) mg/dL Total Bilirubin 1.9 H (0.3-1.0) mg/dL Direct Bilirubin 0.4 H (0.0-0.2) mg/dL Indirect Bilirubin 1.5 H (0.0-1.2) mg/dL AST 32 (13-39) Units/L ALT 29 (7-52) Units/L Alkaline Phosphatase 66 (34-104) Units/L Troponin I < 0.03 (< 0.04) ng/mL Serum Total Protein 7.6 (6.4-8.9) g/dL Albumin 4.7 (3.5-5.7) g/dL Globulin 2.9 (2.4-3.5) g/dL Albumin/Globulin Ratio 1.6 (1.1-2.2) TSH 2.850 (0.340-5.600) mcIU/mL Critical Care Time Critical Care Time: No Attestation Statement - Attestation Attestation: I examined this patient and my medical decision-making was reviewed with the Resident Physician. I agree with the documented findings, disposition and treatment plan as described except to the extent set forth below. 52-year-old female presents to the emergency room for A. fib with RVR. She states she has felt bad for the past couple days. Increasing palpitations. Problems sleeping at night. She admits to a 10 pound weight gain in the past 2 days. She feels as though she is in congestive heart failure. She takes Cardizem as well as Coumadin. She has again has had a history of A. fib with RVR and CHF. She denies any chest pain at this time. Her EKG shows A. fib with RVR. A workup for CHF standpoint as well as ACS.
[2018-03-04 14:50] LABS: Basophils % 0.5 %; Eosinophils # 0.3 K/mcL (0.0-0.6); Eosinophils % 2.9 %; Hematocrit 48.1 % (35.3-44.9); Immature Granulocytes % 0.4 % (0-4); Lymphocytes # 2.3 K/mcL (0.6-4.6); Lymphocytes % 27.3 %; Mean Corpuscular HGB Conc 33.3 g/dL (31.6-35.5); Mean Corpuscular Hemoglobin 26.4 pg (28.0-33.3); Mean Corpuscular Volume 79.4 fL (83.0-100.0); Mean Platelet Volume 9.3 fL (9.4-12.4); Monocytes # 0.7 K/mcL (0.0-1.3); Monocytes % 8.1 %; Neutrophils # 5.2 K/mcL (1.6-8.9); Platelet Count 134 K/mcL (140-400); Red Blood Count 6.06 M/mcL (3.82-4.97); Red Cell Distribution Width 15.5 % (11.5-14.5); Segmented Neutrophils % 60.8 %
--- NOTE | 2018-03-04 14:52 | Emergency Department Note ---
Disposition Clinical Impression: Atrial fibrillation with RVR Disposition: Admitted As Inpatient Condition: Fair Referrals: NONE,PCP [Non-Partnered Physician] - Forms: ED Satisfaction Letter Arrhythmia/Palpitations HPI - General Chief Complaint: ED Arrhythmia/Palpitations Stated Complaint: flutter sensation in chest Time Seen by Provider: 03/04/18 14:15 Source: patient, family Mode of arrival: private vehicle Limitations: no limitations Nursing Notes Reviewed: Yes Vital Signs Reviewed: Yes - History of Present Illness HPI Narrative: 52-year-old female history of atrial fibrillation on Cardizem as well as anticoagulation secondary to a mitral valve replacement who presents to the ER with a complaint of concern that she is in atrial fibrillation. Reports she believes she went into A. fib 2 days ago. She has had palpitations at home. She also feel like she has had some increased swelling and took some Lasix. She continued to have symptoms and felt worsening shortness of breath so came in for evaluation. She denies any chest pain. She has some shortness of breath with lying flat. No other complaints. Pt Subjective Complaint: atrial fibrillation Onset (ago): day(s) Duration: constant Arrhythmia History: atrial fibrillation Associated symptoms: Reports: shortness of breath - Related Data Home Medications Medication Instructions Recorded Confirmed Metoprolol Succinate [Toprol Xl] 75 mg PO BID 08/15/17 08/15/17 Potassium Chloride [K-Tab ER] 20 meq PO AD 08/15/17 08/15/17 Sertraline [Zoloft] 100 mg PO DAILY 08/15/17 03/04/18 Warfarin [Coumadin] 5 mg PO 1800 08/15/17 03/04/18 Diltiazem HCl [Diltiazem 24Hr Cd] 180 mg PO QPM 03/04/18 03/04/18 Furosemide [Lasix] 80 mg PO AD 03/04/18 03/04/18 Warfarin [Coumadin] 1 mg PO 1800 03/04/18 03/04/18 Allergies Allergy/AdvReac Type Severity Reaction Status Date / Time hydrochlorothiazide Allergy Hives Verified 03/04/18 14:13 hydrocodone [From Vicodin] Allergy Itching Verified 03/04/18 14:13 acetaminophen [From Tylenol] AdvReac Gastrointestinal Verified 03/04/18 14:13 Upset All systems ED: reviewed and negative except as stated. Cardiovascular: Reports: palpitations. Denies: chest pain Respiratory: Reports: dyspnea Gastrointestinal: Denies: abdominal pain, nausea, vomiting, diarrhea Past Medical History - Past Medical History Attestation: Yes The following information was validated with the patient. 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 - Social History Smoking Status: Never smoker Smokeless Tobacco Status: No Alcohol use: Reports: none Drug use: Reports: none Physical Exam - General Limitations: no limitations General appearance: alert, in no apparent distress - Head Head exam: atraumatic, normocephalic, normal inspection - Eye Eye exam: Present: normal appearance - ENT ENT exam: normal exam - Neck Neck exam: Present: normal inspection - Chest Chest inspection: Present: normal inspection, symmetric chest wall rise - Respiratory Respiratory exam: Present: other (Diminished breath sounds bilaterally) - Cardiovascular Cardiovascular exam: Present: tachycardia, irregular rhythm, normal heart sounds - Abdominal Exam Abdominal exam: Present: soft, Non-Tender. Absent: tenderness, distention, rigidity - Extremities Exam Extremities exam: Present: normal inspection, full ROM - Expanded Upper Extremity Exam Shoulder exam: Present: normal inspection, full ROM Arm exam: Present: normal inspection, full ROM Elbow exam: Present: normal inspection, full ROM Forearm/Wrist exam: Present: normal inspection, full ROM Hand exam: Present: normal inspection, full ROM - Expanded Lower Extremity Exam Hip/Pelvis exam: Present: normal inspection, full ROM Upper leg exam: Present: normal inspection, full ROM Knee exam: Present: normal inspection, full ROM Lower leg exam: Present: normal inspection, full ROM, swelling Ankle exam: Present: normal inspection, full ROM Foot/toe exam: Present: normal inspection, full ROM - Skin Skin exam: Present: warm, dry Course Course Narrative: Patient seen and examined. Vital signs reviewed. Plan for EKG, chest x-ray, labs. She is in atrial fibrillation with rapid ventricular response. 20 mg of Cardizem ordered with drip. Anticipated admission. - Reevaluation(s) Reevaluation #1: Heart rate currently around 100 with stable blood pressure. The patient is to be admitted to the hospital service. Vital Signs Temperature 98.3 F 03/04/18 14:11 Pulse Rate 124 03/04/18 14:11 Respiratory Rate 18 03/04/18 14:11 Blood Pressure 120/88 03/04/18 14:11 O2 Sat by Pulse Oximetry 95 03/04/18 14:11 Temperature 98.3 F 03/04/18 14:34 Pulse Rate 100 03/04/18 15:15 Respiratory Rate 18 03/04/18 15:15 Blood Pressure 113/90 03/04/18 15:15 O2 Sat by Pulse Oximetry 97 03/04/18 15:15 Oxygen Delivery Oxygen Delivery Room Air Arrhythmia/Palpitations - MDM Narrative Medical decision making narrative: 52-year-old female presenting with concerns that she is in atrial fibrillation. Patient found to be in A. fib RVR. Rate controlled with Cardizem currently on drip maintaining her blood pressure. Labs are grossly unremarkable. The patient is admitted to the hospitalist service. - Lab Data Lab results reviewed: Yes I reviewed the patient's lab results. Result diagrams: 03/04/18 14:39 03/04/18 14:39 Lab Results 03/04/18 03/04/18 03/04/18 Range/Units 14:39 14:39 14:39 WBC 8.5 (4.3-11.1) K/mcL RBC 6.06 H (3.82-4.97) M/mcL Hgb 16.0 H (11.5-15.4) g/dL Hct 48.1 H (35.3-44.9) % MCV 79.4 L (83.0-100.0) fL MCH 26.4 L (28.0-33.3) pg MCHC 33.3 (31.6-35.5) g/dL RDW 15.5 H (11.5-14.5) % Plt Count 134 L (140-400) K/mcL MPV 9.3 L (9.4-12.4) fL Immature Gran % 0.4 (0-4) % Seg Neutrophils % 60.8 % Lymphocytes % 27.3 % Monocytes % 8.1 % Eosinophils % 2.9 % Basophils % 0.5 % Neutrophils # 5.2 (1.6-8.9) K/mcL Lymphocytes # 2.3 (0.6-4.6) K/mcL Monocytes # 0.7 (0.0-1.3) K/mcL Eosinophils # 0.3 (0.0-0.6) K/mcL Basophils # 0.0 (0.0-0.2) K/mcL PT 15.7 H (9.4-12.1) Seconds INR 1.4 APTT 36.4 H (26.0-36.0) Seconds Sodium 136 (136-145) mEq/L Potassium 3.8 (3.5-5.1) mEq/L Chloride 103 (98-107) mEq/L Carbon Dioxide 24 (23-29) mEq/L BUN 23 H (6-20) mg/dL Creatinine 0.75 (0.60-1.20) mg/dL Est GFR ( Amer) > 60 (> 60) Est GFR (Non-Af Amer) > 60 (> 60) BUN/Creatinine Ratio 31 H (6-26) Glucose 132 H (70-105) mg/dL Calculated Osmolality 288 (280-300) Calcium 10.1 (8.6-10.3) mg/dL Total Bilirubin 1.9 H (0.3-1.0) mg/dL Direct Bilirubin 0.4 H (0.0-0.2) mg/dL Indirect Bilirubin 1.5 H (0.0-1.2) mg/dL AST 32 (13-39) Units/L ALT 29 (7-52) Units/L Alkaline Phosphatase 66 (34-104) Units/L Troponin I < 0.03 (< 0.04) ng/mL Serum Total Protein 7.6 (6.4-8.9) g/dL Albumin 4.7 (3.5-5.7) g/dL Globulin 2.9 (2.4-3.5) g/dL Albumin/Globulin Ratio 1.6 (1.1-2.2) TSH 2.850 (0.340-5.600) mcIU/mL - Radiology Data Radiology results reviewed: Yes I reviewed the patient's radiology results. Chest X-Ray 03/04/18 14:15 IMPRESSION: 1. No acute abnormality. D/ / Shamir Alvares MD / Shamir Alvares MD Interpreting Provider: Shamir Alvares MD - EKG Data EKG attestation: Yes I reviewed and interpreted this EKG. EKG results narrative: EKG demonstrates atrial fibrillation with rapid ventricular response with a rate of 144. Normal axis and intervals. Normal R-wave progression. No gross ST elevations or depressions. No acute ischemic findings. Changes from prior EKG on 06/13/17 include atrial fibrillation. Marcy - Marcy Situation: Demographics, MOA Background: Presenting Complaint, Relevant PMH, Meds, & Allergies Assessment: Vital Signs, Course and respsone to treatment, Exam Concerns, Patient/Family Expectation, Pertinant Lab Results Recommendation: Barrier(s) to disposition, Recommendation based on pending studies, treatments, or consults Marcy Report Given to: Dr. Dinesh Vidal Repor Time: 15:38
[2018-03-04 14:59] LABS: INR 1.4; Prothrombin Time 15.7 Seconds (9.4-12.1)
[2018-03-04 15:02] LABS: Activated Partial Thrombo Time 36.4 Seconds (26.0-36.0)
[2018-03-04 15:10] LABS: BUN/Creatinine Ratio 31 (6-26); Blood Urea Nitrogen 23 mg/dL (6-20); Calcium 10.1 mg/dL (8.6-10.3); Carbon Dioxide 24 mEq/L (23-29); Chloride 103 mEq/L (98-107); Glucose 132 mg/dL (70-105); Osmolality,Calculated 288 (280-300); Potassium 3.8 mEq/L (3.5-5.1); Sodium 136 mEq/L (136-145); eGFR For Non-African Americans > 60 (> 60)
[2018-03-04 15:11] LABS: Troponin I < 0.03 ng/mL (< 0.04)
[2018-03-04 15:22] LABS: Alanine Aminotransferase 29 Units/L (7-52); Albumin 4.7 g/dL (3.5-5.7); Albumin/Globulin Ratio 1.6 (1.1-2.2); Alkaline Phosphatase 66 Units/L (34-104); Aspartate Amino Transferase 32 Units/L (13-39); Bilirubin,Direct 0.4 mg/dL (0.0-0.2); Bilirubin,Indirect 1.5 mg/dL (0.0-1.2); Bilirubin,Total 1.9 mg/dL (0.3-1.0); Globulin 2.9 g/dL (2.4-3.5); Total Protein 7.6 g/dL (6.4-8.9)
[2018-03-04] MEDS ORDERED: Naloxone 0.4 MG/ML INJ IVP PRN (15:31)
[2018-03-04 15:53] LABS: Magnesium 1.8 mg/dL (1.6-2.6)
--- NOTE | 2018-03-04 15:53 | Internal Med History&Physical ---
Date of Encounter: 03/04/18 Time of Encounter: 15:20 Internal Medicine - H&P: HPI Chief complaint: palpitations Admitted From: Home Plans for Post Hospital Care: Home History of present illness: Ms. Cottrell is a 52 year old female with PMHx of afib, mitral valve replacement, recent bariatric surgery, HTN, presented to the ER with a complaint of palpitation. Since last Monday, she had been sick to her stomach and missed a couple of doses of Coumadin as well as cardizem. Denies any chest pain, SOB, orthopnea, PND, or LE swelling. No fever/chills or sick contacts. She was nauseous up until yesterday but improved since then. No GI/ symptoms. In the ED, she was afebrile with normal BP. HR 124 on arrival with EKG showing afib with RVR but no ST-T changes concerning for ischemia. CXR did not show any acute cardiopulmonary process. Labwork otherwise unremarkable including troponin and WBC. INR 1.4. She was given IV cardizem 20mg push followed by 5mg/hr and admitted for further management. Past Med Surg Social Fam HX - Past Medical History Medical history: atrial fibrillation, cardiomyopathy, CHF, coronary artery disease, hypertension, valvular heart disease, other Additional medical history: MITRAL VALVE REPLACED Psychiatric history: anxiety, depression - Past Surgical History Surgical History: appendectomy, cholecystectomy, heart valve replacement, hy sterectomy, other Additional surgical history: Gastric Sleeve (01-23-18) - Social History Smoking Status: Never smoker Smokeless Tobacco Status: No Alcohol use: none Drug use: none - Family History Mother Adopted: No Family Member Ethnicity: Non- Living Status: Still Living Hx Family Cardiac Disorders: No Hx Family Respiratory Disorders: No Hx Family Cancer: Yes (leukemia) Hx Family GI Disorders: No Hx Family Endocrine Disorder: Yes (DM) Hx Family Neuromuscular Disorders: No Hx Family Neurologic Disorders: No Hx Family HEENT Disorders: No Hx Family Autoimmune Disorders: No Internal Medicine - H&P: Meds Metoprolol Succinate [Toprol Xl] 75 mg PO DAILY 08/15/17 [History] Potassium Chloride [K-Tab ER] 10 meq PO DAILY 08/15/17 [History] Sertraline [Zoloft] 100 mg PO QPM 08/15/17 [History] Warfarin [Coumadin] 5 mg PO 1800 08/15/17 [History] Diltiazem HCl [Diltiazem 24Hr Cd] 180 mg PO QPM 03/04/18 [History] Furosemide [Lasix] 80 mg PO DAILY 03/04/18 [History] Ped Multivit #43/Iron Fumarate [Flintstones Complete Chew Tab] 1 tab PO DAILY 03/04/18 [History] Warfarin [Coumadin] 1 mg PO 1800 03/04/18 [History] Allergy/AdvReac Type Severity Reaction Status Date / Time hydrochlorothiazide Allergy Hives Verified 03/04/18 14:13 hydrocodone [From Vicodin] Allergy Itching Verified 03/04/18 14:13 acetaminophen [From Tylenol] AdvReac Gastrointestinal Verified 03/04/18 14:13 Upset All Systems PM: A 10-system review of systems was performed and is negative for pertinent findings except as documented above in the HPI. - Constitutional Vitals: Temp Pulse Resp BP Pulse Ox 98.3 F 100 18 113/90 97 03/04/18 14:34 03/04/18 15:15 03/04/18 15:15 03/04/18 15:15 03/04/18 15:15 Exam: General: Alert and oriented, not in acute distress. Obese female HEENT:EOM, pupils equal, round and reactive. Cardiovascular: Irregularly irregular, borderline tachycardia, mechanical heart sound noted. No LE edema. Lungs: clear to auscultation, no wheezes/rales Abdomen:Soft, non-tender, no rigidity. Extremities:No deformity or swelling Neurological:Normal cognition and motor skills. Non-focal Skin:Normal color, no rash, no lesions. Pulses:Carotid and radial pulses normal +2. Rest of the physical exam is non contributory Internal Med - H&P Results - Labs CBC & Chem 7: 03/04/18 14:39 03/04/18 14:39 Labs: Short CBC 03/04/18 Range/Units 14:39 WBC 8.5 (4.3-11.1) K/mcL Hgb 16.0 H (11.5-15.4) g/dL Hct 48.1 H (35.3-44.9) % Plt Count 134 L (140-400) K/mcL Neutrophils # 5.2 (1.6-8.9) K/mcL BMP 03/04/18 14:39 Sodium 136 Potassium 3.8 Chloride 103 Carbon Dioxide 24 BUN 23 H Creatinine 0.75 Glucose 132 H Calcium 10.1 Cardiac Enzymes 03/04/18 Range/Units 14:39 Troponin I < 0.03 (< 0.04) ng/mL Liver Function 03/04/18 Range/Units 14:39 Total Bilirubin 1.9 H (0.3-1.0) mg/dL Direct Bilirubin 0.4 H (0.0-0.2) mg/dL AST 32 (13-39) Units/L ALT 29 (7-52) Units/L Alkaline Phosphatase 66 (34-104) Units/L Albumin 4.7 (3.5-5.7) g/dL - Impressions ITS Impressions Chest X-Ray 03/04/18 14:15 IMPRESSION: 1. No acute abnormality. D/ / Shmair Alvares MD / Shamir Alvares MD Interpreting Provider: Shamir Alvares MD - Assessment and plan (1) Atrial fibrillation with RVR Current Visit: Yes Status: Acute Assessment and plan: presented with palpitation in the setting of missing a couple of PO meds HR improved with cardizem gtt she usually takes her PO Cardizem at night, will restart at higher dose of 240mg resume bb INR subtherapeutic, patient has hx of MVR with high risk of thromboembolism. Would initiate AC with heparin gtt with Coumadin while waiting for INR to be therapeutic Last echo in 2014, will repeat one 1 dose of potassium, aim K>4 check Mg (2) HTN (hypertension) Current Visit: Yes Status: Chronic Assessment and plan: resume home meds Qualifiers: Hypertension type: essential hypertension Qualified Code(s): I10 - Essential (primary) hypertension (3) Obesity Current Visit: No Status: Chronic Assessment and plan: s/p recent bariatric surgery continuing lifestyle modifications again emphasized. Qualifiers: Obesity type: unspecified obesity type Obesity classification: adult class 3 (BMI >= 40) Serious obesity comorbidity presence: unspecified whether serious comorbidity present Body mass index: BMI 45.0-49.9 Qualified Code(s): E66.01 - Morbid (severe) obesity due to excess calories; Z68.42 - Body mass index (BMI) 45.0-49.9, adult (4) S/P mitral valve replacement with metallic valve Current Visit: Yes Status: Chronic Assessment and plan: subtherapeutic INR AC as above (5) DVT prophylaxis Current Visit: Yes Status: Acute Assessment and plan: hep gtt - Time Spent With Patient Total time spent is greater than 50% in coordination of care (as documented) at patient's floor/unit and/or counseling patient:
[2018-03-04] MEDS ORDERED: *HR* Heparin 5,000 UNIT/ML VIAL IVP ONE (15:56)
[2018-03-04] MEDS ORDERED: *HR* Heparin 5,000 UNIT/ML VIAL IVP PRN ×2 (15:56)
[2018-03-04] MEDS ORDERED: Diltiazem CD (24hr) 240 MG CAPSULE PO SCH (18:00)
[2018-03-04] MEDS ORDERED: *HR* Warfarin 5 MG TABLET PO SCH (18:00)
[2018-03-04] MEDS ORDERED: *HR* Warfarin 1 MG TABLET PO SCH (18:00)
[2018-03-04] MEDS: Heparin 25,000 UNIT/500 ML D5W 25,000 UNIT/500 ML BAG IVC SCH (18:50)
[2018-03-04] MEDS ORDERED: Ondansetron 4 MG/2 ML VIAL IVP PRN (19:46)
[2018-03-04] MEDS ORDERED: *HR* Promethazine 25 MG/ML VIAL IVP PRN (19:46)
[2018-03-05 01:44] LABS: Basophils # 0.1 K/mcL (0.0-0.2); Basophils % 0.5 %; Eosinophils # 0.3 K/mcL (0.0-0.6); Eosinophils % 2.7 %; Hematocrit 47.3 % (35.3-44.9); Hemoglobin 15.6 g/dL (11.5-15.4); Immature Granulocytes % 0.4 % (0-4); Lymphocytes # 3.3 K/mcL (0.6-4.6); Lymphocytes % 31.9 %; Mean Corpuscular Hemoglobin 26.5 pg (28.0-33.3); Mean Corpuscular Volume 80.3 fL (83.0-100.0); Mean Platelet Volume 9.5 fL (9.4-12.4); Monocytes # 0.6 K/mcL (0.0-1.3); Monocytes % 5.9 %; Platelet Count 133 K/mcL (140-400); Red Blood Count 5.89 M/mcL (3.82-4.97); Red Cell Distribution Width 15.3 % (11.5-14.5); Segmented Neutrophils % 58.6 %
[2018-03-05 01:53] LABS: INR 1.4; Prothrombin Time 15.2 Seconds (9.4-12.1)
[2018-03-05 02:03] LABS: BUN/Creatinine Ratio 29 (6-26); Blood Urea Nitrogen 20 mg/dL (6-20); Carbon Dioxide 24 mEq/L (23-29); Chloride 102 mEq/L (98-107); Glucose 129 mg/dL (70-105); Magnesium 1.9 mg/dL (1.6-2.6); Osmolality,Calculated 284 (280-300); Potassium 3.8 mEq/L (3.5-5.1); Sodium 135 mEq/L (136-145); eGFR For Non-African Americans > 60 (> 60)
[2018-03-05 07:40] VITALS: BP 121/70
[2018-03-05] MEDS: Heparin 25,000 UNIT/500 ML D5W 25,000 UNIT/500 ML BAG IVC SCH (08:00)
[2018-03-05] MEDS ORDERED: Metoprolol XL (24 HR) Succ 50 MG TAB.ER.24H PO SCH (09:00)
[2018-03-05] MEDS ORDERED: Furosemide 40 MG TABLET PO SCH (09:00)
--- NOTE | 2018-03-05 10:14 | Discharge Summary ---
- NOTES TO OUTPATIENT PROVIDER Notes to Outpatient Provider: Patient with history of mitral valve replacement and atrial fibrillation was admitted for A. fib with RVR in the setting of missed PO meds at home due to viral gastritis. Cardizem dose increased to 240 mg daily. INR was subtherapeutic and she will be discharged home on bridgine with subcutaneous Lovenox and follow up INR in 2 days. Date of Encounter: 03/05/18 Time of Encounter: 07:45 - Discharge Diagnosis (1) Atrial fibrillation with RVR Priority: Primary Status: Acute (2) HTN (hypertension) Priority: Secondary Status: Chronic Qualifiers: Hypertension type: essential hypertension Qualified Code(s): I10 - Es sential (primary) hypertension (3) Obesity Priority: Secondary Status: Chronic Qualifiers: Obesity type: unspecified obesity type Obesity classification: adult class 3 (BMI >= 40) Serious obesity comorbidity presence: unspecified whether seriou s comorbidity present Body mass index: BMI 45.0-49.9 Qualified Code(s): E66.01 - Morbid (severe) obesity due to excess calories; Z68.42 - Body mass index (BMI) 45.0-49.9, adult (4) S/P mitral valve replacement with metallic valve Priority: Secondary Status: Chronic (5) DVT prophylaxis Priority: Secondary Status: Acute Hospital course: Ms. Cottrell is a 52 year old female with history of mitral valve replacement and atrial fibrillation was admitted for A. fib with RVR in the setting of missed PO meds at home due to viral gastritis. Cardizem dose increased to 240 mg daily. INR was subtherapeutic and she will be discharged home on bridgine with subcutaneous Lovenox and follow up INR in 2 days. Discharge discussed with: patient, nurse - Time Spent with Patient Total time spent providing and/or coordinating discharge services: 25 mins - Discharge Medications Prescriptions: Enoxaparin [Lovenox] 150 mg SQ Q12HR 7 Days #14 syr Diltiazem CD (24hr) [Cardizem CD] 240 mg PO QPM #30 cap.er.24h Home Medications: Metoprolol Succinate [Toprol Xl] 75 mg PO DAILY 08/15/17 [History] Potassium Chloride [K-Tab ER] 10 meq PO DAILY 08/15/17 [History] Sertraline [Zoloft] 100 mg PO QPM 08/15/17 [History] Warfarin [Coumadin] 5 mg PO 1800 08/15/17 [History] Furosemide [Lasix] 80 mg PO DAILY 03/04/18 [History] Ped Multivit #43/Iron Fumarate [Flintstones Complete Chew Tab] 1 tab PO DAILY 03/04/18 [History] Warfarin [Coumadin] 1 mg PO 1800 03/04/18 [History] Diltiazem CD (24hr) [Cardizem CD] 240 mg PO QPM #30 cap.er.24h 03/05/18 [Rx] Enoxaparin [Lovenox] 150 mg SQ Q12HR 7 Days #14 syr 03/05/18 [Rx] Allergies/Adverse Reactions: Allergy/AdvReac Type Severity Reaction Status Date / Time hydrochlorothiazide Allergy Hives Verified 03/04/18 14:13 hydrocodone [From Vicodin] Allergy Itching Verified 03/04/18 14:13 acetaminophen [From Tylenol] AdvReac Gastrointestinal Verified 03/04/18 14:13 Upset Date of admission: 03/04/18 16:07 Primary care physician: Mauricio Marquez CNP - Constitutional Vitals: Temp Pulse Resp BP Pulse Ox 97.7 F 92 18 121/70 92 03/05/18 07:37 03/05/18 07:37 03/05/18 07:37 03/05/18 07:37 03/05/18 07:37 Exam: General: Alert and oriented, not in acute distress. Obese female Cardiovascular: Normal rate and rhythm, mechanical heart sound noted. No LE edema. Lungs: clear to auscultation, no wheezes/rales Abdomen:Soft, non-tender, no rigidity. Extremities:No deformity or swelling Neurological:Normal cognition and motor skills. Non-focal - Patient Status Disposition: Home, Self-Care Condition: Fair Functional capacity at discharge: independent ambulation Overall status at discharge: patient is back to baseline - Discharge Instructions Instructions: Atrial Fibrillation (DC) Follow Up With: Mauricio Marquez CNP [Primary Care Provider] - Additional Instructions: Increased cardizem to 240mg QD, keep same does of Toprol XL SQ lovenox 150mg BID till INR therapeutic PT/INR in 2 days and follow up with PCP - Diet and Activity Activity: resume usual activities as tolerated Diet: regular diet
[2018-03-05] MEDS ORDERED: *HR* Enoxaparin 80 MG/0.8 ML SYRINGE SQ STA (11:05)
--- NOTE | 2018-03-06 17:16 | Electrocardiograph Report ---
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
== END 2018-03-05 13:09 | disposition home or self-care (01) ==
LOC: 2NENU 14:10 → EMEROOARM 14:10 → SUATTDRO 16:07 → 2NENU 18:04
PROVIDERS: ADMIT Internal Medicine; ATTEND Internal Medicine

== ENCOUNTER 2018-11-25 15:35 | Inpatient (IN) ==
[2018-11-25 16:26] LABS: Basophils % 0.2 %; Eosinophils # 0.2 K/mcL (0.0-0.6); Eosinophils % 2.1 %; Hematocrit 42.3 % (35.3-44.9); Hemoglobin 13.7 g/dL (11.5-15.4); Immature Granulocytes % 0.3 % (0-4); Lymphocytes # 2.3 K/mcL (0.6-4.6); Lymphocytes % 25.1 %; Mean Corpuscular HGB Conc 32.4 g/dL (31.6-35.5); Mean Corpuscular Hemoglobin 26.9 pg (28.0-33.3); Mean Corpuscular Volume 83.1 fL (83.0-100.0); Mean Platelet Volume 9.6 fL (9.4-12.4); Monocytes # 0.7 K/mcL (0.0-1.3); Monocytes % 7.8 %; Neutrophils # 5.8 K/mcL (1.6-8.9); Platelet Count 130 K/mcL (140-400); Red Blood Count 5.09 M/mcL (3.82-4.97); Red Cell Distribution Width 13.4 % (11.5-14.5); Segmented Neutrophils % 64.5 %
[2018-11-25 16:36] LABS: INR 2.4; Prothrombin Time 27.6 Seconds (9.4-12.1)
[2018-11-25 16:38] LABS: Activated Partial Thrombo Time 45.4 Seconds (26.0-36.0)
[2018-11-25 16:48] LABS: BUN/Creatinine Ratio 28 (6-26); Blood Urea Nitrogen 24 mg/dL (6-20); Calcium 9.4 mg/dL (8.6-10.3); Carbon Dioxide 28 mEq/L (23-29); Chloride 100 mEq/L (98-107); Glucose 142 mg/dL (70-105); Osmolality,Calculated 290 (280-300); Potassium 3.9 mEq/L (3.5-5.1); Sodium 137 mEq/L (136-145); Troponin I < 0.03 ng/mL (< 0.04); eGFR For African Americans > 60 (> 60); eGFR For Non-African Americans > 60 (> 60)
[2018-11-25 17:10] LABS: D-Dimer < 215 ng/mLFEU (0-500)
[2018-11-25] MEDS ORDERED: Aspirin 81 MG TAB.CHEW PO ONE (17:13)
[2018-11-25] MEDS ORDERED: Furosemide 40 MG/4 ML VIAL IVP ONE (17:14)
--- NOTE | 2018-11-25 17:20 | Emergency Department Note ---
Disposition Clinical Impression: Chest pain, rule out acute myocardial infarction Congestive heart failure Qualifiers: Heart failure type: unspecified Heart failure chronicity: acute on chronic Qualified Code(s): I50.9 - Heart failure, unspecified Disposition: Admitted As Inpatient Condition: Fair Referrals: Mauricio Marquez CNP [Primary Care Provider] - Forms: ED Satisfaction Letter Time of Disposition: 17:20 Chest Pain HPI - General Chief Complaint: ED Chest Pain Stated Complaint: CP/SOB Time Seen by Provider: 11/25/18 15:44 Source: patient Mode of arrival: ambulatory Limitations: no limitations Vital Signs Reviewed: Yes Nursing Notes Reviewed: Yes - History of Present Illness HPI Narrative: 53-year-old female presents emergency Department with acute onset of chest pain. Patient states the pain is a pressure in the center of her chest that radiates to the right jaw. She states is worse with deep breaths. She has felt l ightheaded with exertion. Denies diaphoresis or nausea or syncope. Patient denies recent trauma, changes in her medications. She has a history of cardiac disease but does not have stents placed. She has a history of mitral valve prolapse with replacement and is currently on Coumadin. Patient reports a history of hypertension, hyperlipidemia, family history of cardiac disease, obesity. Severity scale (1-10): 6 - Related Data Home Medications Medication Instructions Recorded Confirmed Potassium Chloride [K-Tab ER] 10 meq PO DAILY PRN 08/15/17 09/20/18 Warfarin [Coumadin] 5 mg PO 1800 08/15/17 09/20/18 Furosemide [Lasix] 80 mg PO DAILY PRN 03/04/18 09/20/18 Ped Multivit #43/Iron Fumarate 1 tab PO QPM 03/04/18 09/20/18 [Flintstones Complete Chew Tab] Warfarin [Coumadin] 1 mg PO 1800 03/04/18 09/20/18 Cyanocobalamin (Vitamin B-12) 500 mcg PO QPM 06/01/18 09/20/18 [Vitamin B-12] Gabapentin [Neurontin] 300 mg PO TID 06/01/18 09/20/18 Thiamine HCl [Vitamin B-1] 100 mg PO QPM 06/01/18 09/20/18 Trazodone HCl 100 mg PO HS 06/01/18 09/20/18 Metoprolol [Lopressor] 150 mg PO DAILY 09/05/18 09/20/18 Sertraline [Zoloft] 100 mg PO DAILY 09/05/18 09/20/18 Previous Rx's Medication Instructions Recorded Diltiazem CD (24hr) [Cardizem CD] 240 mg PO QPM #30 cap.er.24h 03/05/18 Allergies Allergy/AdvReac Type Severity Reaction Status Date / Time hydrochlorothiazide Allergy Hives Verified 09/20/18 11:05 hydrocodone [From Vicodin] Allergy Itching Verified 09/20/18 11:05 acetaminophen [From Tylenol] AdvReac Gastrointestinal Verified 09/20/18 11:05 Upset All systems ED: reviewed and negative except as stated. 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 BMI of 47 Skin: Warm, dry, intact Head: Normocephalic and atraumatic Neck: Supple, trachea midline and no tenderness Cardiovascular: RRR, no murmur, normal perfusion Respiratory: CTAB, no wheezing, cough, or respiratory distress Musculoskeletal: Normal strength, no tenderness, swelling or deformity GI: Soft, nontender, nondistended. Bowel sounds present Neuro: A&O to person, place, time and situation. No focal deficits noted on exam Psychiatric: cooperative and appropriate mood and affect. - General General appearance: alert Course Vital Signs Temperature 98.3 F 11/25/18 15:43 Pulse Rate 74 11/25/18 15:43 Respiratory Rate 11/25/18 15:43 Blood Pressure 147/91 11/25/18 15:43 O2 Sat by Pulse Oximetry 96 11/25/18 15:43 Temperature 98.3 F 11/25/18 15:43 Pulse Rate 71 11/25/18 16:41 Respiratory Rate 11/25/18 16:41 Blood Pressure 117/90 11/25/18 16:41 O2 Sat by Pulse Oximetry 97 11/25/18 16:41 Oxygen Delivery Oxygen Delivery Room Air Chest Pain - MDM Narrative Medical decision making narrative: Chest pain worse with deep breaths however it is also worse with exertion. D- dimer negative. Chest x-ray showed vascular congestion. Patient tried taking Lasix without significant effect yesterday. She is given 80 mg of Lasix in the emergency department today. Patient sees Dr. Calles as outpatient. Patient c omfortable with the plan for admission to the hospital for further care and evaluation of her chest pain to rule out ACS. - Medical Records Medical records reviewed: Yes I reviewed the patient's medical records. - Lab Data Lab results reviewed: Yes I reviewed the patient's lab results. Result diagrams: 11/25/18 15:53 11/25/18 15:53 Lab Results 11/25/18 11/25/18 11/25/18 Range/Units 15:53 15:53 15:53 WBC 9.0 (4.3-11.1) K/mcL RBC 5.09 H (3.82-4.97) M/mcL Hgb 13.7 (11.5-15.4) g/dL Hct 42.3 (35.3-44.9) % MCV 83.1 (83.0-100.0) fL MCH 26.9 L (28.0-33.3) pg MCHC 32.4 (31.6-35.5) g/dL RDW 13.4 (11.5-14.5) % Plt Count 130 L (140-400) K/mcL MPV 9.6 (9.4-12.4) fL Immature Gran % 0.3 (0-4) % Seg Neutrophils % 64.5 % Lymphocytes % 25.1 % Monocytes % 7.8 % Eosinophils % 2.1 % Basophils % 0.2 % Neutrophils # 5.8 (1.6-8.9) K/mcL Lymphocytes # 2.3 (0.6-4.6) K/mcL Monocytes # 0.7 (0.0-1.3) K/mcL Eosinophils # 0.2 (0.0-0.6) K/mcL Basophils # 0.0 (0.0-0.2) K/mcL PT 27.6 H (9.4-12.1) Seconds INR 2.4 APTT 45.4 H (26.0-36.0) Seconds D-Dimer < 215 (0-500) ng/mLFEU Sodium 137 (136-145) mEq/L Potassium 3.9 (3.5-5.1) mEq/L Chloride 100 (98-107) mEq/L Carbon Dioxide 28 (23-29) mEq/L BUN 24 H (6-20) mg/dL Creatinine 0.86 (0.60-1.20) mg/dL Est GFR ( Amer) > 60 (> 60) Est GFR (Non-Af Amer) > 60 (> 60) BUN/Creatinine Ratio 28 H (6-26) Glucose 142 H (70-105) mg/dL Calculated Osmolality 290 (280-300) Calcium 9.4 (8.6-10.3) mg/dL Troponin I < 0.03 (< 0.04) ng/mL - Radiology Data Radiology results reviewed: Yes I reviewed the patient's radiology results. - EKG Data EKG attestation: Yes I reviewed and interpreted this EKG. EKG results narrative: Normal sinus rhythm with a rate of 75 without evidence of STEMI or other dysrhythmia. QTC of 426, QRS of 90
[2018-11-25] MEDS ORDERED: Ondansetron ODT 4 MG TAB.RAPDIS SL PRN (17:45)
[2018-11-25] MEDS ORDERED: Acetaminophen 325 MG TABLET PO PRN (17:45)
[2018-11-25] MEDS ORDERED: Naloxone 0.4 MG/ML INJ IVP PRN (17:45)
[2018-11-25] MEDS ORDERED: Warfarin perPT PO PRN (18:00)
--- NOTE | 2018-11-25 18:16 | Internal Med History&Physical ---
Date of Encounter: 11/25/18 Time of Encounter: 17:53 Internal Medicine - H&P: HPI Chief complaint: CP Admitted From: Emergency Dept Plans for Post Hospital Care: Home History of present illness: Ms. Cottrell is a 53 year old female past medical history of atrial fibrillation on anticoagulation CHF coronary disease hypertension valvular disease with mechanical valve placement seizure. According to the patient seen woke up yesterday morning experiencing right-sided chest pressure radiating into her right jaw worsening with inspiration she did feel lightheaded with exertion denied any diaphoresis nausea or syncopal episodes. She did take some aspirin which she stated relieved some of her pain however it continued throughout the day until this morning. Pain is worse upon exertion improves with rest. She attempted taking her aspirin today however that did not relieve her pain. She also did take a Lasix without any improvement. she presented to [facility] ED with the above complaints. EKG in the ER was sinus with no ST-T wave abnormalities initial troponin was negative chest x-ray does show some vascular congestion d- dimer was not elevated. She was given IV Lasix as well as aspirin she has been admitted for further workup and evaluation. Apply assessment patient is complaining of 7 out of 10 chest pressure she just returned from the bathroom and appears to be in some mild respiratory distress. Inform nursing staff to give patient nitroglycerin Past Med Surg Social Fam HX - Past Medical History Medical history: atrial fibrillation, cardiomyopathy, CHF, coronary artery disease, hypertension, seizures, valvular heart disease, other Additional medical history: sleep apnea Psychiatric history: anxiety, depression - Past Surgical History Surgical History: appendectomy, cholecystectomy, heart valve replacement, hysterectomy, other Additional surgical history: Gastric Sleeve (01-23-18), - Social History Smoking Status: Former smoker Smokeless Tobacco Status: No Alcohol use: none Drug use: none - Family History Mother Adopted: No Family Member Ethnicity: Non- Living Status: Still Living Hx Family Cardiac Disorders: No Hx Family Respiratory Disorders: No Hx Family Cancer: Yes (leukemia) Hx Family GI Disorders: No Hx Family Endocrine Disorder: Yes (DM) Hx Family Neuromuscular Disorders: No Hx Family Neurologic Disorders: No Hx Family HEENT Disorders: No Hx Family Autoimmune Disorders: No Internal Medicine - H&P: Meds Potassium Chloride [K-Tab ER] 10 meq PO DAILY PRN 08/15/17 [History] Warfarin [Coumadin] 5 mg PO MOTUWETHFRSA 08/15/17 [History] Furosemide [Lasix] 80 mg PO DAILY PRN 03/04/18 [History] Ped Multivit #43/Iron Fumarate [Flintstones Complete Chew Tab] 1 tab PO QPM 03/04/18 [History] Diltiazem CD (24hr) [Cardizem CD] 240 mg PO QPM #30 cap.er.24h 03/05/18 [Rx] Cyanocobalamin (Vitamin B-12) [Vitamin B-12] 500 mcg PO QPM 06/01/18 [History] Gabapentin [Neurontin] 600 mg PO TID 06/01/18 [History] Thiamine HCl [Vitamin B-1] 100 mg PO QPM 06/01/18 [History] Trazodone HCl 100 mg PO HS 06/01/18 [History] Sertraline [Zoloft] 100 mg PO DAILY 09/05/18 [History] Metoprolol XL (24 HR) Succ [Toprol XL] 150 mg PO DAILY 11/25/18 [History] Warfarin [Coumadin] 2.5 mg PO VO 11/25/18 [History] Allergy/AdvReac Type Severity Reaction Status Date / Time hydrochlorothiazide Allergy Hives Verified 09/20/18 11:05 hydrocodone [From Vicodin] Allergy Itching Verified 09/20/18 11:05 acetaminophen [From Tylenol] AdvReac Gastrointestinal Verified 09/20/18 11:05 Upset All Systems PM: A 10-system review of systems was performed and is negative for pertinent findings except as documented above in the HPI. - Constitutional Constitutional: no chills, no fever(s), no night sweats - EENT Eyes: no change in vision, no discharge, no pain, no photophobia Ears: no ear discharge, no ear pain, no tinnitus Nose, mouth and throat: no dysphagia, no nasal discharge, no neck pain, no sore throat - Cardiovascular Cardiovascular ROS IM: chest pain, dyspnea on exertion, palpitations - Respiratory Respiratory: cough - Gastrointestinal Gastrointestinal: no abdominal pain, no diarrhea, no hematemesis, no hematoch ezia, no melena, no nausea, no vomiting - Constitutional Vitals: Temp Pulse Resp BP Pulse Ox 98.3 F 75 17 118/74 98 11/25/18 15:43 11/25/18 17:34 11/25/18 17:34 11/25/18 17:34 11/25/18 17:34 General appearance: Present: A&O X 3, morbidly obese Exam: . - Head Head exam: Present: atraumatic, normocephalic - Eye Eye exam: Present: PERRL, conjuntiva pink, sclera anicteric Pupils: Present: PERRL - Neck Neck exam general surgery: Present: supple, trachea midline. Absent: lymphadenopathy - Respiratory Respiratory exam: Present: CTAB. Absent: accessory muscle use, rales, rhonchi, wheezes - Cardiovascular Cardiovascular exam: Present: clicks, RRR, +S1, +S2. Absent: diastolic murmur, gallop, rubs, systolic murmur - GI/Abdominal GI/Abdominal exam: Present: normal bowel sounds, soft, no peritoneal signs. Absent: distended, tenderness - Extremities Exam Extremities exam: Present: warm, radial pulses palpable and symmetrical. Absent: calf tenderness, cyanotic, pedal edema - Neurological Exam Neurological exam: Present: CN II-XII intact, oriented X3, no focal deficits. Absent: pronater drift, facial droop, speech deficit - Skin Skin exam: Present: dry, intact Internal Med - H&P Results - Labs CBC & Chem 7: 11/25/18 15:53 11/25/18 15:53 Labs: Short CBC 11/25/18 Range/Units 15:53 WBC 9.0 (4.3-11.1) K/mcL Hgb 13.7 (11.5-15.4) g/dL Hct 42.3 (35.3-44.9) % Plt Count 130 L (140-400) K/mcL Neutrophils # 5.8 (1.6-8.9) K/mcL BMP 11/25/18 15:53 Sodium 137 Potassium 3.9 Chloride 100 Carbon Dioxide 28 BUN 24 H Creatinine 0.86 Glucose 142 H Calcium 9.4 Cardiac Enzymes 11/25/18 Range/Units 15:53 Troponin I < 0.03 (< 0.04) ng/mL - EKG Data EKG shows normal: sinus rhythm - Impressions ITS Impressions Chest X-Ray 11/25/18 16:11 IMPRESSION: Vascular congestion. D/ / 11/25/2018 16:38:06 Bruno Modi MD / natacha Interpreting Provider: Bruno Modi MD - Diagnostic Studies Chest x-ray Additional comments: Chest X-Ray 11/25/18 16:11 IMPRESSION: Vascular congestion. D/ / 11/25/2018 16:38:06 Bruno Modi MD / natacha Interpreting Provider: Bruno Modi MD - Assessment and Plan (1) Chest pain Current Visit: Yes Status: Acute Assessment and plan: Patient presented with chest pain which started yesterday l right sided radiating to jaw with shortness of breath and nausea. Initial troponin was negative EKG with no ST-T wave abnormalities history of CHF she was given IV Lasix as well as aspirin she was dancing chest pain on assessment given nitroglycerin if it continues we will need to place patient on nitro drip- previous stress test was completed 2014 which was negative for ischemia/infarct Trend troponins Continuous cardiac monitoring Obtain cardiac echo Currently no stress test will be completed tomorrow since it is a holiday due to the patient's body habitus she will be a 2 day stress and will need to undergo stress on Monday Continue with aspirin and statin A shae nitroglycerin as needed for chest pain We will obtain EKG in a.m. Qualifiers: Chest pain type: unspecified Qualified Code(s): R07.9 - Chest pain, unspecified (2) DVT prophylaxis Current Visit: No Status: Acute Assessment and plan: Coumadin (3) LAZ (obstructive sleep apnea) Current Visit: No Status: Acute Assessment and plan: CPAP (4) H/O mitral valve replacement with mechanical valve Current Visit: No Status: Chronic Assessment and plan: History of mitral valve replacement mechanical valve continue with Coumadin maintaining INR 2-3 (5) HTN (hypertension) Current Visit: No Status: Chronic Assessment and plan: Continue with home medications Qualifiers: Hypertension type: essential hypertension Qualified Code(s): I10 - Essential (primary) hypertension (6) History of atrial fibrillation Current Visit: No Status: Chronic Assessment and plan: Currently in sinus rhythm continue with cardiazem metoprolol as well as Coumadin (7) Obesity Current Visit: No Status: Chronic Assessment and plan: Patient does have a history of gastric sleeve we will continue with vitamin B12 and thiamine encouraged patient to make lifestyle changes including exercise and low-fat low-cholesterol diet Qualifiers: Obesity type: unspecified obesity type Obesity classification: adult class 3 (BMI >= 40) Serious obesity comorbidity presence: unspecified whether serious comorbidity present Body mass index: BMI 45.0-49.9 Qualified Code(s): E66.01 - Morbid (severe) obesity due to excess calories; Z68.42 - Body mass index (BMI) 45.0-49.9, adult (8) Congestive heart failure Current Visit: Yes Status: Acute Assessment and plan: History of preserved EF -previous echo 03/05/18 shows EF of 65-70% with indeterminate diastolic function mechanical mitral valve without regurgitation - chest x-ray does show some vascular congestion patient does complain of increased shortness of breath on exertion with some chest pain we will continue to diurese the patient at this time Monitor intake and output daily weights Qualifiers: Heart failure type: diastolic Heart failure chronicity: acute on chronic Qualified Code(s): I50.33 - Acute on chronic diastolic (congestive) heart failure - Time Spent With Patient Total time spent is greater than 50% in coordination of care (as documented) at patient's floor/unit and/or counseling patient:
[2018-11-25] MEDS: Nitroglycerin 0.4 MG TAB.SUBL SL PRN ×2 (18:18→18:23)
[2018-11-25] MEDS ORDERED: *HR* Warfarin 5 MG TABLET PO ONE (18:30)
[2018-11-25] MEDS: traZODone 50 MG TABLET PO SCH (20:37)
[2018-11-25] MEDS: Gabapentin 300 MG CAPSULE PO SCH (20:37)
[2018-11-26 04:41] LABS: Basophils % 0.3 %; Eosinophils # 0.2 K/mcL (0.0-0.6); Eosinophils % 2.3 %; Hematocrit 42.9 % (35.3-44.9); Hemoglobin 13.6 g/dL (11.5-15.4); Immature Granulocytes % 0.6 % (0-4); Lymphocytes # 2.7 K/mcL (0.6-4.6); Lymphocytes % 30.2 %; Mean Corpuscular HGB Conc 31.7 g/dL (31.6-35.5); Mean Corpuscular Hemoglobin 26.2 pg (28.0-33.3); Mean Corpuscular Volume 82.7 fL (83.0-100.0); Mean Platelet Volume 9.6 fL (9.4-12.4); Monocytes # 0.7 K/mcL (0.0-1.3); Monocytes % 7.4 %; Neutrophils # 5.4 K/mcL (1.6-8.9); Platelet Count 126 K/mcL (140-400); Red Blood Count 5.19 M/mcL (3.82-4.97); Red Cell Distribution Width 13.3 % (11.5-14.5); Segmented Neutrophils % 59.2 %; White Blood Count 9.1 K/mcL (4.3-11.1)
[2018-11-26 04:42] LABS: INR 2.4; Prothrombin Time 27.2 Seconds (9.4-12.1)
[2018-11-26 04:55] LABS: BUN/Creatinine Ratio 25 (6-26); Blood Urea Nitrogen 23 mg/dL (6-20); Calcium 9.6 mg/dL (8.6-10.3); Carbon Dioxide 31 mEq/L (23-29); Chloride 97 mEq/L (98-107); Chol/HDL Ratio 4.8 (0-4.9); Cholesterol 158 mg/dL (< 200); Glucose 119 mg/dL (70-105); HDL Cholesterol 33 mg/dL (40-59); LDL Cholesterol,Calculated 106 mg/dL (0-99); Osmolality,Calculated 291 (280-300); Potassium 3.4 mEq/L (3.5-5.1); Sodium 138 mEq/L (136-145); Triglycerides 94 mg/dL (< 150); eGFR For African Americans > 60 (> 60); eGFR For Non-African Americans > 60 (> 60)
[2018-11-26] MEDS: Nitroglycerin 0.4 MG TAB.SUBL SL PRN (06:55)
[2018-11-26] MEDS ORDERED: NON-FORMULARY MEDICATION 1 EACH EACH (Furosemide [Lasix] 80 MG) PO PRN (07:40)
[2018-11-26] MEDS: Aspirin 81 MG TAB.CHEW PO SCH (08:44)
[2018-11-26] MEDS: Gabapentin 300 MG CAPSULE PO SCH ×3 (08:45→21:53)
[2018-11-26] MEDS: Furosemide 40 MG/4 ML VIAL IVP SCH (08:45)
[2018-11-26] MEDS: Metoprolol XL (24 HR) Succ 50 MG TAB.ER.24H PO SCH (08:45)
[2018-11-26] MEDS ORDERED: 0.9 % Sodium Chloride 1,000 ML ONE (11:47)
[2018-11-26] MEDS: Nitroglycerin 25 MG/250 ML INFUS..BTL IVC SCH (12:00)
--- NOTE | 2018-11-26 12:25 | Cardiology Consult Note ---
Date of Encounter: 11/26/18 Time of Encounter: 12:20 Assessment and Plan (1) Diastolic CHF, chronic Current Visit: Yes Status: Acute Presentation suggestive of CHF given dyspnea, orthopnea described. States typically has upper right sided chest discomfort when retaining fluid. CXR consistent with vascular congestion. Agree with cautious diuresis. Transition to PO prior to discharge. Monitor strict I/Os, daily weights, serum Cr. CHF education provided. (2) S/P mitral valve replacement with metallic valve Current Visit: No Status: Chronic SBE prophylaxis recommended. Continue coumadin, goal INR 2.5 to 3.5. (3) Atrial fibrillation and flutter Current Visit: No Status: Acute HR appears to be well controlled. Already on anticoagulation for mechanical valve. Continue diltiazem/metoprolol therapy. (4) Chest discomfort Current Visit: Yes Status: Acute Chest discomfort is atypical. Symptoms have resolved with diuresis. She has a known history of minimal CAD, preserved LV function. Echocardiogram has been ordered. If no significant findings, then no further testing appears to be necessary at this time. Discussion w patient/family: The assessment and plan as outlined above was discussed with the patient and/or family members who expressed understanding and agreement. All questions were answered. Thank you for involving us in the care of your patient. Please call with any questions. History of Present Illness Consult date: 11/26/18 Requesting physician: Christie Holcomb Consult reason: Chest pain, Shortness of breath Chief complaint: Ches pain, Shortness of breath History of present illness: Ms. Cottrell is a 53 year old female with a history of mitral stenosis, previous mechanical mitral valve replacement, and atrial fibrillation. Comorbidities include diastolic CHF, morbid obesity. Presents with complaints of shortness of breath and upper right sided chest discomfort. State she has had similar symptoms before when in CHF. Reports chests pain has improved with diuresis and possibly NTG. During my encounter, she states she was feeling much better. Troponin measurements negative. CXR - vascular congestion. TTE 02/2018:EF 65-70%. Normal RV size and fucntion. Mechanical MV with normal function. RVSP not well obtained. [facility] 10/2014: Minimal CAD. Past Med Surg Social Fam HX - Past Medical History Medical history: atrial fibrillation, cardiomyopathy, CHF, coronary artery disease, hypertension, seizures, valvular heart disease, other Additional medical history: sleep apnea Psychiatric history: anxiety, depression - Past Surgical History Surgical History: appendectomy, cholecystectomy, heart valve replacement, hysterectomy, other Additional surgical history: Gastric Sleeve (01-23-18), - Social History Smoking Status: Former smoker Smokeless Tobacco Status: No Alcohol use: none Drug use: none - Family History Mother Adopted: No Family Member Ethnicity: Non- Living Status: Still Living Hx Family Cardiac Disorders: Yes (HTN) Hx Family Respiratory Disorders: No Hx Family Cancer: Yes (leukemia) Hx Family GI Disorders: No Hx Family Genitourinary Disorders: No Hx Family Endocrine Disorder: Yes (DM) Hx Family Musculoskeletal Disorders: No Hx Family Neuromuscular Disorders: No Hx Family Neurologic Disorders: No Hx Family HEENT Disorders: No Hx Family Autoimmune Disorders: No Hx Family Reproductive Disorders: No Hx Family Psychosocial Disorders: No Hx Family Medical Disorders: No Father Hx Family Cardiac Disorders: Yes (HTN quadruple bypass,) Hx Family Respiratory Disorders: No Hx Family Cancer: No Hx Family GI Disorders: No Hx Family Genitourinary Disorders: No Hx Family Endocrine Disorder: No Hx Family Musculoskeletal Disorders: No Hx Family Neuromuscular Disorders: No Hx Family Neurologic Disorders: Yes (CVAx2) Hx Family HEENT Disorders: No Hx Family Autoimmune Disorders: No Hx Family Reproductive Disorders: No Hx Family Psychosocial Disorders: No Hx Family Medical Disorders: No Medications and Allergies Potassium Chloride [K-Tab ER] 10 meq PO DAILY PRN 08/15/17 [History] Warfarin [Coumadin] 5 mg PO MOTUWETHFRSA 08/15/17 [History] Furosemide [Lasix] 80 mg PO DAILY PRN 03/04/18 [History] Ped Multivit #43/Iron Fumarate [Flintstones Complete Chew Tab] 1 tab PO QPM 03/04/18 [History] Diltiazem CD (24hr) [Cardizem CD] 240 mg PO QPM #30 cap.er.24h 03/05/18 [Rx] Cyanocobalamin (Vitamin B-12) [Vitamin B-12] 500 mcg PO QPM 06/01/18 [History] Gabapentin [Neurontin] 600 mg PO TID 06/01/18 [History] Thiamine HCl [Vitamin B-1] 100 mg PO QPM 06/01/18 [History] Trazodone HCl 100 mg PO HS 06/01/18 [History] Sertraline [Zoloft] 100 mg PO DAILY 09/05/18 [History] Metoprolol XL (24 HR) Succ [Toprol XL] 150 mg PO DAILY 11/25/18 [History] Warfarin [Coumadin] 2.5 mg PO VO 11/25/18 [History] Allergy/AdvReac Type Severity Reaction Status Date / Time hydrochlorothiazide Allergy Hives Verified 09/20/18 11:05 hydrocodone [From Vicodin] Allergy Itching Verified 09/20/18 11:05 acetaminophen [From Tylenol] AdvReac Gastrointestinal Verified 09/20/18 11:05 Upset All Systems Review: The remainder of the systems were reviewed and are negative - Cardiovascular Cardiovascular: as per HPI, chest pain at rest, dyspnea at rest, orthopnea - Respiratory Respiratory: dyspnea Physical Examination Vital Signs, Last 4 Hours Temp Pulse Resp BP Pulse Ox 11/26/18 12:18 84 18 96/64 95 11/26/18 12:03 88 18 119/80 97 11/26/18 10:46 97.9 F 84 16 112/76 91 General: Conversant, No Apparent Distress HEENT: Atraumatic, Normocephaly, Mucus Membranes Moist Neck: No JVD Cardiac: Other (Distant, appears irregular, click noted. ) Lungs: Normal Breath Sounds, No Wheeze, Rales, Rhonchi, Other (Shallow) Neuro: Alert and responsive, No focal deficits noted, Other Abdomen: Soft, Non-Tender Skin: No rashes noted on visualized skin Musculoskeletal: No Chest Wall Tenderness Extremities: No Clubbing, No Cyanosis, No Edema Results 11/26/18 03:22 11/26/18 03:22 Lab Results 11/25/18 11/25/18 11/25/18 15:53 15:53 15:53 WBC 9.0 Hgb 13.7 Hct 42.3 Plt Count 130 L INR 2.4 APTT 45.4 H D-Dimer < 215 Sodium 137 Potassium 3.9 Chloride 100 Carbon Dioxide 28 BUN 24 H Creatinine 0.86 Glucose 142 H Calcium 9.4 Troponin I < 0.03 11/25/18 11/26/18 11/26/18 21:40 03:22 03:22 WBC 9.1 Hgb 13.6 Hct 42.9 Plt Count 126 L INR APTT D-Dimer Sodium Potassium Chloride Carbon Dioxide BUN Creatinine Glucose Calcium Troponin I < 0.03 < 0.03 11/26/18 11/26/18 03:22 03:22 WBC Hgb Hct Plt Count INR 2.4 APTT D-Dimer Sodium 138 Potassium 3.4 L Chloride 97 L Carbon Dioxide 31 H BUN 23 H Creatinine 0.91 Glucose 119 H Calcium 9.6 Troponin I - Imaging and Cardiology Echo: report reviewed Cardiac cath: report reviewed Consult Discharge Plan - Plan Referrals: Mauricio Marquez, FIRE SAFETY MANAGER [Primary Care Provider] -
--- NOTE | 2018-11-26 13:15 | Internal Med Progress Note ---
Hospitalist Progress Note - Encounter Date of Encounter: 11/26/18 Time of Encounter: 13:13 - Subjective Interval History: Patient was seen and examined at bedside she complains of continued chest pain right-sided radiating to neck worse when she lies back. Attempted to give nitroglycerin glycerin however did drop her blood pressure. Did discuss with c ardiology will see patient up on consult - Exam Vitals: Temp Pulse Resp BP Pulse Ox 97.9 F 84 18 96/64 95 11/26/18 10:46 11/26/18 12:18 11/26/18 12:18 11/26/18 12:18 11/26/18 12:18 Exam: Skin: Free of rash and discoloration. Eyes: Sclera is white. There is no discharge from eyes. ENMT: Oral/pharyngeal mucosa is normal in appearance. There is no discharge from nose or ears. Respiratory: Normal breath sounds with no crackles and wheezes bilaterally. CV: Heart is regular with no gallop or murmur. GI: Abdomen is obese and soft with no palpable mass or visceromegaly. : There is no tenderness in patient's flanks bilaterally. Neuro exam: He has good strength in upper and lower extremities. He has normal eye movements. Psychiatric: He has normal affect. His thought process is appropriate to the situation. - Assessment and Plan (1) Chest pain Current Visit: Yes Status: Acute Assessment and Plan: Patient presented with chest pain which started yesterday l right sided radiating to jaw with shortness of breath and nausea. Initial troponin was negative EKG with no ST-T wave abnormalities history of CHF she was given IV Lasix as well as aspirin she was dancing chest pain on assessment given nitroglycerin if it continues we will need to place patient on nitro drip- previous stress test was completed 2014 which was negative for ischemia/infarct Trend troponins Continuous cardiac monitoring Obtain cardiac echo Currently no stress test will be completed tomorrow since it is a holiday due to the patient's body habitus she will be a 2 day stress and will need to undergo stress on Monday Continue with aspirin and statin A shae nitroglycerin as needed for chest pain We will obtain EKG in a.m. / Continues to experience chest pain discussed with cardiology who will see patient up on consult suspect this may be related to fluid overload Troponins are negative EKG with nothing acute Continue nitroglycerin as needed We will obtain cardiac echo-cardiology states that no new findings on echo can follow-up as outpatient (2) DVT prophylaxis Current Visit: No Status: Acute Assessment and Plan: Coumadin (3) LAZ (obstructive sleep apnea) Current Visit: No Status: Acute Assessment and Plan: CPAP (4) H/O mitral valve replacement with mechanical valve Current Visit: No Status: Chronic Assessment and Plan: History of mitral valve replacement mechanical valve continue with Coumadin maintaining INR 2.5-3.5 (5) HTN (hypertension) Current Visit: No Status: Chronic Assessment and Plan: Continue with home medications (6) History of atrial fibrillation Current Visit: No Status: Chronic Assessment and Plan: Currently in sinus rhythm continue with cardiazem metoprolol as well as Coumadin (7) Obesity Current Visit: No Status: Chronic Assessment and Plan: Patient does have a history of gastric sleeve we will continue with vitamin B12 and thiamine encouraged patient to make lifestyle changes including exercise and low-fat low-cholesterol diet (8) Congestive heart failure Current Visit: Yes Status: Acute Assessment and Plan: History of preserved EF -previous echo 03/05/18 shows EF of 65-70% with indeterminate diastolic function mechanical mitral valve without regurgitation - chest x-ray does show some vascular congestion patient does complain of increased shortness of breath on exertion with some chest pain we will continue to diurese the patient at this time Monitor intake and output daily weights 11/26 We will continue to diurese the patient Obtain cardiac echo Intake and output daily weights Lace-on 1500 mL fluid restriction - Time Spent with Patient Total time spent is greater than 50% in coordination of care (as documented) at patient's floor/unit and/or counseling patient: Internal Medicine: Result - Labs CBC & Chem 7: 11/26/18 03:22 11/26/18 03:22 Labs: Short CBC 11/25/18 11/26/18 Range/Units 15:53 03:22 WBC 9.0 9.1 (4.3-11.1) K/mcL Hgb 13.7 13.6 (11.5-15.4) g/dL Hct 42.3 42.9 (35.3-44.9) % Plt Count 130 L 126 L (140-400) K/mcL Neutrophils # 5.8 5.4 (1.6-8.9) K/mcL BMP 09/01/19 09/02/19 15:53 03:22 Sodium 137 138 Potassium 3.9 3.4 L Chloride 100 97 L Carbon Dioxide 28 31 H BUN 24 H 23 H Creatinine 0.86 0.91 Glucose 142 H 119 H Calcium 9.4 9.6 Cardiac Enzymes 11/25/18 11/25/18 11/26/18 Range/Units 15:53 21:40 03:22 Troponin I < 0.03 < 0.03 < 0.03 (< 0.04) ng/mL - ABG Interpretation ABG results: PT/INR, D-dimer PT 27.2 Seconds (9.4-12.1) H 11/26/18 03:22 D-Dimer < 215 ng/mLFEU (0-500) 11/25/18 15:53 - Impressions Impressions Chest X-Ray 11/25/18 16:11 IMPRESSION: Vascular congestion. D/ / 11/25/2018 16:38:06 Bruno Modi MD / natacha Interpreting Provider: Bruno Modi MD Consult Discharge Plan - Plan Referrals: Mauricio Marquez, [employer] SEWING MACHINE OPERATOR [Primary Care Provider] - (1) Chest pain Qualifiers: Chest pain type: unspecified Qualified Code(s): R07.9 - Chest pain, unspecified (5) HTN (hypertension) Qualifiers: Hypertension type: essential hypertension Qualified Code(s): I10 - Essential (primary) hypertension (7) Obesity Qualifiers: Obesity type: unspecified obesity type Obesity classification: adult class 3 (BMI >= 40) Serious obesity comorbidity presence: unspecified whether serious comorbidity present Body mass index: BMI 45.0-49.9 Qualified Code(s): E66.01 - Morbid (severe) obesity due to excess calories; Z68.42 - Body mass index (BMI) 45.0-49.9, adult (8) Congestive heart failure Qualifiers: Heart failure type: diastolic Heart failure chronicity: acute on chronic Qualified Code(s): I50.33 - Acute on chronic diastolic (congestive) heart failure
[2018-11-26] MEDS ORDERED: *HR* Warfarin 5 MG TABLET PO ONE (18:00)
[2018-11-26] MEDS: Diltiazem CD (24hr) 240 MG CAPSULE PO SCH (18:32)
[2018-11-26] MEDS: Thiamine (B-1) 100 MG TABLET PO SCH (18:33)
[2018-11-26] MEDS: Cyanocobalamin (B-12) 1,000 MCG TABLET PO SCH (18:33)
[2018-11-26] MEDS: traZODone 50 MG TABLET PO SCH (21:53)
[2018-11-27 03:53] LABS: Prothrombin Time 22.7 Seconds (9.4-12.1)
[2018-11-27] MEDS: Aspirin 81 MG TAB.CHEW PO SCH (07:54)
[2018-11-27] MEDS: Metoprolol XL (24 HR) Succ 50 MG TAB.ER.24H PO SCH (07:54)
[2018-11-27] MEDS: Gabapentin 300 MG CAPSULE PO SCH ×3 (07:54→19:35)
[2018-11-27] MEDS: Furosemide 40 MG/4 ML VIAL IVP SCH (07:54)
[2018-11-27] MEDS ORDERED: *HR* Heparin 5,000 UNIT/ML VIAL IVP ONE (08:42)
[2018-11-27] MEDS ORDERED: *HR* Heparin 5,000 UNIT/ML VIAL IVP PRN ×2 (08:42)
[2018-11-27 09:30] LABS: Hematocrit 45.2 % (35.3-44.9); Hemoglobin 14.7 g/dL (11.5-15.4); Mean Corpuscular HGB Conc 32.5 g/dL (31.6-35.5); Mean Corpuscular Hemoglobin 26.9 pg (28.0-33.3); Mean Corpuscular Volume 82.8 fL (83.0-100.0); Mean Platelet Volume 9.3 fL (9.4-12.4); Platelet Count 144 K/mcL (140-400); Red Blood Count 5.46 M/mcL (3.82-4.97); Red Cell Distribution Width 13.3 % (11.5-14.5)
[2018-11-27 09:38] LABS: Heparin anti-factor XA UFH 0.01 IU/mL (0.30-0.70)
[2018-11-27 09:39] LABS: INR 1.9; Prothrombin Time 21.8 Seconds (9.4-12.1)
--- NOTE | 2018-11-27 10:32 | Internal Med Progress Note ---
Hospitalist Progress Note - Encounter Date of Encounter: 11/27/18 Time of Encounter: 10:30 - Subjective Interval History: Patient was seen and examined at bedside currently she states that she does feel better than she did yesterday no chest pain voice at this time. She has been evaluated by cardiology this a.m. chest x-ray echo are pending due to subt herapeutic INR patient will be initiated on heparin drip. - Exam Vitals: Temp Pulse Resp BP Pulse Ox 97.9 F 96 16 116/85 94 11/27/18 07:01 11/27/18 07:53 11/27/18 07:01 11/27/18 07:53 11/27/18 07:01 Exam: Skin: Free of rash and discoloration. Eyes: Sclera is white. There is no discharge from eyes. ENMT: Oral/pharyngeal mucosa is normal in appearance. There is no discharge from nose or ears. Respiratory: Normal breath sounds with no crackles and wheezes bilaterally. CV: Heart is regular with no gallop or murmur.click GI: Abdomen is obese and soft with no palpable mass or visceromegaly. : There is no tenderness in patient's flanks bilaterally. Neuro exam: He has good strength in upper and lower extremities. He has normal eye movements. Psychiatric: He has normal affect. His thought process is appropriate to the situation. - Assessment and Plan (1) Chest pain Current Visit: Yes Status: Acute Assessment and Plan: Patient presented with chest pain which started yesterday l right sided radiating to jaw with shortness of breath and nausea. Initial troponin was negative EKG with no ST-T wave abnormalities history of CHF she was given IV Lasix as well as aspirin she was dancing chest pain on assessment given nitroglycerin if it continues we will need to place patient on nitro drip- previous stress test was completed 2014 which was negative for ischemia/infarct Trend troponins Continuous cardiac monitoring Obtain cardiac echo Currently no stress test will be completed tomorrow since it is a holiday due to the patient's body habitus she will be a 2 day stress and will need to undergo stress on Monday Continue with aspirin and statin A shae nitroglycerin as needed for chest pain We will obtain EKG in a.m. 11/26 Continues to experience chest pain discussed with cardiology who will see patient up on consult suspect this may be related to fluid overload Troponins are negative EKG with nothing acute Continue nitroglycerin as needed We will obtain cardiac echo-cardiology states that no new findings on echo can follow-up as outpatient 11/27 No chest pain foist today Troponins are negative Cardiac echo is pending at this time Continue to diurese patient Continue with aspirin and statin, beta shae nitroglycerin as needed for chest pain (2) DVT prophylaxis Current Visit: No Status: Acute Assessment and Plan: Coumadin (3) LAZ (obstructive sleep apnea) Current Visit: No Status: Acute Assessment and Plan: CPAP (4) H/O mitral valve replacement with mechanical valve Current Visit: No Status: Chronic Assessment and Plan: History of mitral valve replacement mechanical valve continue with Coumadin maintaining INR 2.5-3.5-INR today is 1.9 she will be initiated on heparin drip for Bridge per cardiology (5) HTN (hypertension) Current Visit: No Status: Chronic Assessment and Plan: Continue with home medications (6) History of atrial fibrillation Current Visit: No Status: Chronic Assessment and Plan: Currently in sinus rhythm continue with cardiazem metoprolol as well as Coumadin (7) Obesity Current Visit: No Status: Chronic Assessment and Plan: Patient does have a history of gastric sleeve we will continue with vitamin B12 and thiamine encouraged patient to make lifestyle changes including exercise and low-fat low-cholesterol diet (8) Congestive heart failure Current Visit: Yes Status: Acute Assessment and Plan: History of preserved EF -previous echo 03/05/18 shows EF of 65-70% with indeterminate diastolic function mechanical mitral valve without regurgitation - chest x-ray does show some vascular congestion patient does complain of increased shortness of breath on exertion with some chest pain we will continue to diurese the patient at this time Monitor intake and output daily weights 11/26 We will continue to diurese the patient Obtain cardiac echo Intake and output daily weights Lace-on 1500 mL fluid restriction 11/27 Continue with fluid restriction Cardiac echo is pending Monitor intake and output daily weights Fluid restriction of 1500ml daily (9) Anticoagulation monitoring, INR range 2.5-3.5 Current Visit: Yes Status: Acute Assessment and Plan: She has a history of atrial fibrillation as well as mechanical mitral valve replacement-she is on Coumadin maintaining an INR range of 2.5-3.5. This morning patient's INR was 1.9. She has been initiated on a heparin drip to bridge Coumadin per cardiology - Time Spent with Patient Total time spent is greater than 50% in coordination of care (as documented) at patient's floor/unit and/or counseling patient: Internal Medicine: Result - Labs CBC & Chem 7: 11/27/18 09:06 11/26/18 03:22 Labs: Short CBC 11/27/18 Range/Units 09:06 WBC 9.0 (4.3-11.1) K/mcL Hgb 14.7 (11.5-15.4) g/dL Hct 45.2 H (35.3-44.9) % Plt Count 144 (140-400) K/mcL - ABG Interpretation ABG results: PT/INR, D-dimer PT 21.8 Seconds (9.4-12.1) H 11/27/18 09:06 D-Dimer < 215 ng/mLFEU (0-500) 11/25/18 15:53 Consult Discharge Plan - Plan Referrals: Mauricio Marquez, BICYCLE SERVICE TECHNICIAN [Primary Care Provider] - (1) Chest pain Qualifiers: Chest pain type: unspecified Qualified Code(s): R07.9 - Chest pain, unspecified (5) HTN (hypertension) Qualifiers: Hypertension type: essential hypertension Qualified Code(s): I10 - Essential (primary) hypertension (7) Obesity Qualifiers: Obesity type: unspecified obesity type Obesity classification: adult class 3 (BMI >= 40) Serious obesity comorbidity presence: unspecified whether serious comorbidity present Body mass index: BMI 45.0-49.9 Qualified Code(s): E66.01 - Morbid (severe) obesity due to excess calories; Z68.42 - Body mass index (BMI) 45.0-49.9, adult (8) Congestive heart failure Qualifiers: Heart failure type: diastolic Heart failure chronicity: acute on chronic Qualified Code(s): I50.33 - Acute on chronic diastolic (congestive) heart failure
--- NOTE | 2018-11-27 10:38 | Electrocardiograph Report ---
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
[2018-11-27] MEDS: Heparin 25,000 UNIT/250 ML D5W 25,000 UNIT/250 ML IV.SOLN IVC SCH ×2 (10:51→22:28)
[2018-11-27] MEDS: Nitroglycerin 25 MG/250 ML INFUS..BTL IVC SCH (11:00)
--- NOTE | 2018-11-27 11:01 | Cardiology Progress Note ---
Date of Encounter: 11/27/18 Time of Encounter: 08:45 Assessment and Plan (1) Diastolic CHF, chronic Current Visit: Yes Status: Acute Per cardiology: -Presentation suggestive of CHF given dyspnea, orthopnea described. -States typically has upper right sided chest discomfort when retaining fluid. -CXR consistent with vascular congestion. -Currently net negative ~1.2L. -Reports symptom improvement, however not back to baseline. -Agree with cautious diuresis. Suspect will need one more day of diuresis. Transition to PO prior to discharge. -Will repeat Chest x-ray today. -Monitor strict I/Os, daily weights, serum Cr. -CHF education provided. (2) Chest discomfort Current Visit: Yes Status: Acute Per cardiology: -Chest discomfort is atypical. -Symptoms have resolved with diuresis. -She has a known history of minimal CAD, preserved LV function. -Echocardiogram has been ordered. If no significant findings, then no further testing appears to be necessary at this time. (3) Atrial fibrillation and flutter Current Visit: No Status: Acute Per cardiololgy: -Known history -HR appears to be well controlled. -Already on anticoagulation for mechanical valve. -Continue diltiazem/metoprolol therapy. (4) S/P mitral valve replacement with metallic valve Current Visit: No Status: Chronic Per cardiology: -SBE prophylaxis recommended. -Continue coumadin, goal INR 2.5 to 3.5. INR today 1.9. -With sub therapeutic INR, will start heparin drip. Recommend heparin drip until INR at goal 2.5-3.5. Discussion w patient/family: The assessment and plan as outlined above was discussed with the patient who expressed understanding and agreement. All questions were answered. Thank you for involving us in the care of your patient. Please call with any questions. Discussed and reviewed with . Subjective Principal diagnosis: diastolic CHF Interval history: Patient denies current chest pain. Reports shortness of breath improved, however not back to baseline. Reports fluttering, knows she is in a.fib. Objective Vital Signs, Last 4 Hours Temp Pulse Resp BP Pulse Ox 11/27/18 07:53 96 116/85 11/27/18 07:01 97.9 F 92 16 96/64 94 General: Conversant, No Apparent Distress HEENT: Atraumatic, Normocephaly, Mucus Membranes Moist Neck: No JVD, Normal carotid pulses Cardiac: Normal S1 and S2, Other (Irregularly irregular. Mitral click noted. ) Lungs: Other (Lung sounds diminished throughout. ) Neuro: Alert and responsive, No focal deficits noted Abdomen: Soft, Non-Tender Skin: No rashes noted on visualized skin Musculoskeletal: No Chest Wall Tenderness Extremities: No Clubbing, No Cyanosis, Normal Pulses, Other (Mild lower extremity edema noted, non-pitting. ) Results 11/27/18 09:06 11/26/18 03:22 Lab Results Active Medications Acetaminophen (Tylenol) 650 mg PO Q6HR PRN PRN Reason: Mild Pain/Fever Stop: 05/27/19 17:46 Last Admin: 11/26/18 18:48 Dose: 650 mg Documented by: Aspirin (Aspirin) 81 mg PO DAILY [facility] Stop: 05/28/19 09:01 Last Admin: 11/27/18 07:54 Dose: 81 mg Documented by: Cyanocobalamin (Vitamin B12) 500 mcg PO QPM [facility] Stop: 05/28/19 18:01 Last Admin: 11/26/18 18:33 Dose: 500 mcg Documented by: Diltiazem HCl (Cardizem Cd) 240 mg PO QPM [facility] Stop: 05/28/19 18:01 Last Admin: 11/26/18 18:32 Dose: 240 mg Documented by: Furosemide (Lasix) 40 mg IVP DAILY [facility] Stop: 05/28/19 09:01 Last Admin: 11/27/18 07:54 Dose: 40 mg Documented by: Gabapentin (Neurontin) 600 mg PO TID [facility] Stop: 05/27/19 21:01 Last Admin: 11/27/18 07:54 Dose: 600 mg Documented by: Heparin Sodium (Porcine) (Heparin) 9,000 unit IVP Q6HR PRN PRN Reason: SEE COMMENTS Stop: 05/29/19 08:43 Heparin Sodium (Porcine) (Heparin) 4,500 unit IVP Q6H PRN PRN Reason: SEE COMMENTS Stop: 05/29/19 08:43 Nitroglycerin (Nitroglycerin Premix 25 Mg/250 Ml) 25 mg in 250 mls @ 1.5 mls/hr IVC .Q24H [facility]; Protocol Stop: 05/28/19 10:16 Last Admin: 11/27/18 11:00 Dose: Not Given Documented by: Heparin Sodium/Dextrose (Heparin 25,000 Unit/250 Ml D5w) 25,000 unit in 250 mls @ 22.68 mls/hr IVC .Q11H2M [facility]; Protocol Stop: 05/29/19 08:46 Last Admin: 11/27/18 10:51 Dose: 14 units/kg/hr, 22.7 mls/hr Documented by: Metoprolol Succinate (Toprol Xl) 150 mg PO DAILY [facility] Stop: 05/28/19 09:01 Last Admin: 11/27/18 07:54 Dose: 150 mg Documented by: Naloxone HCl (Narcan) 0.4 mg IVP Q2MPRN PRN PRN Reason: SEE COMMENTS Stop: 05/27/19 17:46 Nitroglycerin (Nitroglycerin) 0.4 mg SL Q5MIN PRN PRN Reason: Chest Pain Stop: 05/27/19 18:14 Last Admin: 11/26/18 06:55 Dose: 0.4 mg Documented by: Ondansetron HCl (Zofran Odt) 4 mg SL Q8HR PRN PRN Reason: Nausea And Vomiting Stop: 05/27/19 17:46 Potassium Chloride (Potassium Chloride) 10 meq PO DAILY PRN PRN Reason: SEE COMMENTS Sertraline HCl (Zoloft) 100 mg PO DAILY [facility] Stop: 05/28/19 09:01 Last Admin: 11/27/18 07:54 Dose: 100 mg Documented by: Thiamine HCl (Vitamin B-1) 100 mg PO QPM [facility] Stop: 05/28/19 18:01 Last Admin: 11/26/18 18:33 Dose: 100 mg Documented by: Trazodone HCl (Trazodone) 100 mg PO HS [facility] Stop: 05/27/19 21:01 Last Admin: 11/26/18 21:53 Dose: 100 mg Documented by: Warfarin Sodium (Coumadin Perpt) 1 each PO DAILY@1800 PRN; Protocol PRN Reason: SEE COMMENTS Stop: 05/27/19 18:01 Laboratory Tests 11/27/18 11/27/18 03:26 09:06 Hgb 14.7 INR 2.0 - Imaging and Cardiology Chest Xray: report reviewed Echo: pending - EKG Interpretation EKG results cardiology: other (Telemetry reviewed with average HR previous 12 hours noted to be 78, a.fib. PVCs noted.) Consult Discharge Plan - Plan Referrals: Maurciio Marquez, GENERAL EXPEDITOR [Primary Care Provider] -
[2018-11-27] MEDS ORDERED: *HR* Warfarin 5 MG TABLET PO ONE (18:00)
[2018-11-27] MEDS: Cyanocobalamin (B-12) 1,000 MCG TABLET PO SCH (18:09)
[2018-11-27] MEDS: Diltiazem CD (24hr) 240 MG CAPSULE PO SCH (18:09)
[2018-11-27] MEDS: Thiamine (B-1) 100 MG TABLET PO SCH (18:09)
[2018-11-27] MEDS: traZODone 50 MG TABLET PO SCH (19:35)
[2018-11-28 04:20] LABS: Basophils % 0.2 %; Eosinophils # 0.2 K/mcL (0.0-0.6); Eosinophils % 2.1 %; Hemoglobin 13.3 g/dL (11.5-15.4); Immature Granulocytes % 0.6 % (0-4); Mean Corpuscular HGB Conc 31.7 g/dL (31.6-35.5); Mean Corpuscular Hemoglobin 25.9 pg (28.0-33.3); Mean Corpuscular Volume 81.9 fL (83.0-100.0); Mean Platelet Volume 9.8 fL (9.4-12.4); Monocytes # 0.7 K/mcL (0.0-1.3); Monocytes % 6.9 %; Neutrophils # 4.8 K/mcL (1.6-8.9); Platelet Count 139 K/mcL (140-400); Red Blood Count 5.13 M/mcL (3.82-4.97); Red Cell Distribution Width 13.2 % (11.5-14.5); Segmented Neutrophils % 49.2 %; White Blood Count 9.7 K/mcL (4.3-11.1)
[2018-11-28 04:29] LABS: INR 1.9; Prothrombin Time 21.8 Seconds (9.4-12.1)
[2018-11-28 04:42] LABS: BUN/Creatinine Ratio 28 (6-26); Blood Urea Nitrogen 26 mg/dL (6-20); Calcium 9.4 mg/dL (8.6-10.3); Carbon Dioxide 31 mEq/L (23-29); Chloride 99 mEq/L (98-107); Glucose 125 mg/dL (70-105); Osmolality,Calculated 294 (280-300); Potassium 3.2 mEq/L (3.5-5.1); Sodium 139 mEq/L (136-145); eGFR For African Americans > 60 (> 60); eGFR For Non-African Americans > 60 (> 60)
[2018-11-28] MEDS: Metoprolol XL (24 HR) Succ 50 MG TAB.ER.24H PO SCH (08:18)
[2018-11-28] MEDS: Gabapentin 300 MG CAPSULE PO SCH ×3 (08:18→19:38)
[2018-11-28] MEDS: Aspirin 81 MG TAB.CHEW PO SCH (08:19)
[2018-11-28] MEDS: Furosemide 40 MG/4 ML VIAL IVP SCH (08:19)
[2018-11-28] MEDS: Heparin 25,000 UNIT/250 ML D5W 25,000 UNIT/250 ML IV.SOLN IVC SCH ×2 (09:38→21:23)
[2018-11-28] MEDS: Nitroglycerin 25 MG/250 ML INFUS..BTL IVC SCH (09:39)
--- NOTE | 2018-11-28 11:32 | Cardiology Progress Note ---
Date of Encounter: 11/28/18 Time of Encounter: 08:30 Assessment and Plan (1) Diastolic CHF, chronic Current Visit: Yes Status: Acute Per cardiology: -Presentation suggestive of CHF given dyspnea, orthopnea described. -States typically has upper right sided chest discomfort when retaining fluid. -CXR consistent with vascular congestion. -Currently net negative ~1.7L. Euvolemic on exam. Reports resolution of symptoms. -WIll stop IV lasix and resume oral lasix. Of note, patient was taking 80mg po lasix PRN was not on daily lasix. Will start lasix 20mg daily. -Cardiology wull sign off, will arrange close outpatient follow up. -Monitor strict I/Os, daily weights. -CHF education provided. (2) Chest discomfort Current Visit: Yes Status: Acute Per cardiology: -Chest discomfort is atypical. -Symptoms have resolved with diuresis. -She has a known history of minimal CAD, preserved LV function. -Echocardiogram with LVEF preserved, no wall motion abnormalities noted. (3) Atrial fibrillation and flutter Current Visit: No Status: Acute Per cardiololgy: -Known history -HR appears to be well controlled. -Already on anticoagulation for mechanical valve. -Continue diltiazem/metoprolol therapy. (4) S/P mitral valve replacement with metallic valve Current Visit: No Status: Chronic Per cardiology: -SBE prophylaxis recommended. -Continue coumadin, goal INR 2.5 to 3.5. INR today 1.9. -TTE with normal function mitral valve. -With sub therapeutic INR, will start heparin drip. Recommend heparin drip until INR at goal 2.5-3.5. Discussion w patient/family: The assessment and plan as outlined above was discussed with the patient who expressed understanding and agreement. All questions were answered. Thank you for involving us in the care of your patient. Please call with any questions. Discussed and reviewed with . Subjective Principal diagnosis: diastolic CHF Interval history: Patient reports symptoms have resolved. Denies complaints. Objective Vital Signs, Last 4 Hours Temp Pulse Resp BP Pulse Ox 11/28/18 11:02 97.7 F 75 16 111/73 93 General: Conversant, No Apparent Distress HEENT: Atraumatic, Normocephaly, Mucus Membranes Moist Neck: No JVD, Normal carotid pulses Cardiac: Normal S1 and S2, Other (Irregularly irregular, mitral click noted. ) Lungs: Normal Breath Sounds, No Wheeze, Rales, Rhonchi Neuro: Alert and responsive, No focal deficits noted Abdomen: Soft, Non-Tender Skin: No rashes noted on visualized skin Musculoskeletal: No Chest Wall Tenderness Extremities: No Clubbing, No Cyanosis, No Edema, Normal Pulses Results 11/28/18 03:25 11/28/18 03:25 Lab Results Impressions Chest X-Ray 11/27/18 09:26 IMPRESSION: Stable left basilar atelectasis/scarring. No acute focal process. No pulmonary edema. D/ / Cecil Wright MD / Cecil Wright MD Interpreting Provider: Cecil Wright MD Echocardiogram 11/27/18 10:05 Impressions: LVEF 65-70%. Normal LV chamber size and systolic function. Mild concentric left ventricular hypertrophy. Indeterminate diastolic function. Moderately dilated left atrium. The right ventricle was not well visualized Mechanical normal functioning mitral valve with mean gradient of 5mmHg @ HR of 82/min Mild tricuspid regurgitation. No evidence of pulmonary hypertension. Left Ventricular Wall Motion: Rest Echo Findings All wall segments showed normal motion. Findings: Study Quality * Technically adequate exam. ECG Findings * Atrial fibrillation. Left Ventricle * LVEF 65-70%. * Normal LV chamber size and systolic function. * Mild concentric left ventricular hypertrophy. * Indeterminate diastolic function. Right Ventricle * The right ventricle was not well visualized Left Atrium * Moderately dilated left atrium. Right Atrium * Normal right atrial size. Interatrial Septum * No evidence of PFO by color Doppler. Aortic Valve * Aortic valve not well visualized. * No aortic regurgitation. * No aortic stenosis. Mitral Valve * Mechanical normal functioning mitral valve with mean gradient of 5mmHg * Mitral valve not well visualized. Tricuspid Valve * Mild tricuspid regurgitation. * No tricuspid stenosis. * Normal tricuspid valve structure. * No evidence of pulmonary hypertension. Pulmonic Valve * Pulmonic valve not well visualized. Aorta * Normally sized aortic root. Pericardium * The pericardium appears normal. IVC * Normal IVC dimensions and inspiratory collapse. Pulmonary Artery * Pulmonary artery not well visualized. Active Medications Acetaminophen (Tylenol) 650 mg PO Q6HR PRN PRN Reason: Mild Pain/Fever Stop: 05/27/19 17:46 Last Admin: 11/26/18 18:48 Dose: 650 mg Documented by: Aspirin (Aspirin) 81 mg PO DAILY [facility] Stop: 05/28/19 09:01 Last Admin: 11/28/18 08:19 Dose: 81 mg Documented by: Cyanocobalamin (Vitamin B12) 500 mcg PO QPM [facility] Stop: 05/28/19 18:01 Last Admin: 11/27/18 18:09 Dose: 500 mcg Documented by: Diltiazem HCl (Cardizem Cd) 240 mg PO QPM [facility] Stop: 05/28/19 18:01 Last Admin: 11/27/18 18:09 Dose: 240 mg Documented by: Furosemide (Lasix) 40 mg IVP DAILY [facility] Stop: 05/28/19 09:01 Last Admin: 11/28/18 08:19 Dose: 40 mg Documented by: Gabapentin (Neurontin) 600 mg PO TID [facility] Stop: 05/27/19 21:01 Last Admin: 11/28/18 08:18 Dose: 600 mg Documented by: Heparin Sodium (Porcine) (Heparin) 9,000 unit IVP Q6HR PRN PRN Reason: SEE COMMENTS Stop: 05/29/19 08:43 Heparin Sodium (Porcine) (Heparin) 4,500 unit IVP Q6H PRN PRN Reason: SEE COMMENTS Stop: 05/29/19 08:43 Nitroglycerin (Nitroglycerin Premix 25 Mg/250 Ml) 25 mg in 250 mls @ 1.5 mls/hr IVC .Q24H [facility]; Protocol Stop: 05/28/19 10:16 Last Admin: 11/28/18 09:39 Dose: Not Given Documented by: Heparin Sodium/Dextrose (Heparin 25,000 Unit/250 Ml D5w) 25,000 unit in 250 mls @ 22.68 mls/hr IVC .Q11H2M [facility]; Protocol Stop: 05/29/19 08:46 Last Admin: 11/28/18 09:38 Dose: 14.01 units/kg/hr, 22.7 mls/hr Documented by: Metoprolol Succinate (Toprol Xl) 150 mg PO DAILY [facility] Stop: 05/28/19 09:01 Last Admin: 11/28/18 08:18 Dose: 150 mg Documented by: Naloxone HCl (Narcan) 0.4 mg IVP Q2MPRN PRN PRN Reason: SEE COMMENTS Stop: 05/27/19 17:46 Nitroglycerin (Nitroglycerin) 0.4 mg SL Q5MIN PRN PRN Reason: Chest Pain Stop: 05/27/19 18:14 Last Admin: 11/26/18 06:55 Dose: 0.4 mg Documented by: Ondansetron HCl (Zofran Odt) 4 mg SL Q8HR PRN PRN Reason: Nausea And Vomiting Stop: 05/27/19 17:46 Potassium Chloride (Potassium Chloride) 10 meq PO DAILY PRN PRN Reason: SEE COMMENTS Sertraline HCl (Zoloft) 100 mg PO DAILY [facility] Stop: 05/28/19 09:01 Last Admin: 11/28/18 08:18 Dose: 100 mg Documented by: Thiamine HCl (Vitamin B-1) 100 mg PO QPM [facility] Stop: 05/28/19 18:01 Last Admin: 11/27/18 18:09 Dose: 100 mg Documented by: Trazodone HCl (Trazodone) 100 mg PO HS [facility] Stop: 05/27/19 21:01 Last Admin: 11/27/18 19:35 Dose: 100 mg Documented by: Warfarin Sodium (Coumadin Perpt) 1 each PO DAILY@1800 PRN; Protocol PRN Reason: SEE COMMENTS Stop: 05/27/19 18:01 Warfarin Sodium (Coumadin) 5 mg PO 1800 [facility]; Protocol Stop: 11/28/18 18:01 Laboratory Tests 11/28/18 03:25 INR 1.9 - Imaging and Cardiology Chest Xray: report reviewed Echo: report reviewed - EKG Interpretation EKG results cardiology: other (Telemetry reviewed with average HR previous 12 hours noted to be 85, a.fib. PVCs noted.) Consult Discharge Plan - Plan Referrals: Mauricio Marquez, VENTILATED RIB FITTER [Primary Care Provider] -
--- NOTE | 2018-11-28 14:26 | Internal Med Progress Note ---
Hospitalist Progress Note - Encounter Date of Encounter: 11/28/18 Time of Encounter: 13:10 - Subjective Interval History: Ms. Cottrell is a 53 year old female past medical history of atrial fibrillation on anticoagulation, Diastolic CHF, coronary disease, hypertension, valvular disease with mechanical valve placement on Coumadin for anticoagulation now she p resented to ER with right-sided chest pressure radiating into her right jaw worsening with inspiration. She also complained about shortness of breath and bilateral lower extremity edema. EKG in the ER was sinus with no ST-T wave abnormalities initial troponin was negative chest x-ray does show some vascular congestion d-dimer was not elevated. She was given IV Lasix. She was admitted in the hospital and placed on color television console monitor. Her serial troponin came back as negative. She was started on IV Lasix. Patient stated she is feeling little better today. She still have some swelling in b/l LE and mild SALEH. - Exam Vitals: Temp Pulse Resp BP Pulse Ox 97.7 F 75 16 111/73 93 11/28/18 11:02 11/28/18 11:02 11/28/18 11:02 11/28/18 11:02 11/28/18 11:02 Exam: Gen: Alert, awake, Oriented to time,place and person Chest: Diminished breath sounds B/L, No wheezing, No crackles, No rales Heart: S1S2+ RRR , 2/6 ESM Abd: Soft, NT, BS +, No organomegaly Ext: 1+ edema, pulses are palpable, No calf tenderness Neuro : No acute focal neuro deficits noticed Skin: No rash. - Assessment and Plan (1) Congestive heart failure Current Visit: Yes Status: Acute Assessment and Plan: Acute on chronic diastolic CHF exacerbation improving Will switch to PO Lasix today cont close monitoring Cont ASA, Lasix and Metoprolol (2) H/O mitral valve replacement with mechanical valve Current Visit: No Status: Chronic Assessment and Plan: Still sub therapeutic INR Need to continue heparin gtt continue Coumadin .. Dosing as per pharmacy Patient does need to stay in the hospital more than 2 midnights due to her complex medical problems. So we will change her to full admission today. I did review my colleague MAJOR GIFTS DIRECTOR Christie Holcomb's H & P including HPI, PMH, PSH, FH, SH, and ROS no changes noticed (3) Chest pain Current Visit: Yes Status: Acute Assessment and Plan: Patient presented with chest pain which started yesterday l right sided radiating to jaw with shortness of breath and nausea. Initial troponin was negative EKG with no ST-T wave abnormalities history of CHF she was given IV Lasix as well as aspirin she was dancing chest pain on assessment given nitroglycerin if it continues we will need to place patient on nitro drip- previous stress test was completed 2014 which was negative for ischemia/infarct Trend troponins Continuous cardiac monitoring Obtain cardiac echo Currently no stress test will be completed tomorrow since it is a holiday due to the patient's body habitus she will be a 2 day stress and will need to undergo stress on Monday Continue with aspirin and statin A shae nitroglycerin as needed for chest pain We will obtain EKG in a.m. 11/26 Continues to experience chest pain discussed with cardiology who will see patient up on consult suspect this may be related to fluid overload Troponins are negative EKG with nothing acute Continue nitroglycerin as needed We will obtain cardiac echo-cardiology states that no new findings on echo can follow-up as outpatient 11/27 No chest pain foist today Troponins are negative Cardiac echo is pending at this time Continue to diurese patient Continue with aspirin and statin, beta shae nitroglycerin as needed for chest pain (4) History of atrial fibrillation Current Visit: No Status: Chronic Assessment and Plan: rate controlled with current medications on heparin drip for anticoagulation (5) Obesity Current Visit: No Status: Chronic Assessment and Plan: Counseled to lose weight (6) LAZ (obstructive sleep apnea) Current Visit: No Status: Acute (7) DVT prophylaxis Current Visit: No Status: Acute Assessment and Plan: on Heparin (8) HTN (hypertension) Current Visit: No Status: Chronic Assessment and Plan: Stable blood pressure with current home medications (9) Anticoagulation monitoring, INR range 2.5-3.5 Current Visit: Yes Status: Acute - Time Spent with Patient Total time spent is greater than 50% in coordination of care (as documented) at patient's floor/unit and/or counseling patient: Internal Medicine: Result - Labs CBC & Chem 7: 11/28/18 03:25 11/28/18 03:25 Labs: Short CBC 11/28/18 Range/Units 03:25 WBC 9.7 (4.3-11.1) K/mcL Hgb 13.3 (11.5-15.4) g/dL Hct 42.0 (35.3-44.9) % Plt Count 139 L (140-400) K/mcL Neutrophils # 4.8 (1.6-8.9) K/mcL BMP 11/28/18 03:25 Sodium 139 Potassium 3.2 L Chloride 99 Carbon Dioxide 31 H BUN 26 H Creatinine 0.94 Glucose 125 H Calcium 9.4 - ABG Interpretation ABG results: PT/INR, D-dimer PT 21.8 Seconds (9.4-12.1) H 11/28/18 03:25 D-Dimer < 215 ng/mLFEU (0-500) 11/25/18 15:53 - Impressions Impressions Echocardiogram 11/27/18 10:05 Impressions: LVEF 65-70%. Normal LV chamber size and systolic function. Mild concentric left ventricular hypertrophy. Indeterminate diastolic function. Moderately dilated left atrium. The right ventricle was not well visualized Mechanical normal functioning mitral valve with mean gradient of 5mmHg @ HR of 82/min Mild tricuspid regurgitation. No evidence of pulmonary hypertension. Left Ventricular Wall Motion: Rest Echo Findings All wall segments showed normal motion. Findings: Study Quality * Technically adequate exam. ECG Findings * Atrial fibrillation. Left Ventricle * LVEF 65-70%. * Normal LV chamber size and systolic function. * Mild concentric left ventricular hypertrophy. * Indeterminate diastolic function. Right Ventricle * The right ventricle was not well visualized Left Atrium * Moderately dilated left atrium. Right Atrium * Normal right atrial size. Interatrial Septum * No evidence of PFO by color Doppler. Aortic Valve * Aortic valve not well visualized. * No aortic regurgitation. * No aortic stenosis. Mitral Valve * Mechanical normal functioning mitral valve with mean gradient of 5mmHg * Mitral valve not well visualized. Tricuspid Valve * Mild tricuspid regurgitation. * No tricuspid stenosis. * Normal tricuspid valve structure. * No evidence of pulmonary hypertension. Pulmonic Valve * Pulmonic valve not well visualized. Aorta * Normally sized aortic root. Pericardium * The pericardium appears normal. IVC * Normal IVC dimensions and inspiratory collapse. Pulmonary Artery * Pulmonary artery not well visualized. Consult Discharge Plan - Plan Referrals: Mauricio Marquez, DIRECT MARKETING COORDINATOR [Primary Care Provider] - (1) Congestive heart failure Qualifiers: Heart failure type: diastolic Heart failure chronicity: acute on chronic Qualified Code(s): I50.33 - Acute on chronic diastolic (congestive) heart failure (3) Chest pain Qualifiers: Chest pain type: unspecified Qualified Code(s): R07.9 - Chest pain, unspecified (5) Obesity Qualifiers: Obesity type: unspecified obesity type Obesity classification: adult class 3 (BMI >= 40) Serious obesity comorbidity presence: unspecified whether serious comorbidity present Body mass index: BMI 45.0-49.9 Qualified Code(s): E66.01 - Morbid (severe) obesity due to excess calories; Z68.42 - Body mass index (BMI) 45.0-49.9, adult (8) HTN (hypertension) Qualifiers: Hypertension type: essential hypertension Qualified Code(s): I10 - Essential (primary) hypertension
[2018-11-28] MEDS: Cyanocobalamin (B-12) 1,000 MCG TABLET PO SCH (16:25)
[2018-11-28] MEDS: Thiamine (B-1) 100 MG TABLET PO SCH (16:25)
[2018-11-28] MEDS: Diltiazem CD (24hr) 240 MG CAPSULE PO SCH (16:25)
[2018-11-28] MEDS ORDERED: *HR* Warfarin 7.5 MG TABLET PO ONE (18:00)
[2018-11-28] MEDS: traZODone 50 MG TABLET PO SCH (19:38)
[2018-11-29 00:51] LABS: INR 2.3; Prothrombin Time 26.3 Seconds (9.4-12.1)
[2018-11-29] MEDS: Metoprolol XL (24 HR) Succ 50 MG TAB.ER.24H PO SCH (08:08)
[2018-11-29] MEDS: Gabapentin 300 MG CAPSULE PO SCH (08:08)
[2018-11-29] MEDS: Heparin 25,000 UNIT/250 ML D5W 25,000 UNIT/250 ML IV.SOLN IVC SCH (08:09)
[2018-11-29] MEDS: Aspirin 81 MG TAB.CHEW PO SCH (08:09)
[2018-11-29] MEDS ORDERED: Furosemide 20 MG TABLET PO SCH (09:00)
[2018-11-29 10:04] LABS: INR 2.5; Prothrombin Time 28.4 Seconds (9.4-12.1)
--- NOTE | 2018-11-29 11:19 | Electrocardiograph Report ---
[facility] [employer] Test Date: 2018-11-25 Pat Name: Deonna Cottrell Department: EXAM19 Room: 2A43 Gender: F Outpatient Pharmacy Manager: : [id number] Requested By: Jesus Rome Order Number: [id number] Reading MD: Bryce Al Measurements Intervals [place] Rate: 75 P: 38 GA: 223 QRS: -3 QRSD: 90 T: 42 QT: 381 QTc: 426 Interpretive Statements Sinus rhythm Prolonged GA interval Low voltage, precordial leads Electronically Signed On 11-29-2018 11:18:13 EDT by Bryce Al
[2018-11-29 11:42] VITALS: BP 109/76
--- NOTE | 2018-11-29 13:33 | Discharge Summary ---
- NOTES TO OUTPATIENT PROVIDER Notes to Outpatient Provider: f/u with PCP in one week. f/u with Cardiology in 1-2 weeks. Date of Encounter: 11/29/18 Time of Encounter: 13:31 - Discharge Diagnosis (1) Chest pain Priority: Primary Status: Acute Qualifiers: Chest pain type: unspecified Qualified Code(s): R07.9 - Chest pain, unspecified (2) Congestive heart failure Priority: Primary Status: Acute Qualifiers: Heart failure type: diastolic Heart failure chronicity: acute on chronic Qualified Code(s): I50.33 - Acute on chronic diastolic (congestive) heart failure (3) H/O mitral valve replacement with mechanical valve Priority: Secondary Status: Chronic (4) History of atrial fibrillation Priority: Secondary Status: Chronic (5) Obesity Priority: Secondary Status: Chronic Qualifiers: Obesity type: unspecified obesity type Obesity classification: adult class 3 (BMI >= 40) Serious obesity comorbidity presence: unspecified whether serious comorbidity present Body mass index: BMI 45.0-49.9 Qualified Code(s): E66.01 - Morbid (severe) obesity due to excess calories; Z68.42 - Body mass index (BMI) 45.0-49.9, adult (6) LAZ (obstructive sleep apnea) Priority: Secondary Status: Acute (7) DVT prophylaxis Priority: Secondary Status: Acute (8) HTN (hypertension) Priority: Secondary Status: Chronic Qualifiers: Hypertension type: essential hypertension Qualified Code(s): I10 - Essential (primary) hypertension (9) Anticoagulation monitoring, INR range 2.5-3.5 Priority: Secondary Status: Acute Hospital course: Ms. Cottrell is a 53 year old female past medical history of atrial fibrillation on anticoagulation, Diastolic CHF, coronary disease, hypertension, valvular disease with mechanical valve placement on Coumadin for anticoagulation now she presented to ER with right-sided chest pressure radiating into her right jaw worsening with inspiration. She also complained about shortness of breath and bilateral lower extremity edema. EKG in the ER was sinus with no ST-T wave abnormalities initial troponin was negative chest x-ray does show some vascular congestion d-dimer was not elevated. She was given IV Lasix. She was admitted in the hospital and placed on teletypesetter monitor. Her serial troponin came back as negative. She was started on IV Lasix. She was evaluated by mop machine operator, who recommend to start her on Aspirin. Her 2D Echo showed preserved LVEF and no wall motion abnormalities noticed. At this point cardiology recomend to continue aggressive diuresis and start her on heparin gtt since pt INR was sub therapeutic. Finally her INR @ 2.5 today, so will d/c her home in stable condition with PO Lasix and recommend to continue coumadin at 5mg and f/u @ [facility] in AM. - Time Spent with Patient Total time spent providing and/or coordinating discharge services: - Discharge Medications Prescriptions: New Aspirin 81 mg PO DAILY #30 tab.chew Furosemide [Lasix] 20 mg PO DAILY #30 tablet Continued Potassium Chloride [K-Tab ER] 10 meq PO DAILY PRN PRN Reason: See Comments Warfarin [Coumadin] 5 mg PO MOTUWETHFRSA Furosemide [Lasix] 80 mg PO DAILY PRN PRN Reason: Swelling Ped Multivit #43/Iron Fumarate [Flintstones Complete Chew Tab] 1 tab PO QPM Diltiazem CD (24hr) [Cardizem CD] 240 mg PO QPM #30 cap.er.24h Cyanocobalamin (Vitamin B-12) [Vitamin B-12] 500 mcg PO QPM Gabapentin [Neurontin] 600 mg PO TID Thiamine HCl [Vitamin B-1] 100 mg PO QPM Trazodone HCl 100 mg PO HS Sertraline [Zoloft] 100 mg PO DAILY Metoprolol XL (24 HR) Succ [Toprol Xl] 150 mg PO DAILY Warfarin [Coumadin] 2.5 mg PO VO Home Medications: Potassium Chloride [K-Tab ER] 10 meq PO DAILY PRN 08/15/17 [History] Warfarin [Coumadin] 5 mg PO MOTUWETHFRSA 08/15/17 [History] Furosemide [Lasix] 80 mg PO DAILY PRN 03/04/18 [History] Ped Multivit #43/Iron Fumarate [Flintstones Complete Chew Tab] 1 tab PO QPM 03/04/18 [History] Diltiazem CD (24hr) [Cardizem CD] 240 mg PO QPM #30 cap.er.24h 03/05/18 [Rx] Cyanocobalamin (Vitamin B-12) [Vitamin B-12] 500 mcg PO QPM 06/01/18 [History] Gabapentin [Neurontin] 600 mg PO TID 06/01/18 [History] Thiamine HCl [Vitamin B-1] 100 mg PO QPM 06/01/18 [History] Trazodone HCl 100 mg PO HS 06/01/18 [History] Sertraline [Zoloft] 100 mg PO DAILY 09/05/18 [History] Metoprolol XL (24 HR) Succ [Toprol Xl] 150 mg PO DAILY 11/25/18 [History] Warfarin [Coumadin] 2.5 mg PO VO 11/25/18 [History] Aspirin 81 mg PO DAILY #30 tab.chew 11/29/18 [Rx] Furosemide [Lasix] 20 mg PO DAILY #30 tablet 11/29/18 [Rx] Allergies/Adverse Reactions: Allergy/AdvReac Type Severity Reaction Status Date / Time hydrochlorothiazide Allergy Hives Verified 09/20/18 11:05 hydrocodone [From Vicodin] Allergy Itching Verified 09/20/18 11:05 acetaminophen [From Tylenol] AdvReac Gastrointestinal Verified 09/20/18 11:05 Upset Date of admission: 11/28/18 09:29 Primary care physician: Mauricio Marquez CNP Consults: 11/26/18 10:14 Consult to Cardiology [CONS] Routine Comment: Consulting Provider: Cardiology Marsha Reason for Consult: CP Time Notified: 10:15 Call Completed: Yes 11/27/18 08:57 Consult to Nurse Navigator [CONS] Routine Comment: CHF - Constitutional Vitals: Temp Pulse Resp BP Pulse Ox 97.5 F L 95 18 109/76 92 11/29/18 11:40 11/29/18 11:40 11/29/18 11:40 11/29/18 11:40 11/29/18 11:40 General appearance: Present: A&O X 3, morbidly obese Exam: Gen: Alert, awake, Oriented to time,place and person Chest: Diminished breath sounds B/L, No wheezing, No crackles, No rales Heart: S1S2+ RRR, 2/6 ESM Abd: Soft, NT, BS +, No organomegaly Ext: improved edema, pulses are palpable, No calf tenderness Neuro : No acute focal neuro deficits noticed Skin: No rash. - Patient Status Disposition: Home, Self-Care Condition: Good Overall status at discharge: patient is back to baseline - Discharge Instructions Follow Up With: Chester,Ali N, CLOTH SHEARING SUPERVISOR [Primary Care Provider] - Rashawn Abebe, ETHAN [Advanced Practice Nurse] - - Diet and Activity Activity: increase activity as tolerated Diet: low salt diet
[2018-11-29] MEDS ORDERED: *HR* Warfarin 5 MG TABLET PO ONE (18:00)
== END 2018-11-29 15:18 | disposition home or self-care (01) | DRG 194 ==
LOC: EMEROOARM 15:35 → 3BNU 15:35 → SUATTDRO 19:16 → 3BNU 19:43 → 2ANU 11-28 16:34
PROVIDERS: ADMIT Internal Medicine; ATTEND Family Medicine